=== PATIENT | female | born 1970 | race Caucasian/White ===

== ENCOUNTER 2017-12-29 22:44 | Emergency (ER) | payer OTHER ==
[2017-12-29 23:21] LABS: Absolute Lymphocytes (CBC) 2.8 K/uL (0.7-4.9); Absolute Monocytes 0.5 K/uL (0.1-1.3); Absolute Neutrophil 5.8 K/uL (1.8-8.0); Basophils % 0.6 % (0-1.3); Eosinophils % 0.6 % (0-4.4); Hematocrit 41.9 % (36.0-45.0); Lymphocytes % 30.4 % (15.3-44.8); MCH 31.7 pg (27.0-35.0); MCV 91.9 fL (80-100); MPV 9.3 fL (7.6-11.3); Monocytes % 5.3 % (3.3-12.3); RBC Red Blood Cell Count 4.56 M/uL (3.86-4.86)
[2017-12-30 01:03] LABS: Albumin 3.6 g/dL (3.4-5.0); Bilirubin Total 0.4 mg/dL (0.2-1.0); Potassium 3.6 mmol/L (3.5-5.1)
--- NOTE | 2017-12-30 01:39 | EDPHYS ---
Physician Documentation [facility] Name: Emma Carranza Age: 47 yrs Sex: Female : 1970 Arrival Date: 12/29/2017 Time: 22:45 Bed 26 Private MD: Steven Lea R ED Physician Antonino Mcqueen HPI: 12/30 00:20 This 47 yrs old Female presents to ER via Ambulatory with complaints of Chest ps1 Pain. 00:20 onset was the last week. Worse over the last couple of days. Pain is at the sternum. No ps1 radiation. Worse with palpation. Rated as moderate. No CAD history. No cough, fever. . 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:26 unk rk2 Historical: - Allergies: 12/29 23:04 Sulfa (Sulfonamide Antibiotics); fc 23:04 Benadryl; fc 23:04 Sudafed; fc - Home Meds: 23:04 Depakote 1000 mg Oral 3 times per day [Active]; Topamax 100 mg Oral tab 1 tab 2 times fc per day [Active]; Keppra 500 mg Oral tab 1 tab 2 times per day [Active]; gabapentin 300 mg oral cap 1 cap twice a day [Active]; Alma 180 mg Oral tab 1 tab twice a day [Active]; pravastatin 40 mg oral tab 1 tab nightly [Active]; Imitrex 100 mg Oral tab 1 tab as needed [Active]; quetiapine 100 mg oral tab 1 tab 2 times per day [Active]; - PMHx: 23:04 Seizures; Headaches; allergies; High Cholesterol; fc - PSHx: 23:04 foot surg; placement and removal of vagus nerve stimulator; fc - Immunization history:: Last tetanus immunization: unknown. - Social history:: Smoking status: Patient/guardian denies using tobacco. - Ebola Screening: : Patient negative for fever greater than or equal to 101.5 degrees Fahrenheit, and additional compatible Ebola Virus Disease symptoms Patient denies exposure to infectious person Patient denies travel to an Ebola-affected area in the 21 days before illness onset. ROS: 12/30 00:20 Constitutional: Negative for fever, chills, and weight loss, Eyes: Negative for injury, ps1 pain, redness, and discharge, ENT: Negative for injury, pain, and discharge, Respiratory: Negative for shortness of breath, cough, wheezing, and pleuritic chest pain, Abdomen/GI: Negative for abdominal pain, nausea, vomiting, diarrhea, and constipation, Back: Negative for injury and pain, Skin: Negative for injury, rash, and discoloration, Neuro: Negative for headache, weakness, numbness, tingling, and seizure. Cardiovascular: Positive for chest pain. MS/extremity: Positive for pain, of the mid-sternal area. Exam: 00:20 Musculoskeletal/extremity: Extremities: grossly normal except: noted in the mid-sternal ps1 area: pain. 01:36 Constitutional: This is a well developed, well nourished patient who is awake, alert, ps1 and in no acute distress. Head/Face: Normocephalic, atraumatic. Cardiovascular: Regular rate and rhythm. No gallops, murmurs, or rubs. Normal PMI, no JVD. No pulse deficits. Respiratory: Lungs have equal breath sounds bilaterally, clear to auscultation and percussion. No rales, rhonchi or wheezes noted. No increased work of breathing, no retractions or nasal flaring. Abdomen/GI: Soft, non-tender, with normal bowel sounds. No distension or tympany. No guarding or rebound. No evidence of tenderness throughout. Skin: Warm, dry with normal turgor. Normal color with no rashes, no lesions, and no evidence of cellulitis. MS/ Extremity: Pulses equal, no cyanosis. Neurovascular intact. Full, normal range of motion. Neuro: Awake and alert, GCS 15, oriented to person, place, time, and situation. Cranial nerves II-XII grossly intact. Sensory grossly intact. 01:36 Chest/axilla: Inspection: normal, Palpation: tenderness, that is moderate, of the mid-sternal area, that totally reproduces the patient's complaints. Vital Signs: 12/29 22:56 BP 153 / 84; Pulse 87; Resp 18; Temp 98.7(O); Pulse Ox 100% on R/A; Weight 86.18 kg fc (R); Height 5 ft. 6 in. (167.64 cm) (R); Pain 8/10; 12/30 00:43 BP 131 / 68; Pulse 87; Resp 18; Pulse Ox 100% on R/A; tl3 01:02 BP 114 / 78; Pulse 79; Resp 17; Pulse Ox 100% on R/A; rk2 01:26 BP 124 / 85; Pulse 89; Resp 18; Pulse Ox 100% on R/A; rk2 12/29 22:56 Body Mass Index 30.67 (86.18 kg, 167.64 cm) fc MDM: 12/29 22:57 Data reviewed: vital signs, nurses notes, lab test result(s), EKG, radiologic studies. ps1 23:01 Patient medically screened. ps1 12/30 01:36 ED course: Low HEART score. Pain reproduced on exam. Labs negative. Stable for ps1 discharge with follow up. . 12/29 23:01 Order name: CBC with Diff; Complete Time: 23:48 ps1 12/29 23:01 Order name: Magnesium; Complete Time: 01:35 ps1 12/29 23:01 Order name: Troponin (emerg Dept Use Only); Complete Time: 00:10 ps1 12/29 23:01 Order name: CMP; Complete Time: 01:35 ps1 12/30 00:43 Order name: Urine Dipstick--Ancillary (enter results) eb 12/30 00:43 Order name: Urine --Ancillary (enter results) eb 12/29 23:01 Order name: XRAY Chest (1 view) ps1 12/29 23:01 Order name: EKG; Complete Time: 23:01 ps1 12/29 23:01 Order name: Cardiac monitoring; Complete Time: 23:10 [facility] 12/29 23:01 Order name: EKG - Nurse/Tech; Complete Time: 23:10 [facility] 12/29 23:01 Order name: IV Saline Lock; Complete Time: 23:10 [facility] 12/29 23:01 Order name: Labs collected and sent; Complete Time: 23:10 [facility] 12/29 23:01 Order name: O2 Per Protocol; Complete Time: 23:10 [facility] 12/29 23:01 Order name: O2 Sat Monitoring; Complete Time: 23:10 [facility] 12/29 23:01 Order name: Urine Dipstick-Ancillary (obtain specimen); Complete Time: 00:35 ps1 EC/19 22:57 Rate is 86 beats/min. Rhythm is regular. QRS [place] is Normal. MT interval is normal. QRS ps1 interval is normal. QT interval is normal. No Q waves. T waves are Flattened in leads V4, V5, V6. No ST changes noted. Clinical impression: NSR w/ Non-specific ST/T Changes. Interpreted by me. Administered Medications: No medications were administered Disposition: 12/30/17 01:38 Discharged to Home. Impression: Costochondritis. - Condition is Stable. - Discharge Instructions: Costochondritis, [id number]. - Prescriptions for Anaprox 275 mg Oral Tablet - take 1 tablet by ORAL route every 8 hours As needed; 30 tablet. - Medication Reconciliation Form, Thank You Letter, Antibiotic Education, Prescription Opioid Use form. - Follow up: Steven Lea MD; When: As needed; Reason: Recheck today's complaints, Continuance of care, Re-evaluation by your physician. Follow up: Emergency Department; When: As needed; Reason: Fever > 102 F, Trouble breathing, Worsening of condition. - Problem is new. - Symptoms have improved. Signatures: Dispatcher [employer] EDMS Amee Moya RN RN fc Antonino Mcqueen MD MD ps1 Deb Negron RN RN rk2 Corrections: (The following items were deleted from the chart) 12/30 01:46 01:38 12/30/2017 01:38 Discharged to Home. Impression: Costochondritis. Condition is rk2 Stable. Forms are Medication Reconciliation Form, Thank You Letter, Antibiotic Education, Prescription Opioid Use. Follow up: Steven Lea; When: As needed; Reason: Recheck today's complaints, Continuance of care, Re-evaluation by your physician. Follow up: Emergency Department; When: As needed; Reason: Fever > 102 F, Trouble breathing, Worsening of condition. Problem is new. Symptoms have improved. ps1
--- NOTE | 2017-12-30 01:39 | ER ---
Nurse's Notes [facility] Name: Emma Carranza Age: 47 yrs Sex: Female : 1970 Arrival Date: 12/29/2017 Time: 22:45 Bed 26 Private MD: Steven Lea R Diagnosis: Costochondritis Presentation: 12/29 22:56 Presenting complaint: Father states: that pt has been having chest pain that is fc progressively getting worse for 2 days. Complains of nausea, vomiting and shortness of breath. Transition of care: patient was not received from another setting of care. Onset of symptoms was December 27, 2017. Risk Assessment: Do you want to hurt yourself or someone else? Patient reports no desire to harm self or others. Initial Sepsis Screen: Does the patient meet any 2 criteria? No. Patient's initial sepsis screen is negative. Does the patient have a suspected source of infection? No. Patient's initial sepsis screen is negative. Care prior to arrival: None. 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: 12/30 01:26 unk rk2 Historical: - Allergies: 12/29 23:04 Sulfa (Sulfonamide Antibiotics); fc 23:04 Benadryl; fc 23:04 Sudafed; fc - Home Meds: 23:04 Depakote 1000 mg Oral 3 times per day [Active]; Topamax 100 mg Oral tab 1 tab 2 times fc per day [Active]; Keppra 500 mg Oral tab 1 tab 2 times per day [Active]; gabapentin 300 mg oral cap 1 cap twice a day [Active]; Alma 180 mg Oral tab 1 tab twice a day [Active]; pravastatin 40 mg oral tab 1 tab nightly [Active]; Imitrex 100 mg Oral tab 1 tab as needed [Active]; quetiapine 100 mg oral tab 1 tab 2 times per day [Active]; - PMHx: 23:04 Seizures; Headaches; allergies; High Cholesterol; fc - PSHx: 23:04 foot surg; placement and removal of vagus nerve stimulator; fc - Immunization history:: Last tetanus immunization: unknown. - Social history:: Smoking status: Patient/guardian denies using tobacco. - Ebola Screening: : Patient negative for fever greater than or equal to 101.5 degrees Fahrenheit, and additional compatible Ebola Virus Disease symptoms Patient denies exposure to infectious person Patient denies travel to an Ebola-affected area in the 21 days before illness onset. Screenin:31 Abuse screen: Denies threats or abuse. Nutritional screening: No deficits noted. rk2 Tuberculosis screening: No symptoms or risk factors identified. Fall Risk None identified. Assessment: 23:32 General: Appears in no apparent distress. well groomed, well developed, well nourished, rk2 Behavior is calm, cooperative. Pain: Complains of pain in chest Pain does not radiate. Pain: Pain began gradually. Neuro: Level of Consciousness is alert, obeys commands, Oriented to person, place, time, situation. Cardiovascular: Rhythm is irregular. Respiratory: Airway is patent Respiratory effort is even, unlabored, Respiratory pattern is regular, symmetrical. Derm: Skin is pink, warm \T\ dry. 12/30 00:43 Reassessment: No changes from previously documented assessment. Patient and/or family tl3 updated on plan of care and expected duration. Pain level reassessed. Patient is alert, oriented x 3, equal unlabored respirations, skin warm/dry/pink. lab at bedside for repeat lab draw, bella young offered to pt. Vital Signs: 12/29 22:56 BP 153 / 84; Pulse 87; Resp 18; Temp 98.7(O); Pulse Ox 100% on R/A; Weight 86.18 kg fc (R); Height 5 ft. 6 in. (167.64 cm) (R); Pain 8/10; 12/30 00:43 BP 131 / 68; Pulse 87; Resp 18; Pulse Ox 100% on R/A; tl3 01:02 BP 114 / 78; Pulse 79; Resp 17; Pulse Ox 100% on R/A; rk2 01:26 BP 124 / 85; Pulse 89; Resp 18; Pulse Ox 100% on R/A; rk2 12/29 22:56 Body Mass Index 30.67 (86.18 kg, 167.64 cm) ED Course: 12/29 22:45 Patient arrived in ED. am2 22:45 Steven Lea MD is Private Physician. am2 22:46 Antonino Mqcueen MD is Attending Physician. ps1 22:56 Arm band placed on Patient placed in an exam room, on a stretcher. fc 22:58 Triage completed. fc 23:26 Deb Negron, RN is Primary Nurse. rk2 23:31 Patient has correct armband on for positive identification. Placed in gown. Bed in low rk2 position. Call light in reach. housing inspectors on. Pulse ox on. 23:37 X-ray completed. Portable x-ray completed in exam room. Patient tolerated procedure kw well. 23:38 XRAY Chest (1 view) In Process Unspecified. EDWY 12/30 01:38 Steven Lea MD is Referral Physician. ps1 01:46 No provider procedures requiring assistance completed. IV discontinued. Patient rk2 maintains SpO2 saturation greater than 95% on room air. Administered Medications: No medications were administered Outcome: 01:38 Discharge ordered by . ps1 01:46 Discharged to home ambulatory. rk2 01:46 Condition: good 01:46 Discharge instructions given to patient, Prescriptions given X 1. 01:46 Patient left the ED. rk2 Signatures: Dispatcher [employer] EDWY Amee Moya, ECHO RN Lashae Reynolds Amanda 2 Antonino Mcqueen MD MD ps1 Deb Negron, RN RN rk2 Gladis Mancilla RN RN tl3
[2017-12-30 01:53] LABS: Urine Blood NEGATIVE (NEG); Urine Glucose NEGATIVE (NEG); Urine Protein NEGATIVE (NEG); Urine Specific Gravity 1.025 (1.005-1.030)
--- NOTE | 2017-12-30 08:02 | RAD REPORT ---
EXAM DESCRIPTION: Ro Single View12/29/2017 11:37 pm CLINICAL HISTORY: Chest pain COMPARISON: 2009 FINDINGS: The lungs appear clear of acute infiltrate. The heart is normal size IMPRESSION: No acute abnormalities displayed
[2017-12-30 09:47] VITALS: TEMP 98.7; O2SAT 100
[2017-12-30 09:50] VITALS: BP 124/85
== END 2017-12-30 01:46 | disposition home or self-care (01) ==
LOC: ER 22:44
DX: M94.0 Chondrocostal junction syndrome [Tietze] (principal); E78.00 Pure hypercholesterolemia, unspecified; Z88.2 Allergy status to sulfonamides; Z88.8 Allergy status to other drugs, medicaments and biological substances
CPT/HCPCS: 36415; 71045; 80053; 81003; 81025; 83735; 84484; 85025; 93005; 99284

== ENCOUNTER 2018-02-10 08:09 | Inpatient (IN) | payer OTHER ==
[2018-02-10 08:44] LABS: Absolute Lymphocytes (CBC) 1.9 K/uL (0.7-4.9); Absolute Monocytes 0.5 K/uL (0.1-1.3); Absolute Neutrophil 4.5 K/uL (1.8-8.0); Basophils % 0.4 % (0-1.3); Eosinophils % 0.8 % (0-4.4); Hematocrit 37.6 % (36.0-45.0); Lymphocytes % 27.1 % (15.3-44.8); MCH 31.9 pg (27.0-35.0); MCV 91.3 fL (80-100); MPV 9.1 fL (7.6-11.3); Monocytes % 6.6 % (3.3-12.3); RBC Red Blood Cell Count 4.12 M/uL (3.86-4.86)
[2018-02-10 08:54] LABS: Protime INR 1.1
--- NOTE | 2018-02-10 09:03 | ER ---
Nurse's Notes [facility] Name: Emma Carranza Age: 47 yrs Sex: Female : 1970 Arrival Date: 02/10/2018 Time: 08:09 Bed 7 Private MD: Diagnosis: Abdominal tenderness;Cholelithiasis;Other acute pancreatitis Presentation: 02/10 08:10 Presenting complaint: Patient states: Day surgery nurse reports that patient came in ss today for LAP PILLO, but her preop labs came back this morning with elevated lipase level. Dr. Bautista is concerned for poss pancreatitis. Pt sent to ER for further evaluation. Transition of care: DAY SURGERY. Onset of symptoms is unknown. Risk Assessment: Do you want to hurt yourself or someone else? Patient reports no desire to harm self or others. Initial Sepsis Screen:. 08:10 Method Of Arrival: Wheelchair ss 08:10 Acuity: YARY 3 08:13 Care prior to arrival: Medication(s) given: NS TKO IV initiated. 20 GA, in the right ss antecubital area, LABs drawn yesterday for preop. 08:16 Initial Sepsis Screen: Does the patient meet any 2 criteria? No. Patient's initial ss sepsis screen is negative. Does the patient have a suspected source of infection? No. Patient's initial sepsis screen is negative. Note Pt reports upper abd pain has been going on for 1 month. Historical: - Allergies: 08:12 Benadryl; ss 08:12 Sudafed; ss 08:12 Sulfa (Sulfonamide Antibiotics); ss - PMHx: 08:12 allergies; Headaches; High Cholesterol; Seizures; ss - PSHx: 08:12 foot surg; placement and removal of vagus nerve stimulator; ss - Family history:: not pertinent. Screenin:56 Abuse screen: Denies threats or abuse. Denies injuries from another. Nutritional sv screening: No deficits noted. Tuberculosis screening: No symptoms or risk factors identified. Fall Risk None identified. Assessment: 09:57 General: Appears in no apparent distress. comfortable, well developed, Behavior is sv calm, cooperative, appropriate for age. Pain: Denies pain. Neuro: Level of Consciousness is awake, alert, obeys commands, Oriented to person, place, time, situation, Moves all extremities. Full function. Respiratory: Respiratory effort is even, unlabored, Respiratory pattern is regular, symmetrical. Derm: Skin is pink, warm \T\ dry. 10:52 Reassessment: Nurse to call back for report. sv 10:54 Reassessment: Patient appears in no apparent distress at this time. No changes from sv previously documented assessment. Patient and/or family updated on plan of care and expected duration. Pain level reassessed. Patient is alert, oriented x 3, equal unlabored respirations, skin warm/dry/pink. Vital Signs: 08:16 BP 154 / 91; Pulse 79; Resp 15; Temp 98.3(O); Pulse Ox 98% on R/A; Weight 88 kg; Height ss 5 ft. 6 in. (167.64 cm); Pain 10/10; 10:00 BP 132 / 70; Pulse 73; Resp 18; Pulse Ox 100% ; sv 11:02 BP 137 / 77; Pulse 68; Resp 18; Pulse Ox 100% ; sv 08:16 Body Mass Index 31.31 (88.00 kg, 167.64 cm) ED Course: 08:09 Patient arrived in ED. ss 08:10 Long Santiago MD is Attending Physician. sailaja 08:11 Triage completed. ss 08:12 Arm band placed on right wrist. ss 08:39 Initial lab(s) drawn, by me, sent to lab. em1 08:41 EKG done, by hydrotechnical specialist. reviewed by Long Santiago MD. at1 09:01 Steven Lea MD is Hospitalizing Provider. sailaja 09:06 Lamar Mullins, ECHO is Primary Nurse. sv 09:07 X-ray completed. Portable x-ray completed in exam room. Patient tolerated procedure jb2 well. 09:08 XRAY Chest (1 view) In Process Unspecified. EDMS 09:18 Patient moved to MRI via wheelchair. sv 09:37 CT completed. Patient tolerated procedure well. Patient moved back from CT. kw1 09:40 MRI completed. Patient tolerated well. Patient moved back from MRI. em2 09:56 Patient has correct armband on for positive identification. Placed in gown. Bed in low sv position. Call light in reach. Side rails up X2. Adult w/ patient. Pulse ox on. NIBP on. Door closed. Warm blanket given. Head of bed elevated. 10:55 No provider procedures requiring assistance completed. Patient admitted, IV remains in sv place. intact. Administered Medications: 09:47 CANCELLED (Duplicate Order): NS 0.9% 1000 ml IV at 125 ml/hr continuous sv 09:49 CANCELLED (Duplicate Order): NS 0.9% 1000 ml IV at 1 bolus Per protocol; 1000 mL bolus sv 09:56 Drug: NS 0.9% 1000 ml Route: IV; Rate: 1 bolus; Site: right antecubital; sv 10:55 Follow up: Response: No adverse reaction; IV Status: Completed infusion; IV Intake: sv 1000ml 09:56 Drug: Zosyn 3.375 grams Route: IVPB; Infused Over: 60 mins; Site: right antecubital; sv 10:55 Follow up: Response: No adverse reaction; IV Status: Completed infusion; IV Intake: sv 100ml 11:18 Not Given (pt admitted): NS 0.9% 1000 ml IV at 125 ml/hr continuous sv Intake: 10:55 IV: 100ml; Total: 100ml. sv 10:55 IV: 1000ml; Total: 1100ml. sv Outcome: 09:02 Decision to Hospitalize by Provider. sailaja 11:19 Admitted to Med/surg accompanied by tech, family with patient, via wheelchair, room sv 228, with chart, Report called to Shavon DODGE 11:19 Condition: stable 11:19 Instructed on the need for admit. 11:20 Patient left the ED. sv Signatures: Dispatcher [employer] Lamar Macdonald RN Long Bo MD MD cha Buechter, Jesse jb2 Martinez, Eric em1 Magi Morales RN RN Torres Severino2 Andree browning, flitch hanger EKG Tat1 Crystal Purdy kw1 Corrections: (The following items were deleted from the chart) 08:13 08:10 Care prior to arrival: None. [facility]
--- NOTE | 2018-02-10 09:03 | EDPHYS ---
Physician Documentation [facility] Name: Emma Carranza Age: 47 yrs Sex: Female : 1970 Arrival Date: 02/10/2018 Time: 08:09 Bed 7 Private MD: ED Physician Long Santiago HPI: 02/10 08:27 This 47 yrs old Female presents to ER via Wheelchair with complaints of sailaja Abnormal Lab Results. 08:27 The patient presents with abdominal pain in the epigastric area, in the upper abdomen, sailaja abdominal distention in the epigastric area, in the upper abdomen. Onset: The symptoms/episode began/occurred 3 day(s) ago. The symptoms radiate to back. Associated signs and symptoms: none. The symptoms are described as constant, crampy. Modifying factors: The symptoms are alleviated by nothing, the symptoms are aggravated by food, touching the area. Severity of pain: At its worst the pain was moderate. The patient has not experienced similar symptoms in the past. Historical: - Allergies: 08:12 Benadryl; ss 08:12 Sudafed; ss 08:12 Sulfa (Sulfonamide Antibiotics); ss - PMHx: 08:12 allergies; Headaches; High Cholesterol; Seizures; ss - PSHx: 08:12 foot surg; placement and removal of vagus nerve stimulator; ss - Family history:: not pertinent. ROS: 08:27 Constitutional: Negative for fever, chills, and weight loss, Eyes: Negative for injury, sailaja pain, redness, and discharge, ENT: Negative for injury, pain, and discharge, Neck: Negative for injury, pain, and swelling, Cardiovascular: Negative for chest pain, palpitations, and edema, Respiratory: Negative for shortness of breath, cough, wheezing, and pleuritic chest pain, Back: Negative for injury and pain, : Negative for injury, bleeding, discharge, and swelling, MS/Extremity: Negative for injury and deformity, Skin: Negative for injury, rash, and discoloration, Neuro: Negative for headache, weakness, numbness, tingling, and seizure, Psych: Negative for depression, anxiety, suicide ideation, homicidal ideation, and hallucinations, Allergy/Immunology: Negative for hives, rash, and allergies, Endocrine: Negative for neck swelling, polydipsia, polyuria, polyphagia, and marked weight changes, Hematologic/Lymphatic: Negative for swollen nodes, abnormal bleeding, and unusual bruising. 08:27 Abdomen/GI: Positive for abdominal pain. Exam: 08:27 Constitutional: This is a well developed, well nourished patient who is awake, alert, sailaja and in no acute distress. Head/Face: Normocephalic, atraumatic. Eyes: Pupils equal round and reactive to light, extra-ocular motions intact. Lids and lashes normal. Conjunctiva and sclera are non-icteric and not injected. Cornea within normal limits. Periorbital areas with no swelling, redness, or edema. ENT: Nares patent. No nasal discharge, no septal abnormalities noted. Tympanic membranes are normal and external auditory canals are clear. Oropharynx with no redness, swelling, or masses, exudates, or evidence of obstruction, uvula midline. Mucous membranes moist. Neck: Trachea midline, no thyromegaly or masses palpated, and no cervical lymphadenopathy. Supple, full range of motion without nuchal rigidity, or vertebral point tenderness. No Meningismus. Chest/axilla: Normal chest wall appearance and motion. Nontender with no deformity. No lesions are appreciated. Cardiovascular: Regular rate and rhythm with a normal S1 and S2. No gallops, murmurs, or rubs. Normal PMI, no JVD. No pulse deficits. Respiratory: Lungs have equal breath sounds bilaterally, clear to auscultation and percussion. No rales, rhonchi or wheezes noted. No increased work of breathing, no retractions or nasal flaring. Back: No spinal tenderness. No costovertebral tenderness. Full range of motion. Female : Normal external genitalia. Skin: Warm, dry with normal turgor. Normal color with no rashes, no lesions, and no evidence of cellulitis. MS/ Extremity: Pulses equal, no cyanosis. Neurovascular intact. Full, normal range of motion. Neuro: Awake and alert, GCS 15, oriented to person, place, time, and situation. Cranial nerves II-XII grossly intact. Motor strength 5/5 in all extremities. Sensory grossly intact. Cerebellar exam normal. Normal gait. Psych: Awake, alert, with orientation to person, place and time. Behavior, mood, and affect are within normal limits. 08:27 Abdomen/GI: Inspection: abdomen appears normal, Bowel sounds: normal, Palpation: mild abdominal tenderness, moderate abdominal tenderness, in the epigastric area, right upper quadrant and left upper quadrant. 08:27 Abdomen/GI: Liver: no appreciated palpable abnormalities, Hernia: not appreciated. [facility] Vital Signs: 08:16 BP 154 / 91; Pulse 79; Resp 15; Temp 98.3(O); Pulse Ox 98% on R/A; Weight 88 kg; Height ss 5 ft. 6 in. (167.64 cm); Pain 10/10; 10:00 BP 132 / 70; Pulse 73; Resp 18; Pulse Ox 100% ; sv 11:02 BP 137 / 77; Pulse 68; Resp 18; Pulse Ox 100% ; sv 08:16 Body Mass Index 31.31 (88.00 kg, 167.64 cm) ss MDM: 08:10 Patient medically screened. [facility] 08:27 Data reviewed: vital signs, nurses notes, lab test result(s), EKG, radiologic studies, [facility] MRI, plain films, ultrasound. 02/10 08:19 Order name: Basic Metabolic Panel; Complete Time: 09:38 [facility] 02/10 08:19 Order name: CBC with Diff; Complete Time: 09:00 [facility] 02/10 08:19 Order name: Ckmb; Complete Time: 09:38 [facility] 02/10 08:19 Order name: CPK; Complete Time: 09:38 [facility] 02/10 08:19 Order name: LFT's; Complete Time: 09:39 [facility] 02/10 08:19 Order name: Magnesium; Complete Time: 09:39 [facility] 02/10 08:19 Order name: NT PRO-BNP; Complete Time: 09:39 [facility] 02/10 08:19 Order name: PT-INR; Complete Time: 09:38 [facility] 02/10 08:19 Order name: Ptt, Activated; Complete Time: 09:39 [facility] 02/10 08:19 Order name: Troponin (emerg Dept Use Only); Complete Time: 09:39 [facility] 02/10 08:19 Order name: Lipase; Complete Time: 09:39 [facility] 02/10 09:09 Order name: Basic Metabolic Panel EDMS 02/10 09:09 Order name: Basic Metabolic Panel EDMS 02/10 09:09 Order name: CBC with Automated Diff EDMS 02/10 08:19 Order name: XRAY Chest (1 view); Complete Time: 09:39 [facility] 02/10 08:19 Order name: EKG; Complete Time: 08:20 [place] 02/10 08:34 Order name: Cholangiogram; Complete Time: 11:00 EDAL 02/10 09:09 Order name: CONS Physician Consult EDAL 02/10 09:09 Order name: CBC with Automated Diff EDMS 02/10 09:09 Order name: Lipase EDMS 02/10 09:09 Order name: Lipase EDMS 02/10 09:09 Order name: Liver (Hepatic) Function EDMS 02/10 09:09 Order name: Liver (Hepatic) Function EDMS 02/10 09:14 Order name: Urine Dipstick--Ancillary (enter results); Complete Time: 09:39 eb 02/10 09:14 Order name: Urine --Ancillary (enter results); Complete Time: 09:39 eb 02/10 08:19 Order name: EKG - Nurse/Tech; Complete Time: 09:48 [facility] 02/10 08:19 Order name: IV Saline Lock; Complete Time: 09:23 [facility] 02/10 08:19 Order name: Labs collected and sent; Complete Time: 08:39 [place] 02/10 08:19 Order name: O2 Per Protocol; Complete Time: 09:23 [place] 02/10 08:19 Order name: O2 Sat Monitoring; Complete Time: 09:23 [facility] 02/10 08:19 Order name: Urine Dipstick-Ancillary (obtain specimen); Complete Time: 09:49 [facility] 02/10 08:19 Order name: NPO; Complete Time: 09:47 [facility] 02/10 09:09 Order name: CONS Physician Consult EDAL 02/10 09:09 Order name: NPO EDAL Administered Medications: 09:47 CANCELLED (Duplicate Order): NS 0.9% 1000 ml IV at 125 ml/hr continuous sv 09:49 CANCELLED (Duplicate Order): NS 0.9% 1000 ml IV at 1 bolus Per protocol; 1000 mL bolus sv 09:56 Drug: NS 0.9% 1000 ml Route: IV; Rate: 1 bolus; Site: right antecubital; sv 10:55 Follow up: Response: No adverse reaction; IV Status: Completed infusion; IV Intake: sv 1000ml 09:56 Drug: Zosyn 3.375 grams Route: IVPB; Infused Over: 60 mins; Site: right antecubital; sv 10:55 Follow up: Response: No adverse reaction; IV Status: Completed infusion; IV Intake: sv 100ml 11:18 Not Given (pt admitted): NS 0.9% 1000 ml IV at 125 ml/hr continuous sv Disposition: 02/10/18 09:02 Hospitalization ordered by Steven Lea for Inpatient Admission. Preliminary diagnosis are Abdominal tenderness, Cholelithiasis, Other acute pancreatitis. - Bed requested for Telemetry/MedSurg (Inpatient). - Status is Inpatient Admission. sv - Condition is Fair. - Problem is new. - Symptoms have improved. UTI on Admission? No Signatures: Dispatcher [employer] EDMS Lamar Mullins RN RN sv Anderson, Corey, MD MD cha Smirch, Shelby, RN RN Shereen Hamilton Corrections: (The following items were deleted from the chart) 09:04 09:02 Hospitalization Ordered by Steven Lea MD for Inpatient Admission. Preliminary eb diagnosis is Abdominal tenderness; Cholelithiasis; Other acute pancreatitis. Bed requested for Telemetry/MedSurg (Inpatient). Status is Inpatient Admission. Condition is Fair. Problem is new. Symptoms have improved. UTI on Admission? No. sailaja 09:47 08:20 NS 0.9% 1000 ml IV at 125 ml/hr continuous ordered. sailaja sv 09:47 09:47 NS 0.9% 1000 ml IV at 125 ml/hr continuous ordered. sv sv 09:49 08:20 NS 0.9% 1000 ml IV at 1 bolus Per protocol; 1000 mL bolus ordered. sailaja sv 09:49 09:49 NS 0.9% 1000 ml IV at 1 bolus Per protocol; 1000 mL bolus ordered. sv sv 09:50 08:19 Cardiac monitoring ordered. sailaja sv 10:21 09:04 02/10/2018 09:02 Hospitalization Ordered by Steven Lea MD for Inpatient eb Admission. Preliminary diagnosis is Abdominal tenderness; Cholelithiasis; Other acute pancreatitis. Bed requested for Telemetry/MedSurg (Inpatient). Status is Inpatient Admission. Condition is Fair. Problem is new. Symptoms have improved. UTI on Admission? No. eb 11:20 10:21 02/10/2018 09:02 Hospitalization Ordered by Steven Lea MD for Inpatient sv Admission. Preliminary diagnosis is Abdominal tenderness; Cholelithiasis; Other acute pancreatitis. Bed requested for Telemetry/MedSurg (Inpatient). Status is Inpatient Admission. Condition is Fair. Problem is new. Symptoms have improved. UTI on Admission? No. eb
[2018-02-10] MEDS ORDERED: ACETAMINOPHEN 500 MG TAB PO PRN (09:06)
[2018-02-10 09:13] LABS: ALT/SGPT 20 U/L (12-78); AST/SGOT 19 U/L (15-37); Albumin 3.8 g/dL (3.4-5.0); Alkaline Phosphatase 92 U/L (45-117); BUN Blood Urea Nitrogen 15 mg/dL (7-18); Bicarbonate 28 mmol/L (21-32); Bilirubin Direct 0.2 mg/dL (0-0.2); Bilirubin Total 0.8 mg/dL (0.2-1.0); CKMB Creatine Kinase MB < 1.0 ng/mL (0.3-3.6); Creatine Phosphokinase 89 U/L (26-192); Glucose Level 104 mg/dL (74-106); Lipase 216 U/L (73-393); Magnesium 2.1 mg/dL (1.8-2.4); NT PRO-BNP 71 pg/mL (<125); Potassium 3.9 mmol/L (3.5-5.1); Protein, Total 7.1 g/dL (6.4-8.2); Sodium Level 142 mmol/L (136-145)
--- NOTE | 2018-02-10 09:28 | RAD REPORT ---
EXAM DESCRIPTION: RAD - Chest Single View - 02/10/2018 9:13 am CLINICAL HISTORY: COUGH Chest pain. COMPARISON: Chest Pa And Lat (2 Views) dated 02/09/2018; Chest Single View dated 12/29/2017; CHEST SIN GLE VIEW dated 12/19/2009; CHEST SINGLE VIEW dated 03/22/2002 FINDINGS: Portable technique limits examination quality. The lungs are grossly clear. The heart is normal in size. No displaced fractures. IMPRESSION: No acute intrathoracic process suspected.
[2018-02-10] MEDS ORDERED: PIPER/TAZO/NS 3.375gm 3.375 GM/100 ML BAG ONE (09:30)
[2018-02-10] MEDS ORDERED: NA CHLORIDE 0.9% 1,000 ML ONE (09:30)
[2018-02-10 09:35] LABS: Urine Blood NEGATIVE (NEG); Urine Glucose NEGATIVE (NEG); Urine Protein NEGATIVE (NEG); Urine pH 6.5 (5.0-7.0)
--- NOTE | 2018-02-10 10:08 | RAD REPORT ---
EXAM DESCRIPTION: MRI - Cholangiogram - 02/10/2018 9:48 am CLINICAL HISTORY: pancreatitis Abdominal pain COMPARISON: Abdomen Exam Complete dated 01/21/2018 FINDINGS: Three-dimensional MRCP was performed using maximum intensity projection reconstruction on the same work station. No intrahepatic biliary tree dilatation is seen. The common bile duct is normal caliber without evide nce of retained stone, stricture or mass. The pancreatic duct is not pathologically dilated. Multiple small stones are present in the gallbladder. Limited T2 sequences through the abdomen demonstrates no bulky adenopathy, significant free fluid or abscess. IMPRESSION: Extensive cholelithiasis is seen. No biliary tree abnormality is seen. Pancreas is unremarkable.
[2018-02-10 11:33] VITALS: BMI 29.8
[2018-02-10] MEDS: D5 0.45 NS 1,000 ML IV SCH ×3 (11:43→22:17)
[2018-02-10] MEDS ORDERED: GENTAMICIN SULF 80 MG/2ML INJ ONE (11:48)
[2018-02-10] MEDS ORDERED: Ringers Lactate 1,000 ML IV ONE (12:27)
[2018-02-10] MEDS ORDERED: ONDANSETRON HCL 40 MG/20 ML VIAL ONE (12:30)
[2018-02-10] MEDS ORDERED: PROPOFOL 200 MG/20 ML VIAL IV ONE (12:30)
[2018-02-10] MEDS ORDERED: LIDOCAINE 1% MPF 2 ML AMPULE ONE (12:31)
[2018-02-10 12:40] LABS: Urine Appearance CLEAR; Urine Bilirubin NEGATIVE (NEG); Urine Blood NEGATIVE (NEG); Urine Color YELLOW; Urine Glucose NEGATIVE (NEG); Urine Protein NEGATIVE (NEG); Urine Urobilinogen 0.2 mg/dL (0.2-1.0)
[2018-02-10 12:42] LABS: Urine Microscopic Reflex NO UMIC
[2018-02-10] MEDS ORDERED: levETIRAcetam 500 MG TAB PO ONE (13:39)
[2018-02-10] MEDS ORDERED: DIVALPROEX DR 250 MG TAB PO ONE ×2 (13:39→15:00)
[2018-02-10] MEDS ORDERED: GABAPENTIN 300 MG CAP PO ONE (13:41)
[2018-02-10] MEDS ORDERED: TOPIRAMATE 100 MG TAB PO ONE (13:42)
--- NOTE | 2018-02-10 14:35 | EKG ---
Test Date: 2018-02-10 Test Time: 08:27:18 Senior Supply Chain Analyst: GRCEIA MEASUREMENT RESULTS: Intervals: Rate: 71 [place]: 154 QRSD: 78 QT: 370 QTc: 402 [place]: P: 23 [place]: 154 QRS: 32 T: 13 INTERPRETIVE STATEMENTS: Normal sinus rhythm Nonspecific T wave abnormality Abnormal ECG Compared to ECG 02/09/2018 16:14:22 No significant changes Electronically Signed On 02-10-18 14:34:25 CDT by Tamir Tavarez
--- NOTE | 2018-02-10 14:51 | CON ---
Date of Consultation: 02/10/2018 Reason For Consultation: Cholelithiasis with possible cholecystitis and upper abdominal pain. History Of Present Illness: The patient is a 47-year-old white female with history of foot surgery a nd elevated liver chemistries. The patient presented to the hospital due to right upper quadrant jannet n and midepigastric pain. The patient noted to have elevated liver chemistries today before now than her normal. MRCP is normal. Ultrasound revealed gallstones, normal common bile duct on ultrasound. Past Medical History: Significant for foot surgery, implant for seizures and thyroid. problems. Medications: At home include levothyroxine, Depakote, Topamax, quetiapine, Keppra, gabapentin, Alleg ra, pravastatin, sumatriptan. Allergies: TO SUDAFED, BENADRYL, SULFA. Social History: As per the patient's legal guardian, the patient has some mental retardation. Family History: Father had prostate cancer, heart disease, hypertension. Mother had blood cancer, h eart disease, hypertension, and diabetes. Physical Examination: Vital Signs: The patient is afebrile. Vital Signs are stable with a temperature of 97.6 degrees Fah renheit, pulse 70, respirations 16, blood pressure 145/84, O2 saturation 100%. General: Well nourished, well developed, no acute distress. HEENT: Normocephalic, atraumatic. Anicteric. Pupils equal, round, and reactive to light. Extraocu lar movements intact. Oropharynx is clear. Neck: Supple. No masses. Respirations: Clear to auscultation bilaterally. Cardiac: Regular rate and rhythm. Gastrointestinal: Positive bowel sounds. Soft, nondistended. Some mild pain in the midepigastric, left upper quadrant areas. No peritoneal or Lee sign. Extremities: No clubbing, cyanosis, or edema. 2+ pulses. Neuro: Alert and oriented x3, though some mental retardation noted. Moves all extremities well. Se nsation intact to light touch. Laboratory Data: The patient had a lipase of 538. It was elevated on February 09, today is down to 21 6. Yesterday and today, her liver chemistries were normal with total bili had gone from 0.6 to 0.8, AST from 26 to 19, ALT from 23 to 20, alkaline phosphatase 103 to 92 from the 08/12. The patient als o has a total protein of 7.1, albumin 3.8. Sodium 142, potassium 3.9, chloride 111, bicarb 28, BUN o f 15, creatinine of 1.0, glucose of 104. Calcium 9.3, magnesium 2.1. PT of 13.0, INR of 1.1, PTT of 26.6. The patient has a white blood cell count of 7.0, hemoglobin 13.1, hematocrit 37.6, MCV of 91, platelet count 159, polys of 65%, lymphocytes 27%, monocytes 7%. Ultrasound of abdomen revealed gal lstones in the gallbladder without signs of gallbladder wall inflammation. Impression: Gallstone pancreatitis. She has seemingly resolved. MRCP which was done today was nega tive. Recommendations: 1.Laparoscopic cholecystectomy as per Surgery. 2.If the patient has recurrence of gallstone pancreatitis gallstone in the bile duct, we will proceed with ERCP. MRCP now is negative and liver numbers are negative as well as lipase is neg ative today compared to yesterday. We will presume that the patient has past possible gallstone caus ing gallstone pancreatitis and is ready for surgery at this time. KAHLIL/TESSY Voice ID: [id number] Report ID: [id number]
[2018-02-10] MEDS: ONDANSETRON 4 MG/2 ML VIAL IV PRN (14:54)
[2018-02-10] MEDS: PIPER/TAZO/NS 3.375gm 3.375 GM/100 ML BAG IVPB SCH (17:14)
[2018-02-10] MEDS: FAMOTIDINE 20 MG/2 ML VIAL IV SCH (22:17)
[2018-02-10] MEDS: GABAPENTIN 300 MG CAP PO SCH (22:18)
[2018-02-10] MEDS: levETIRAcetam 500 MG TAB PO SCH (22:18)
[2018-02-10] MEDS: DIVALPROEX DR 500MG TAB PO SCH (22:18)
[2018-02-10] MEDS: QUETIAPINE 100MG TAB PO SCH (22:18)
[2018-02-10] MEDS: TOPIRAMATE 100 MG TAB PO SCH (22:18)
[2018-02-11] MEDS: PIPER/TAZO/NS 3.375gm 3.375 GM/100 ML BAG IVPB SCH ×3 (01:43→17:31)
--- NOTE | 2018-02-11 02:16 | HP ---
Date of Admission: 02/10/2018 Chief Complaint: Abdominal pain. History Of Present Illness: A 47-year-old female who was expected to have laparoscopic cholecystecto my; however, preop evaluation was found to have elevated lipase. The patient was sent to ER, where e valuation was done. The patient is admitted. There is no history of fever, chills, or rigors. No h istory of chest pain. Past Medical History: Positive for recently diagnosed gallstones, hyperlipidemia, seizure disorder, migraines. Past Surgical History: Positive for foot surgery. Family History: Diabetes present, coronary artery disease present. Review of Systems: No history of fever, chills, or rigors. Physical Examination: General: Revealed a 47-year-old female in [id number] pain. HEENT: No icterus. Neck: Supple. JVD negative. Chest: Clear. Heart: Regular. Abdomen: Tender in the epigastric area. Bowel sounds present. Extremities: No edema. Laboratory Data: Normal lipase, normal CBC. MRCP, no evidence of gallstone obstruction. Assessment: 1.Symptomatic acute cholecystitis. 2.Seizure disorder. 3.Hyperlipidemia. 4.Migraine. 5.Hypothyroidism. Plan: Surgical and GI consultation has done. MICHAEL/TESSY Voice ID: [id number]
[2018-02-11 05:02] LABS: Absolute Lymphocytes (CBC) 2.5 K/uL (0.7-4.9); Absolute Monocytes 0.4 K/uL (0.1-1.3); Absolute Neutrophil 2.4 K/uL (1.8-8.0); Basophils % 0.3 % (0-1.3); Eosinophils % 1.5 % (0-4.4); Hematocrit 34.5 % (36.0-45.0); Lymphocytes % 46.2 % (15.3-44.8); MCH 32.6 pg (27.0-35.0); MCV 91.7 fL (80-100); Monocytes % 6.6 % (3.3-12.3); RBC Red Blood Cell Count 3.76 M/uL (3.86-4.86)
[2018-02-11 05:28] LABS: Albumin 3.3 g/dL (3.4-5.0); Bilirubin Direct 0.2 mg/dL (0-0.2); Bilirubin Total 0.6 mg/dL (0.2-1.0); Protein, Total 6.3 g/dL (6.4-8.2)
[2018-02-11] MEDS: QUETIAPINE 100MG TAB PO SCH ×2 (08:26→21:04)
[2018-02-11] MEDS: FAMOTIDINE 20 MG/2 ML VIAL IV SCH ×2 (08:26→21:04)
[2018-02-11] MEDS: TOPIRAMATE 100 MG TAB PO SCH ×2 (08:27→21:05)
[2018-02-11] MEDS: GABAPENTIN 300 MG CAP PO SCH ×2 (08:28→21:05)
[2018-02-11] MEDS: levETIRAcetam 500 MG TAB PO SCH ×2 (08:28→21:05)
[2018-02-11] MEDS: LEVOTHYROXINE SOD 0.025 MG TAB PO SCH (08:28)
[2018-02-11] MEDS: MORPHINE 4 MG/ML SYR IV PRN ×3 (08:31→18:37)
[2018-02-11] MEDS: DIVALPROEX DR 500MG TAB PO SCH ×3 (08:35→21:04)
[2018-02-11] MEDS: D5 0.45 NS 1,000 ML IV SCH ×3 (13:26→21:03)
[2018-02-11] MEDS: ONDANSETRON 4 MG/2 ML VIAL IV PRN (13:47)
--- NOTE | 2018-02-11 18:45 | P.PN ---
Subjective Date of Service: 02/11/18 Chief Complaint: GS pancreatitis with DIANELYS/LUQ/RUQ pain Subjective: No new changes Review of Systems 10-point ROS is otherwise unremarkable Gastrointestinal: Abdominal Pain Physical Examination - Vital Signs Temperature: 96.7 F Blood Pressure: 101/63 Pulse: 73 Respirations: 18 Pulse Ox (%): 92 - Physical Exam General: Alert, In no apparent distress, Oriented x3, Cooperative HEENT: Atraumatic, Normocephalic, PERRLA, EOMI, Sclerae nonicteric Neck: Supple Assessment And Plan - Current Problems (Diagnosis) (1) Gallstone pancreatitis Current Visit: Yes Status: Acute Comment: Lipase from 500+ to normal level. Normal liver chemistries. Negative MRCP. (2) Epigastric abdominal pain Current Visit: Yes Status: Acute (3) LUQ abdominal pain Current Visit: Yes Status: Acute (4) RUQ abdominal pain Current Visit: Yes Status: Acute (5) Cholelithiasis Current Visit: No Status: Acute - Plan REC: 1) lap carlee as per surgery 2) will follow
[2018-02-11] MEDS ORDERED: ATORVASTATIN 10 MG TAB PO SCH (21:00)
--- NOTE | 2018-02-11 22:10 | PN ---
Date of Progress Note: 02/11/2018 Diagnoses: Acute symptomatic cholelithiasis and gallstone pancreatitis. Subjective: The patient is feeling better. Finally, clinically she is starting to improve. The pat iekelsea was consulted with the manager water wastewater and also had some MRCP done. Objective: General: The patient is awake and alert. No distress. HEENT: Pupils are equal and reactive, anicteric. Neck: Supple. Chest: Clear. Abdomen: Epigastric right upper quadrant tenderness. Rectal: Deferred. Breasts: Deferred. Pelvic: Deferred. Extremities: Good capillary refill. Imaging: MRCP is discussed with the patient with no common bile stone seen, although extensive carlee lithiasis. We appreciate Dr. Jade's consultation in this patient. Assessment: Gallstone pancreatitis. Plan: Once again as before, plan for laparoscopic possible open cholecystectomy with benefits, alter natives, and risks including but not limited to infection, bleeding, damage to adjacent structures, a nesthesia complication, choledocholithiasis, bile leak, pancreatitis, GA, and even . She also u nderstands this may not relieve the symptoms. She might need more than one surgical intervention. BRODERICK/TESSY Voice ID: [id number] Report ID: [id number]
[2018-02-12] MEDS: PIPER/TAZO/NS 3.375gm 3.375 GM/100 ML BAG IVPB SCH ×3 (01:14→16:49)
[2018-02-12] MEDS: LEVOTHYROXINE SOD 0.025 MG TAB PO SCH (09:00)
[2018-02-12] MEDS: FAMOTIDINE 20 MG/2 ML VIAL IV SCH (09:00)
[2018-02-12] MEDS: DIVALPROEX DR 500MG TAB PO SCH ×2 (09:03→12:18)
[2018-02-12] MEDS: TOPIRAMATE 100 MG TAB PO SCH (09:04)
[2018-02-12] MEDS: GABAPENTIN 300 MG CAP PO SCH (09:04)
[2018-02-12] MEDS: QUETIAPINE 100MG TAB PO SCH (09:04)
[2018-02-12] MEDS: levETIRAcetam 500 MG TAB PO SCH (09:04)
[2018-02-12] MEDS: MORPHINE 4 MG/ML SYR IV PRN (09:24)
[2018-02-12] MEDS: D5 0.45 NS 1,000 ML IV SCH (09:26)
--- NOTE | 2018-02-12 10:43 | PN ---
Subjective: The patient is under the effect of pain medications; however, she is doing okay. Objective: She has good breath sounds. Her heart is regular. Abdomen bowel sounds present. Plan: We will discuss with Dr. Bautista. MICHAEL/TESSY Voice ID: [id number] Report ID: [id number]
[2018-02-12] MEDS ORDERED: Ringers Lactate 1,000 ML IV ONE (12:04)
[2018-02-12] MEDS ORDERED: LIDOCAINE 2% MPF 5 ML VIAL ONE (12:07)
[2018-02-12] MEDS ORDERED: MIDAZOLAM HCL 2 MG/2 ML INJ ONE (12:07)
[2018-02-12] MEDS ORDERED: PROPOFOL 200 MG/20 ML VIAL IV ONE (12:07)
[2018-02-12] MEDS ORDERED: FENTANYL CITR 250 MCG/5 ML ONE (12:07)
[2018-02-12] MEDS ORDERED: ONDANSETRON HCL 40 MG/20 ML VIAL ONE (12:08)
[2018-02-12] MEDS ORDERED: ROCURONIUM 50 MG/5 ML VIAL IV ONE (12:08)
[2018-02-12] MEDS ORDERED: KETOROLAC 30 MG/ML INJ ONE (13:28)
[2018-02-12] MEDS ORDERED: GLYCOPYRROLATE 0.2 MG/ML SYR ONE ×2 (13:33)
[2018-02-12] MEDS ORDERED: NEOSTIGMINE 1 MG/ML -5 ML SYRINGE ONE (13:34)
--- NOTE | 2018-02-12 13:35 | P.BOP ---
Preoperative diagnosis: gallstone pancreatitis, Postoperative diagnosis: same Primary procedure: Laparoscopic cholecystectomy Estimated blood loss: <10cc Specimen: gb Findings: as above Anesthesia: General Complications: None Transferred to: Recovery Room Condition: Good
[2018-02-12] MEDS ORDERED: HYDROCODONE/APAP 5/325 MG TAB PO PRN (13:59)
[2018-02-12] MEDS: MORPHINE 4 MG/ML SYR ONE ×2 (14:14→14:19)
[2018-02-12 14:33] VITALS: O2SAT 98
--- NOTE | 2018-02-12 15:01 | OP ---
Date of Procedure: 02/12/2018 Surgeon: Sandro Bautista MD Preoperative Diagnosis: Gallstone pancreatitis. Postoperative Diagnosis: Gallstone pancreatitis. Procedure: Laparoscopic cholecystectomy. Specimen: Gallbladder. Finding: As above. Anesthesia: General plus local. Indications: This is the case of a 47-year-old patient, comes to us with acute cholecystitis, right upper quadrant pain, and gallstone pancreatitis. Surgery had to be postponed because of the pancreat itis. Now clinically, she looks better. She preferred to have surgery done during this admission. So, we booked her for laparoscopic, possible open cholecystectomy with benefits, alternatives, and ri sks including, but not limited to infection, bleeding, damage to adjacent structures, anesthesia comp lication, choledocholithiasis, bile leak, pancreatitis, IA, and even . She also understands thi s may not relieve any symptoms. She might need more than one surgical intervention. She understood. Signed a consent. The patient's father also approved the consent. Description Of Procedure: The patient brought to the operating room, placed in supine position. Ane sthesia was done without complication. Abdominal area was prepped and draped in a sterile fashion. Marcaine 0.5% injected for local anesthetic, followed by sharp incision of the skin in the infraumbil ical region. Incision was carried down to fascia, which was opened under direct vision. Peritoneum was encountered, opened under direct vision. Vicryl #1 placed inside the fascia. Raquel trocar was carefully introduced. No bleeding was obtained. I placed 3 more trocars, 5 mm each one of them, in the right upper quadrant under direct visualization. The gallbladder looks distended and edematous w ith adhesions to it. We have to deflate the gallbladder under direct visualization with an Endo need le and the needle was removed under direct visualization. After that, grasper was placed in the fund us of the gallbladder. Adhesions of omentum to the gallbladder were carefully removed and then we pu t another grasper in the fundus of the gallbladder, retracting the gallbladder in the inferolateral f ashion exposing the triangle of Calot and obtaining critical view safety. The cystic duct and cystic artery were clearly isolated free circumferentially and a connection between those and the gallbladd er were clearly identified. I proceeded to ligate those by using at least 3 clips proximal, 1 clip d istal, ligation in middle. Same was done with the cystic artery. A small little branch of the cysti c artery was also ligated. The hepatic arteries and common bile duct were protected at all times. G allbladder was removed from liver using Bovie cauterizer and removed from abdominal cavity using an E ndoCatch through the umbilical incision. The area was inspected once again. Clips were intact. No bile leak. No bleeding. Gallbladder fossa with no bleeding. At that moment, I proceeded to remove the trocars under direct visualization. Deflated pneumoperitoneum. Closed the fascia with #1 Vicryl . Irrigated subcu tissue, closed that with 3-0 chromic and skin with chanda. Sponge count and inst rument counts were correct. The patient tolerated the procedure well. The patient was sent to [facility] condition. If the patient feel better this afternoon and after dinner if she can alba ate dinner then from the surgical standpoint, we have no objection to be discharged home with the con dition that she does not do any heavy lifting, follow up in my office in 1 week, keep the area dry fo r 48 hours and then may shower. If she cannot tolerate diet, we encouraged her to stay overnight and we will try that again in the morning. BRODERICK/TESSY Voice ID: [id number] Report ID: [id number]
[2018-02-12 16:23] VITALS: BP 100/63; TEMP 96.3
--- NOTE | 2018-02-12 17:14 | P.PN ---
Subjective Date of Service: 02/12/18 Chief Complaint: GS pancreatitis with DIANELYS/LUQ/RUQ pain Subjective: No new changes (In OR for lap carlee at time of visit.) Physical Examination - Vital Signs Temperature: 96.3 F Blood Pressure: 100/63 Pulse: 66 Respirations: 20 Pulse Ox (%): 98 Assessment And Plan - Current Problems (Diagnosis) (1) Gallstone pancreatitis Current Visit: Yes Status: Acute Comment: Lipase from 500+ to normal level. Normal liver chemistries. Negative MRCP. (2) Epigastric abdominal pain Current Visit: Yes Status: Acute (3) LUQ abdominal pain Current Visit: Yes Status: Acute (4) RUQ abdominal pain Current Visit: Yes Status: Acute (5) Cholelithiasis Current Visit: No Status: Acute - Plan REC: 1) diet as per surgery 2) will follow
== END 2018-02-12 18:36 | disposition home or self-care (01) | DRG 418 ==
LOC: ER 08:09 → ERHOLD 09:04 → 2ND 11:08
PROVIDERS: ADMIT Internal Medicine; ATTEND Internal Medicine
PROC: 0FT44ZZ Resection of Gallbladder, Percutaneous Endoscopic Approach (ICD-10-PCS; principal; 2018-02-12 12:30)
DX: K85.10 Biliary acute pancreatitis without necrosis or infection (principal); K80.00 Calculus of gallbladder with acute cholecystitis without obstruction; E78.5 Hyperlipidemia, unspecified; G40.909 Epilepsy, unspecified, not intractable, without status epilepticus; E03.9 Hypothyroidism, unspecified; G43.909 Migraine, unspecified, not intractable, without status migrainosus; Z88.2 Allergy status to sulfonamides; Z88.8 Allergy status to other drugs, medicaments and biological substances; F79 Unspecified intellectual disabilities
CPT/HCPCS: 36415; 71045; 71046; 74181; 80048; 80076; 80164; 81003; 81025; 82150; 82550; 82553; 83690; 83735; 83880; 84484; 85025; 85610; 85730; 88304; 93005; 96365; 99285; J1580; J2001; J2250; J2405; J2543; J2710; J3010; J7030

== ENCOUNTER → 2018-02-10 | Day surgery (SDC) | payer OTHER ==
[2018-02-09 16:25] LABS: Absolute Monocytes 0.5 K/uL (0.1-1.3); Absolute Neutrophil 7.5 K/uL (1.8-8.0); Basophils % 0.7 % (0-1.3); Eosinophils % 0.5 % (0-4.4); Hematocrit 41.7 % (36.0-45.0); Lymphocytes % 19.4 % (15.3-44.8); MCH 31.9 pg (27.0-35.0); MCV 93.1 fL (80-100); MPV 9.1 fL (7.6-11.3); Monocytes % 4.9 % (3.3-12.3); RBC Red Blood Cell Count 4.48 M/uL (3.86-4.86)
--- NOTE | 2018-02-09 16:41 | RAD REPORT ---
EXAM DESCRIPTION: RAD - Chest Pa And Lat (2 Views) - 02/09/2018 4:34 pm CLINICAL HISTORY: PREOP Chest pain. COMPARISON: Chest Single View dated 12/29/2017; CHEST SINGLE VIEW dated 12/19/2009; CHEST SINGLE VIEW d ated 03/22/2002 FINDINGS: The lungs are clear. The heart is normal in size. No displaced fractures. IMPRESSION: No acute or concerning finding suspected.
[2018-02-09 16:45] LABS: Potassium 4.3 mmol/L (3.5-5.1)
[2018-02-09 17:07] LABS: ALT/SGPT 23 U/L (12-78); AST/SGOT 26 U/L (15-37); Albumin 4.2 g/dL (3.4-5.0); Alkaline Phosphatase 103 U/L (45-117); Bilirubin Direct 0.2 mg/dL (0-0.2); Bilirubin Total 0.6 mg/dL (0.2-1.0); Lipase 538 U/L (73-393); Protein, Total 7.8 g/dL (6.4-8.2); Valproic Acid (Depakene) Level < 3.0 ug/mL (50-100)
--- NOTE | 2018-02-09 19:51 | EKG ---
Test Date: 2018-02-09 Test Time: 16:14:22 Foot Doctor: DELL MEASUREMENT RESULTS: Intervals: Rate: 78 CA: 142 QRSD: 74 QT: 372 QTc: 424 [place]: P: 35 CA: 142 QRS: 56 T: 26 INTERPRETIVE STATEMENTS: Normal sinus rhythm Nonspecific T wave abnormality Abnormal ECG Compared to ECG 12/29/2017 22:57:56 Possible ischemia no longer present T-wave abnormality still present Electronically Signed On 02-09-18 19:50:29 CDT by Tamir Tavarez
[~2018-02-10] MED LIST: CEFOXITIN/SWI 1gm 0 GM/0 ML SYR ONE; FENTANYL CITR 100 MCG/2 ML ONE; LIDOCAINE 2% MPF 5 ML VIAL ONE; MIDAZOLAM HCL 2 MG/2 ML INJ ONE; ONDANSETRON HCL 40 MG/20 ML VIAL ONE; PROPOFOL 200 MG/20 ML VIAL IV ONE; ROCURONIUM 50 MG/5 ML VIAL IV ONE; Ringers Lactate 1,000 ML IV ONE
[2018-02-10 07:12] VITALS: BP 148/84; TEMP 97.3; O2SAT 100
--- NOTE | 2018-02-10 14:15 | CON ---
Date of Consultation: 02/10/2018 Reason For Consultation: Acute cholecystitis, symptomatic cholelithiasis, and acute pancreatitis, an d epigastric pain. Indication For Procedure: This is the case of a 47-year-old patient with history of epigastric pain. The patient diagnosed with symptomatic cholelithiasis. When she comes in this morning with the int ention for a possible surgery, we noticed the intensity of her epigastric pain more and we found that she has acute pancreatitis on blood work and physical examinations, so the gallbladder surgery was p ostponed. The patient was referred to the primary doctor for admission for acute pancreatitis and ob viously a surgical consult for me. Past medical history, past surgical history, allergies, medications; please see my H and P from today , preoperative H and P done earlier today and is in the chart. Review of Systems: Constitutional: Denies any fever. Gastrointestinal: As above. The patient denies any recent traveling out of the country. Denies any family member sick at home. Respiratory: Denies any shortness of breath. Genitourinary: Denies any dysuria, hematuria. Physical Examination: General: The patient is awake and alert. HEENT: Pupils are equal and reactive, anicteric. Neck: Supple. Chest: Clear. Heart: S1, S2. Abdomen: Epigastric tenderness with guarding. No rebound. The rest of abdomen is soft and depressi ble. Pelvic: Deferred. Rectal: Deferred. Breasts: Deferred. Extremities: Good capillary refill. Laboratory Data: Blood work shows WBC count of 10.1. BUN 19, total bilirubin 0.6, and lipase 538 wi th amylase 68. Valproic acid is less than 3. Abdominal ultrasound on 01/21/2018 shows cholelithiasi s. Assessment: This is a 47-year-old patient with history of symptomatic cholelithiasis, but this time complicated with acute pancreatitis. The patient was admitted for a hospital n.p.o., IV hydration, G I consult, possible MRCP, possible ERCP. When the pancreatitis is resolves or improves, then we will once again readdress the issue of the laparoscopic cholecystectomy when we have a better understandi ng why the pancreatitis developed. Since they might not be related to the gallbladder, some other et iologies may be in the case including medications or viral, traumatic or any other pathology that the GI doctor will help us define. HM/MODL Voice ID: [id number] Report ID: [id number]
== END ==
LOC: OR 06:17
PROVIDERS: ATTEND Surgery
DX: K80.00 Calculus of gallbladder with acute cholecystitis without obstruction (principal); K85.90 Acute pancreatitis without necrosis or infection, unspecified; Z53.09 Procedure and treatment not carried out because of other contraindication
CPT/HCPCS: 36415; 71046; 80048; 80076; 80164; 82150; 83690; 85025; 93005; J2250; J2405; J3010

== ENCOUNTER 2018-08-08 20:53 | Inpatient (IN) | payer OTHER ==
--- NOTE | 2018-08-08 21:58 | RAD REPORT ---
EXAM DESCRIPTION: CT - Head Brain Wo Cont - 08/08/2018 9:47 pm CLINICAL HISTORY: Seizure COMPARISON: None. TECHNIQUE: Computed axial tomography of the head was obtained. IV contrast was not requested. All CT scans are performed using dose optimization technique as appropriate and may include automated exposure control or mA/KV adjustment according to patient size. FINDINGS: An intracranial bleed is not seen . The ventricles are normal in caliber. No extra-axial fluid collection is noted. Hyperostosis frontalis interna is present Fluid within the sinuses/ mastoids is not seen. IMPRESSION: No acute intracranial abnormality is seen. If patient's symptoms persist MRI of the bra in would be recommended.
[2018-08-08 22:36] LABS: ALT/SGPT 32 U/L (12-78); AST/SGOT 27 U/L (15-37); Albumin 3.8 g/dL (3.4-5.0); Alkaline Phosphatase 100 U/L (45-117); BUN Blood Urea Nitrogen 21 mg/dL (7-18); Bicarbonate 20 mmol/L (21-32); Bilirubin Direct < 0.1 mg/dL (0-0.2); Bilirubin Total 0.3 mg/dL (0.2-1.0); Glucose Level 113 mg/dL (74-106); Protein, Total 7.2 g/dL (6.4-8.2); Sodium Level 141 mmol/L (136-145)
--- NOTE | 2018-08-08 23:36 | EDPHYS ---
Physician Documentation [facility] Name: Emma Carranza Age: 48 yrs Sex: Female : 1970 Arrival Date: 08/08/2018 Time: 20:54 Bed 13 Private MD: ED Physician Long Santiago HPI: 08/08 23:19 This 48 yrs old Female presents to ER via EMS with complaints of seizure. snw 23:19 The patient presents with a history of multiple seizures, a total of 3. Character of snw seizure(s): Loss of consciousness: the patient experienced loss of consciousness, Motor activity: generalized, Incontinence: incontinent of bladder, Apnea: the patient did not experience apnea, Circulation: the patient did not experience evidence of pulse disturbance, Eye movements: are unknown. Seizure onset: just prior to arrival. Context: the seizure(s) was witnessed, by family, father, occurred at home, occurred while the patient was at rest, Contributing factors: only change has been recent steroid injection and nonsteroidal po medications. Seizure Hx: Cause: Epilepsy, Last seizure: The patient's last seizure was approximately 1 year(s) ago, Seizure medications: Keppra, Lamictal, valproic acid. Associated injury: The patient did not suffer any apparent associated injury. EMS care: versed, with resolution of the seizure, pt remains postictal during entire ED stay. Current symptoms: postictal. The patient has experienced similar episodes in the past. had depakote level recently and then had treatment for plantar fasciitis. Historical: - Allergies: 20:54 Benadryl; jb4 20:54 Sudafed; jb4 20:54 Sulfa (Sulfonamide Antibiotics); jb4 - Home Meds: 20:54 Keppra 500 mg Oral tab 1 tab 2 times per day [Active]; pravastatin 40 mg Oral tab 1 tab jb4 nightly [Active]; quetiapine 100 mg Oral tab 1 tab 2 times per day [Active]; Topamax 100 mg Oral tab 1 tab 2 times per day [Active]; Depakote 1000 mg Oral 3 times per day [Active]; meloxicam 15 mg oral tab 1 tab once daily [Active]; fexofenadine 180 mg Oral tab 1 tab once daily [Active]; sumatriptan succinate 100mg Sub-Q crtg [Active]; - PMHx: 20:54 allergies; Headaches; High Cholesterol; Seizures; jb4 - PSHx: 20:54 placement and removal of vagus nerve stimulator; foot surg; Cholecystectomy; jb4 - Immunization history:: Adult Immunizations up to date, Flu vaccine is up to date. - Social history:: Smoking status: Patient/guardian denies using tobacco, Patient/guardian denies using alcohol. - Ebola Screening: : No symptoms or risks identified at this time. ROS: 23:19 Eyes: Negative for injury, pain, redness, and discharge, ENT: Negative for injury, snw pain, and discharge, Neck: Negative for injury, pain, and swelling, Cardiovascular: Negative for chest pain, palpitations, and edema, Respiratory: Negative for shortness of breath, cough, wheezing, and pleuritic chest pain, Abdomen/GI: Negative for abdominal pain, nausea, vomiting, diarrhea, and constipation, Back: Negative for injury and pain, : Negative for injury, bleeding, discharge, and swelling, MS/Extremity: Negative for injury and deformity, Skin: Negative for injury, rash, and discoloration. 23:19 Constitutional: Positive for feeling poorly this morning and then complained of a headache per Father. Pt had smaller than normal seizure, rec'd night medications. Pt had large tonic clonic (although less severe than previous hx) seizure. EMS toned. Pt had third seizure (small per report). Versed given intranasally. 23:19 Neuro: Positive for postictal state. Exam: 23:27 Head/Face: Normocephalic, atraumatic. Eyes: Pupils equal round and reactive to light, snw extra-ocular motions intact. Lids and lashes normal. Conjunctiva and sclera are non-icteric and not injected. Cornea within normal limits. Periorbital areas with no swelling, redness, or edema. 23:27 Neck: Trachea midline, no thyromegaly or masses palpated, and no cervical lymphadenopathy. Supple, full range of motion without nuchal rigidity, or vertebral point tenderness. No Meningismus. Chest/axilla: Normal chest wall appearance and motion. Nontender with no deformity. No lesions are appreciated. 23:27 Abdomen/GI: Soft, non-tender, with normal bowel sounds. No distension or tympany. No guarding or rebound. No evidence of tenderness throughout. Back: No spinal tenderness. No costovertebral tenderness. Full range of motion. 23:27 Constitutional: The patient appears lethargic, obese, postictal 23:27 ENT: Ear canal(s): cerumen impaction, that is moderate, bilaterally, Nose: is normal, Mouth: no acute changes. 23:27 Cardiovascular: Rate: tachycardic, Heart sounds: normal. 23:27 Respiratory: the patient does not display signs of respiratory distress, Respirations: shallow respirations, tachypnea, Breath sounds: are clear throughout. 23:27 Skin: Appearance: Color: pale, Temperature: warm. 23:27 Neuro: Orientation: unable to test, Mentation: unable to test, the patient is post-ictal, seizure activity, is not currently displayed, but the patient is post-ictal. Vital Signs: 20:54 BP 102 / 75; Pulse 117; Resp 20; Temp 99.6(A); Pulse Ox 93% on R/A; Weight 85.73 kg [facility] (R); Height 5 ft. 6 in. (167.64 cm) (R); 22:00 BP 127 / 88; Pulse 94; Resp 23; Pulse Ox 100% on 2 lpm NC; [facility] 23:00 BP 132 / 99; Pulse 87; Resp 16; Pulse Ox 100% on R/A; [facility] 08/09 00:00 BP 132 / 95; Pulse 79; Resp 14; Pulse Ox 100% ; [facility] 01:00 BP 127 / 91; Pulse 80; Resp 15; Pulse Ox 100% on R/A; [facility] 08/08 20:54 Body Mass Index 30.51 (85.73 kg, 167.64 cm) [facility] MDM: 08/08 21:57 Patient medically screened. [facility] 23:30 Data reviewed: vital signs, nurses notes. Data interpreted: Pulse oximetry: on 2L(s) snw per nasal canula, is 100 %. Interpretation: normal. Counseling: I had a detailed discussion with the patient and/or guardian regarding: the historical points, exam findings, and any diagnostic results supporting the discharge/admit diagnosis, lab results, radiology results, the need for further work-up and treatment in the hospital. Response to treatment: remains post ictal. Physician consultation: Steven Lea MD was called at 22:47, was contacted at 22:47, regarding admission, patient's condition, would like consultation with Dr. Dr. Gunter. Physician consultation: Luis Felipe Gunter MD was called at 22:50, was contacted at 22:50, regarding consult, Dr. Gunter called back and accepts consult. Ordered levels sent for both Keppra and Lamictal. Gave orders for Depakote IV 1500mg now and then 1000mg q 8h. If necessary may give Keppra IV as well. 08/08 21:19 Order name: Acetaminophen; Complete Time: 22:39 pr08/08 21:19 Order name: Basic Metabolic Panel; Complete Time: 22:39 pr08/08 21:19 Order name: CBC with Diff 08/08 21:19 Order name: ETOH Level; Complete Time: 22:39 pr08/08 21:19 Order name: Hepatic Function; Complete Time: 22:39 pr08/08 21:19 Order name: PT-INR; Complete Time: :34 [facility] 08/08 21:19 Order name: Ptt, Activated; Complete Time: :34 pr08/08 21:19 Order name: Salicylate; Complete Time: 22:39 [facility] 08/08 21:19 Order name: Urine Drug Screen [facility] 08/08 22:05 Order name: Valproic Acid (Depakene) Level; Complete Time: 22:39 [facility] 08/08 23:03 Order name: Blood Culture Adult (2) [facility] 08/08 23:03 Order name: Procalcitonin [facility] 08/08 23:03 Order name: Lactate; Complete Time: 01:28 [facility] 08/08 21:19 Order name: EKG; Complete Time: 21:21 pr08/08 21:19 Order name: EKG - Nurse/Tech; Complete Time: 22:32 pr08/08 21:19 Order name: IV Saline Lock; Complete Time: 21:26 pr08/08 21:19 Order name: Labs collected and sent; Complete Time: 22:20 08/08 21:19 Order name: Urine Dipstick-Ancillary (obtain specimen); Complete Time: 00:58 pr08/08 21:26 Order name: Chest Single View XRAY pr08/08 21:26 Order name: Head Brain Wo Cont CT; Complete Time: 22:07 pr08/08 23:12 Order name: Misc. Lab Test snw 08/09 00:58 Order name: Urine Dipstick--Ancillary (enter results) ar5 08/09 01:32 Order name: Urine Dipstick-Ancillary; Complete Time: 01:34 EDMS Administered Medications: 23:12 CANCELLED (other intervention used): Depacon 500 mg 5 ml IV at calculated rate once; snw Dilute and give over 1 hour 08/09 00:45 Drug: NS 0.9% 1000 ml Route: IV; Rate: 125 ml/hr; Site: right upper arm; jb4 01:56 Follow up: Response: No adverse reaction; IV Status: Infusion continued upon admission jb4 00:45 Drug: Depacon 1500 mg Volume: 5 ml; Route: IV; Rate: calculated rate; Site: right upper 4 arm; 01:45 Follow up: Response: No adverse reaction; IV Status: Completed infusion jb4 Disposition: 07:04 Co-signature as Attending Physician, Long Santiago MD I agree with the assessment and sailaja plan of care. Disposition: 08/08/18 23:35 Hospitalization ordered by Steven Lea for Inpatient Admission. Preliminary diagnosis is Epileptic seizures related to external causes, not intractable, with status epilepticus. - Bed requested for Intensive Care Unit. - Status is Inpatient Admission. jb4 - Condition is Stable. - Problem is an acute exacerbation. - Symptoms are unchanged. UTI on Admission? No Signatures: Dispatcher [employer] EDND Long Santiago MD MD cha Therrien, Shelly, COFFEE SOMMELIER-C COFFEE SOMMELIER-Csnw Marvin Forde RN RN la1 Pito Suggs RN RN jb4 Corrections: (The following items were deleted from the chart) 08/08 22:04 21:52 VALPROIC ACID (DEPAKOTE)+C.LAB.BRZ ordered. EDMS EDMS 23:12 22:50 Depacon 500 mg 5 ml IV at calculated rate once; Dilute and give over 1 hour snw ordered. snw 23:13 23:12 Miscellaneous Lab Test+R.LAB.BRZ ordered. EDMS EDMS 23:54 23:35 Hospitalization Ordered by Steven Lea MD for Inpatient Admission. Preliminary la1 diagnosis is Epileptic seizures related to external causes, not intractable, with status epilepticus. Bed requested for Intensive Care Unit. Status is Inpatient Admission. Condition is Stable. Problem is an acute exacerbation. Symptoms are unchanged. UTI on Admission? No. snw 08/09 01:57 08/08 23:54 08/08/2018 23:35 Hospitalization Ordered by Steven Lea MD for Inpatient jb4 Admission. Preliminary diagnosis is Epileptic seizures related to external causes, not intractable, with status epilepticus. Bed requested for Intensive Care Unit. Status is Inpatient Admission. Condition is Stable. Problem is an acute exacerbation. Symptoms are unchanged. UTI on Admission? No. la1
--- NOTE | 2018-08-08 23:36 | ER ---
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 Had 2 jb4 at home and 1 with us. We gave 5 of versed nasally which stopped the seizure. She has been postictal since. 20:54 Transition of care: patient was not received from another setting of care. Onset of jb4 symptoms was August 08, 2018. Risk Assessment: Do you want to hurt yourself or someone else? Patient reports no desire to harm self or others. Initial Sepsis Screen: Does the patient meet any 2 criteria? HR > 90 bpm. Yes Does the patient have a suspected source of infection? No. Patient's initial sepsis screen is negative. Care prior to arrival: None. 20:54 Method Of Arrival: EMS: [facility] jb4 20:54 Acuity: YARY 2 jb4 Historical: - Allergies: 20:54 Benadryl; jb4 20:54 Sudafed; jb4 20:54 Sulfa (Sulfonamide Antibiotics); jb4 - Home Meds: 20:54 Keppra 500 mg Oral tab 1 tab 2 times per day [Active]; pravastatin 40 mg Oral tab 1 tab jb4 nightly [Active]; quetiapine 100 mg Oral tab 1 tab 2 times per day [Active]; Topamax 100 mg Oral tab 1 tab 2 times per day [Active]; Depakote 1000 mg Oral 3 times per day [Active]; meloxicam 15 mg oral tab 1 tab once daily [Active]; fexofenadine 180 mg Oral tab 1 tab once daily [Active]; sumatriptan succinate 100mg Sub-Q crtg [Active]; - PMHx: 20:54 allergies; Headaches; High Cholesterol; Seizures; jb4 - PSHx: 20:54 placement and removal of vagus nerve stimulator; foot surg; Cholecystectomy; jb4 - Immunization history:: Adult Immunizations up to date, Flu vaccine is up to date. - Social history:: Smoking status: Patient/guardian denies using tobacco, Patient/guardian denies using alcohol. - Ebola Screening: : No symptoms or risks identified at this time. Screenin:54 Abuse screen: Denies threats or abuse. Nutritional screening: No deficits noted. jb4 Tuberculosis screening: No symptoms or risk factors identified. Fall Risk None identified. Ambulatory Aid- None/Bed Rest/Nurse Assist (0 pts). Assessment: 20:54 General: Appears in no apparent distress. Behavior is Post-ictal. Pain: Unable to use jb4 pain scale. Patient is post-ictal. Neuro: Level of Consciousness is post ictal. Cardiovascular: Skin is cool and clammy. Respiratory: Airway is patent Respiratory effort is even, unlabored, Respiratory pattern is regular, symmetrical. GI: No signs and/or symptoms were reported involving the gastrointestinal system. : No signs and/or symptoms were reported regarding the genitourinary system. EENT: No signs and/or symptoms were reported regarding the EENT system. Derm: Skin is intact, Skin is clammy, Skin is pale, Skin temperature is cool. Musculoskeletal: No signs and/or symptoms reported regarding the musculoskeletal system. 22:00 Reassessment: Patient appears in no apparent distress at this time. No changes from jb4 previously documented assessment. Patient and/or family updated on plan of care and expected duration. Pain level reassessed. 23:00 Reassessment: Patient appears in no apparent distress at this time. No changes from jb4 previously documented assessment. Patient and/or family updated on plan of care and expected duration. Pain level reassessed. 08/09 00:00 Reassessment: Patient appears in no apparent distress at this time. No changes from jb4 previously documented assessment. Patient and/or family updated on plan of care and expected duration. Pain level reassessed. ECHO Lubin and Marvin RN at the bedside attempting MIDLINE access. 01:00 Reassessment: Patient appears in no apparent distress at this time. No changes from jb4 previously documented assessment. Patient and/or family updated on plan of care and expected duration. Pain level reassessed. Vital Signs: 08/08 20:54 BP 102 / 75; Pulse 117; Resp 20; Temp 99.6(A); Pulse Ox 93% on R/A; Weight 85.73 kg jb4 (R); Height 5 ft. 6 in. (167.64 cm) (R); 22:00 BP 127 / 88; Pulse 94; Resp 23; Pulse Ox 100% on 2 lpm NC; jb4 23:00 BP 132 / 99; Pulse 87; Resp 16; Pulse Ox 100% on R/A; jb4 08/09 00:00 BP 132 / 95; Pulse 79; Resp 14; Pulse Ox 100% ; jb4 01:00 BP 127 / 91; Pulse 80; Resp 15; Pulse Ox 100% on R/A; jb4 08/08 20:54 Body Mass Index 30.51 (85.73 kg, 167.64 cm) jb4 ED Course: 08/08 20:54 Patient arrived in ED. al2 20:54 Arm band placed on left wrist. jb4 20:54 Patient has correct armband on for positive identification. Bed in low position. Call jb4 light in reach. Side rails up X2. Seizure precautions initiated. monitoring and evaluation advisor on. Pulse ox on. NIBP on. 20:54 Maintain EMS IV. Dressing intact. Site clean \T\ dry. Gauge \T\ site: 22g to the left index jadiel 4 finger.. Flushed left hand with 5 ml normal saline. 21:14 Pito Suggs RN is Primary Nurse. jb4 21:16 Triage completed. jb4 21:44 CT completed. Patient moved to CT via stretcher. Patient moved back from CT. bq 21:47 Head Brain Wo Cont CT In Process Unspecified. EDMS 21:49 Chest Single View XRAY In Process Unspecified. EDMS 21:49 [facility]fali Moore [facility]C [facility] snw 21:49 Long Santiago MD is Attending Physician. snw 23:34 Steven Lea MD is Hospitalizing Provider. snw 08/09 00:24 Accessed Clean \T\ dry. Good blood return. Flushes easily. 10cm 18G midline inserted to la1 left brachial vein, pt tolerated well, flushes easily, + blood return. . 01:45 No provider procedures requiring assistance completed. Patient admitted, IV remains in jb4 place. Administered Medications: 08/08 23:12 CANCELLED (other intervention used): Depacon 500 mg 5 ml IV at calculated rate once; snw Dilute and give over 1 hour 08/09 00:45 Drug: NS 0.9% 1000 ml Route: IV; Rate: 125 ml/hr; Site: right upper arm; jb4 01:56 Follow up: Response: No adverse reaction; IV Status: Infusion continued upon admission jb4 00:45 Drug: Depacon 1500 mg Volume: 5 ml; Route: IV; Rate: calculated rate; Site: right upper jb4 arm; 01:45 Follow up: Response: No adverse reaction; IV Status: Completed infusion jb4 Outcome: 08/08 23:35 Decision to Hospitalize by Provider. snw 08/09 01:45 Admitted to ICU accompanied by nurse, accompanied by tech, via stretcher, room 2, on jb4 monitor, with chart, Report called to ECHO Horne Condition: stable Discharge instructions given to patient, Instructed on the need for admit, Demonstrated understanding of instructions. 01:57 Patient left the ED. jb4 Signatures: Dispatcher [employer] EDMS Shefali Moore, SANDWICH AND DRINK CART OPERATOR-C SANDWICH AND DRINK CART OPERATOR-Csnw Shanell Flanagan Lee RN RN la1 Pito Suggs RN RN jb4 Isa Joyce
[2018-08-09] MEDS ORDERED: VALPROATE NA 500 MG/5 ML INJ IV ONE (00:27)
[2018-08-09] MEDS ORDERED: NA CHLORIDE 0.9% 1,000 ML ONE (00:28)
[2018-08-09] MEDS ORDERED: NA CHLORIDE 0.9% 0 ML ONE (00:28)
[2018-08-09 01:07] LABS: Absolute Lymphocytes (CBC) 1.1 K/uL (0.7-4.9); Absolute Monocytes 0.4 K/uL (0.1-1.3); Absolute Neutrophil 10.1 K/uL (1.8-8.0); Basophils % 0.3 % (0-1.3); Eosinophils % 0.1 % (0-4.4); Hematocrit 39.1 % (36.0-45.0); Lymphocytes % 9.5 % (15.3-44.8); MPV 9.4 fL (7.6-11.3); Monocytes % 3.2 % (3.3-12.3); RBC Red Blood Cell Count 4.22 M/uL (3.86-4.86)
[2018-08-09 01:31] LABS: Protime INR 1.03
[2018-08-09] MEDS ORDERED: VALPROATE SODIUM INJ 1,000 MG in NA CHLORIDE 0.9% 100 ML IV SCH (01:31)
[2018-08-09 01:32] LABS: Urine Blood NEGATIVE (NEG); Urine Glucose NEGATIVE (NEG); Urine Protein 1+ (NEG); Urine Specific Gravity 1.025 (1.005-1.030)
[2018-08-09 02:13] LABS: Blood Morphology Comment NOT SEEN (NOT SEEN); Platelet Estimate ADEQ
[2018-08-09] MEDS: NA CHLORIDE 0.9% 1,000 ML IV SCH ×2 (02:28→14:51)
--- NOTE | 2018-08-09 07:58 | EKG ---
Test Date: 2018-08-08 Test Time: 22:33:44 Tariff Counsel: STEFANY MEASUREMENT RESULTS: Intervals: Rate: 97 SC: 150 QRSD: 70 QT: 324 QTc: 411 [place]: P: 53 SC: 150 QRS: 40 T: 70 INTERPRETIVE STATEMENTS: Normal sinus rhythm Nonspecific T wave abnormality Abnormal ECG Compared to ECG 02/10/2018 08:27:18 No significant changes Electronically Signed On 08-09-18 07:52:57 WIRE TECHNICIAN by Duane Samano
--- NOTE | 2018-08-09 09:01 | RAD REPORT ---
EXAM DESCRIPTION: RAD - Chest Single View - 08/08/2018 9:49 pm CLINICAL HISTORY: seizure Chest pain. COMPARISON: Chest Single View dated 02/10/2018; Chest Pa And Lat (2 Views) dated 02/09/2018; Chest Sing le View dated 12/29/2017; CHEST SINGLE VIEW dated 12/19/2009 FINDINGS: Portable technique limits examination quality. The lungs are underinflated resulting in vascular crowding. The heart is normal in size. No displaced fractures.Cholecystectomy clips. IMPRESSION: Underinflated lungs.
[2018-08-09] MEDS: VALPROATE SODIUM INJ 1,000 MG in NA CHLORIDE 0.9% 100 ML IV SCH ×2 (09:11→17:04)
[2018-08-09] MEDS: SUMATRIPTAN SUCCI 50 MG TAB PO PRN (09:16)
--- NOTE | 2018-08-09 13:32 | CON ---
Date of Consultation: 08/09/2018 Time: 9 a.m. Reason For Consultation: Seizures. History Of Present Illness: A 48-year-old lady, well known to myself, history of cerebral palsy, com plex partial seizures, actually has not had a seizure in several years. Normally maintains on Keppra 500 twice daily, Topamax 100 twice daily, Depakote 1000 t.i.d. She was in her usual state of health until yesterday when she had brief partial seizure, returned to her baseline and then had a generali zed seizure without returning to her baseline. EMS was summoned. Another seizure EN route, brought to the emergency department, where the generalized seizures were brought under control with IV benzod iazepine. Depakote level was 6. The patient's Depakote levels normally in the 110-[address] sc an of the brain was negative/normal. Additional labs were normal. Additional anticonvulsant levels could not be obtained, so they have been sent. Procalcitonin less than 0.05. She was given a gram o f Depakote and continued on intravenous Depakote. By this morning, she is drowsy, but awake, lucid, following commands in the ICU. Currently complains of headache which is common for her after a seizu re. No other active problems. She has been taking meloxicam for some plantar fasciitis and had a st eroid injection in the foot recently for the same, although it seems unlikely that the steroid inject ion would make the Depakote level fall so precipitously likewise I am not sure that the meloxicam is interacting with the Depakote to that degree. Consultation was requested. Past Medical History: Cerebral palsy, seizures, hyperlipidemia. Medications: Imitrex as needed, Depakote as noted, Keppra, pravastatin, meloxicam, fexofenadine, Ser oquel, topiramate. Allergies: BENADRYL, SUDAFED, SULFA. Social History: The patient is disabled, lives with her father. Mother is . Normally indep endent with activities of daily living. Family History: Chronic pain syndrome in her father. Review of Systems: General: Good health. Eyes: Negative. Ears, nose, Throat: Negative. Cardiovascular: Negative. Pulmonary: Negative. GI: Negative. : Negative. Musculoskeletal: Arthralgias, foot pain. Neurologic: As noted. Psychiatric: She has some behavioral issues as well for which she takes Seroquel. Endocrine: Negative. Hematologic: Negative. Physical Examination: Vital Signs: 97.8, 91, 18, 131/83. General: She is a pleasant lady, lying in bed, in no distress. Awake, alert, oriented. Follows com mands. HEENT: Pupils reactive. Ocular motion full. Boateng full. Facial strength sensation normal. Tongu e protrudes evenly. Soft palate elevates symmetrically bilaterally. Extremities: Strength full. She has some halting giveaway weakness in the arms and legs. Sensation subjectively decreased to temperature and vibration in the left leg versus right. Reflexes are 2+, symmetric. Toes are downgoing. Cerebellar exam demonstrates no ataxia. Pertinent Laboratory Data: White count 11.6, hemoglobin and hematocrit are normal, platelets 161, cr eatinine 1.1. Repeat Depakote level was 85. Impression: Complex partial seizures status post breakthrough seizure likely from subtherapeutic Dep akote level. Plan: Continue present anticonvulsants. Check Depakote level on a daily basis. Check EEG. I think she is safe to begin to start eating and if she does well this morning, safely go to the floor this afternoon. We will continue to follow with you. PAULINA Voice ID: [id number] Report ID: [id number]
[2018-08-09] MEDS ORDERED: QUETIAPINE FUMARATE 100 MG PO SCH (21:00)
[2018-08-09] MEDS ORDERED: HOME MED 1 EA UNK (Pravastatin Sodium [Pravastatin Sodium] 40 MG) PO SCH (21:00)
[2018-08-09] MEDS: GABAPENTIN 300 MG CAP PO SCH (21:08)
[2018-08-09] MEDS: QUETIAPINE 100MG TAB PO SCH (21:08)
[2018-08-09] MEDS: ATORVASTATIN 10 MG TAB PO SCH (21:08)
[2018-08-09] MEDS: TOPIRAMATE 100 MG TAB PO SCH (21:08)
[2018-08-10] MEDS: VALPROATE SODIUM INJ 1,000 MG in NA CHLORIDE 0.9% 100 ML IV SCH ×3 (01:41→17:00)
[2018-08-10] MEDS: NA CHLORIDE 0.9% 1,000 ML IV SCH ×2 (04:19→17:40)
--- NOTE | 2018-08-10 04:19 | HP ---
Date of Admission: 08/08/2018 Chief Complaint: Recurrent seizures. History Of Present Illness: A 48-year-old female who is known to have history of seizures, was broug ht to the emergency room because of recurrent seizures. The patient is being taken care of by Dr. Ector stevenson in the office. She is already on Keppra, Topamax, and Depakote for the seizure problem. There w as no history of head injury, fall, or other neurological issues. Past Medical History: Positive for seizure disorder, hyperlipidemia, chronic headaches, and allergie s. Home Medicines: Keppra, Pravachol, Topamax, and Depakote. Allergies: BENADRYL, SUDAFED, AND SULFA. Family History: Positive for diabetes, hypertension, and migraine. Personal History: Nonsmoker. Review of Systems: No chest pain. Physical Examination: General: When I saw the patient, the patient was fully alert and able to recollect the events from t he day before. No headache. HEENT: Otherwise, negative. Neck: Supple. JVD is negative. Chest: Clear. Heart: Regular. Abdomen: Soft. Extremities: No edema. Neurological: No focal deficit. Laboratory Data: White count 11.6. BUN 21. Assessment: 1.Status epilepticus. 2.Low Depakote level. 3.Hyperlipidemia. 4.History of migraines. Plan: The patient this morning is already fully alert and oriented. It is not clear why her Depakot e level went low. Pending a neurological consultation and suggestions. The patient will be continue d in the ICU observation. MICHAEL/TESSY Voice ID: [id number]
[2018-08-10] MEDS: GABAPENTIN 300 MG CAP PO SCH ×3 (08:44→20:34)
[2018-08-10] MEDS: QUETIAPINE 100MG TAB PO SCH ×2 (08:44→20:34)
[2018-08-10] MEDS: LEVOTHYROXINE SOD 0.025 MG TAB PO SCH (08:44)
[2018-08-10] MEDS: TOPIRAMATE 100 MG TAB PO SCH ×2 (08:44→20:34)
[2018-08-10] MEDS: SUMATRIPTAN SUCCI 50 MG TAB PO PRN (09:32)
--- NOTE | 2018-08-10 11:29 | EEG ---
CHART: [id number] TEST ID#: 08/09/2018 DATE OF STUDY: THE EEG WAS RECORDED PORTABLE IN THE ICU ON A 17 CHANNEL MACHINE. ELECTRODES WERE APPLIED IN THE USUAL MANNER USING THE INTERNATIONAL 10-20 SYSTEM. THE WAKING BACKGROUND RHYTHM IN THIS RECORD CONSISTS OF POORLY DEVELOPED AND POORLY ORGANIZED WAVES OF 9 HZ., MAXIMAL IN THE POSTERIOR HEAD REGIONS WHICH ATTENUATE NORMALLY WITH EYE OPENING. ADMIXED AND SUPERIMPOSED SLOW WAVES 2-4 HZ ARE NOTED OVER THE FRONTAL AND CENTAL REGIONS IN A SHIFTING DISTRIBUTION. THERE ARE NO FOCAL OR LATERALIZING FEATURES. NO EPILEPTIFORM ACTIVITY APPEARS. SLEEP DID NOT OCCUR. HYPERVENTILATION WAS NOT PERFORMED. PHOTIC STIMULATION PRODUCED FAIR DRIVING BILATERALLY. IMPRESSION: ABNORAML EEG BECAUSE OF GENERALIZED AND EXCESSIVE SLOWING OF THE BACKGROUND. THE ABOVE SUGGESTS DIFFUSE CEREBRAL DYSFUNCTION.
[2018-08-10] MEDS: ACETAMINOPHEN 325 MG TABLET PO PRN ×2 (13:48→19:02)
[2018-08-10] MEDS: DIVALPROEX DR 500MG TAB PO SCH (19:04)
[2018-08-10] MEDS: ATORVASTATIN 10 MG TAB PO SCH (20:34)
[2018-08-11] MEDS: SUMATRIPTAN SUCCI 50 MG TAB PO PRN ×3 (00:16→13:15)
--- NOTE | 2018-08-11 00:55 | PN ---
Date of Progress Note: 08/10/2018 Time: 19:20. Reason: Seizures. Interval History: The patient is stable. No recurrent seizures. Does complain of slight headache. Depakote level above 100. We will change to p.o. Depakote. Discontinue the IV Depakote to see if s he is able to maintain her level. Physical Examination: General: She is awake, alert, oriented. Neurological: Cranial nerves are unremarkable. Strength full. Hemisensory loss on the left persists . Reflexes symmetric. Toes are downgoing. Pertinent Labs: EEG demonstrated generalized excessive slowing without obvious epileptiform abnormal ities. Depakote level 136. Keppra level remains pending. Impression: Status epilepticus, treated, resolved. Complex partial seizures, long-standing. Plan: Change to p.o. Depakote. Brain MRI to evaluate the left hemisensory loss. Depakote level rem ains in the therapeutic to high therapeutic range. MRI is unremarkable. Could probably safely be di scharged to home as soon as tomorrow. We will continue to follow with you. ALISON/TESSY Voice ID: [id number] Report ID: [id number]
--- NOTE | 2018-08-11 01:56 | PN ---
The patient did not have any seizures today. She looks alert; however, she had a spell of migraine. She is ordered to have Imitrex by mouth. The patient has been transferred to floor as she had no mo re seizures. Her other medications are also restarted. MICHAEL/TESSY Voice ID: [id number] Report ID: [id number]
[2018-08-11] MEDS: DIVALPROEX DR 500MG TAB PO SCH ×3 (02:26→17:43)
--- NOTE | 2018-08-11 08:27 | RAD REPORT ---
EXAM DESCRIPTION: MRI - Brain Wo Cont - 08/10/2018 9:14 pm CLINICAL HISTORY: Seizures COMPARISON: CT head August 08 TECHNIQUE: Sagittal T1-weighted images were obtained along with axial PD, heavily T2-weighted and T2 -FLAIR images. Axial DWI and ADC mapping sequences were also obtained along with coronal heavily T2-w eighted images. Coronal T1 weighted imaging also performed. FINDINGS: No intracranial hemorrhage, mass or acute infarction. There is no edema or shift of midlin e structures. No extra-axial fluid collections. Pabon-matter/white matter junction is preserved. Signa l voids are seen as a normal finding in the major intracranial vessels. No atrophy changes are presen t. There is no chronic ischemic change or other white matter signal abnormality. Ventricles are william l. Medial temporal lobes are symmetric. No globe or orbital content abnormality. No sella or supra sella abnormality. Mastoid air cells and paranasal sinuses are clear. Patient has normal variant hyperostosis frontalis interna. No acute bone finding. IMPRESSION: Negative non-contrast MRI of the Brain for acute or significant finding.
[2018-08-11] MEDS: GABAPENTIN 300 MG CAP PO SCH ×3 (10:41→23:03)
[2018-08-11] MEDS: LEVOTHYROXINE SOD 0.025 MG TAB PO SCH (10:41)
[2018-08-11] MEDS: TOPIRAMATE 100 MG TAB PO SCH ×2 (10:41→23:03)
[2018-08-11] MEDS: QUETIAPINE 100MG TAB PO SCH ×2 (10:41→23:04)
[2018-08-11] MEDS: NA CHLORIDE 0.9% 1,000 ML IV SCH (10:42)
[2018-08-11] MEDS: ACETAMINOPHEN 325 MG TABLET PO PRN ×2 (10:49→23:04)
[2018-08-11] MEDS: LORazepam 2 MG/ML VIAL IV PRN (18:57)
[2018-08-11] MEDS ORDERED: FOSPHENYTOIN PE 1,000 MG in NA CHLORIDE 0.9% 100 ML IV ONE (20:25)
[2018-08-11] MEDS ORDERED: PHENYTOIN ER 100 MG CAP PO SCH (21:00)
[2018-08-11] MEDS: ATORVASTATIN 10 MG TAB PO SCH (23:04)
[2018-08-12] MEDS ORDERED: FOSPHENYTOIN PE 500 MG/10 ML VIAL ONE ×2 (00:56→00:58)
[2018-08-12] MEDS: DIVALPROEX DR 500MG TAB PO SCH (01:01)
[2018-08-12] MEDS: LORazepam 2 MG/ML VIAL IV PRN (01:01)
[2018-08-12] MEDS ORDERED: NA CHLORIDE 0.9% 250 ML ONE (01:06)
--- NOTE | 2018-08-12 01:17 | PN ---
Reason: Seizures. Interval History: No seizures. Brain MRI is normal. Unfortunately, changing her over to the p.o. D epakote has just generated increasing problems. The Depakote level on p.o. Depakote is unmeasurable less than 3. It appears that it is just not being absorbed properly. The patient had a significant headache all day and felt as though she was going to have a seizure, so she received 2 mg of lorazepa m about 6:30 p.m. this evening. She is drowsy, but arousable. We will load her with IV fosphenytoin and then start oral Dilantin and check both Dilantin and Depakote levels in the morning. If we are unable to maintain measurable Depakote levels that medication just may have to be discontinued and ch anged to a different agent altogether. Physical Examination: Vital Signs: 97.9, 75, 18, 143/80. General: She is drowsy, but arousable. HEENT: Pupils reactive. Neurologic: Moans to sternal rub. Withdraws all extremities to pain. Reflexes symmetric. Toes are downgoing. Impression: Complex partial seizures. Plan: Continue present medications. Start IV fosphenytoin tonight and then transition that over to oral Dilantin tomorrow. Check levels in the morning. If the Depakote remains subtherapeutic, we zack l just need to taper it off and try to maintain her on the phenytoin, Topamax, and Keppra moving forw hawa. We will continue to follow with you. Time: 30 minutes. ALISON/TESSY Voice ID: [id number] Report ID: [id number]
--- NOTE | 2018-08-12 01:59 | PN ---
The patient still has headache. However, her MRI does not show any lesions explaining very likely sh e has migraines, which she had before. She did not have any further seizures. She is on oral medica tions now, and if she is stable, in consultation with Dr. Gunter, she will be discharged tomorrow. MICHAEL/TESSY Voice ID: [id number] Report ID: [id number]
[2018-08-12 06:57] LABS: Phenytoin (Dilantin) Level 6.6 ug/mL (10.0-20.0)
[2018-08-12] MEDS: ACETAMINOPHEN 325 MG TABLET PO PRN ×2 (09:17→15:52)
[2018-08-12] MEDS: GABAPENTIN 300 MG CAP PO SCH ×3 (09:18→20:57)
[2018-08-12] MEDS: TOPIRAMATE 100 MG TAB PO SCH ×2 (09:18→20:57)
[2018-08-12] MEDS: LEVOTHYROXINE SOD 0.025 MG TAB PO SCH (09:18)
[2018-08-12] MEDS: QUETIAPINE 100MG TAB PO SCH ×2 (09:18→20:57)
[2018-08-12] MEDS: DIVALPROEX DR 250 MG TAB PO SCH ×2 (10:20→17:46)
[2018-08-12] MEDS: SUMATRIPTAN SUCCI 50 MG TAB PO PRN (13:37)
[2018-08-12] MEDS ORDERED: NA CHLORIDE 0.9% 500 ML ONE (16:54)
[2018-08-12] MEDS: ATORVASTATIN 10 MG TAB PO SCH (20:57)
[2018-08-12] MEDS: ONDANSETRON 4 MG/2 ML VIAL IV PRN (21:42)
[2018-08-12] MEDS: HYDROCODONE/APAP 5/325 MG TAB PO PRN (21:42)
[2018-08-13] MEDS: DIVALPROEX DR 250 MG TAB PO SCH ×3 (01:57→17:38)
--- NOTE | 2018-08-13 02:33 | PN ---
Reason: Seizures. Interval History: No seizures. Depakote level is back to high therapeutic range. It is absorbing i t at least at this juncture and was drowsy this morning. Dilantin level was 6.6. Dilantin discontin ued. The patient is complaining of nausea and dizziness. Probably, the Dilantin should improve as t he level falls. Depakote has been adjusted down levels of 130-140. Her standard dose is a 1000 in the morning, 500 in the afternoon, a 1000 in the evening, and should be able to go home on that regimen. We will increase the Topamax to 150 twice daily and she continues to complain of heada ches that are migrainous and she has had a longstanding history. Check ammonia level as the combinat ion of Depakote and Topamax will often generate hyperammonemia, which may account for some of the fog gy headedness that the patient complains of. We will check an amylase and lipase and liver function tests. She is complaining of abdominal pain and Depakote can cause pancreatitis. moving around. If all the studies are normal tomorrow, she may be able to go home as soon as tomorrow. Physical Examination: General: She is awake, alert, oriented. HEENT: Pupils reactive. Ocular motion full. Boateng full. Face symmetric. Extremities: Strength full. Neurologic: Sensation intact. Reflexes 1/4. Toes are downgoing. Impression: Status epilepticus, resolved; complex partial seizures, stable; migraines. Plan: As alluded to stop the Dilantin. Continue the Depakote. Increase Topamax. Check screening l abs for the patient's additional complaints in the morning. Physical therapy evaluation. ALISON/TESSY Voice ID: [id number] Report ID: [id number]
--- NOTE | 2018-08-13 03:18 | PN ---
The patient is having no seizures. However, she continues to have persistent headache, dizziness. T he patient also has nausea. This is treated with Zofran. The patient is unable to ambulate because of the dizziness. Pending Neurology recommendation. She will be continued on the same management. MICHAEL/TESSY Voice ID: [id number] Report ID: [id number]
[2018-08-13 07:17] LABS: ALT/SGPT 13 U/L (12-78); AST/SGOT 9 U/L (15-37); Alkaline Phosphatase 73 U/L (45-117); Amylase Level 32 U/L (25-115); BUN Blood Urea Nitrogen 15 mg/dL (7-18); Bicarbonate 24 mmol/L (21-32); Bilirubin Direct < 0.1 mg/dL (0-0.2); Bilirubin Total 0.3 mg/dL (0.2-1.0); Creatine Phosphokinase 29 U/L (26-192); Glucose Level 89 mg/dL (74-106); Phenytoin (Dilantin) Level 5.1 ug/mL (10.0-20.0); Potassium 3.7 mmol/L (3.5-5.1); Protein, Total 5.9 g/dL (6.4-8.2); Sodium Level 146 mmol/L (136-145)
[2018-08-13] MEDS: LEVOTHYROXINE SOD 0.025 MG TAB PO SCH (09:12)
[2018-08-13] MEDS: QUETIAPINE 100MG TAB PO SCH ×2 (09:13→22:35)
[2018-08-13] MEDS: TOPIRAMATE 100 MG TAB PO SCH ×2 (09:13→22:31)
[2018-08-13] MEDS: GABAPENTIN 300 MG CAP PO SCH ×3 (09:13→22:31)
[2018-08-13] MEDS: SUMATRIPTAN SUCCI 50 MG TAB PO PRN (19:50)
[2018-08-13] MEDS: HYDROCODONE/APAP 5/325 MG TAB PO PRN (22:30)
[2018-08-13] MEDS: ATORVASTATIN 10 MG TAB PO SCH (22:31)
[2018-08-14] MEDS: DIVALPROEX DR 250 MG TAB PO SCH ×2 (02:29→09:37)
[2018-08-14] MEDS: ONDANSETRON 4 MG/2 ML VIAL IV PRN (02:32)
[2018-08-14] MEDS: GABAPENTIN 300 MG CAP PO SCH ×3 (09:35→20:33)
[2018-08-14] MEDS: LEVOTHYROXINE SOD 0.025 MG TAB PO SCH (09:35)
[2018-08-14] MEDS: TOPIRAMATE 100 MG TAB PO SCH ×2 (09:35→20:34)
[2018-08-14] MEDS: HYDROCODONE/APAP 5/325 MG TAB PO PRN (09:36)
[2018-08-14] MEDS: QUETIAPINE 100MG TAB PO SCH ×2 (09:43→20:33)
[2018-08-14] MEDS ORDERED: ENOXAPARIN 30 MG/0.3 ML SQ ONE (19:08)
[2018-08-14] MEDS: DIVALPROEX DR 500MG TAB PO SCH (20:33)
[2018-08-14] MEDS: ATORVASTATIN 10 MG TAB PO SCH (20:34)
[2018-08-15] MEDS: GABAPENTIN 300 MG CAP PO SCH ×3 (09:00→22:07)
[2018-08-15] MEDS: LEVOTHYROXINE SOD 0.025 MG TAB PO SCH (09:31)
[2018-08-15] MEDS: QUETIAPINE 100MG TAB PO SCH ×2 (09:31→22:07)
[2018-08-15] MEDS: TOPIRAMATE 100 MG TAB PO SCH ×2 (09:32→22:08)
[2018-08-15] MEDS: DIVALPROEX DR 500MG TAB PO SCH ×3 (09:33→22:07)
[2018-08-15] MEDS ORDERED: BISACODYL E.C. 5 MG TAB PO PRN (12:49)
[2018-08-15 20:06] LABS: Urine Appearance CLEAR; Urine Bilirubin NEGATIVE (NEG); Urine Blood NEGATIVE (NEG); Urine Color YELLOW; Urine Glucose NEGATIVE (NEG); Urine Protein NEGATIVE (NEG); Urine Urobilinogen 0.2 mg/dL (0.2-1.0)
[2018-08-15 20:10] LABS: Urine Microscopic Reflex NO UMIC
--- NOTE | 2018-08-15 20:14 | PN ---
Date of Progress Note: 08/14/2018 The patient continues to have headache and dizziness. The patient's family does not want to take her home in this condition. The patient was ordered a Depakote level and continued observation. She di d not have any clinical seizures. MICHAEL/TESSY Voice ID: [id number] Report ID: [id number]
--- NOTE | 2018-08-15 20:15 | PN ---
The patient still continues to have dizziness and headache. The patient's Depakote level is mildly e levated. The patient also has urinary symptoms and constipation. She is ordered to have Dulcolax an d urinalysis will be done. Father refused to take her home as she is still not able to ambulate. ysical Therapy has been consulted for that reason. MICHAEL/TESSY Voice ID: [id number] Report ID: [id number]
[2018-08-15] MEDS: ATORVASTATIN 10 MG TAB PO SCH (22:06)
[2018-08-16] MEDS ORDERED: ENOXAPARIN 60 MG/0.6 ML SQ ONE (00:05)
[2018-08-16] MEDS ORDERED: ENOXAPARIN 30 MG/0.3 ML SQ ONE (01:00)
--- NOTE | 2018-08-16 08:13 | PN ---
Date of Progress Note: 08/13/2018 Time: 1015. Reason: Seizures. Interval History: No seizures. The patient is stable. Electrolytes are normal. Liver function rehana ts normal. Ammonia normal. Thyroid normal. Amylase normal. Depakote level 119, unchanged. Dilant in down to 5.1. The patient is still little drowsy. Plan for the day is to get therapy to ambulate the patient. Father thinks she needs to stay in the hospital another day. Physical Examination: General: On exam, she is afebrile. Awake, alert, oriented. Vitals: Stable. HEENT: Pupils reactive. Ocular motion full. Boateng full. Face symmetric. Extremities: Strength full. Paresthesias right foot. Neurologic: Sensation intact. Reflexes symm etric. Impression: Complex partial seizures, status post breakthrough seizures, stable. Plan: Therapy to ambulate the patient. I think she could likely potentially go home as soon as this evening. If not, check another Depakote level in the morning. She has not had any further seizure activity since being in the hospital. PAULINA Voice ID: [id number] Report ID: [id number]
[2018-08-16] MEDS: QUETIAPINE 100MG TAB PO SCH ×2 (09:23→20:38)
[2018-08-16] MEDS: GABAPENTIN 300 MG CAP PO SCH ×3 (09:23→20:37)
[2018-08-16] MEDS: LEVOTHYROXINE SOD 0.025 MG TAB PO SCH (09:23)
[2018-08-16] MEDS: TOPIRAMATE 100 MG TAB PO SCH ×2 (09:23→20:38)
[2018-08-16] MEDS: DIVALPROEX DR 500MG TAB PO SCH ×3 (09:23→20:37)
[2018-08-16] MEDS: ACETAMINOPHEN 325 MG TABLET PO PRN (09:29)
[2018-08-16 18:21] LABS: Urine Appearance CLEAR; Urine Bilirubin NEGATIVE (NEG); Urine Blood NEGATIVE (NEG); Urine Color YELLOW; Urine Glucose NEGATIVE (NEG); Urine Protein NEGATIVE (NEG); Urine Specific Gravity 1.015 (1.005-1.030); Urine Urobilinogen 0.2 mg/dL (0.2-1.0); Urine pH 6.5 (5.0-7.0)
[2018-08-16 18:27] LABS: Urine Microscopic Reflex NO UMIC
[2018-08-16] MEDS: ATORVASTATIN 10 MG TAB PO SCH (20:37)
--- NOTE | 2018-08-16 23:28 | PN ---
Date of Progress Note: 08/16/2018 Time: 1800. Reason: Seizures. Interval History: No seizures. I thought the patient was going to be discharged to home, but father was concerned as the Depakote level was 92 on the second as she was on 750 q.8 and we reverted back to her outpatient dosing, Depakote level 122 and again 137. The patient complains of some intermitte nt dizziness and blurry vision when she is dizzy as well as some incontinence at night, likely a medi cation. Sedimentation rate was normal. Urinalysis ordered and results pending. Physical Examination: General: She is awake, alert, and oriented. Vital Signs: 97.5, 96, and 127/96. She is not orthostatic. Neurologic: Pupils reactive. Ocular motion full. Boateng full. Face symmetric. Strength full. Se nsation intact. Reflexes symmetric. Toes downgoing. The patient is able to ambulate without any as sistive devices. Pertinent Laboratory Data: As noted. Impression: 1.Complex partial seizures, stable. 2.Incontinence. 3.Dizziness. Plan: Continue the Depakote. Social Work evaluation for Home Health. UA pending. We will check bl adder scan, postvoid residual. I think the dizziness is likely medication related. Decrease the yamila apentin to 300 at night. Stop the hydrocodone. Decrease the Topamax back to 100 twice daily. He sa ys she still has headache, but she is not really complaining of headache presently. Father says she has not had a bowel movement in several days. We will have nursing look into that. She has some Dulcolax ordered as needed. We will continue to follow with you. PAULINA Voice ID: [id number] Report ID: [id number]
--- NOTE | 2018-08-17 01:14 | PN ---
The patient is still in the bed, complaining about dizziness and blurred vision. Her father does not want to take her home. Physical therapy has been started by Physical Therapy Department in getting out of the bed and making her walk. The patient's father wants to talk to Dr. Gunter before she is di scharged, so I spoke to the charge nurse to arrange a meeting, so that her discharge plan will go thr [facility]. ESTHERK/MODL Voice ID: [id number] Report ID: [id number]
[2018-08-17] MEDS: ACETAMINOPHEN 325 MG TABLET PO PRN (04:42)
[2018-08-17] MEDS: LEVOTHYROXINE SOD 0.025 MG TAB PO SCH (10:27)
[2018-08-17] MEDS: TOPIRAMATE 100 MG TAB PO SCH ×2 (10:27→21:46)
[2018-08-17] MEDS: DIVALPROEX DR 500MG TAB PO SCH ×3 (10:27→21:46)
[2018-08-17] MEDS: QUETIAPINE 100MG TAB PO SCH ×2 (10:31→21:45)
[2018-08-17] MEDS ORDERED: DOCUSATE NA/SENNA CONC 1 TAB PO PRN (13:47)
[2018-08-17] MEDS ORDERED: ENOXAPARIN 30 MG/0.3 ML SQ ONE (18:45)
[2018-08-17] MEDS: ATORVASTATIN 10 MG TAB PO SCH (21:45)
[2018-08-17] MEDS: GABAPENTIN 300 MG CAP PO SCH (21:46)
--- NOTE | 2018-08-17 23:25 | PN ---
The patient did not have any seizures. She had a bowel movement, and her urinalysis is negative. St ill, the patient's father does not want to take her home yet because of her poor mobility. I explain ed to him that the patient is stable for discharge. He promised that he will take her home tomorrow. MICHAEL/TESSY Voice ID: [id number] Report ID: [id number]
[2018-08-18 07:24] VITALS: BMI 29.5
[2018-08-18 08:24] VITALS: BP 133/82; TEMP 97
[2018-08-18] MEDS: TOPIRAMATE 100 MG TAB PO SCH (08:44)
[2018-08-18] MEDS: QUETIAPINE 100MG TAB PO SCH (08:44)
[2018-08-18] MEDS: DIVALPROEX DR 500MG TAB PO SCH (08:44)
[2018-08-18] MEDS: LEVOTHYROXINE SOD 0.025 MG TAB PO SCH (08:45)
[2018-08-18 10:42] VITALS: O2SAT 98
== END 2018-08-18 11:00 | disposition home or self-care (01) | DRG 101 ==
LOC: ER 20:53 → ERHOLD 23:36 → 3RD-ICU 08-09 01:21 → 4TH 08-10 10:30
PROVIDERS: ADMIT Internal Medicine; ATTEND Internal Medicine
DX: G40.201 Localization-related (focal) (partial) symptomatic epilepsy and epileptic syndromes with complex partial seizures, not intractable, with status epilepticus (principal); G80.9 Cerebral palsy, unspecified; E78.5 Hyperlipidemia, unspecified; G43.809 Other migraine, not intractable, without status migrainosus; I10 Essential (primary) hypertension; R32 Unspecified urinary incontinence; R42 Dizziness and giddiness
CPT/HCPCS: 36415; 70450; 70551; 71045; 80048; 80053; 80061; 80076; 80164; 80177; 80185; 80320; 80329; 81003; 82140; 82150; 82550; 82962; 83605; 84145; 84443; 85025; 85610; 85652; 85730; 87040; 87086; 87088; 93005; 94760; 95819; 96365; 97116; 97163; 97530; 99285; J1650; J2405; J7030; Q2009

== ENCOUNTER 2019-09-22 15:04 | Emergency (ER) | payer OTHER ==
--- OUTSIDE RECORDS SUMMARY | 2019-09-22 15:06 | XMS REPORT | Summary of Care ---
:1970 Author Organization [facility] - Health Address [address] [place] [id number] Care Team Providers Name Role Phone Steven Arenas MD Primary Care Provider Reason for Visit Auth/Cert Status Reason Specialty Diagnoses / Procedures Referred By Contact Referred To Contact Surgery Diagnoses Dysphagia, unspecified R13.10 (ICD-10-CM) - Dysphagia, unspecified Adc Pre/Pacu/Post Procedures [place] EGD TRANSORAL BIOPSY SINGLE/MULTIPLE ESOPHAGOGASTRODUODENOSCOPY 17381 - [place] EGD TRANSORAL BIOPSY SINGLE/MULTIPLE [address] [place] [address] [place] [address] Encounter Details Date Type Department Care Team Description 02/23/2019 Hospital Encounter [facility] Magaly San MD [address] [place] [address] [address] [facility] [place] [address] [address] [place] [id number] Allergies Active Allergy Reactions Severity Noted Date Comments Diphenhydramine Hcl Rash 02/23/2019 Pseudoephedrine Hcl Rash 02/23/2019 Sulfa (Sulfonamide Antibiotics) Shortness of Breath 02/23/2019 documented as of this encounter (statuses as of 02/23/2019) Medications Medication Sig Dispensed Refills Start Date End Date Status QUEtiapine (SEROQUEL) Take 100 mg by 0 Active 100 mg tablet mouth 2 (two) times daily. topiramate (TOPAMAX) 100 Take 100 mg by 0 Active mg tabletIndications: mouth 2 (two) 100 mg Q AM, 200 mg Q PM times daily. Indications: 100 mg Q AM, 200 mg Q PM divalproex (DEPAKOTE) Take 1,500 mg by 0 Active 500 mg EC mouth 2 (two) tabletIndications: 1500 times daily. mg Q AM, 1000 mg Q PM Indications: 1500 mg Q AM, 1000 mg Q PM pregabalin (LYRICA) 100 Take 100 mg by 0 Active mg capsule mouth 2 (two) times daily. levETIRAcetam (KEPPRA) Take 500 mg by 0 Active 500 mg tablet mouth 2 (two) times daily. pravastatin (PRAVACHOL) Take 20 mg by 0 Active 20 mg tablet mouth at bedtime. pravastatin 40 mg tablet Take 40 mg by 0 Active mouth at bedtime. imipramine 25 mg tablet Take 25 mg by 0 Active mouth at bedtime. levothyroxine 25 mcg Take 25 mcg by 0 Active tablet mouth every morning. gabapentin 300 mg Take 300 mg by 0 Active capsule mouth 3 (three) times daily. sumatriptan 100 mg Take 100 mg by 0 Active tablet mouth as needed for Migraine. documented as of this encounter (statuses as of 02/23/2019) Active Problems No known active problemsdocumented as of this encounter (statuses as of 2018) Social History Tobacco Use Types Packs/Day Years Used Date Never Smoker Smokeless Tobacco: Never Used Alcohol Use Drinks/Week oz/Week Comments No 0 Standard drinks or equivalent 0.0 Sex Assigned at Date Recorded Not on file Job Start Date Occupation Industry Not on file Not on file Not on file Travel History Travel Start Travel End No recent travel history available. documented as of this encounter Last Filed Vital Signs Vital Sign Reading Time Taken Comments Blood Pressure 120/33 02/23/2019 10:36 AM CDT Pulse 90 02/23/2019 10:36 AM CDT Temperature 36.7 C (98 F) 02/23/2019 10:15 AM CDT Respiratory Rate 15 02/23/2019 10:36 AM CDT Oxygen Saturation 97% 02/23/2019 10:36 AM CDT Inhaled Oxygen Concentration - - Weight 88 kg (194 lb) 02/22/2019 2:47 PM CDT Height 167.6 cm (5' 6") 02/22/2019 2:47 PM CDT Body Mass Index 31.31 02/22/2019 2:47 PM CDT documented in this encounter Discharge Instructions Rani Izquierdo RN - 02/23/2019EGD DISCHARGE INSTRUCTIONS 1. Do not eat or drink until the sensation in your throat returns. Test your ability to drink withwater before eating solids. Lozenges are helpful for throat tenderness. 2. DO NOT DRIVE or operate machinery for the rest of the day. 3. Mild abdominal discomfort may result from procedure, but this should disappear within several hours. Notify your physician/nurse if you have persistent pain for more than 6 hours. Tenderness or abdominal distention. 4. Belching or passing gas per rectum frequently occurs during the first few hours after the examination. Walking will often help relieve distention or gas pains. 5. Notify your physician/nurse if your heart rate becomes unusually rapid, if you experience shortness of breath, dizziness fever greater than 101.0F.; or vomiting blood or experience chest pains or have any concerns at all. 6. Tenderness may occur in vein where medication was given. Notify your physician /nurse should fever, swelling, redness of the arm/hand, or pain in the armpit occurs. 7. Many patients feel quite tired following this procedure. You should rest and recuperate for several hours. 8. Continue to take all medications as prescribed until your follow up appointment. 9. Ask nurse for assistance in ambulating. 10. If you cannot reach your physician for problems go to the nearest emergency room. documented in this encounter Plan of Treatment Name Type Priority Associated Diagnoses Order Schedule SURGICAL PATHOLOGY EXAM LAB Routine ONCE for 1 Occurrences starting 02/23/2019 Health Maintenance Due Date Last Done Comments DTaP,Tdap,and Td Vaccines (1 - 1987 Tdap) PAP SMEAR 1989 MAMMOGRAM 2008 COLONOSCOPY 2018 Zoster Recombinant Vaccine 2018 (SHINGRIX) (1 of 2) INFLUENZA VACCINE 03/13/2019 PNEUMOCOCCAL 0-64 YEARS COMBINED Aged Out No longer eligible based on SERIES patient's age to complete this topic documented as of this encounter Procedures Procedure Name Priority Date/Time Associated Comments Diagnosis EGD (ENDO) Routine 02/23/2019 9:47 AM CDT CBC WITH DIFFERENTIAL Routine 02/23/2019 8:51 Results for this AM CDT procedure are in the results section. CBC WITH DIFF Routine 02/23/2019 8:51 Results for this AM CDT procedure are in the results section. NOTICE OF PRIVACY Routine 02/23/2019 8:17 PRACTICES AM CDT CONSENT/REFUSAL FOR Routine 02/23/2019 8:15 DIAGNOSIS AND AM CDT TREATMENT ASSIGNMENT OF Routine 02/23/2019 8:15 BENEFITS AM CDT documented in this encounter Results CBC WITH DIFFERENTIAL (02/23/2019 8:51 AM CDT) WBC 6.59 4.30 - 11.10 [facility] 10*3/L [facility] RBC 4.39 3.93 - 5.25 [facility] 10*6/L [facility] HGB 13.9 11.6 - 15.0 [facility] g/dL [facility] HCT 41.7 35.7 - 45.2 % [facility] MCV 95.0 80.6 - 95.5 [facility] MCH 31.7 25.9 - 32.8 [facility] pg [facility] MCHC 33.3 31.6 - 35.1 [facility] g/dL [facility] RDW-SD 44.4 39.0 - 49.9 [facility] RDW-CV 12.8 12.0 - 15.5 % [facility] PLT 131 (L) 166 - 358 [facility] 10*3/L [facility] MPV 11.0 9.5 - 12.9 fL [facility] IPF % 4.3Comment: Platelet 1.3 - 7.7 % [facility] count measured by HOSPITAL fluorescence method. LABORATORY NRBC/100 WBC 0.0 0.0 - 10.0 [facility] /100 WBCs [facility] NRBC x10^3 <0.01 10*3/L [facility] GRAN MAT (NEUT) % 45.6 % [facility] IMM GRAN % 1.10 % [facility] LYMPH % 46.0 % [facility] MONO % 5.9 % [facility] EOS % 1.1 % [facility] BASO % 0.3 % [facility] GRAN MAT 3.01 1.88 - 7.09 [facility] x10^3(ANC) 10*3/uL [facility] IMM GRAN x10^3 0.07 (H) 0.00 - 0.06 [facility] 10*3/uL [facility] LYMPH x10^3 3.03 1.32 - 3.29 [facility] 10*3/uL HOSPITAL LABORATORY MONO x10^3 0.39 0.33 - 0.92 [facility] 10*3/uL HOSPITAL LABORATORY EOS x10^3 0.07 0.03 - 0.39 [facility] 10*3/uL [facility] BASO x10^3 <0.03 0.01 - 0.07 [facility] 10*3/uL [facility] Specimen Blood - ARM, RIGHT Performing Organization Address City/State/Zipcode Phone Number [facility] CLIA: [id number], [address] [place] [address] documented in this encounter Administered Medications Medication Order MAR Action Action Date Dose Rate Site simethicone (GAS RELIEF) 40 Given 02/23/2019 10:05 AM CDT 0.6 mL mg/0.6 mL drops PRN, Starting Thu02/23/19 at 1005, Until Discontinued, Routine, Intra-op water for irrigation irrigation solution Given 02/23/2019 10:05 AM CDT 1,000 mL PRN, Starting Thu02/23/19 at 1005, Until Discontinued, Routine, Intra-op documented in this encounter Insurance Payer Benefit Plan / Subscriber ID Effective Phone Address Type Group Dates [employer] MEDICARE [id number] 2019-Prese Medicare Adv HEALTHCARE COMPLETE nt PPO MEDICARE CHOICE ADVANTAGE ([place]) [place] [address] documented as of this encounter
--- OUTSIDE RECORDS SUMMARY | 2019-09-22 15:06 | XMS REPORT ---
:1970 [facility] Address [address] [place] [address] Dr. Villarreal [address] [place] [id number] Care Team Providers Name Role Phone Unavailable Unavailable Unavailable Payers Payer Name Policy Type Policy Number Effective Date Expiration Date Problems This patient has no known problems. Allergies, Adverse Reactions, Alerts This patient has no known allergies or adverse reactions. Medications This patient has no known medications.
[2019-09-22 17:08] LABS: Urine Blood NEGATIVE (NEG); Urine Glucose NEGATIVE (NEG); Urine Protein NEGATIVE (NEG); Urine Specific Gravity 1.025 (1.005-1.030)
[2019-09-22] MEDS ORDERED: ONDANSETRON 4 MG/2 ML VIAL ONE (17:13)
[2019-09-22] MEDS ORDERED: NA CHLORIDE 0.9% 500 ML ONE (17:13)
[2019-09-22 17:44] LABS: Absolute Lymphocytes (CBC) 2.4 K/uL (0.7-4.9); Basophils % 0.4 % (0-1.3); Hematocrit 36.9 % (36.0-45.0); Lymphocytes % 37.3 % (15.3-44.8); MPV 9.1 fL (7.6-11.3); RBC Red Blood Cell Count 3.92 M/uL (3.86-4.86)
[2019-09-22 17:53] LABS: Albumin 3.2 g/dL (3.4-5.0); Bilirubin Direct 0.1 mg/dL (0-0.2); Bilirubin Total 0.4 mg/dL (0.2-1.0); Potassium 4.4 mmol/L (3.5-5.1); Protein, Total 6.7 g/dL (6.4-8.2)
--- NOTE | 2019-09-22 18:55 | RAD REPORT ---
EXAM DESCRIPTION: CT - Abdomen Pelvis W Contrast - 09/22/2019 6:39 pm CLINICAL HISTORY: ABD PAIN, vomiting, stomach pain, prior cholecystectomy COMPARISON: CT HEAD SPINE CAP W CONTRAST dated 12/19/2009 TECHNIQUE: Biphasic, helical CT imaging of the abdomen and pelvis was performed following 100 ml non -ionic IV contrast. Oral contrast was given. All CT scans are performed using dose optimization technique as appropriate and may include automated exposure control or mA/KV adjustment according to patient size. FINDINGS: Several 5 millimeter or less pulmonary nodules are present at the lung bases. These are no t clearly seen on the 2010 CT trauma examination. No pneumothorax or pleural effusion. No pericardial effusion. The liver, spleen, and pancreas show no suspicious findings. Gallbladder is absent. No biliary tree d ilatation. Symmetric renal function is seen with no hydronephrosis or suspicious renal mass. No pyelonephritis o r acute parenchymal process. No bladder abnormalities. No adrenal abnormalities. Uterus and ovaries s how no suspicious findings. No gastric wall thickening, mass or edema. No dilated large or small bowel loop. A mild nonspecific e nteritis can still be present. No free air, free fluid or inflammatory stranding. No hernia, mass o r bulky lymphadenopathy. No suspicious bony findings. IMPRESSION: Contrast enhanced CT abdomen and pelvis showing no emergent finding. Patient has several 5 mm or less sized pulmonary nodules at the lung bases new from 2009. No malignan t history is known. Follow-up recommendations cannot be made when only a small portion of the lung pa renchyma is visualized. If the patient has smoking history, other risk factors or if there is clinical concern, CT chest stud y could be performed to determine if there are additional nodules or larger nodules present.
--- NOTE | 2019-09-22 19:32 | ER ---
Nurse's Notes [facility] Name: Emma Carranza Age: 49 yrs Sex: Female : 1970 Arrival Date: 09/22/2019 Time: 15:06 Bed 26 Private MD: Steven Lea R Diagnosis: Abdominal and pelvic pain Presentation: 09/21 15:35 Chief complaint: Brother states "She threw up last night and her stomach is hurting. jl7 Dr. Lea sent us for a cat scan.". Coronavirus screen: The patient has NOT traveled to a country currently being monitored by the [facility] within the last 14 days. Proceed with normal triage procedures. Ebola Screen: No symptoms or risks identified at this time. Initial Sepsis Screen: Does the patient meet any 2 criteria? No. Patient's initial sepsis screen is negative. Does the patient have a suspected source of infection? No. Patient's initial sepsis screen is negative. Risk Assessment: Do you want to hurt yourself or someone else? Patient reports no desire to harm self or others. Onset of symptoms was September 21, 2019. 15:35 Method Of Arrival: Ambulatory jl7 15:35 Acuity: YARY 3 jl7 Triage Assessment: 15:37 General: Appears in no apparent distress. uncomfortable, Behavior is calm, cooperative. jl7 Pain: Complains of pain in abdomen Pain currently is 10 out of 10 on a pain scale. GI: Reports nausea. 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 LMP N/A - Post-menopause jl7 Historical: - Allergies: 15:37 Benadryl; jl7 15:37 Sudafed; jl7 15:37 Sulfa (Sulfonamide Antibiotics); jl7 - Home Meds: 15:40 Topamax 100 mg Oral tab 1 tab 2 times per day [Active]; Alma 180 mg Oral tab 1 tab jl7 twice a day [Active]; Depakote 1000 mg Oral 3 times per day [Active]; fexofenadine 180 mg Oral tab 1 tab once daily [Active]; gabapentin 300 mg Oral cap 1 cap twice a day [Active]; Imitrex 100 mg Oral tab 1 tab as needed [Active]; Keppra 500 mg Oral tab 1 tab 2 times per day [Active]; meloxicam 15 mg Oral tab 1 tab once daily [Active]; pravastatin 40 mg Oral tab 1 tab nightly [Active]; quetiapine 100 mg Oral tab 1 tab 2 times per day [Active]; sumatriptan succinate 100mg Sub-Q crtg [Active]; - PMHx: 15:37 allergies; Headaches; High Cholesterol; Seizures; jl7 - PSHx: 15:37 placement and removal of vagus nerve stimulator; foot surg; Cholecystectomy; jl7 - Immunization history:: Adult Immunizations up to date. - Social history:: Smoking status: Patient denies any tobacco usage or history of. Screenin:50 Abuse screen: Denies threats or abuse. Denies injuries from another. Nutritional aj1 screening: No deficits noted. Tuberculosis screening: No symptoms or risk factors identified. Assessment: 15:50 General: Appears in no apparent distress. uncomfortable, Behavior is calm, cooperative, aj1 appropriate for age. Pain: Complains of pain in abdomen diffusely Pain does not radiate. Neuro: Level of Consciousness is awake, alert, obeys commands, Oriented to person, place, time, situation. Cardiovascular: Patient's skin is warm and dry. Respiratory: Airway is patent Respiratory effort is even, unlabored, Respiratory pattern is regular, symmetrical. GI: Abdomen is flat, non-distended, Bowel sounds present X 4 quads. Abd is soft X 4 quads Abdomen is tender to palpation X 4 quads. Reports nausea, vomiting. : No signs and/or symptoms were reported regarding the genitourinary system. EENT: No signs and/or symptoms were reported regarding the EENT system. Derm: No signs and/or symptoms reported regarding the dermatologic system. Skin is pale. Musculoskeletal: No signs and/or symptoms reported regarding the musculoskeletal system. Circulation, motion, and sensation intact. 16:50 Reassessment: Patient appears in no apparent distress at this time. No changes from aj1 previously documented assessment. Patient and/or family updated on plan of care and expected duration. Pain level reassessed. Patient is alert, oriented x 3, equal unlabored respirations, skin warm/dry/pink. 17:46 Reassessment: Patient appears in no apparent distress at this time. No changes from aj1 previously documented assessment. Patient and/or family updated on plan of care and expected duration. Pain level reassessed. Patient is alert, oriented x 3, equal unlabored respirations, skin warm/dry/pink. 18:45 Reassessment: Patient and/or family updated on plan of care and expected duration. Pain aj1 level reassessed. General: Appears in no apparent distress. comfortable, Behavior is calm, cooperative, appropriate for age. Neuro: Level of Consciousness is awake, alert, obeys commands, Oriented to person, place, time, situation. Cardiovascular: Patient's skin is warm and dry. Respiratory: Airway is patent Respiratory effort is even, unlabored, Respiratory pattern is regular, symmetrical. Derm: Skin is pale. Musculoskeletal: Circulation, motion, and sensation intact. 19:42 Reassessment: Patient appears in no apparent distress at this time. Patient is alert, ls4 oriented x 3, equal unlabored respirations, skin warm/dry/pink. Patient states symptoms have improved. Vital Signs: 15:35 BP 124 / 77; Pulse 97; Resp 16; Temp 97.6; Pulse Ox 100% ; Pain 10/10; jl7 19:21 BP 137 / 86; Pulse 84; Resp 14; Temp 98.0; Pulse Ox 100% on R/A; Pain 3/10; ls4 ED Course: 15:06 Patient arrived in ED. ag5 15:06 Steven Lea MD is Private Physician. ag5 15:37 Triage completed. jl7 15:37 Arm band placed on right wrist. jl7 15:39 Marvin Forde FNP-C [facility]. la1 15:39 Jhony Lewis MD is Attending Physician. la1 15:50 Patient has correct armband on for positive identification. Placed in gown. Bed in low aj1 position. Call light in reach. 15:50 No provider procedures requiring assistance completed. aj1 15:52 Muriel Dudley, RN is Primary Nurse. aj1 16:45 Inserted saline lock: 22 gauge in left upper arm, using aseptic technique. vc 16:50 Missed attempt(s): 20 gauge in right antecubital area. vc 17:07 Urine --Ancillary (enter results) Sent. vc 17:07 Urine Dipstick--Ancillary (enter results) Sent. vc 18:56 CT Abd/Pelvis - IV Contrast Only In Process Unspecified. EDMS 19:43 IV discontinued, intact, bleeding controlled, No redness/swelling at site. Pressure ls4 dressing applied. Administered Medications: 17:16 Drug: NS 0.9% 500 ml Route: IV; Rate: bolus; Site: left upper arm; vc 17:16 Drug: Zofran (Ondansetron) 4 mg Route: IVP; Site: left upper arm; vc Outcome: 19:31 Discharge ordered by MD. la1 19:43 Discharged to home ambulatory, with family. ls4 19:43 Condition: good 19:43 Discharge instructions given to patient, family, Instructed on discharge instructions, follow up and referral plans. medication usage, Demonstrated understanding of instructions, follow-up care, medications, Prescriptions given X 1, 2. 19:44 Patient left the ED. ls4 Signatures: Dispatcher [employer] EDMS Muriel Dudley RN RN aj1 Marvin Forde, MONEY MARKET CLERK-C M[employer]Y MARKET CLERK-Cla1 Rylee Helms RN RN jl7 Charissa Guerra RN RN ls4 Naima Flanagan 5 Felipa Garcia RN RN vc
--- NOTE | 2019-09-22 19:32 | EDPHYS ---
Physician Documentation [facility] Name: Emma Carranza Age: 49 yrs Sex: Female : 1970 Arrival Date: 09/22/2019 Time: 15:06 Bed 26 Private MD: Steven Lea R ED Physician Jhony Lewis HPI: 09/21 17:11 This 49 yrs old Female presents to ER via Ambulatory with complaints of la1 Abdominal Problem. 17:11 The patient presents with abdominal pain that is diffuse. Onset: The symptoms/episode la1 began/occurred last night. The symptoms do not radiate. Associated signs and symptoms: Pertinent positives: nausea and vomiting. The symptoms are described as sharp. Modifying factors: The symptoms are alleviated by nothing, the symptoms are aggravated by nothing. Severity of pain: At its worst the pain was moderate. The patient has not experienced similar symptoms in the past. 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 jl7 Historical: - Allergies: 15:37 Benadryl; jl7 15:37 Sudafed; jl7 15:37 Sulfa (Sulfonamide Antibiotics); jl7 - Home Meds: 15:40 Topamax 100 mg Oral tab 1 tab 2 times per day [Active]; Alma 180 mg Oral tab 1 tab jl7 twice a day [Active]; Depakote 1000 mg Oral 3 times per day [Active]; fexofenadine 180 mg Oral tab 1 tab once daily [Active]; gabapentin 300 mg Oral cap 1 cap twice a day [Active]; Imitrex 100 mg Oral tab 1 tab as needed [Active]; Keppra 500 mg Oral tab 1 tab 2 times per day [Active]; meloxicam 15 mg Oral tab 1 tab once daily [Active]; pravastatin 40 mg Oral tab 1 tab nightly [Active]; quetiapine 100 mg Oral tab 1 tab 2 times per day [Active]; sumatriptan succinate 100mg Sub-Q crtg [Active]; - PMHx: 15:37 allergies; Headaches; High Cholesterol; Seizures; jl7 - PSHx: 15:37 placement and removal of vagus nerve stimulator; foot surg; Cholecystectomy; jl7 - Immunization history:: Adult Immunizations up to date. - Social history:: Smoking status: Patient denies any tobacco usage or history of. ROS: 17:31 Constitutional: Negative for fever, chills, and weight loss, Eyes: Negative for injury, la1 pain, redness, and discharge, ENT: Negative for injury, pain, and discharge, Neck: Negative for injury, pain, and swelling, Cardiovascular: Negative for chest pain, palpitations, and edema, Respiratory: Negative for shortness of breath, cough, wheezing, and pleuritic chest pain. 17:31 Back: Negative for injury and pain, : Negative for injury, bleeding, discharge, and swelling, MS/Extremity: Negative for injury and deformity, Skin: Negative for injury, rash, and discoloration, Neuro: Negative for headache, weakness, numbness, tingling, and seizure. 17:31 Abdomen/GI: Positive for abdominal pain, nausea, vomiting. Exam: 17:32 Constitutional: This is a well developed, well nourished patient who is awake, alert, la1 and in no acute distress. Head/Face: Normocephalic, atraumatic. Eyes: Periorbital areas with no swelling, redness, or edema. ENT: Mucous membranes moist. Neck: Trachea midline,No Meningismus. Chest/axilla: Normal chest wall appearance and motion. Nontender with no deformity. No lesions are appreciated. Cardiovascular: Regular rate and rhythm with a normal S1 and S2. Respiratory: Lungs have equal breath sounds bilaterally, clear to auscultation 17:32 Back: No spinal tenderness. No costovertebral tenderness. Full range of motion. Skin: Warm, dry with normal turgor. Normal color with no rashes, no lesions, and no evidence of cellulitis. MS/ Extremity: Pulses equal, no cyanosis. Neurovascular intact. Full, normal range of motion. 17:32 Abdomen/GI: Inspection: abdomen appears normal, Palpation: soft, in all quadrants, mild abdominal tenderness, in all quadrants, Indicators: McBurney's point is not tender, Lee's sign is negative, Rovsing's sign is negative, Obturator sign is negative, Psoas sign is negative. Vital Signs: 15:35 BP 124 / 77; Pulse 97; Resp 16; Temp 97.6; Pulse Ox 100% ; Pain 10/10; jl7 19:21 BP 137 / 86; Pulse 84; Resp 14; Temp 98.0; Pulse Ox 100% on R/A; Pain 3/10; ls4 MDM: 15:40 Patient medically screened. la1 19:29 Data reviewed: vital signs, nurses notes, lab test result(s), and as a result, I will la1 discharge patient. Data interpreted: Pulse oximetry: on room air is 100 %. Interpretation: normal. 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 Special discussion: Based on the patient's Hx, exam, and Dx evaluation, there is no indication for emergent surgery or inpatient Tx. It is understood by the patient/guardian that if the Sx's persist or worsen they need to return immediately for re-evaluation. I discussed with the patient the need to follow-up with the PCP/specialist for the noted incidental finding on X-ray/CT scanning. Pulmonary nodules, pt informed, CT results given, instructed to FU with PCP. 09/21 15:50 Order name: Basic Metabolic Panel; Complete Time: 19:26 [facility] 09/21 15:50 Order name: CBC with Diff; Complete Time: 19:26 [facility] 09/21 15:50 Order name: Creatinine for Radiology; Complete Time: 19:26 [facility] 09/21 15:50 Order name: Hepatic Function; Complete Time: 19:26 [facility] 09/21 15:50 Order name: Lipase; Complete Time: 19:26 [facility] 09/21 16:40 Order name: Urine Dipstick--Ancillary (enter results) bd 09/21 15:50 Order name: IV Saline Lock; Complete Time: 16:59 [facility] 09/21 15:50 Order name: Labs collected and sent; Complete Time: 17:00 [facility] 09/21 16:03 Order name: CT Abd/Pelvis - IV Contrast Only; Complete Time: 19:31 [facility] 09/21 16:40 Order name: Urine --Ancillary (enter results) bd 09/21 17:09 Order name: Urine --Ancillary; Complete Time: 19:26 [facility] 09/21 17:09 Order name: Urine Dipstick-Ancillary; Complete Time: 19:26 [facility] 09/21 15:50 Order name: Urine Dipstick-Ancillary (obtain specimen); Complete Time: 17:07 la1 09/21 15:50 Order name: Urine Test (obtain specimen); Complete Time: 17:07 la1 Administered Medications: 17:16 Drug: NS 0.9% 500 ml Route: IV; Rate: bolus; Site: left upper arm; vc 17:16 Drug: Zofran (Ondansetron) 4 mg Route: IVP; Site: left upper arm; vc Disposition: 09/22 07:40 Co-signature as Attending Physician, Jhony Lewis MD I agree with the assessment and kdr plan of care. Disposition: 09/22/19 19:31 Discharged to Home. Impression: Abdominal and pelvic pain. - Condition is Stable. - Discharge Instructions: Abdominal Pain, Adult, Abdominal Pain, Adult, [id number], Pulmonary Nodule. - Prescriptions for Bentyl 20 mg Oral Tablet - take 1 tablet by ORAL route every 6 hours As needed; 20 tablet. Zofran 4 mg Oral Tablet - take 1 tablet by ORAL route every 12 hours As needed; 6 tablet. - Medication Reconciliation Form, Thank You Letter form. - Follow up: Private Physician; When: 2 - 3 days; Reason: Recheck today's complaints, Continuance of care, Re-evaluation by your physician. - Problem is new. - Symptoms have improved. Signatures: Dispatcher [employer] [facility] Jhony Lewis MD MD kdr Marvin Forde, TONGSMAN-C TONGSMAN-Cla1 Rylee Helms RN RN jl7 Charissa Guerra, RN RN ls4 Felipa Garcia, RN RN vc Corrections: (The following items were deleted from the chart) 09/21 19:44 19:31 09/22/2019 19:31 Discharged to Home. Impression: Abdominal and pelvic pain. ls4 Condition is Stable. Forms are Medication Reconciliation Form, Thank You Letter, Antibiotic Education, Prescription Opioid Use. Follow up: Private Physician; When: 2 - 3 days; Reason: Recheck today's complaints, Continuance of care, Re-evaluation by your physician. Problem is new. Symptoms have improved. la1
[2019-09-22 20:11] VITALS: O2SAT 100
[2019-09-22 20:21] VITALS: BP 145/79; TEMP 98.5
== END 2019-09-22 19:44 | disposition home or self-care (01) ==
LOC: ER 15:04
DX: R10.2 Pelvic and perineal pain (principal); R11.2 Nausea with vomiting, unspecified; E78.00 Pure hypercholesterolemia, unspecified; G40.909 Epilepsy, unspecified, not intractable, without status epilepticus; Z88.2 Allergy status to sulfonamides; Z88.8 Allergy status to other drugs, medicaments and biological substances
CPT/HCPCS: 85025; 80048; 36415; 81025; 80076; 81003; 83690; 74177; 96374; 99284; Q9967; J7040; J2405

== ENCOUNTER 2021-01-07 14:22 | Inpatient (IN) | payer OTHER ==
--- OUTSIDE RECORDS SUMMARY | 2021-01-07 14:25 | XMS REPORT | Continuity of Care Document ---
:1970 Author Organization [facility] t Address [address] [place] [id number] Care Team Providers Name Role Phone Ancelmo Oliveros MD Attending Clinician Ancelmo Oliveros MD Admitting Clinician Payers Payer Name Policy Type Policy Number Effective Date Expiration Date S ource Problems This patient has no known problems. Allergies, Adverse Reactions, Alerts This patient has no known allergies or adverse reactions. Medications This patient has no known medications. Procedures This patient has no known procedures. Encounters Start End Encounter Admission Attending Care Care Encounter Source Date/Time Date/Time Type Type Clinicians Facility Department ID 2019-02-23 2019-02-23 [facility] [id number] 08:42:00 10:55:00 Encounter Magaly bahena [id number] [facility] [id number] Surgical [id number] [place] 07 Results This patient has no known results.
[2021-01-07] MEDS ORDERED: ONDANSETRON 4 MG/2 ML VIAL ONE (16:29)
[2021-01-07] MEDS ORDERED: NA CHLORIDE 0.9% 1,000 ML ONE (16:29)
[2021-01-07 16:39] LABS: Absolute Lymphocytes (CBC) 1.5 K/uL (0.7-4.9); Albumin 4.2 g/dL (3.4-5.0); Basophils % 0.4 % (0-1.3); Bilirubin Direct 0.2 mg/dL (0-0.2); Bilirubin Total 0.7 mg/dL (0.2-1.0); Hematocrit 43.5 % (36.0-45.0); Lymphocytes % 12.1 % (15.3-44.8); MPV 8.6 fL (7.6-11.3); Potassium 4.3 mmol/L (3.5-5.1); Protein, Total 8.8 g/dL (6.4-8.2); RBC Red Blood Cell Count 4.82 M/uL (3.86-4.86)
--- NOTE | 2021-01-07 17:16 | RAD REPORT ---
EXAM DESCRIPTION: CT - Head Brain Wo Cont - 01/07/2021 4:51 pm CLINICAL HISTORY: CONFUSED COMPARISON: Head Brain Wo Cont dated 08/08/2018 TECHNIQUE: Axial 5 mm thick images of the head were obtained without IV contrast. All CT scans are performed using dose optimization technique as appropriate and may include automated exposure control or mA/KV adjustment according to patient size. FINDINGS: No intracranial hemorrhage, mass, edema or shift of mid-line structures. No acute infarcti on changes seen. No abnormal extra-axial fluid collections. Ventricles are normal. Mastoid air cells and visualized portions of the paranasal sinuses are clear. No acute bony findings. Patient has normal variant hyperostosis of the cranial vault primarily involv ing the frontal bone. This is unchanged from prior imaging. IMPRESSION: Negative non-contrast CT head examination for acute finding.
--- NOTE | 2021-01-07 17:20 | RAD REPORT ---
EXAM DESCRIPTION: CT - Abdomen Pelvis W Contrast - 01/07/2021 4:57 pm CLINICAL HISTORY: Abd pain;Nausea / vomiting COMPARISON: Abdomen Pelvis W Contrast dated 08/06/2020 TECHNIQUE: Biphasic, helical CT imaging of the abdomen and pelvis was performed following 100 ml non -ionic IV contrast. No oral contrast administered. All CT scans are performed using dose optimization technique as appropriate and may include automated exposure control or mA/KV adjustment according to patient size. FINDINGS: No suspicious findings in the lung bases. The liver, spleen, and pancreas show no suspicious findings. Cholecystectomy clips are present. No bi liary tree dilatation. Symmetric renal function is seen with no hydronephrosis or suspicious renal mass. No pyelonephritis o r acute parenchymal process. Respiratory motion does create heterogeneity on this examination. Presen ce of left-sided pyelonephritis is unlikely but can be correlated with any UA abnormality. There is n o perinephric stranding and renal function is symmetric with the right kidney. No adrenal abnormaliti es. Partially filled urinary bladder shows no suspicious finding. Uterus and ovaries also without a s uspicious finding. Multiple phleboliths are seen along the pelvic floor. No dilated bowel loops or bowel wall thickening. No evidence for appendicitis or other emergent GI fi nding. No free air, free fluid or inflammatory stranding. No hernia, mass or bulky lymphadenopathy. No suspicious bony findings. Degenerative changes are present. IMPRESSION: Contrast enhanced CT abdomen and pelvis showing no acute or emergent finding. Nonacute findings detailed in the body of the report.
[2021-01-07 18:02] LABS: Urine Blood Trace-intact (Negative); Urine Glucose Negative (Negative); Urine Protein Negative (Negative); Urine Specific Gravity 1.015 (1.005-1.030); Urine pH 5.5 (5.0-7.0)
--- NOTE | 2021-01-07 18:47 | EDPHYS ---
Physician Documentation [facility] Name: Emma Carranza Age: 50 yrs Sex: Female : 1970 Arrival Date: 01/07/2021 Time: 14:26 Bed 6 Private MD: Steven Lea R ED Physician Sher Durbin HPI: 01/07 17:02 This 50 yrs old Female presents to ER via Ambulatory with complaints of rn Decreased Appetite, Abdominal Pain. 17:02 The patient presents with abdominal pain that is diffuse. Onset: The symptoms/episode rn began/occurred 1 week(s) ago. The symptoms radiate to chest. Associated signs and symptoms: Pertinent positives: anorexia, nausea, Pertinent negatives: blood in stools, fever, shortness of breath. 18:08 The symptoms are described as achy. Modifying factors: The symptoms are alleviated by rn nothing, the symptoms are aggravated by touching the area. Severity of pain: At its worst the pain was moderate in the emergency department the pain is unchanged. The patient has not experienced similar symptoms in the past. The patient has been recently seen by a physician:. Family reports 1 week of agitation, . 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 jd3 Historical: - Allergies: 14:53 Benadryl; jd3 14:53 Sulfa (Sulfonamide Antibiotics); jd3 14:53 Sudafed; jd3 - Home Meds: 14:53 Depakote 1000 mg Oral 3 times per day [Active]; fexofenadine 180 mg Oral tab 1 tab once jd3 daily [Active]; gabapentin 300 mg Oral cap 1 cap twice a day [Active]; Imitrex 100 mg Oral tab 1 tab as needed [Active]; Keppra 500 mg Oral tab 1 tab 2 times per day [Active]; Alma 180 mg Oral tab 1 tab twice a day [Active]; pravastatin 40 mg Oral tab 1 tab nightly [Active]; Xcopri oral oral [Active]; Omeprazole Oral [Active]; Seroquel Oral [Active]; sumatriptan succinate 100mg Sub-Q crtg [Active]; - PMHx: 14:53 Headaches; Seizures; High Cholesterol; allergies; jd3 - PSHx: 14:53 foot surg; placement and removal of vagus nerve stimulator; Cholecystectomy; jd3 - Immunization history:: Adult Immunizations up to date, Client reports receiving the 2nd dose of the Covid vaccine. - Social history:: Smoking status: Patient denies any tobacco usage or history of. - Family history:: not pertinent. - Hospitalizations: : No recent hospitalization is reported. ROS: 18:41 Constitutional: Negative for fever, chills, and weight loss, Eyes: Negative for injury, rn pain, redness, and discharge, Neck: Negative for injury, pain, and swelling, Cardiovascular: Negative for chest pain, palpitations, and edema, Respiratory: Negative for shortness of breath, cough, wheezing, and pleuritic chest pain, Abdomen/GI: + abd pain and nausea Back: Negative for injury and pain, : Negative for injury, bleeding, discharge, and swelling, MS/Extremity: Negative for injury and deformity, Skin: Negative for injury, rash, and discoloration, Neuro: Negative for headache, weakness, numbness, tingling, and seizure, Psych: + hallucinating Exam: 18:41 Constitutional: This is a well developed, well nourished patient who is awake, alert, rn and in no acute distress. Head/Face: Normocephalic, atraumatic. ENT: dry MM Cardiovascular: Tachycardic, regular. No pulse deficits. Respiratory: No increased work of breathing, no retractions or nasal flaring. Abdomen/GI: soft, + mild epigastric and suprapubic tenderness. Skin: Warm, dry MS/ Extremity: Pulses equal, no cyanosis. Neuro: Awake and alert, GCS 15 Vital Signs: 14:53 BP 176 / 116; Pulse 123; Resp 17 S; Temp 97.6(TE); Pulse Ox 99% on R/A; Weight 92.99 kg jd3 (R); Height 5 ft. 6 in. (167.64 cm) (R); Pain 8/10; 15:56 BP 134 / 100; Pulse 112 MON; Resp 21; Pulse Ox 100% on R/A; sv 16:14 BP 150 / 91; Pulse 105 MON; Resp 20; Pulse Ox 99% on R/A; sv 17:15 BP 153 / 89; Pulse 101 MON; Resp 16; Pulse Ox 100% on R/A; sv 18:31 BP 150 / 90; Pulse 98; Resp 20; Pulse Ox 100% ; sv 19:30 BP 154 / 91; Pulse 92; Resp 16 S; Pulse Ox 100% on R/A; ad5 20:35 BP 160 / 90; Pulse 88; Resp 18; Pulse Ox 98% ; ea 14:53 Body Mass Index 33.09 (92.99 kg, 167.64 cm) jd3 15:56 Sinus tachycardia sv 16:14 Sinus tachycardia sv 17:15 Sinus Rhythm sv MDM: 15:56 Patient medically screened. rn 18:41 Differential diagnosis: appendicitis, bowel obstruction, cholecystitis, Cholelithiasis, rn diverticulitis, gastritis, gastroesophageal reflux disease, non-specific abd pain, pancreatitis, Peptic Ulcer Disease, elevated ammonia, high depakote levels, dehydration, UTI, medication effects. Data reviewed: vital signs, nurses notes, lab test result(s), radiologic studies, CT scan, and as a result, I will admit patient. Counseling: I had a detailed discussion with the patient and/or guardian regarding: the historical points, exam findings, and any diagnostic results supporting the discharge/admit diagnosis, lab results, radiology results, the need for further work-up and treatment in the hospital. Response to treatment: the patient's symptoms have mildly improved after treatment, and as a result, I will admit patient. Admission orders: after a detailed discussion of the patient's condition and case, the admit orders are written by me. ED course: Consulted with Dr. Guntre, will consult on patient in hospital given hallucinations and will try and figure out if medication changes led to this vs delirium. UA clear, ct head and abdomen without acute findings. . 01/07 16:05 Order name: Basic Metabolic Panel; Complete Time: 17:24 rn 01/07 16:05 Order name: CBC with Diff; Complete Time: 17:24 rn 01/07 16:05 Order name: Hepatic Function; Complete Time: 17:24 rn 01/07 16:05 Order name: Lipase; Complete Time: 17:24 rn 01/07 16:35 Order name: Procalcitonin; Complete Time: 18:06 rn 01/07 16:35 Order name: Blood Culture Adult (2) rn 01/07 16:05 Order name: CT Abd/Pelvis - IV Contrast Only; Complete Time: 17:24 rn 01/07 18:02 Order name: Urine Dipstick-Ancillary; Complete Time: 18:03 EDMS 01/07 18:10 Order name: Depakote rn 01/07 18:11 Order name: TSH rn 01/07 18:11 Order name: T4 Free rn 01/07 18:11 Order name: Ptt, Activated rn 01/07 18:11 Order name: PT-INR rn 01/07 18:12 Order name: AMMONIA rn 01/07 16:05 Order name: IV Saline Lock; Complete Time: 16:14 rn 01/07 16:05 Order name: Labs collected and sent; Complete Time: 16:14 rn 01/07 16:34 Order name: CT Head Brain wo Cont; Complete Time: 17:24 rn 01/07 19:30 Order name: CONS Physician Consult EDMS Administered Medications: 16:13 Drug: NS 0.9% 1000 ml Route: IV; Rate: 1000 ml; Site: right antecubital; sv 19:00 Follow up: Response: No adverse reaction; IV Status: Completed infusion; IV Intake: ea 1000ml 16:13 Drug: Zofran (Ondansetron) 4 mg Route: IVP; Site: right antecubital; sv 17:00 Follow up: Response: No adverse reaction sv Disposition: 01/07/21 18:46 Hospitalization ordered by Kelli Hart for Observation. Diagnosis are Dehydration, Altered mental status, unspecified. - Bed requested for Telemetry/MedSurg (observation). - Status is Observation. ea - Condition is Stable. - Problem is new. - Symptoms have improved. Signatures: Dispatcher [employer] ED[facility] Lamar Mullins RN RN sv Nieto, Roman, MD MD rn Lasagna, Tonya RN RN tl1 Sri Shultz RN RN ea Davies, Jonathon RN RN jd3 Corrections: (The following items were deleted from the chart) 20:20 18:46 Hospitalization Ordered by Kelli Hart MD for Observation. Preliminary tl1 diagnosis is Dehydration; Altered mental status, unspecified. Bed requested for Telemetry/MedSurg (observation). Status is Observation. Condition is Stable. Problem is new. Symptoms have improved. rn 21:08 20:20 01/07/2021 18:46 Hospitalization Ordered by Kelli Hart MD for Observation. ea Preliminary diagnosis is Dehydration; Altered mental status, unspecified. Bed requested for Telemetry/MedSurg (observation). Status is Observation. Condition is Stable. Problem is new. Symptoms have improved. tl1
--- NOTE | 2021-01-07 18:47 | ER ---
Nurse's Notes [facility] Name: Emma Carranza Age: 50 yrs Sex: Female : 1970 Arrival Date: 01/07/2021 Time: 14:26 Bed 6 Private MD: Steven Lea R Diagnosis: Dehydration;Altered mental status, unspecified Presentation: 01/07 14:47 Chief complaint: family stated: "she has been having decreased appetite. nausea and jd3 vomiting. stomach pain. she has mental retardation and I think her medicine is are off. more frequent seizures as well.". Coronavirus screen: At this time, the client does not indicate any symptoms associated with coronavirus-19. Ebola Screen: Patient negative for fever greater than or equal to 101.5 degrees Fahrenheit, and additional compatible Ebola Virus Disease symptoms. Initial Sepsis Screen: Does the patient meet any 2 criteria? No. Patient's initial sepsis screen is negative. Does the patient have a suspected source of infection? No. Patient's initial sepsis screen is negative. Risk Assessment: Do you want to hurt yourself or someone else? Patient reports no desire to harm self or others. Onset of symptoms was January 04, 2021. 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 LMP N/A - Post-menopause jd3 Historical: - Allergies: 14:53 Benadryl; jd3 14:53 Sulfa (Sulfonamide Antibiotics); jd3 14:53 Sudafed; jd3 - Home Meds: 14:53 Depakote 1000 mg Oral 3 times per day [Active]; fexofenadine 180 mg Oral tab 1 tab once jd3 daily [Active]; gabapentin 300 mg Oral cap 1 cap twice a day [Active]; Imitrex 100 mg Oral tab 1 tab as needed [Active]; Keppra 500 mg Oral tab 1 tab 2 times per day [Active]; Alma 180 mg Oral tab 1 tab twice a day [Active]; pravastatin 40 mg Oral tab 1 tab nightly [Active]; Xcopri oral oral [Active]; Omeprazole Oral [Active]; Seroquel Oral [Active]; sumatriptan succinate 100mg Sub-Q crtg [Active]; - PMHx: 14:53 Headaches; Seizures; High Cholesterol; allergies; jd3 - PSHx: 14:53 foot surg; placement and removal of vagus nerve stimulator; Cholecystectomy; jd3 - Immunization history:: Adult Immunizations up to date, Client reports receiving the 2nd dose of the Covid vaccine. - Social history:: Smoking status: Patient denies any tobacco usage or history of. - Family history:: not pertinent. - Hospitalizations: : No recent hospitalization is reported. Screenin:57 Abuse screen: Denies threats or abuse. Denies injuries from another. Nutritional sv screening: No deficits noted. Tuberculosis screening: No symptoms or risk factors identified. Fall Risk None identified. Assessment: 16:10 General: Appears in no apparent distress. comfortable, well developed, Behavior is sv calm, cooperative, appropriate for age. Pain: Complains of pain in abdomen Pain currently is 8 out of 10 on a pain scale. Neuro: Level of Consciousness is awake, alert, obeys commands, Oriented to person, place, time, situation, Moves all extremities. Full function Gait is steady, Speech is normal. Respiratory: Airway is patent Respiratory effort is even, unlabored, Respiratory pattern is regular, symmetrical. GI: Abdomen is round Reports lower abdominal pain, upper abdominal pain, nausea, vomiting. Derm: Skin is normal. 17:30 Reassessment: Patient appears in no apparent distress at this time. No changes from previously documented assessment. Patient and/or family updated on plan of care and expected duration. Pain level reassessed. 18:44 Reassessment: Patient appears in no apparent distress at this time. No changes from hb previously documented assessment. Patient and/or family updated on plan of care and expected duration. Pain level reassessed. 19:30 Reassessment: Patient appears in no apparent distress at this time. Patient and/or ad5 family updated on plan of care and expected duration. Pain level reassessed. Patient is alert, oriented x 3, equal unlabored respirations, skin warm/dry/pink. 19:30 General: Appears in no apparent distress. Behavior is calm, cooperative. Neuro: No ad5 deficits noted. 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 Speech is normal. Cardiovascular: No deficits noted. Capillary refill < 3 seconds Patient's skin is warm and dry. Respiratory: No deficits noted. Airway is patent Respiratory effort is even, unlabored, Respiratory pattern is regular, symmetrical. 20:33 Reassessment: Patient appears in no apparent distress at this time. No changes from ad5 previously documented assessment. Vital Signs: 14:53 BP 176 / 116; Pulse 123; Resp 17 S; Temp 97.6(TE); Pulse Ox 99% on R/A; Weight 92.99 kg jd3 (R); Height 5 ft. 6 in. (167.64 cm) (R); Pain 8/10; 15:56 BP 134 / 100; Pulse 112 MON; Resp 21; Pulse Ox 100% on R/A; sv 16:14 BP 150 / 91; Pulse 105 MON; Resp 20; Pulse Ox 99% on R/A; sv 17:15 BP 153 / 89; Pulse 101 MON; Resp 16; Pulse Ox 100% on R/A; sv 18:31 BP 150 / 90; Pulse 98; Resp 20; Pulse Ox 100% ; sv 19:30 BP 154 / 91; Pulse 92; Resp 16 S; Pulse Ox 100% on R/A; ad5 20:35 BP 160 / 90; Pulse 88; Resp 18; Pulse Ox 98% ; ea 14:53 Body Mass Index 33.09 (92.99 kg, 167.64 cm) jd3 15:56 Sinus tachycardia sv 16:14 Sinus tachycardia sv 17:15 Sinus Rhythm sv ED Course: 14:26 Patient arrived in ED. mr 14:26 Steven Lea MD is Private Physician. mr 14:49 Triage completed. jd3 14:54 Arm band placed on. jd3 15:51 Lamar Mullins, ECHO is Primary Nurse. sv 15:56 Sher Durbin MD is Attending Physician. rn 15:57 Patient has correct armband on for positive identification. Bed in low position. Call sv light in reach. Side rails up X 1. Adult w/ patient. pvc monitor on. Pulse ox on. NIBP on. Door closed. Head of bed elevated. 16:10 Inserted saline lock: 20 gauge in right antecubital area, using aseptic technique. sv Blood collected. Flushed right antecubital with 2 ml normal saline. 16:16 Awaiting lab results, Awaiting for x-ray. sv 16:51 CT Head Brain wo Cont In Process Unspecified. EDMS 16:57 CT Abd/Pelvis - IV Contrast Only In Process Unspecified. EDMS 18:07 Urine collected: clean catch specimen, cloudy. [facility] 18:46 Kelli Hart MD is Hospitalizing Provider. rn 19:07 Report given to Sri DODGE and Aristides RN. sv 19:08 Primary Nurse role handed off by Lamar Mullins RN 19:58 Aristides Faria is Primary Nurse. ad5 20:33 No provider procedures requiring assistance completed. Patient admitted, IV remains in ea place. Administered Medications: 16:13 Drug: NS 0.9% 1000 ml Route: IV; Rate: 1000 ml; Site: right antecubital; sv 19:00 Follow up: Response: No adverse reaction; IV Status: Completed infusion; IV Intake: ea 1000ml 16:13 Drug: Zofran (Ondansetron) 4 mg Route: IVP; Site: right antecubital; sv 17:00 Follow up: Response: No adverse reaction sv Intake: 19:00 IV: 1000ml; Total: 1000ml. ea Outcome: 18:46 Decision to Hospitalize by Provider. rn 20:33 Admitted to Med/surg accompanied by tech, via stretcher, on monitor. ea 20:33 Condition: stable 20:33 Instructed on the need for admit, Demonstrated understanding of instructions. 21:08 Patient left the ED. ea Signatures: Dispatcher [employer] EDMS aLmar Mullins RN RN sv Rivera, Mary mr DurbinSher MD MD rn Baxter, Heather, RN RN hb Martinez, Maria [facility] Sri Shultz RN RN ea Davies, Jonathon, RN RN jd3 Davidson, Andrea ad5
[2021-01-07 18:55] LABS: Protime INR 1.15
[2021-01-07 19:09] LABS: Thyroid Stimulating Hormone 3.7 uIU/mL (0.360-3.740); Valproic Acid (Depakene) Level 23.2 ug/mL (50-100)
--- NOTE | 2021-01-07 19:46 | P.HP ---
Certification for Inpatient Patient admitted to: Observation With expected LOS: <2 Midnights Patient will require the following post-hospital care: None Practitioner: I am a practitioner with admitting privileges, knowledge of patient current condition, hospital course, and medical plan of care. Services: Services provided to patient in accordance with Admission requirements found in Title 42 Section 412.3 of the Code of Federal Regulations Patient History Date of Service: 01/07/21 Primary Care Provider: Venu Reason for admission: hallucinations, abdominal pain History of Present Illness: Ms. Carranza is a 50 yo F with history of seizures here today for a week of diffuse achy abdominal pain and nausea. She reports poor appetite, has not eaten anything for 2 days. Reports worsening of symptoms with eating and drinking, night sweats and chills. Denies vomiting, constipation and diarrhea. WBC 12.2. CT A/P with no acute findings. Urinalysis +ketones and blood. She has an appointment with GI next month. Per family member, she has had visual hallucinations, insomnia and increased agitation for the past few days. Her medication regimen is currently being titrated by neurology. Admitted for further medication management and workup of hallucinations. Allergies diphenhydramine [From Benadryl] Allergy (Verified 02/09/18 16:08) Unknown pseudoephedrine [From Sudafed] Allergy (Verified 02/09/18 16:08) Unknown Sulfa (Sulfonamide Antibiotics) Allergy (Verified 02/09/18 16:08) Unknown Home Medications: Divalproex Sodium 500 mg PO SEECOM 08/09/18 Fexofenadine HCl 180 mg PO BID 08/09/18 Fluticasone [Flonase 50MCG Nasal [place]*] 1 spray IH DAILY 08/09/18 Gabapentin 300 mg PO TID 08/09/18 Levothyroxine Sodium 25 mcg PO DAILY 08/09/18 Meloxicam [Mobic] 15 mg PO DAILY 08/09/18 Pravastatin Sodium 40 mg PO BEDTIME 08/09/18 Quetiapine Fumarate [Seroquel] 100 mg PO BID 08/09/18 SUMAtriptan succinate [Sumatriptan Succinate] 1 tab PO PRN PRN 08/09/18 Topiramate 100 mg PO BID 08/09/18 levETIRAcetam [Levetiracetam] 500 mg PO BID 08/09/18 - Past Medical/Surgical History Diabetic: No -: Allergies -: headache -: hyperlipidema -: Seizures -: left foot surgery -: Placement and removal of vagus nerve stimulator -: cholecystectomy - Family History Father -: Heart disease, Hypertension, Cancer Mother -: Heart disease, Diabetes, Cancer, Other (see notes) Notes: thyroid - Social History Smoking Status: Never smoker Alcohol use: No CD- Drugs: No Caffeine use: Yes Place of Residence: Home Review of Systems 10-point ROS is otherwise unremarkable General: Chills, Sweats Gastrointestinal: Nausea, Abdominal Pain Neurological: Other (hallucinations, agitation ) Physical Examination - Physical Exam General: Alert, In no apparent distress, Cooperative HEENT: Atraumatic, PERRLA, Mucous membr. moist/pink, EOMI, Sclerae nonicteric Neck: Supple, 2+ carotid pulse no bruit, No LAD, Without JVD or thyroid abnormality Respiratory: Clear to auscultation bilaterally, Normal air movement Cardiovascular: Normal S1 S2, No gallops, No rubs, No murmurs, Other (tachycardic) Capillary refill: <2 Seconds Gastrointestinal: Normal bowel sounds, Soft and benign, Non-distended, No ascites, No masses, No rebound, No guarding, Tenderness Musculoskeletal: No clubbing, No swelling, No contractures, No erythema, No tenderness, No warmth Integumentary: No rashes, No breakdown, No significant lesion, No tenderness/swelling, No erythema, No warmth, No cyanosis Neurological: Normal gait, Normal speech, Normal strength at 5/5 x4 extr, Normal tone, Normal affect Lymphatics: No axilla or inguinal lymphadenopathy - Studies Laboratory Data (last 24 hrs) 01/07/21 18:35: PT 13.3 H, INR 1.15, APTT 25.8 01/07/21 16:11: WBC 12.20 H, Hgb 14.6, Hct 43.5, Plt Count 197 01/07/21 16:11: Sodium 138, Potassium 4.3, BUN 14, Creatinine 0.93, Glucose 111 H, Total Bilirubin 0.7, AST 22, ALT 23, Alkaline Phosphatase 136 H, Lipase 91 Assessment and Plan - Problems (Diagnosis) (1) Seizures Current Visit: Yes Status: Chronic (2) Abdominal pain Current Visit: No Status: Acute Qualifiers: Abdominal location: unspecified location Qualified Code(s): R10.9 - Unspecified abdominal pain - Plan neurology consulted, on seizure precautions will give seroquel 200mg at bedtime will reconcile and continue other home medications depakote level, ammonia level, thyroid panel pending MRI and EEG scheduled for the AM will continue IVF hydration, pain management as needed Discharge Plan: Home Plan to discharge in: 24 Hours - Advance Directives Does patient have a Living Will: No Does patient have a Durable POA for Healthcare: Yes - Code Status/Comfort Care Code Status Assessed: Yes (full code) Critical Care: No Time Spent Managing Pts Care (In Minutes): 70
[2021-01-07] MEDS ORDERED: HYDRALAZINE HCL 20 MG/ML VIAL IV PRN (20:34)
[2021-01-07] MEDS: NA CHLORIDE 0.9% 1,000 ML IV SCH (21:08)
[2021-01-07 21:09] VITALS: BMI 33.3
[2021-01-07] MEDS: QUETIAPINE 100MG TAB PO SCH (21:39)
[2021-01-08] MEDS: NA CHLORIDE 0.9% 1,000 ML IV SCH ×3 (06:34→20:41)
[2021-01-08 07:03] LABS: Albumin 3.1 g/dL (3.4-5.0); Bilirubin Total 0.5 mg/dL (0.2-1.0); Magnesium 1.9 mg/dL (1.8-2.4); Phosphorus 3.2 mg/dL (2.5-4.9); Potassium 3.9 mmol/L (3.5-5.1); Protein, Total 6.3 g/dL (6.4-8.2)
[2021-01-08 07:09] LABS: Absolute Lymphocytes (CBC) 1.3 K/uL (0.7-4.9); Basophils % 0.4 % (0-1.3); Hematocrit 32.3 % (36.0-45.0); Lymphocytes % 17.2 % (15.3-44.8); MPV 8.2 fL (7.6-11.3); RBC Red Blood Cell Count 3.58 M/uL (3.86-4.86)
[2021-01-08] MEDS: ACETAMINOPHEN 500 MG TAB PO PRN (08:37)
[2021-01-08] MEDS: ENOXAPARIN 40 MG/0.4 ML SQ SCH (08:38)
[2021-01-08] MEDS ORDERED: POTASSIUM CL SA 10 MEQ TAB PO ONE (09:00)
--- NOTE | 2021-01-08 10:15 | RAD REPORT ---
EXAM DESCRIPTION: MRI - Brain W/Wo Cont - 01/08/2021 9:56 am CLINICAL HISTORY: AMS COMPARISON: Brain Wo Cont dated 08/15/2020 TECHNIQUE: Sagittal and axial T1-weighted images were obtained. Axial PD/heavily T2-weighted and T2- FLAIR images were obtained along with axial DWI/ADC mapping sequences. Coronal heavily T2 weighted s equence obtained. Axial and coronal post-contrast T1-weighted images were also obtained. A 20 ml Mu ltihance contrast following utilized. FINDINGS: No intracranial hemorrhage, mass or acute infarction. There is no edema or shift of midli ne structures. No extra-axial fluid collections. [place]on-matter/white matter junction is preserved. Sig nal voids are seen as a normal finding in the major intracranial vessels. Ventricles are normal. No m easurable chronic ischemic change. Post-contrast images show normal enhancement. No dural thickening. Mastoid air cells and paranasal sinuses are clear. No sella or supra sella abnormality. No globe or orbital content abnormality. Patient has prominent h yperostosis frontalis interna as a normal variant. IMPRESSION: Negative contrast enhanced MRI of the Brain for acute or suspicious finding. .
[2021-01-08] MEDS ORDERED: levETIRAcetam 500 MG TAB PO SCH (10:21)
[2021-01-08] MEDS: GABAPENTIN 400 MG CAP PO SCH ×2 (12:00→20:44)
[2021-01-08] MEDS ORDERED: DIVALPROEX ER 250 MG TAB PO SCH (14:00)
[2021-01-08] MEDS ORDERED: SUMATRIPTAN SUCCINATE 100 MG PO PRN (16:21)
--- NOTE | 2021-01-08 16:22 | P.PN ---
Subjective Date of Service: 01/08/21 Primary Care Provider: Venu Chief Complaint: hallucinations, abdominal pain No issues since hospitalization. Patient complaining of intermittent abdominal pain. Physical Examination - Vital Signs Temperature: 98.2 F Blood Pressure: 123/76 Pulse: 99 Respirations: 20 Pulse Ox (%): 98 - Physical Exam General: In no apparent distress, Other (Awake, communicate meaningful.) HEENT: Mucous membr. moist/pink Neck: JVD not distended Respiratory: Clear to auscultation bilaterally, Normal air movement Cardiovascular: No edema, Regular rate/rhythm, Normal S1 S2 Gastrointestinal: Normal bowel sounds, Soft and benign, Non-distended, No tenderness Musculoskeletal: No swelling Integumentary: No breakdown Neurological: Other (No focal motor deficit.) - Studies Laboratory Data (last 24 hrs) 01/07/21 18:35: PT 13.3 H, INR 1.15, APTT 25.8 01/07/21 16:11: WBC 12.20 H, Hgb 14.6, Hct 43.5, Plt Count 197 01/07/21 16:11: Sodium 138, Potassium 4.3, BUN 14, Creatinine 0.93, Glucose 111 H, Total Bilirubin 0.7, AST 22, ALT 23, Alkaline Phosphatase 136 H, Lipase 91 Assessment And Plan - Current Problems (Diagnosis) (1) Hallucination Current Visit: Yes Status: Acute (2) Seizures Current Visit: Yes Status: Chronic (3) Abdominal pain Current Visit: No Status: Acute Qualifiers: Abdominal location: unspecified location Qualified Code(s): R10.9 - Unspecified abdominal pain - Plan Case discussed with Dr. Gunter. He recommended to increase her Seroquel. EEG performed and the result is pending. Continue other home medications. Consult placed for Dr. Gunter to evaluate.
[2021-01-08] MEDS: PANTOPRAZOLE 40MG TABLET PO SCH (17:06)
[2021-01-08] MEDS: levETIRAcetam 500 MG TAB PO SCH (20:42)
[2021-01-08] MEDS: DIVALPROEX DR 500MG TAB PO SCH (20:43)
[2021-01-08] MEDS: QUETIAPINE 100MG TAB PO SCH (20:43)
[2021-01-08] MEDS: ENSURE HIGH PROTEIN 237 ML CAN PO SCH (20:44)
[2021-01-08] MEDS: ATORVASTATIN 10 MG TAB PO SCH (20:44)
[2021-01-08] MEDS: IMIPRAMINE HCL 25 MG TAB PO SCH (20:46)
[2021-01-08] MEDS ORDERED: SUMATRIPTAN SUCCINATE 100 MG PO SCH (21:00)
--- NOTE | 2021-01-08 21:02 | CON ---
Date of Consultation: 01/08/2021 Reason: Seizures. History Of Present Illness: This is a 50-year-old lady whom I know quite well with history of cerebr al palsy, mild mental retardation, seizures. She has a history of some conversion symptoms in the [facility] as well. She has been having problems really for the last 6 months. Her father has been increasi ngly ill and unable to help care for her and her brother had to help some, and she had a lot of issue s with blurry vision and complains of visual abnormalities and she was on topiramate, so we wean that to off, and we started her on a new medicine . She is on new anticonvulsant and we have b een in general trying to thin her medication list down a little bit. She is on a lot of medications and the most recent change was a decrease in her Seroquel from 200 at night to 100 at night, and afte r that the patient started exhibiting violent behavior towards her father and her family, swinging an d becoming hostile, as well as poor appetite and increased abdominal pain. She has a history of abdo rusty discomfort with negative workups in the past as well. So got to the point where she had not ea ten for several days, and then they felt like she might be more confused, so they brought her to the emergency department where workup was generally unrevealing. She had a slight white count of 12,000. Sedimentation rate was 9. Renal function was normal. Ammonia was normal. Liver function tests we re normal. Lactic acid was normal. Lipase was 91. Thyroid was normal. CT of abdomen and pelvis un remarkable. She has not had any seizures, but situation is not particularly improved today either. Brain MRI is unremarkable. EEG does, however, demonstrate epileptiform discharges on the right. Dep akote level was 23, it has been adjusted up somewhat. Consultation was requested. Past Medical History: Seizures as alluded to, history of DVT, hypothyroidism, incontinence. Medications: Normally she is on baclofen, carvedilol, , gabapentin, Keppra 500 b.i.d., lev othyroxine, Myrbetriq, pravastatin, Seroquel 100, Xarelto 20, sumatriptan as needed, Effexor 150 yemi y. Physical Examination: Vital Signs: On exam, she is afebrile. Vitals are stable. General: She is awake, alert. Heart: Sinus rhythm. Lungs: Clear. Abdomen: Soft. Bowel sounds are present. HEENT: Pupils are reactive. Ocular motion is full. Visual yee are full. Facial strength and se nsation are normal. Tongue protrudes evenly. Soft palate elevates symmetrically bilaterally. Extremities: Strength is greater than 4+. She has some nonorganic cocontraction of the upper extrem ity and lower extremity musculature on formal muscle strength testing. Sensation is intact. Reflexe s are 2+. Toes are downgoing. Pertinent Labs: Depakote level is noted. MRI is noted. EEG; epileptiform discharges on the right. Impression: Cerebral palsy with mild mental retardation, complex partial seizures, abnormal EEG. Plan: We will continue the Depakote at a 1000 t.i.d. for now. Increase the Keppra to a 1000 b.i.d. Restart the daily. Repeat a Depakote level in the morning. Thank you for the consult. We will continue to follow with you. ALISON/TESSY Voice ID: [id number] Report ID: [id number]
[2021-01-09] MEDS: NA CHLORIDE 0.9% 1,000 ML IV SCH ×3 (02:34→22:29)
[2021-01-09 04:47] LABS: BUN Blood Urea Nitrogen 13 mg/dL (7-18); Bicarbonate 29 mmol/L (21-32); Glucose Level 96 mg/dL (74-106); Potassium 3.8 mmol/L (3.5-5.1); Sodium Level 144 mmol/L (136-145); Valproic Acid (Depakene) Level 75.3 ug/mL (50-100)
[2021-01-09] MEDS: LEVOTHYROXINE SOD 0.025 MG TAB PO SCH (06:31)
--- NOTE | 2021-01-09 08:41 | EEG ---
CHART: [id number] TEST ID#: [id number] DATE OF STUDY: 01/08/2021 THE EEG WAS RECORDED IN THE EEG LABORATORY ON A 17 CHANNEL MACHINE. ELECTRODES WERE APPLIED IN THE USUAL MANNER USING THE INTERNATIONAL 10-20 SYSTEM. THE WAKING BACKGROUND RHYTHM IN THIS RECORD CONSISTS OF FAIRLY WELL DEVELOPED AND FAIRLY WELL ORGANIZED WAVES OF 9 HZ., MAXIMAL IN THE POSTERIOR HEAD REGIONS WHICH ATTENUATE NORMALLY WITH EYE OPENING. OCCASIONAL SPIKE AND WAVE DISCHARGES ARE NOTED ON THE RIGHT MAXIMAL IN THE TEMPORAL REGION. SLEEP DID NOT OCCUR. HYPERVENTILATION WAS NOT PERFORMED. PHOTIC STIMULATION PRODUCED FAIR DRIVING BILATERALLY. IMPRESSION: ABNORMAL EEG BECAUSE OF OCCASIONAL EPILEPTIFORM DISCHARGES ON THE RIGHT. THE ABOVE SUGGESTS FOCAL PATHOLOGY/ DYSFUNCTION ON THE RIGHT WITH A POTENTIALLY IRRITABLE AND EPILEPTOGENIC COMPONENT.
[2021-01-09] MEDS ORDERED: POTASSIUM CL SA 10 MEQ TAB PO ONE (09:00)
[2021-01-09] MEDS ORDERED: CENOBAMATE 150 MG PO SCH (09:00)
[2021-01-09] MEDS: GABAPENTIN 400 MG CAP PO SCH ×2 (09:26→20:30)
[2021-01-09] MEDS: DIVALPROEX DR 500MG TAB PO SCH ×3 (09:26→20:30)
[2021-01-09] MEDS: levETIRAcetam 500 MG TAB PO SCH ×2 (09:26→20:31)
[2021-01-09] MEDS: PANTOPRAZOLE 40MG TABLET PO SCH ×2 (09:27→16:28)
[2021-01-09] MEDS: VENLAFAXINE HCL XR 75 MG CAP PO SCH (09:28)
[2021-01-09] MEDS: ENOXAPARIN 40 MG/0.4 ML SQ SCH (09:30)
[2021-01-09] MEDS: ENSURE HIGH PROTEIN 237 ML CAN PO SCH ×2 (09:32→20:32)
[2021-01-09] MEDS: ACETAMINOPHEN 500 MG TAB PO PRN (12:27)
--- NOTE | 2021-01-09 12:38 | P.PN ---
Subjective Date of Service: 01/09/21 Primary Care Provider: Venu Chief Complaint: hallucinations, abdominal pain No issues since hospitalization. Patient complaining of leg pain. No seizures. Patient is eating well. Physical Examination - Vital Signs Temperature: 97.7 F Blood Pressure: 108/70 Pulse: 96 Respirations: 16 Pulse Ox (%): 97 - Physical Exam General: In no apparent distress, Other (Awake, interactive.) HEENT: PERRLA, Mucous membr. moist/pink Neck: Supple, JVD not distended Respiratory: Clear to auscultation bilaterally, Normal air movement Cardiovascular: No edema, Regular rate/rhythm Gastrointestinal: Soft and benign, Non-distended Musculoskeletal: No swelling Integumentary: No rashes Neurological: Other (No focal motor deficit) Assessment And Plan - Current Problems (Diagnosis) (1) Hallucination Current Visit: Yes Status: Acute (2) Seizures Current Visit: Yes Status: Chronic (3) Abdominal pain Current Visit: No Status: Acute Qualifiers: Abdominal location: unspecified location Qualified Code(s): R10.9 - Unspecified abdominal pain - Plan Dr. Gunter input appreciated. EEG demonstrated seizure activity. Depakote level was low. Depakote 1000 mg t.i.d. recommended by Neuro. Seroquel 200 mg q.h.s. Keppra also increased Patient is more cooperative and interactive. Will get PT to evaluate. Monitor for seizures.
[2021-01-09] MEDS: ONDANSETRON 4 MG/2 ML VIAL IV PRN (15:03)
--- NOTE | 2021-01-09 19:57 | PN ---
Date of Progress Note: 01/09/2021 Reason: Seizures, hallucinations. Interval History: No overt seizure activity. The patient is a little more interactive today. Still a little unsteady on her feet. Still at fall risk, especially with rapid increase in anticonvulsant s. Depakote level is coming up, however, 75 today. Of note, the patient's standard normal Depakote level runs about 110 to 120, so even though it is within therapeutic, it is not really therapeutic fo r the patient. Physical therapy consult has been ordered given the high risk of recurrent seizures a nd fall risk. She has been changed to inpatient status. We will repeat an EEG tomorrow [facility] regarding if patient may need a walker or other assistive device or would benefit from some other form of skilled therapy post discharge. Home health might be helpful p ost discharge. Physical Examination: General: She is awake, alert. HEENT: Pupils are reactive. Ocular motion full. [place] full. Face symmetric. Strength greater th an 4+. Persisting toe contraction of agonist/antagonist musculature. Sensation intact. Reflexes sy mmetric. Impression: 1.Intractable complex partial seizures. 2.Hallucinations. Plan: Repeat EEG in the morning. Hallucinations seem better. Consult Physical therapy. We will co osmar to follow with you. PAULINA Voice ID: [id number] Report ID: [id number]
[2021-01-09] MEDS: IMIPRAMINE HCL 25 MG TAB PO SCH (20:30)
[2021-01-09] MEDS: QUETIAPINE 100MG TAB PO SCH (20:30)
[2021-01-09] MEDS: ATORVASTATIN 10 MG TAB PO SCH (20:31)
[2021-01-10] MEDS: LEVOTHYROXINE SOD 0.025 MG TAB PO SCH (05:28)
[2021-01-10] MEDS: CENOBAMATE 150 MG PO SCH (08:55)
[2021-01-10] MEDS: GABAPENTIN 400 MG CAP PO SCH ×2 (08:55→20:30)
[2021-01-10] MEDS: DIVALPROEX DR 500MG TAB PO SCH ×3 (08:55→20:30)
[2021-01-10] MEDS: VENLAFAXINE HCL XR 75 MG CAP PO SCH (08:56)
[2021-01-10] MEDS: levETIRAcetam 500 MG TAB PO SCH ×2 (08:56→20:30)
[2021-01-10] MEDS: PANTOPRAZOLE 40MG TABLET PO SCH ×2 (08:57→17:31)
[2021-01-10] MEDS: NA CHLORIDE 0.9% 1,000 ML IV SCH ×2 (08:57→20:31)
[2021-01-10] MEDS: ENSURE HIGH PROTEIN 237 ML CAN PO SCH ×2 (08:57→20:32)
[2021-01-10] MEDS: ENOXAPARIN 40 MG/0.4 ML SQ SCH (08:58)
[2021-01-10] MEDS: ACETAMINOPHEN 500 MG TAB PO PRN (12:31)
--- NOTE | 2021-01-10 19:41 | P.PN ---
Subjective Date of Service: 01/10/21 Primary Care Provider: Venu Chief Complaint: hallucinations, abdominal pain Patient states she is feeling better. No seizures. No hallucinations reported. She is complaining of occasional dizziness. Patient is eating well. Physical Examination - Vital Signs Temperature: 97.5 F Blood Pressure: 142/68 Pulse: 87 Respirations: 18 Pulse Ox (%): 96 - Physical Exam General: Alert, In no apparent distress, Oriented x3 HEENT: Mucous membr. moist/pink Respiratory: Clear to auscultation bilaterally, Normal air movement Cardiovascular: No edema, Regular rate/rhythm, Normal S1 S2 Gastrointestinal: Normal bowel sounds, Soft and benign, Non-distended, No tenderness Musculoskeletal: No swelling, No tenderness Integumentary: No rashes, No erythema Neurological: Normal strength at 5/5 x4 extr Assessment And Plan - Current Problems (Diagnosis) (1) Hallucination Current Visit: Yes Status: Acute (2) Seizures Current Visit: Yes Status: Chronic (3) Abdominal pain Current Visit: No Status: Acute Qualifiers: Abdominal location: unspecified location Qualified Code(s): R10.9 - Unspecified abdominal pain - Plan Depakote level improved. Depakote 1000 mg t.i.d. recommended by Neuro. Seroquel 200 mg q.h.s. Keppra also increased. No issues since admission.. Patient developed intermittent dizziness during ambulation had to stop walking a few times. Monitor for seizures. Will monitor overnight, have PT assess her for discharge planning tomorrow.
--- NOTE | 2021-01-10 20:16 | PN ---
Date of Progress Note: 01/10/2021 Reason: Seizures, hallucinations. Interval History: The patient has improved. No hallucinations. She is eating. No seizures. Repea t EEG demonstrates interval improvement with only very rare right posterior temporal sharp waves. We will check a Depakote level in the morning. If it is therapeutic and the patient has uneventful nig ht, I think she could likely safely be discharged to home tomorrow. She has an appointment with [facility], Dr. Oliveros, next week for the nausea. She does have a history of reflux. Of not e, the patient manages her own medications at home and I think the most viable explanation for the pope btherapeutic Depakote level on admission is simple missed dosing. Physical Examination: She is awake, alert, poor eye contact. Ocular motion is full. Pupils are reactive. Boateng are full . Strength is greater than 4+. Sensation intact. Reflexes symmetric. Impression: Complex partial seizures. EEG improved. Plan: Continue present medications. Check Depakote level in the morning. PT evaluation prior to dc jones to be sure the patient is not excessively high fall risk. She can follow up in the office in 1-2 weeks post discharge. Thank you for the consult. PAULINA Voice ID: [id number] Report ID: [id number]
[2021-01-10] MEDS: QUETIAPINE 100MG TAB PO SCH (20:30)
[2021-01-10] MEDS: ATORVASTATIN 10 MG TAB PO SCH (20:30)
[2021-01-10] MEDS: IMIPRAMINE HCL 25 MG TAB PO SCH (20:30)
[2021-01-11] MEDS: ONDANSETRON 4 MG/2 ML VIAL IV PRN (00:50)
[2021-01-11 06:08] LABS: Magnesium 2.1 mg/dL (1.8-2.4); Potassium 3.8 mmol/L (3.5-5.1)
[2021-01-11] MEDS: LEVOTHYROXINE SOD 0.025 MG TAB PO SCH (06:22)
[2021-01-11] MEDS: ENSURE HIGH PROTEIN 237 ML CAN PO SCH (09:00)
[2021-01-11] MEDS: DIVALPROEX DR 500MG TAB PO SCH ×2 (09:00→15:30)
--- NOTE | 2021-01-11 09:16 | EEG ---
CHART: [id number] TEST ID#: [id number] DATE OF STUDY: 01/10/2021 THE EEG WAS RECORDED IN THE EEG LABORATORY ON A 17 CHANNEL MACHINE. ELECTRODES WERE APPLIED IN THE USUAL MANNER USING THE INTERNATIONAL 10-20 SYSTEM. THE WAKING BACKGROUND RHYTHM IN THIS RECORD CONSISTS OF FAIRLY WELL DEVELOPED AND FAIRLY WELL ORGANIZED WAVES OF 9 HZ., MAXIMAL IN THE POSTERIOR HEAD REGIONS WHICH ATTENUATE NORMALLY WITH EYE OPENING. RARE SHARP WAVES ARE NOTED ON THE RIGHT, MAXIMAL IN THE POSTERIOR TEMPORAL REGION. SLEEP DID NOT OCCUR. HYPERVENTILATION WAS NOT PERFORMED. PHOTIC STIMULATION PRODUCED FAIR DRIVING BILATERALLY. IMPRESSION: ABNORMAL EEG BECAUSE OF RARE EPILEPTIFORM DISCHARGES ON THE RIGHT. WHEN COMPARED WITH PATIENT'S EEG, TODAY'S DEMPNSTRATES INTERVAL IMPROVEMENT.
[2021-01-11] MEDS: CENOBAMATE 150 MG PO SCH (10:18)
[2021-01-11] MEDS: GABAPENTIN 400 MG CAP PO SCH (10:19)
[2021-01-11] MEDS: VENLAFAXINE HCL XR 75 MG CAP PO SCH (10:19)
[2021-01-11] MEDS: levETIRAcetam 500 MG TAB PO SCH (10:20)
[2021-01-11] MEDS: PANTOPRAZOLE 40MG TABLET PO SCH ×2 (10:21→15:35)
[2021-01-11] MEDS: ENOXAPARIN 40 MG/0.4 ML SQ SCH (10:22)
[2021-01-11 13:56] VITALS: BP 120/67; TEMP 97.2
[2021-01-11 14:24] VITALS: O2SAT 97
--- NOTE | 2021-01-11 15:09 | P.DS ---
Admission Date: 01/09/21 Discharge Date: 01/11/21 Primary Care Provider: Venu Disposition: DC HOME/HOME HEALTH CARE Discharge Condition: FAIR Reason for Admission: hallucinations, abdominal pain - Problems (1) Hallucination Current Visit: Yes Status: Acute (2) Seizures Current Visit: Yes Status: Chronic (3) Abdominal pain Current Visit: No Status: Acute Qualifiers: Abdominal location: unspecified location Qualified Code(s): R10.9 - Unspecified abdominal pain Brief History of Present Illness: 50 yo F with history of seizures, mental developmental delay presented with a complaint of abdominal pain and nausea. She reported poor appetite, has not eaten anything for 2 days. In the ED, WBC 12.2. CT abdomen and pelvis with no acute findings. Urinalysis +ketones and blood. Family also reported visual hallucinations, insomnia and increased agitation. Her medication regimen was being titrated by neurology. Patient admitted for further management. Hospital Course: Patient admitted to the medical floor. Her Seroquel was reduced by her neurologist prior to admission. It was increased to 200mg at bedtime per Neurology-Dr. Gunter recommendation to treat the visual hallucinations. No further hallucinations during the hospital stay. Patient seen by Dr. Gunter, EEG was performed which shows some epileptiform activity. Dr. Gunter recommended depakote 1000 mg t.i.d. and also increase Keppra to 1000 mg b.i.d. her Depakote level was initially low at 23. Current level is 110. Keppra level was und etectable. Patient experienced dizziness. With the new medication regimen. 8 highly unlikely patient was noncompliant with her antiepileptics given the low Depakote level and undetectable Keppra level. Dr. Gunter recommended to revert back to usual home regimen prior to admission. No seizures or hallucination during the hospital stay. Patient discharged to follow with Dr. Gunter within 1 week. Vital Signs/Physical Exam: Temp Pulse Resp BP Pulse Ox 97.2 F 90 16 120/67 96 01/11/21 12:00 01/11/21 12:00 01/11/21 12:00 01/11/21 12:00 01/11/21 12:00 General: In no apparent distress, Other (Awake) HEENT: PERRLA, Mucous membr. moist/pink, EOMI, Sclerae nonicteric Neck: JVD not distended Respiratory: Clear to auscultation bilaterally, Normal air movement Cardiovascular: No edema, Regular rate/rhythm, Normal S1 S2 Gastrointestinal: Normal bowel sounds, Soft and benign, Non-distended, No tenderness Musculoskeletal: No swelling Integumentary: No rashes Neurological: Normal strength at 5/5 x4 extr Laboratory Data at Discharge: WBC 7.70 K/uL (4.3-10.9) D 01/08/21 06:49 Hgb 11.4 g/dL (12.0-15.0) L D 01/08/21 06:49 Hct 32.3 % (36.0-45.0) L D 01/08/21 06:49 Plt Count 137 K/uL (152-406) L D 01/08/21 06:49 PT 13.3 SECONDS (9.5-12.5) H 01/07/21 18:35 INR 1.15 01/07/21 18:35 APTT 25.8 SECONDS (24.3-36.9) 01/07/21 18:35 Sodium 145 mmol/L (136-145) 01/11/21 05:32 Potassium 3.8 mmol/L (3.5-5.1) 01/11/21 05:32 BUN 14 mg/dL (7-18) 01/11/21 05:32 Creatinine 0.74 mg/dL (0.55-1.3) 01/11/21 05:32 Glucose 100 mg/dL (74-106) 01/11/21 05:32 Phosphorus 3.2 mg/dL (2.5-4.9) 01/08/21 06:09 Magnesium 2.1 mg/dL (1.8-2.4) 01/11/21 05:32 Total Bilirubin 0.5 mg/dL (0.2-1.0) 01/08/21 06:09 AST 19 U/L (15-37) 01/08/21 06:09 ALT 18 U/L (12-78) 01/08/21 06:09 Alkaline Phosphatase 98 U/L (45-117) 01/08/21 06:09 Triglycerides 138 mg/dL (<150) 01/08/21 06:09 Cholesterol 160 mg/dL (<200) 01/08/21 06:09 HDL Cholesterol 44 mg/dL (40-60) 01/08/21 06:09 Cholesterol/HDL Ratio 3.64 01/08/21 06:09 Lipase 91 U/L (73-393) 01/07/21 16:11 Home Medications: Baclofen [Lioresal*] 1 tab PO BEDTIME 01/07/21 Cenobamate [Xcopri] 150 mg PO DAILY 01/07/21 Imipramine HCl [Tofranil*] 25 mg PO BEDTIME 01/07/21 Levetiracetam [Keppra] 500 mg PO BID 01/07/21 Levothyroxine Sodium [Levothyroxine] 1 tab PO DAILY 01/07/21 Omeprazole [Prilosec] 40 mg PO BID 01/07/21 Pravastatin Sodium 1 tab PO BEDTIME 01/07/21 Sumatriptan Succinate [Imitrex] 100 mg PO BID 01/07/21 Venlafaxine HCl [Venlafaxine HCl ER] 1 tab PO DAILY 01/07/21 Divalproex ER [Depakote *ER] 1,000 mg PO TID #300 tab 01/11/21 Ensure High Protein 237 ml PO BID #60 can 01/11/21 Gabapentin [Neurontin*] 400 mg PO TID #90 cap 01/11/21 Mirabegron [Myrbetriq] 50 mg PO DAILY #30 tab.er.24h 01/11/21 Quetiapine [Seroquel*] 200 mg PO BEDTIME #30 tab 01/11/21 Ubrogepant [Ubrelvy] 100 mg PO DAILY PRN #30 tablet 01/11/21 New Medications: Divalproex ER [Depakote *ER] 1,000 mg PO TID #300 tab Ensure High Protein 237 ml PO BID #60 can Mirabegron [Myrbetriq] 50 mg PO DAILY #30 tab.er.24h Gabapentin [Neurontin*] 400 mg PO TID #90 cap Quetiapine [Seroquel*] 200 mg PO BEDTIME #30 tab Ubrogepant [Ubrelvy] 100 mg PO DAILY PRN #30 tablet PRN Reason: Migraine Physician Discharge Instructions: PROBLEM: Abdominal Pain GOAL: Clear understanding of disease process INSTRUCTIONS: Diet: heart healthy Activity: Fall precautions If you have any questions regarding your stay call [phone] If your symptoms worsen call 911 or go to the ED. Diet: AHA Activity: Fall precautions Followup: Steven Lea MD [Primary Care Provider] - 1-2 Weeks Luis Felipe Gunter MD [ACTIVE - CAN ADMIT] - 1 Week Time spent managing pt's care (in minutes): 35
== END 2021-01-11 17:35 | disposition home or self-care (01) | DRG 101 ==
LOC: ER 14:22 → ERHOLD 19:29 → 2ND 20:23 → OBSVTOIN 01-09 12:39
PROVIDERS: ADMIT Internal Medicine; ATTEND Internal Medicine
DX: G40.209 Localization-related (focal) (partial) symptomatic epilepsy and epileptic syndromes with complex partial seizures, not intractable, without status epilepticus (principal); R10.9 Unspecified abdominal pain; R44.1 Visual hallucinations; G80.9 Cerebral palsy, unspecified; E03.9 Hypothyroidism, unspecified; F70 Mild intellectual disabilities; Z86.718 Personal history of other venous thrombosis and embolism; Z88.2 Allergy status to sulfonamides
CPT/HCPCS: 36415; 70450; 70553; 74177; 80048; 80053; 80061; 80076; 80164; 80177; 81003; 82140; 83605; 83690; 83735; 84100; 84145; 84439; 84443; 85025; 85610; 85652; 85730; 86140; 87040; 94760; 95816; 96361; 96374; 97116; 97161; 99285; A9577; G0378; J1650; J2405; J7030; Q9967

== ENCOUNTER 2021-03-08 11:11 | Emergency (ER) | payer OTHER ==
--- OUTSIDE RECORDS SUMMARY | 2021-03-08 11:14 | XMS REPORT | Continuity of Care Document ---
:1970 Author Organization [facility] t Address [address] [place] [address] Care Team Providers Name Role Phone Ancelmo [...] Type Clinicians Facility Department ID 2019-02-23 2019-02-23 [facility] [id number] 08:42:00 10:55:00 Magaly Myers [id number] [place] [id number] Surgical [phone] [place] [id number] Results This patient has no known results.
--- NOTE | 2021-03-08 11:45 | RAD REPORT ---
EXAM DESCRIPTION: CT - Head Brain Wo Cont - 03/08/2021 11:40 am CLINICAL HISTORY: CONFUSED COMPARISON: Head Brain Wo Cont dated 01/07/2021; Head Brain Wo Cont dated 08/08/2018 TECHNIQUE: All CT scans are performed using dose optimization technique as appropriate and may inclu de automated exposure control or mA/KV adjustment according to patient size. FINDINGS: No intracranial hemorrhage, hydrocephalus or extra-axial fluid collection.No areas of brai n edema or evidence of midline shift. The paranasal sinuses and mastoids are clear. The calvarium is intact. IMPRESSION: No acute intracranial abnormality.
[2021-03-08 12:15] LABS: Absolute Lymphocytes (CBC) 0.9 K/uL (0.7-4.9); Basophils % 0.3 % (0-1.3); Hematocrit 38.9 % (36.0-45.0); Lymphocytes % 11.8 % (15.3-44.8); RBC Red Blood Cell Count 4.28 M/uL (3.86-4.86)
[2021-03-08] MEDS ORDERED: NA CHLORIDE 0.9% 1,000 ML ONE (12:29)
[2021-03-08 12:32] LABS: Albumin 3.7 g/dL (3.4-5.0); Bilirubin Direct 0.2 mg/dL (0-0.2); Bilirubin Total 0.6 mg/dL (0.2-1.0); Potassium 3.9 mmol/L (3.5-5.1); Protein, Total 7.6 g/dL (6.4-8.2)
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
[2021-03-08 15:49] LABS: Urine Blood Negative (Negative); Urine Glucose Negative (Negative); Urine Protein Trace (Negative); Urine Specific Gravity >=1.030 (1.005-1.030); Urine pH 5.5 (5.0-7.0)
[2021-03-08 16:38] LABS: Barbiturates NEGATIVE (NEGATIVE); Benzodiazepines NEGATIVE (NEGATIVE); Cocaine NEGATIVE (NEGATIVE); METHAMPHETAM NEGATIVE (NEGATIVE); Methadone NEGATIVE (NEGATIVE); Opiates NEGATIVE (NEGATIVE); Phencyclidine NEGATIVE (NEGATIVE); THC Cannibis NEGATIVE (NEGATIVE)
[2021-03-08] MEDS ORDERED: HALOPERIDOL LACT 5 MG/ML INJ ONE (22:53)
[2021-03-08] MEDS ORDERED: ZIPRASIDONE MESYLA 20 MG/VIAL IM ONE (23:42)
[2021-03-09] MEDS ORDERED: GABAPENTIN 300 MG CAP ONE (02:20)
[2021-03-09] MEDS ORDERED: levETIRAcetam 500 MG TAB ONE (02:20)
[2021-03-09] MEDS ORDERED: DIVALPROEX DR 250 MG TAB PO ONE (02:23)
[2021-03-09] MEDS ORDERED: QUETIAPINE 100MG TAB ONE (02:32)
[2021-03-09] MEDS ORDERED: QUETIAPINE 100MG TAB PO ONE (11:00)
[2021-03-09 11:01] VITALS: TEMP 97.4
[2021-03-09 11:09] VITALS: BP 124/80; O2SAT 97
== END 2021-03-09 10:51 | disposition home or self-care (01) ==
LOC: ER 11:11
DX: F43.25 Adjustment disorder with mixed disturbance of emotions and conduct (principal); F99 Mental disorder, not otherwise specified; E78.00 Pure hypercholesterolemia, unspecified; G40.909 Epilepsy, unspecified, not intractable, without status epilepticus; Z88.2 Allergy status to sulfonamides; Z88.8 Allergy status to other drugs, medicaments and biological substances
CPT/HCPCS: 85025; 80048; 36415; 80320; 80076; 80164; 81003; 83690; 80307; 70450; 51702; 96372; 99285; J1630; J3486; J7030

== ENCOUNTER 2021-06-27 11:45 | Emergency (ER) | payer OTHER ==
--- OUTSIDE RECORDS SUMMARY | 2021-06-27 11:48 | XMS REPORT | Continuity of Care Document ---
:[address] [facility] t Address [address] [place] [address] Care Team Providers Name Role Phone Ancelmo Oliveros MD Attending Clinician Ancelmo Oliveros MD Admitting Clinician Payers Payer Name Policy Type Policy Number Effective Date Expiration Date S ource Problems Condition Condition Condition Status Onset Resolution Last Treating Co mments Source Name Details Category Date Date Treatment Clinician Date No known No known Disease Unive rs active active ity of problems problems [facility] Allergies, Adverse Reactions, Alerts Allergy Allergy Status Severity Reaction(s) Onset Inactive Treating Comm ents Source Name Type Date Date Clinician Diphenhy Propensi Active Rash Univer s dramine ty to 8-14 ity of Hcl adverse 00:00: [place] reaction 00 Medical s Branch Pseudoep Propensi Active Rash 2019- Univer s hedrine ty to 8-14 ity of Hcl adverse 00:00: [place] reaction 00 Medical s Branch Sulfa Propensi Active Shortness of 2019-0 Un aayush (Sulfona ty to Breath 8-14 ity of mide adverse 00:00: [place] Antibiot reaction 00 Medica l ics) s Branch Social History Social Habit Start Date Stop Date Quantity Comments Source Alcohol intake [facility] Sex Assigned At Uni versity of [facility] Smoking Status Start Date Stop Date Source Never smoker [facility] Medications Ordered Filled Start Stop Current Ordering Indication Dosage Frequency Signature Comments Components Source Medication Medication Date Date Medication? Clinician (SIG) Name Name topiramate 2019-0 Yes 100mg Take 100 Un aayush (TOPAMAX) 8-14 mg by ity of 100 mg 15:56: mouth 2 [place] tablet 51 (two) Medical times Branch daily. Indication s: 100 mg Q AM, 200 mg Q PM divalproex 2019-0 Yes 1500mg Take 1,500 Univers (DEPAKOTE) 8-14 mg by ity of 500 mg EC 15:56: mouth 2 [place] tablet 51 (two) Medical times Branch daily. Indication s: 1500 mg Q AM, 1000 mg Q PM pregabalin 2019-0 Yes 100mg Take 100 Un aayush (LYRICA) 8-14 mg by ity of 100 mg 15:56: mouth 2 [place] capsule 51 (two) Medical times Branch daily. levETIRAcet 2019-0 Yes 500mg Take 500 U nivers am (KEPPRA) 8-14 mg by ity of 500 mg 15:56: mouth 2 [place] tablet 51 (two) Medical times Branch daily. pravastatin 20190 Yes 20mg Take 20 mg Univers (PRAVACHOL) 8-14 by mouth ity of 20 mg 15:56: at [place] tablet 51 bedtime. Medical Branch pravastatin 20190 Yes 40mg Take 40 mg Univers 40 mg 8-14 by mouth ity of tablet 15:56: at [place] bedtime. Medical Branch imipramine 20190 Yes 25mg Take 25 mg U nivers 25 mg 8-14 by mouth ity of tablet 15:56: at [place] 51 bedtime. Medical Branch levothyroxi 2019-0 Yes 25ug Take 25 Uni vers ne 25 mcg 8-14 mcg by ity of tablet 15:56: mouth [place] 51 every Medical morning. Branch gabapentin 20190 Yes 300mg Take 300 Un aayush 300 mg 8-14 mg by ity of capsule 15:56: mouth 3 [place] 51 (three) Medical times Branch daily. sumatriptan 2019-0 Yes 100mg Take 100 U nivers 100 mg 8-14 mg by ity of tablet 15:56: mouth as [place] 51 needed for Medical Migraine. Branch QUEtiapine 2019-0 Yes 100mg Take 100 Un aayush (SEROQUEL) 8-14 mg by ity of 100 mg 15:56: mouth 2 [place] tablet 51 (two) Medical times Branch daily. water for 2019-0 Yes PRN, Univers irrigation 02-23 Starting ity o f irrigation 15:05: Wed [place] solution 00 02/23/19 at Medic al 1005, [place] Until Discontinu ed, Routine, Intra-op simethicone 2019-0 Yes PRN, Univer s (GAS 02-23 Starting ity of RELIEF) 40 15:05: Wed [place] mg/0.6 mL 00 02/23/19 at Medi angelita drops 1005, [place] Until Discontinu ed, Routine, Intra-op Vital Signs Vital Name Observation Time Observation Value Comments Source Systolic blood 2019-02-23 15:36:00 120 mm[Hg] Univer sity of pressure [facility] Diastolic blood 2019-02-23 15:36:00 33 mm[Hg] Unive rsity of [facility] Heart rate 2019-02-23 15:36:00 90 /min [facility] ty [facility] Respiratory rate 2019-02-23 15:36:00 15 /min Univ ersity [facility] Oxygen saturation in 2019-02-23 15:36:00 97 /min University of Arterial blood by [facility] Pulse oximetry Branch Body temperature 2019-02-23 15:15:[address] [facility] Body height 2019-02-22 19:47:00 167.6 cm [facility] Body weight 2019-02-22 19:47:00 87.998 kg [facility] BMI 2019-02-22 19:47:00 31.31 kg/m2 [facility] Systolic blood 2019-02-23 15:36:00 120 mm[Hg] Univer sity of [facility] Diastolic blood 2019-02-23 15:36:00 33 mm[Hg] Unive rsity of [facility] Heart rate 2019-02-23 15:36:00 90 /min [facility] ty [facility] Respiratory rate 2019-02-23 15:36:00 15 /min Univ ersity [facility] Oxygen saturation in 2019-02-23 15:36:00 97 /min University of Arterial blood by [facility] Pulse oximetry Branch Body temperature 2019-02-23 15:15:[address] [facility] Body height 2019-02-22 19:47:00 167.6 cm [facility] Body weight 2019-02-22 19:47:00 87.998 kg [facility] BMI 2019-02-22 19:47:00 31.31 kg/m2 [facility] Procedures Procedure Date / Time Performing Clinician Source Performed EGD (ENDO) 2019-02-23 14:47:54 [facility] CBC WITH DIFFERENTIAL 2019-02-23 13:51:00 [facility] NOTICE OF PRIVACY 2019-02-23 13:17:12 Doctor Unassigned, No [facility] PRACTICES Name [facility] CONSENT/REFUSAL FOR 2019-02-23 13:15:52 Doctor Unassigned, No [facility] DIAGNOSIS AND TREATMENT [facility] ASSIGNMENT OF BENEFITS 2019-02-23 13:15:31 Doctor Unassigned, No [facility] Encounters Start End Encounter Admission Attending Care Care Encounter Source Date/Time Date/Time Type Type Clinicians Facility Department ID 2019-02-23 2019-02-23 [facility] [id number] [facility] 08:42:00 10:55:00 Encounter josefMagaly [id number] it[id number] [id number] [place] [id number] Branch 2019-02-23 2019-02-23 [facility] [id number] 08:42:00 10:55:00 Encounter josef Magaly Aaron [id number] [place] [id number] Surgical [id number] [facility] Results Test Description Test Time Test Comments Results Result Comments Source CBC WITH DIFFERENTIAL 2019-02-23 15:13:00 Test Item Value Reference Range Interpretation Comme nts WBC (test code = 6690-2) See_Comment [A utomated message] The system which ge nerated this result transmit jose reference range: 4.30 - 1 1.10 10*3/?L. The reference r ruma was not used to interpr et this result as normal/abnor mal. RBC (test code = 789-8) See_Comment [Au tomated message] The system which ge nerated this result transmit jose reference range: 3.93 - 5 .25 10*6/?L. The reference r ruma was not used to interpr et this result as normal/abnor mal. HGB (test code = 718-7) 13.9 g/dL 11.6-15 HCT (test code = 4544-3) 41.7 % 35.7-45.2 MCV (test code = 787-2) 95.0 fL 80.6-95.5 MCH (test code = 785-6) 31.7 pg 25.9-32.8 MCHC (test code = 786-4) 33.3 g/dL 31.6-35.1 RDW-SD (test code = 28082-7) 44.4 fL 39-49.9 RDW-CV (test code = 788-0) 12.8 % 12-15.5 PLT (test code = 777-3) See_Comment L [Au tomated message] The system which [employer] nerated this result transmit jose reference range: 166 - 35 8 10*3/?L. The reference range was not used to interpret th is result as normal/abnormal . MPV (test code = 48901-4) 11.0 fL 9.5-12.9 IPF % (test code = 4.3 % 1.3-7.7 Platelet count measured by [id number]) fluorescence me thod. NRBC/100 WBC (test code = See_Comment [ Automated message] The [id number]) system which [employer] nerated this result transmit jose reference range: 0.0 - 10 .0 /100 WBCs. The reference r ruma was not used to interpr et this result as normal/abnor mal. NRBC x10^3 (test code = <0.01 See_Comment [Au tomated message] The [id number]) system which [employer] nerated this result transmit jose reference range: 10*3/?L. The reference range was not u sed to interpret this result as normal/abnormal . GRAN MAT (NEUT) % (test code 45.6 % = 770-8) IMM GRAN % (test code = 1.10 % [id number]) LYMPH % (test code = 736-9) 46.0 % MONO % (test code = 5905-5) 5.9 % EOS % (test code = 713-8) 1.1 % BASO % (test code = 706-2) 0.3 % GRAN MAT x10^3(ANC) (test 3.01 10*3/uL 1.88-7.09 code = [id number]) IMM GRAN x10^3 (test code = 0.07 10*3/uL 0-0.06 H [id number]) LYMPH x10^3 (test code = 3.03 10*3/uL 1.32-3.29 731-0) MONO x10^3 (test code = 0.39 10*3/uL 0.33-0.92 742-7) EOS x10^3 (test code = 0.07 10*3/uL 0.03-0.39 711-2) BASO x10^3 (test code = <0.03 0.01-0.07 704-7) Lab Interpretation (test Abnormal code = 49149-2) [facility]
--- NOTE | 2021-06-27 12:54 | RAD REPORT ---
EXAM DESCRIPTION: RAD - Chest Single View - 06/27/2021 12:44 pm CLINICAL HISTORY: CHEST PAIN COMPARISON: Chest Pa And Lat (2 Views) dated 01/14/2019; Chest Single View dated 08/08/2018; Chest Sing le View dated 02/10/2018; Chest Pa And Lat (2 Views) dated 02/09/2018 FINDINGS: Lines: None. Lungs: No evidence of edema or pneumonia. Pleural: No significant pleural effusions or pneumothorax. Cardiac: The heart size is within normal limits. Bones: No acute fractures. Other: IMPRESSION: No acute cardiopulmonary disease.
[2021-06-27 13:03] LABS: Absolute Lymphocytes (CBC) 2.3 K/uL (0.7-4.9); Basophils % 0.4 % (0-1.3); Hematocrit 38.7 % (36.0-45.0); Lymphocytes % 35.1 % (15.3-44.8); MPV 7.8 fL (7.6-11.3); RBC Red Blood Cell Count 4.01 M/uL (3.86-4.86)
[2021-06-27 13:05] LABS: Protime INR 0.98
[2021-06-27 13:23] LABS: ALT/SGPT 26 U/L (12-78); AST/SGOT 31 U/L (15-37); Albumin 3.2 g/dL (3.4-5.0); Alkaline Phosphatase 104 U/L (45-117); BUN Blood Urea Nitrogen 24 mg/dL (7-18); Bicarbonate 23 mmol/L (21-32); Bilirubin Direct 0.2 mg/dL (0-0.2); Bilirubin Total 0.4 mg/dL (0.2-1.0); Glucose Level 94 mg/dL (74-106); Magnesium 2.3 mg/dL (1.8-2.4); NT PRO-BNP 76 pg/mL (<125); Potassium 3.8 mmol/L (3.5-5.1); Protein, Total 7.5 g/dL (6.4-8.2); Sodium Level 143 mmol/L (136-145); Troponin (Emerg Dept Use Only) < 0.02 ng/mL (0.0-0.045)
[2021-06-27 13:28] LABS: Blood Morphology Comment NOT SEEN (NOT SEEN); Platelet Estimate DECR; White Blood Cell Scan OK (OK)
--- NOTE | 2021-06-27 14:25 | EDPHYS ---
Physician Documentation [facility] Name: Emma Carranza Age: 50 yrs Sex: Female : 1970 Arrival Date: 06/27/2021 Time: 11:47 Bed 6 Private MD: ED Physician Jhony Lewis HPI: 06/28 07:19 This 50 yrs old Female presents to ER via EMS with complaints of Chest Pain, abnormal kdr ekg. 07:16 The patient or guardian reports chest pain that is located primarily in the substernal kdr area. Onset: at an unknown time. The pain radiates to the left arm. Associated signs and symptoms: The patient has no apparent associated signs or symptoms. The chest pain is described as aching, burning. Duration: The patient or guardian reports multiple episodes, that are intermittent, that wax and wane, with no pattern. Modifying factors: The symptoms are alleviated by nothing. the symptoms are aggravated by nothing. Severity of pain: At its worst the pain was mild in the emergency department the pain has resolved. The patient has not experienced similar symptoms in the past. The patient has been recently seen by a physician: Dr. Dailey. Patient was seen in her PCPs office (Dr. Dailey) and sent to the ED for possible abnormal EKG. The patient reportedly has had some midsternal chest pain that radiates to the left arm intermittently. Son know exactly how long this has been happening. She has no other symptoms. She is currently pain-free. Patient is currently pain-free and is here with her brother. He indicates that she has had minimal symptoms and presently is pain-free. 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 - Social history:: Smoking status: Patient denies any tobacco usage or history of. ROS: 06/28 07:16 Constitutional: Negative for fever, chills, and weight loss, Eyes: Negative for injury, kdr pain, redness, and discharge, ENT: Negative for injury, pain, and discharge, Neck: Negative for injury, pain, and swelling, Respiratory: Negative for shortness of breath, cough, wheezing, and pleuritic chest pain, Abdomen/GI: Negative for abdominal pain, nausea, vomiting, diarrhea, and constipation, Back: Negative for injury and pain, : Negative for injury, bleeding, discharge, and swelling, MS/Extremity: Negative for injury and deformity, Skin: Negative for injury, rash, and discoloration, Neuro: Negative for headache, weakness, numbness, tingling, and seizure activity. Psych: Negative for depression, anxiety, suicide ideation, homicidal ideation, and hallucinations, Allergy/Immunology: Negative for hives, rash, and allergies, Endocrine: Negative for neck swelling, polydipsia, polyuria, polyphagia, and marked weight changes, Hematologic/Lymphatic: Negative for swollen nodes, abnormal bleeding, and unusual bruising. Cardiovascular: Positive for chest pain, Negative for edema, orthopnea, palpitations, paroxysmal nocturnal dyspnea, acute changes. Exam: 07:16 Constitutional: This is a well developed, well nourished patient who is awake, alert, kdr and in no acute distress. Head/Face: Normocephalic, atraumatic. Eyes: Pupils equal round and reactive to light, extra-ocular motions intact. Lids and lashes normal. Conjunctiva and sclera are non-icteric and not injected. Cornea within normal limits. Periorbital areas with no swelling, redness, or edema. Neck: Trachea midline, no thyromegaly or masses palpated, and no cervical lymphadenopathy. Supple, full range of motion without nuchal rigidity, or vertebral point tenderness. No Meningismus. Chest/axilla: Normal chest wall appearance and motion. Nontender with no deformity. No lesions are appreciated. Cardiovascular: Regular rate and rhythm with a normal S1 and S2. No gallops, murmurs, or rubs. Normal PMI, no JVD. No pulse deficits. Respiratory: Lungs have equal breath sounds bilaterally, clear to auscultation and percussion. No rales, rhonchi or wheezes noted. No increased work of breathing, no retractions or nasal flaring. Abdomen/GI: Soft, non-tender, with normal bowel sounds. No distension or tympany. No guarding or rebound. No evidence of tenderness throughout. Back: No spinal tenderness. No costovertebral tenderness. Full range of motion. Skin: Warm, dry with normal turgor. Normal color with no rashes, no lesions, and no evidence of cellulitis. MS/ Extremity: Pulses equal, no cyanosis. Neurovascular intact. Full, normal range of motion. Psych: Awake, alert, with orientation to person, place and time. Behavior, mood, and affect are within normal limits. 07:16 Neuro: Patient has previously been diagnosed with mental retardation and has not had any change in her baseline mental status per her brother who is here with her. Her neurologic exam is otherwise normal. Vital Signs: 06/27 11:56 BP 121 / 93; Pulse 100; Resp 18; Temp 96.9; Pulse Ox 97% on R/A; Weight 95.25 kg; vg1 Height 5 ft. 6 in. (167.64 cm); Pain 5/10; 13:00 BP 180 / 83; Pulse 78; Resp 16; Pulse Ox 99% ; bp 13:49 BP 135 / 91; Pulse 92; Resp 19; Pulse Ox 100% ; bp 15:23 BP 141 / 89; Pulse 91; Resp 17; Pulse Ox 99% ; bp 11:56 Body Mass Index 33.89 (95.25 kg, 167.64 cm) vg1 MDM: 14:25 Patient medically screened. kdr 06/28 07:16 HEART Score: History: Slightly Suspicious (0), ECG: Non specific repolarization kdr disturbance / LBTB / PM (1), Age: > 45 and < 65 years (1), Risk Factors: 1 or 2 risk factors (1), [Hypercholesterolemia] Troponin: < or = 1 x Normal Limit (0), Total Score = 3. Data reviewed: vital signs, nurses notes, lab test result(s), radiologic studies. 06/27 12:07 Order name: Basic Metabolic Panel; Complete Time: 14:18 bp 06/27 12:07 Order name: CBC with Diff; Complete Time: 14:18 bp 06/27 12:07 Order name: LFT's; Complete Time: 14:18 bp 06/27 12:07 Order name: Magnesium; Complete Time: 14:18 bp 06/27 12:07 Order name: NT PRO-BNP; Complete Time: 14:18 bp 06/27 12:07 Order name: PT-INR; Complete Time: 14:18 bp 12/16 12:07 Order name: Troponin (emerg Dept Use Only); Complete Time: 14:18 bp 06/27 12:07 Order name: XRAY Chest (1 view); Complete Time: 14:18 bp 06/27 12:07 Order name: EKG; Complete Time: 12:08 bp 06/27 12:07 Order name: Cardiac monitoring; Complete Time: 12:07 bp 06/27 12:07 Order name: EKG - Nurse/Tech; Complete Time: 12:07 bp 06/27 12:07 Order name: IV Saline Lock; Complete Time: 13:50 bp 06/27 12:18 Order name: SARS-COV-2 RT PCR (Document "Date of Onset" if Symptomatic); Complete Time: bp 14:18 06/27 13:07 Order name: CBC Smear Scan; Complete Time: 14:18 EDMS 06/27 12:07 Order name: Labs collected and sent; Complete Time: 13:50 bp 06/27 12:07 Order name: O2 Per Protocol; Complete Time: 12:07 bp 06/27 12:07 Order name: O2 Sat Monitoring; Complete Time: 12:07 bp Administered Medications: No medications were administered Disposition Summary: 06/27/21 14:25 Discharge Ordered Location: Home kdr Problem: new kdr Symptoms: have improved kdr Condition: Stable kdr Diagnosis - Abnormal electrocardiogram [ECG] [EKG] - None acute kdr Followup: kdr - With: Private Physician - When: 2 - 3 days - Reason: If symptoms return, Further diagnostic work-up, Recheck today's complaints, Continuance of care, Re-evaluation by your physician Discharge Instructions: - Discharge Summary Sheet kdr - Electrocardiogram, [id number] kdr Forms: - Medication Reconciliation Form kdr - Thank You Letter kdr Signatures: Dispatcher [employer] [facility] Jhony Lewis MD MD kdr Kole Suh RN RN bp Rosalina Briceno RN RN vg1 Corrections: (The following items were deleted from the chart) 06/27 12:00 11:59 PMHx: Headaches; vg1 vg1 12:00 11:59 PMHx: Cerebral Palsy; vg1 vg1
--- NOTE | 2021-06-27 14:25 | ER ---
Nurse's Notes [facility] Name: Emma Carranza Age: 50 yrs Sex: Female : 1970 Arrival Date: 06/27/2021 Time: 11:47 Bed 6 Private MD: Diagnosis: Abnormal electrocardiogram [ECG] [EKG]-None acute Presentation: 06/27 11:56 Chief complaint: Patient states: Midsternal burning chest pain that radiates to the vg1 left arm. Sent here by Dr. Lea for abnormal EKG. Denies any nausea or vomiting. Coronavirus screen: Vaccine status: Patient reports receiving the 2nd dose of the covid vaccine. Ebola Screen: Patient negative for fever greater than or equal to 101.5 degrees Fahrenheit, and additional compatible Ebola Virus Disease symptoms Patient denies exposure to infectious person. Patient denies travel to an Ebola-affected area in the 21 days before illness onset. No symptoms or risks identified at this time. Initial Sepsis Screen: Does the patient meet any 2 criteria? No. Patient's initial sepsis screen is negative. Does the patient have a suspected source of infection? No. Patient's initial sepsis screen is negative. Risk Assessment: Do you want to hurt yourself or someone else? Patient reports no desire to harm self or others. Onset of symptoms was June 12, 2021. 11:56 Method Of Arrival: EMS vg1 11:59 Acuity: YARY 2 vg1 Triage Assessment: 11:59 General: Appears well nourished, Behavior is calm, cooperative. Pain: Complains of pain vg1 in anterior aspect of left upper chest, mid-sternal area and left breast Pain radiates to left arm Pain currently is 5 out of 10 on a pain scale. Quality of pain is described as burning. EENT: No deficits noted. No signs and/or symptoms were reported regarding the EENT system. Neuro: Level of Consciousness is awake, alert, obeys commands, Oriented to person, place, time, situation, Appropriate for age Speech is normal, Reports dizziness. Cardiovascular: Reports chest pain, diaphoresis, Capillary refill < 3 seconds Chest pain is described as diffuse, quality is burning, is located in chest wall substernal area radiates to left arm(s). Respiratory: Airway is patent Respiratory effort is even, unlabored, Respiratory pattern is regular, symmetrical. GI: No deficits noted. No signs and/or symptoms were reported involving the gastrointestinal system. : No deficits noted. No signs and/or symptoms were reported regarding the genitourinary system. Derm: Skin is intact, Skin is clammy, Skin is pale. Musculoskeletal: No deficits noted. No signs and/or symptoms reported regarding the musculoskeletal system. 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 - Social history:: Smoking status: Patient denies any tobacco usage or history of. Screenin:00 Abuse screen: Denies threats or abuse. Denies injuries from another. Nutritional bp screening: No deficits noted. Tuberculosis screening: No symptoms or risk factors identified. Fall Risk None identified. Assessment: 12:00 General: SEE TRIAGE NOTE. bp 13:30 Reassessment: No changes from previously documented assessment. Patient and/or family bp updated on plan of care and expected duration. Pain level reassessed. 15:23 Reassessment: PT D/C HOME AMBULATORY WITH FAMILY, DX WITH NON-ACUTE EKG CHANGES. bp Vital Signs: 11:56 BP 121 / 93; Pulse 100; Resp 18; Temp 96.9; Pulse Ox 97% on R/A; Weight 95.25 kg; vg1 Height 5 ft. 6 in. (167.64 cm); Pain 5/10; 13:00 BP 180 / 83; Pulse 78; Resp 16; Pulse Ox 99% ; bp 13:49 BP 135 / 91; Pulse 92; Resp 19; Pulse Ox 100% ; bp 15:23 BP 141 / 89; Pulse 91; Resp 17; Pulse Ox 99% ; bp 11:56 Body Mass Index 33.89 (95.25 kg, 167.64 cm) vg1 ED Course: 11:47 Patient arrived in ED. as 11:59 Triage completed. vg1 11:59 Arm band placed on left wrist. Patient placed in an exam room, on a stretcher, on vg1 oxygen, on nuclear monitoring technician, on pulse oximetry, Patient's private physician notified. EKG completed in triage. Results shown to MD. 12:00 Patient has correct armband on for positive identification. Bed in low position. Call bp light in reach. Side rails up X2. laboratory monitor on. Pulse ox on. NIBP on. 12:08 Kole Suh, RN is Primary Nurse. bp 12:30 Inserted saline lock: 22 gauge in right hand, using aseptic technique. Blood collected. bp 12:37 Jhony Lewis MD is Attending Physician. kdr 12:42 XRAY Chest (1 view) Sent. bp 12:44 XRAY Chest (1 view) In Process Unspecified. EDMS 15:26 No provider procedures requiring assistance completed. IV discontinued, intact, bp bleeding controlled, No redness/swelling at site. Pressure dressing applied. Patient maintains SpO2 saturation greater than 95% on room air. Administered Medications: No medications were administered Outcome: 14:25 Discharge ordered by . kdr 15:25 Discharged to home ambulatory, with family. bp 15:25 Condition: stable 15:25 Discharge instructions given to patient, Instructed on discharge instructions, follow up and referral plans. Demonstrated understanding of instructions, follow-up care. 15:26 Patient left the ED. bp Signatures: Dispatcher [employer] EDMS Jhony Lewis MD MD kdr Sabrina Bautista as Kole Suh, RN RN Rosalina Epstein, RN RN vg1 Corrections: (The following items were deleted from the chart) 12:00 11:56 Acuity: YARY 3 vg1 vg1 12:00 11:59 PMHx: Headaches; vg1 vg1 12:00 11:59 PMHx: Cerebral Palsy; vg1 vg1
[2021-06-27 16:13] VITALS: TEMP 96.9
[2021-06-27 16:18] VITALS: BP 141/89; O2SAT 99
--- NOTE | 2021-06-28 10:20 | EKG ---
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
== END 2021-06-27 15:26 | disposition home or self-care (01) ==
LOC: ER 11:45
DX: R94.31 Abnormal electrocardiogram [ECG] [EKG] (principal); Z20.822 Contact with and (suspected) exposure to COVID-19
CPT/HCPCS: 93005; 85025; 80048; 36415; 83735; 85610; 80076; 84484; 83880; 71045; 99285; U0003

== ENCOUNTER 2021-12-17 15:03 | Emergency (ER) | payer OTHER ==
--- OUTSIDE RECORDS SUMMARY | 2021-12-17 15:06 | XMS REPORT | Continuity of Care Document ---
:1970 Author Organization [facility] t Address [address] [place] [address] Care Team Providers Name Role Phone [phone] Attending Clinician Unavailable Ancelmo Oliveros MD Attending Clinician [phone] Admitting Clinician Unavailable Ancelmo Oliveros MD Admitting Clinician Payers Payer Name Policy Type Policy Number Effective Date Expiration Date S ource Problems Condition Condition Condition Status Onset Resolution Last Treating Co mments Source Name Details Category Date Date Treatment Clinician Date No known No known Disease Unive rs active active ity of problems problems [facility] Allergies, Adverse Reactions, Alerts Allergy Allergy Status Severity Reaction(s) Onset Inactive Treating Comm ents Source Name Type Date Date Clinician Diphenhy Propensi Active Rash 2019 Univer s dramine ty to 8-14 ity of Hcl adverse 00:00: [place] reaction 00 Medical s Branch Pseudoep Propensi Active Rash 20190 Univer s hedrine ty to 8-14 ity of Hcl adverse 00:00: [place] reaction 00 Medical s Branch Sulfa Propensi Active Shortness of 2019-0 Un aayush (Sulfona ty to Breath 8-14 ity of mide adverse 00:00: [place] Antibiot reaction 00 Medica l ics) s Branch Social History Social Habit Start Date Stop Date Quantity Comments Source Alcohol intake [facility] Sex Assigned At Uni versity [facility] Smoking Status Start Date Stop Date Source Never smoker [facility] Medications Ordered Filled Start Stop Current [...] [place] 51 every Medical morning. Branch gabapentin 2019-0 Yes 300mg Take 300 Un aayush 300 [...] water for 2019-0 Yes PRN, Univers irrigation 8-14 Starting ity o f irrigation 15:05: Wed [place] solution 00 02/23/19 at Medic al 1005, [place] Until Discontinu ed, Routine, Intra-op simethicone 2019-0 Yes PRN, Univer s (GAS 02-23 Starting ity of RELIEF) 40 15:05: Wed [place] mg/0.6 mL 00 02/23/19 at Medi angelita drops 1005, [place] Until Discontinu ed, Routine, Intra-op Vital Signs Vital Name Observation Time Observation Value Comments Source Systolic blood 2019-02-23 15:36:00 120 mm[Hg] Univer sity of [facility] Diastolic blood 2019-02-23 15:36:00 33 mm[Hg] Unive rsity of [facility] Heart rate 2019-02-23 15:36:00 90 /min Universi ty [facility] Respiratory rate 2019-02-23 15:36:00 15 /min Univ ersity of [facility] Oxygen saturation in 2019-02-23 15:36:00 97 /min University of Arterial blood by [facility] [place] [facility] Pulse oximetry Branch Body temperature 2019-02-23 15:15:00 36.67 Neena [facility] ersity [facility] Body height 2019-02-22 19:47:00 [facility] Body weight 2019-02-22 19:47:00 87.998 kg [facility] BMI 2019-02-22 19:47:00 31.31 kg/m2 [facility] Systolic blood 2019-02-23 15:36:00 120 mm[Hg] Univer sity of [facility] Diastolic blood 2019-02-23 15:36:00 33 mm[Hg] Unive rsity of [facility] Heart rate 2019-02-23 15:36:00 90 /min Universi ty [facility] Respiratory rate 2019-02-23 15:36:00 15 /min Univ ersity of [facility] Oxygen saturation in 2019-02-23 15:36:00 97 /min University of Arterial blood by [facility] [place] [facility] Pulse oximetry Branch Body temperature 2019-02-23 15:15:00 36.67 Neena [facility] ersity [facility] Body height 2019-02-22 19:47:00 167.6 cm [facility] Body weight 2019-02-22 19:47:00 87.998 kg [facility] BMI 2019-02-22 19:47:00 31.31 kg/m2 [facility] Procedures Procedure Date / Time Performing Clinician Source Performed EGD (ENDO) 2019-02-23 14:47:54 Steven Arenas [facility] CBC WITH DIFFERENTIAL 2019-02-23 13:51:00 Chetan Weaver [facility] NOTICE OF PRIVACY 2019-02-23 13:17:12 Doctor Unassigned, No [facility] PRACTICES Name [facility] CONSENT/REFUSAL FOR 2019-02-23 13:15:52 Doctor Unassigned, No [facility] DIAGNOSIS AND TREATMENT [facility] ASSIGNMENT OF BENEFITS 2019-02-23 13:15:31 Doctor Unassigned, No [facility] Encounters Start End Encounter Admission Attending Care Care Encounter Source Date/Time Date/Time Type Type Clinicians Facility Department ID 2021-10-28 Outpatient 3 [id number] [facility] [id number] [facility] 11:51:31 0418 2021-10-23 Outpatient 3 [id number] [facility] REF [id number] [facility] 09:23:59 0413 2021-10-22 Outpatient 3 [id number] [facility] REF [id number] [facility] 15:25:29 0412 2019-02-23 2019-02-23 [place] [id number] [facility] 08:42:00 10:55:00 Encounter Magaly bahena [id number] [id number] [id number] [facility] 071 Branch 2019-02-23 2019-02-23 [facility] [id number] 08:42:00 10:55:00 Encounter Magaly bahena [id number] [place] [id number] Surgical [id number] Center [facility] Results Test Description Test Time Test Comments [...] - 5 .25 10*6/?L. The reference r ruam was not used to interpr et this result as normal/abnor mal. HGB (test code = 718-7) 13.9 g/dL 11.6-15 HCT (test code = 4544-3) 41.7 % 35.7-45.2 MCV (test code = 787-2) 95.0 fL 80.6-95.5 MCH (test code = 785-6) 31.7 pg 25.9-32.8 MCHC (test code = 786-4) 33.3 g/dL 31.6-35.1 RDW-SD (test code = 23278-3) 44.4 fL 39-49.9 RDW-CV (test code = 788-0) 12.8 % 12-15.5 PLT (test code = 777-3) See_Comment L [Au tomated message] The system which ge nerated this result transmit jose reference range: 166 - 35 8 10*3/?L. The reference range was not used to interpret th is result as normal/abnormal . MPV (test code = 99041-8) 11.0 fL 9.5-12.9 IPF % (test code = 4.3 % 1.3-7.7 Platelet count measured by [id number]) fluorescence me thod. NRBC/100 WBC (test code = See_Comment [ Automated message] The [id number]) system which ge nerated this result transmit jose reference range: 0.0 - 10 .0 /100 WBCs. The reference r ruma was not used to interpr et this result as normal/abnor mal. NRBC x10^3 (test code = <0.01 See_Comment [Au tomated message] The [id number]) system which ge nerated this result transmit jose reference range: 10*3/?L. The reference range was not u sed to interpret this result as normal/abnormal . GRAN MAT (NEUT) % (test code 45.6 % = 770-8) IMM GRAN % (test code = 1.10 % [id number]) LYMPH % (test code = 736-9) 46.0 % MONO % (test code = 5905-5) 5.9 % EOS % (test code = 713-8) 1.1 % BASO % (test code = 706-2) 0.3 % GRAN MAT x10^3(ANC) (test 3.01 10*3/uL 1.88-7.09 code = [id number]) IMM GRAN x10^3 (test code = 0.07 10*3/uL 0-0.06 H [id number]) LYMPH x10^3 (test code = 3.03 10*3/uL 1.32-3.29 731-0) MONO x10^3 (test code = 0.39 10*3/uL 0.33-0.92 742-7) EOS x10^3 (test code = 0.07 10*3/uL 0.03-0.39 711-2) BASO x10^3 (test code = <0.03 0.01-0.07 704-7) Lab Interpretation (test Abnormal code = 19726-9) [facility]
[2021-12-17 15:47] LABS: Urine Blood Negative (Negative); Urine Glucose Negative (Negative); Urine Protein 1+ (Negative); Urine Specific Gravity 1.025 (1.005-1.030)
[2021-12-17 16:06] LABS: Barbiturates NEGATIVE (NEGATIVE); Benzodiazepines NEGATIVE (NEGATIVE); Cocaine NEGATIVE (NEGATIVE); METHAMPHETAM NEGATIVE (NEGATIVE); Methadone NEGATIVE (NEGATIVE); Opiates NEGATIVE (NEGATIVE); Phencyclidine NEGATIVE (NEGATIVE); THC Cannibis NEGATIVE (NEGATIVE)
--- NOTE | 2021-12-17 16:07 | RAD REPORT ---
EXAM DESCRIPTION: RAD - Shoulder Left 2 View - 12/17/2021 3:53 pm CLINICAL HISTORY: PAIN COMPARISON: No comparisons FINDINGS: Mild AC joint degenerative changes. No acute fracture or dislocation.
--- NOTE | 2021-12-17 16:08 | RAD REPORT ---
EXAM DESCRIPTION: RAD - Elbow Left 3 View - 12/17/2021 3:58 pm CLINICAL HISTORY: PAIN COMPARISON: No comparisons FINDINGS: No fracture or dislocation seen.
--- NOTE | 2021-12-17 16:09 | RAD REPORT ---
EXAM DESCRIPTION: CT - Head Brain Wo Cont - 12/17/2021 4:03 pm CLINICAL HISTORY: Mental status change, persistent or worsening Headache, drowsiness COMPARISON: Head Brain Wo Cont dated 03/08/2021; Head Brain Wo Cont dated 01/07/2021 TECHNIQUE: All CT scans are performed using dose optimization technique as appropriate and may inclu de automated exposure control or mA/KV adjustment according to patient size. FINDINGS: No intracranial hemorrhage, hydrocephalus or extra-axial fluid collection.No areas of brai n edema or evidence of midline shift. The paranasal sinuses and mastoids are clear. The calvarium is intact. IMPRESSION: No acute intracranial abnormality.
[2021-12-17 16:46] LABS: Urine Bacteria 20-50 /HPF (<20); Urine RBC <5 /HPF (NONE SEEN)
[2021-12-17 16:46] LABS: Absolute Lymphocytes (CBC) 1.8 K/uL (0.7-4.9); Lymphocytes % 24.5 % (15.3-44.8); MPV 7.8 fL (7.6-11.3); RBC Red Blood Cell Count 4.01 M/uL (3.86-4.86)
[2021-12-17] MEDS ORDERED: NA CHLORIDE 0.9% 1,000 ML ONE (16:49)
[2021-12-17 17:19] LABS: Magnesium 2.2 mg/dL (1.8-2.4); Thyroid Stimulating Hormone 2.55 uIU/mL (0.360-3.740)
[2021-12-17 17:32] LABS: Blood Morphology Comment NOT SEEN (NOT SEEN); Platelet Estimate DECR; White Blood Cell Scan OK (OK)
--- NOTE | 2021-12-17 17:47 | ER ---
Nurse's Notes [facility] Name: Emma Carranza Age: 51 yrs Sex: Female : 1970 Arrival Date: 12/17/2021 Time: 15:05 Bed DIS2 Private MD: Steven Lea R Diagnosis: Dehydration;Altered mental status, unspecified Presentation: 12/17 15:13 Chief complaint: Patient's son or daughter states: She has been sick for a while, she jb4 has been having trouble walking and eating. Over the past few days it has just gotten worse, she been confused, falling down, and now not eating. We noticed the confusion over a week ago, for the past week just suddenly started getting worse. Coronavirus screen: At this time, the client does not indicate any symptoms associated with coronavirus-19. Ebola Screen: No symptoms or risks identified at this time. Initial Sepsis Screen: Does the patient meet any 2 criteria? Altered Mental Status. HR > 90 bpm. Does the patient have a suspected source of infection? No. Patient's initial sepsis screen is negative. Risk Assessment: Do you want to hurt yourself or someone else? Patient reports no desire to harm self or others. Onset of symptoms was December 11, 2021. Transition of care: patient was not received from another setting of care. 15:13 Method Of Arrival: Wheelchair jb4 15:13 Acuity: YARY 2 jb4 Triage Assessment: 15:20 General: Appears in no apparent distress. comfortable, unkempt, Behavior is calm, jb4 cooperative. Pain: Denies pain. Neuro: Level of Consciousness is awake, alert, obeys commands, Oriented to person, place. Cardiovascular: Patient's skin is warm and dry. Respiratory: Airway is patent Respiratory effort is even, unlabored, Respiratory pattern is regular, symmetrical. Derm: Skin is intact, Skin is pink, warm \T\ dry. Historical: - Allergies: 15:20 No Known Allergies; jb4 - PMHx: 15:20 High Cholesterol; mental retardation; Seizures; jb4 - PSHx: 15:20 Cholecystectomy; jb4 - Immunization history:: Adult Immunizations up to date. - Social history:: Smoking status: Patient denies any tobacco usage or history of. - Family history:: not pertinent. - Hospitalizations: : No recent hospitalization is reported. Screenin:57 Abuse screen: Denies threats or abuse. Denies injuries from another. Nutritional iw screening: No deficits noted. Tuberculosis screening: No symptoms or risk factors identified. Fall Risk None identified. Assessment: 16:57 Reassessment: Patient appears in no apparent distress at this time. Patient and/or iw family updated on plan of care and expected duration. Pain level reassessed. Patient is alert, oriented x 3, equal unlabored respirations, skin warm/dry/pink. 17:58 Reassessment: Patient appears in no apparent distress at this time. Patient and/or iw family updated on plan of care and expected duration. Pain level reassessed. Patient is alert, oriented x 3, equal unlabored respirations, skin warm/dry/pink. Vital Signs: 15:13 BP 105 / 89; Pulse 112; Resp 18; Temp 98.1; Pulse Ox 96% on R/A; Weight 77.4 kg (M); jb4 Height 5 ft. 6 in. (167.64 cm); Pain 0/10; 16:57 BP 113 / 79; Pulse 99; Resp 16; Pulse Ox 99% on R/A; iw 15:13 Body Mass Index 27.54 (77.40 kg, 167.64 cm) jb4 ED Course: 15:05 Patient arrived in ED. mr 15:05 Steven Lea MD is Private Physician. mr 15:20 Triage completed. jb4 15:20 Arm band placed on left wrist. jb4 15:22 Sher Durbin MD is Attending Physician. rn 15:54 XRAY Shoulder LEFT 2 view In Process Unspecified. EDMS 15:59 XRAY Elbow LEFT 3 view In Process Unspecified. EDMS 16:05 CT Head Brain wo Cont In Process Unspecified. EDMS 16:36 Initial lab(s) drawn, by me, sent to lab. Inserted saline lock: 22 gauge in right iw antecubital area, using aseptic technique. Blood collected. 17:05 Leatha Reynoso, RN is Primary Nurse. iw 18:03 No provider procedures requiring assistance completed. IV discontinued, intact, jb4 bleeding controlled, No redness/swelling at site. Pressure dressing applied. Administered Medications: 16:48 Drug: NS 0.9% 1000 ml Route: IV; Rate: 1000 ml; Site: right antecubital; iw 18:04 Follow up: IV Status: Completed infusion iw Medication: 17:58 VIS not applicable for this client. iw Outcome: 17:47 Discharge ordered by . rn 18:03 Discharged to home via wheelchair, with family. jb4 18:03 Condition: stable 18:03 Discharge instructions given to patient, Instructed on discharge instructions, follow up and referral plans. Demonstrated understanding of instructions, follow-up care. 18:03 Patient left the ED. jb4 Signatures: Dispatcher [employer] Vickie Chamorro Irene, RN Sher Cain MD MD rn Bryson, James, RN RN jb4
--- NOTE | 2021-12-17 17:47 | EDPHYS ---
Physician Documentation [facility] Name: Emma Carranza Age: 51 yrs Sex: Female : 1970 Arrival Date: 12/17/2021 Time: 15:05 Bed DIS2 Private MD: Steven Lea R ED Physician Sher Durbin HPI: 12/17 16:36 This 51 yrs old Female presents to ER via Wheelchair with complaints of Confusion, rn Decreased Appetite. 16:36 The patient presents with decreased mental status. Onset: The symptoms/episode rn began/occurred 1 week(s) ago. Possible causes: unknown. Associated signs and symptoms: Pertinent positives: confusion, Pertinent negatives: abdominal pain, chest pain, headache, seizure, shortness of breath. Current symptoms: In the emergency department the patient's symptoms are unchanged from the initial presentation. The patient has experienced similar episodes in the past. The patient has not recently seen a physician. Family member reports a week or so of increased confusion, AMS, not eating, falling, thinks is dehydrated. Sees Dr. Gunter for neurology, sent here by him for evaluation. Denies fever/vomiting/diarrhea/cough. Doesn't seem ill. . Historical: - Allergies: 15:20 No Known Allergies; jb4 - PMHx: 15:20 High Cholesterol; mental retardation; Seizures; jb4 - PSHx: 15:20 Cholecystectomy; jb4 - Immunization history:: Adult Immunizations up to date. - Social history:: Smoking status: Patient denies any tobacco usage or history of. - Family history:: not pertinent. - Hospitalizations: : No recent hospitalization is reported. ROS: 16:36 Constitutional: Negative for fever, chills, and weight loss, Eyes: Negative for injury, rn pain, redness, and discharge, Neck: Negative for injury, pain, and swelling, Cardiovascular: Negative for chest pain, palpitations, and edema, Respiratory: Negative for shortness of breath, cough, wheezing, and pleuritic chest pain, Abdomen/GI: Negative for abdominal pain, nausea, vomiting, diarrhea, and constipation, Back: Negative for injury and pain, MS/Extremity: Negative for injury and deformity, Skin: Negative for injury, rash, and discoloration, Neuro: Negative for headache, weakness, numbness, tingling, and seizure. Exam: 16:36 Constitutional: This is a well developed, well nourished patient who is awake, alert, rn and in no acute distress. Sitting in wheelchair holding cup of liquids to drink Head/Face: Normocephalic, atraumatic. Eyes: Sunken eyes ENT: dry MM Cardiovascular: tachycardic, regular Respiratory: No increased work of breathing, no retractions or nasal flaring. Abdomen/GI: soft, non-tender Skin: Warm, dry MS/ Extremity: Pulses equal, no cyanosis. Neurovascular intact. Full, normal range of motion. Equal circumference. Neuro: Awake and alert Vital Signs: 15:13 BP 105 / 89; Pulse 112; Resp 18; Temp 98.1; Pulse Ox 96% on R/A; Weight 77.4 kg (M); jb4 Height 5 ft. 6 in. (167.64 cm); Pain 0/10; 16:57 BP 113 / 79; Pulse 99; Resp 16; Pulse Ox 99% on R/A; iw 15:13 Body Mass Index 27.54 (77.40 kg, 167.64 cm) jb4 MDM: 15:22 Patient medically screened. rn 17:43 Differential Diagnosis: CVA, electrolyte abnormality, hypoglycemia, intracranial bleed, rn UTI, volume depletion. Data reviewed: vital signs, nurses notes, lab test result(s), radiologic studies, CT scan, and as a result, I will discharge patient. Counseling: I had a detailed discussion with the patient and/or guardian regarding: the historical points, exam findings, and any diagnostic results supporting the discharge/admit diagnosis, lab results, radiology results, the need for outpatient follow up, to return to the emergency department if symptoms worsen or persist or if there are any questions or concerns that arise at home. Response to treatment: the patient's symptoms have mildly improved after treatment, and as a result, I will discharge patient. Special discussion: I discussed with the patient/guardian in detail that at this point there is no indication for admission to the hospital. It is understood, however, that if the symptoms persist or worsen the patient needs to return immediately for re-evaluation. Based on the history and exam findings, there is no indication for further emergent testing or inpatient evaluation. I discussed with the patient/guardian the need to see the neurologist for further evaluation of the symptoms. ED course: NO acute findings in imaging/blood/urine. Patient perked up with fluids. Stable vitals. Will have to dc home without acute reversible findings with f/u with her neurologist. Return precautions given and understood.. 12/17 15:31 Order name: CBC with Diff; Complete Time: 17:34 12/17 15:31 Order name: Basic Metabolic Panel; Complete Time: 17:34 12/17 15:31 Order name: Urine Microscopic Only; Complete Time: 17:06 12/17 15:31 Order name: TSH; Complete Time: 17:34 12/17 15:31 Order name: T4 Free; Complete Time: 17:34 12/17 15:31 Order name: Urine Drug Screen; Complete Time: 16:30 12/17 15:31 Order name: CT Head Brain wo Cont; Complete Time: 16:30 12/17 15:31 Order name: Magnesium; Complete Time: 17:34 12/17 15:31 Order name: XRAY Elbow LEFT 3 view; Complete Time: 16:30 12/17 15:32 Order name: XRAY Shoulder LEFT 2 view; Complete Time: 16:30 12/17 15:47 Order name: Urine Dipstick-Ancillary; Complete Time: 16:30 [facility] 12/17 16:50 Order name: Urine Culture [facility] 12/17 17:32 Order name: CBC Smear Scan; Complete Time: 17:34 [facility] 12/17 15:31 Order name: IV Start; Complete Time: 16:37 12/17 15:31 Order name: Urine Dipstick-Ancillary (obtain specimen); Complete Time: 16:37 rn Administered Medications: 16:48 Drug: NS 0.9% 1000 ml Route: IV; Rate: 1000 ml; Site: right antecubital; iw 18:04 Follow up: IV Status: Completed infusion iw Disposition Summary: 12/17/21 17:47 Discharge Ordered Location: Home rn Problem: an ongoing problem rn Symptoms: have improved rn Condition: Stable rn Diagnosis - Dehydration rn - Altered mental status, unspecified rn Followup: rn - With: Private Physician - When: As needed - Reason: Recheck today's complaints, Re-evaluation by your physician Discharge Instructions: - Discharge Summary Sheet rn - Confusion rn - Dehydration, Adult rn Forms: - Medication Reconciliation Form rn - Thank You Letter rn - Antibiotic internal control consultant - Prescription Opioid Use rn Signatures: Dispatcher [employer] Leatha Mai, RN Sher Cain MD MD rn Bryson, James, RN RN jb4
[2021-12-17 19:22] VITALS: TEMP 98.1
[2021-12-17 19:24] VITALS: BP 113/79; O2SAT 99
== END 2021-12-17 18:03 | disposition home or self-care (01) ==
LOC: ER 15:03
DX: R41.82 Altered mental status, unspecified (principal); E86.0 Dehydration; F79 Unspecified intellectual disabilities
CPT/HCPCS: 87088; 85025; 87086; 80048; 36415; 83735; 84443; 84439; 80307; 70450; 73080; 73030; 96360; 99284; J7030; 81003; 81015

== ENCOUNTER 2022-01-28 10:20 | Emergency (ER) | payer OTHER ==
--- NOTE | 2022-01-28 11:32 | RAD REPORT ---
EXAM DESCRIPTION: Ro Single View01/28/2022 11:15 am CLINICAL HISTORY: Cough COMPARISON: 2020 FINDINGS: The lungs appear clear of acute infiltrate. The heart is normal size IMPRESSION: No acute abnormalities displayed
[2022-01-28 12:04] LABS: Absolute Lymphocytes (CBC) 2.2 K/uL (0.7-4.9); Hematocrit 42.3 % (36.0-45.0); Lymphocytes % 31.4 % (15.3-44.8); MCV 97.8 fL (80-100); MPV 9.9 fL (7.6-11.3); RBC Red Blood Cell Count 4.33 M/uL (3.86-4.86)
[2022-01-28 12:21] LABS: Potassium 3.8 mmol/L (3.5-5.1)
--- NOTE | 2022-01-28 12:41 | ER ---
Nurse's Notes [facility] Name: Emma Carranza Age: 51 yrs Sex: Female : 1970 Arrival Date: 01/28/2022 Time: 10:22 Bed 10 Private MD: Steven Lea R Diagnosis: SARS-associated coronavirus as the cause of diseases classified elsewhere;Anorexia Presentation: 01/28 12:01 Chief complaint: reports whole family has had COVID for a week, pt is drinking hb small amounts of liquid but has not eaten anything in over 4 days. Pt awake, sitting erect in wheelchair, but very slow to answer in triage, stated "I am just thirsty.". Coronavirus screen: Client presents with at least one sign or symptom that may indicate coronavirus-19. Standard/surgical mask placed on the client. Provider contacted for isolation considerations. Ebola Screen: No symptoms or risks identified at this time. Risk Assessment: Do you want to hurt yourself or someone else? Patient reports no desire to harm self or others. Onset of symptoms was January 21, 2022. 12:01 Method Of Arrival: Wheelchair hb 12:01 Acuity: YARY 3 hb Historical: - Allergies: 12:03 Sulfa (Sulfonamide Antibiotics); hb 12:03 Pseudoephedrine; hb 12:03 Diphenhydramine; hb - PMHx: 12:03 High Cholesterol; mental retardation; Seizures; hb - PSHx: 12:03 Cholecystectomy; hb Screenin:01 Abuse screen: Denies threats or abuse. Denies injuries from another. Nutritional jl7 screening: No deficits noted. Tuberculosis screening: No symptoms or risk factors identified. Fall Risk None identified. Vital Signs: 12:01 BP 137 / 82; Pulse 88; Resp 16; Temp 97.8; Pulse Ox 100% on R/A; Weight 81.65 kg; hb Height 5 ft. 6 in. (167.64 cm); Pain 0/10; 12:01 Body Mass Index 29.05 (81.65 kg, 167.64 cm) hb ED Course: 10:22 Patient arrived in ED. mr 10:22 Steven Lea MD is Private Physician. mr 10:29 Brenton Angeles DO is Attending Physician. ms3 11:17 CXR XRAY In Process Unspecified. EDMS 12:03 Triage completed. hb 12:03 Arm band placed on. hb 12:52 Rylee Helms, RN is Primary Nurse. jl7 13:01 Patient has correct armband on for positive identification. jl7 13:01 No provider procedures requiring assistance completed. Patient did not have IV access jl7 during this emergency room visit. Administered Medications: 12:52 Not Given (Physician Discretion): NS 0.9% 1000 ml IV at 1000 ml once jl7 Medication: 13:01 VIS not applicable for this client. jl7 Outcome: 12:41 Discharge ordered by . ms3 13:01 Discharged to home ambulatory, with family. jl7 13:01 Condition: stable 13:01 Discharge instructions given to patient, family, Instructed on discharge instructions, follow up and referral plans. Demonstrated understanding of instructions, follow-up care. 13:02 Patient left the ED. jl7 Signatures: Dispatcher [employer] EDPA Vickie Traylor Heather, ECHO DODGE Rylee Helms, ECHO RN jl7 Brenton Angeles DO DO ms3
--- NOTE | 2022-01-28 12:41 | EDPHYS ---
Physician Documentation [facility] Name: Emma Carranza Age: 51 yrs Sex: Female : 1970 Arrival Date: 01/28/2022 Time: 10:22 Bed 10 Private MD: Steven Lea R ED Physician Brenton Angeles HPI: 01/28 12:41 This 51 yrs old Female presents to ER via Wheelchair with complaints of Covid+, ms3 Decreased Appetite. 12:41 51 yo female with PMH of HLD, MR, seizures presents for anorexia for 4-5 days. Patient ms3 was recently diagnosed with COVID on Thursday via a home test. Patient endorses decreased po, dumas, dizziness, and myalgias.. Historical: - Allergies: 12:03 Sulfa (Sulfonamide Antibiotics); hb 12:03 Pseudoephedrine; hb 12:03 Diphenhydramine; hb - PMHx: 12:03 High Cholesterol; mental retardation; Seizures; hb - PSHx: 12:03 Cholecystectomy; hb ROS: 12:41 Neck: Negative for injury, pain, and swelling, Cardiovascular: Negative for chest pain, ms3 and palpitations. 12:41 Skin: Negative for injury, rash, and discoloration. 12:41 Constitutional: Positive for body aches, malaise, poor PO intake. 12:41 Respiratory: Positive for cough. 12:41 Neuro: Positive for headache. 12:41 All other systems are negative. Exam: 12:41 Constitutional: This is a well developed, well nourished patient who is awake, alert, ms3 and in no acute distress. Neck: Trachea midline, no cervical lymphadenopathy. Supple, full range of motion without nuchal rigidity, or vertebral point tenderness. No Meningismus. Chest/axilla: Normal chest wall appearance and motion. Nontender with no deformity. Cardiovascular: Regular rate and rhythm with a normal S1 and S2. No gallops, murmurs, or rubs. Normal PMI, no JVD. No pulse deficits. Respiratory: Lungs have equal breath sounds bilaterally, clear to auscultation and percussion. No rales, rhonchi or wheezes noted. No increased work of breathing, no retractions or nasal flaring. Abdomen/GI: Soft, non-tender, with normal bowel sounds. No distension or tympany. No guarding or rebound. No evidence of tenderness throughout. Skin: Warm, dry with normal turgor. Normal color with no rashes, no lesions, and no evidence of cellulitis. Psych: Awake, alert, with orientation to person, place and time. Behavior, mood, and affect are within normal limits. Vital Signs: 12:01 BP 137 / 82; Pulse 88; Resp 16; Temp 97.8; Pulse Ox 100% on R/A; Weight 81.65 kg; hb Height 5 ft. 6 in. (167.64 cm); Pain 0/10; 12:01 Body Mass Index 29.05 (81.65 kg, 167.64 cm) hb MDM: 12:41 Patient medically screened. ms3 12:41 Differential Diagnosis Dehydration vs COVID 19 vs electrolyte abnormality. ms3 12:41 Data reviewed: vital signs, nurses notes, lab test result(s), and as a result, I will ms3 discharge patient. Counseling: I had a detailed discussion with the patient and/or guardian regarding: the historical points, exam findings, and any diagnostic results supporting the discharge/admit diagnosis, lab results, the need for outpatient follow up, to return to the emergency department if symptoms worsen or persist or if there are any questions or concerns that arise at home. ED course: Patient is improved, in NAD, non-toxic appearing, ambulatory in ED, speaking full sentences.. 01/28 10:55 Order name: CBC with Diff ms3 01/28 10:55 Order name: BMP; Complete Time: 12:36 ms3 01/28 10:55 Order name: CXR XRAY; Complete Time: 12:36 ms3 01/28 12:06 Order name: CBC Smear Scan EDMS Administered Medications: 12:52 Not Given (Physician Discretion): NS 0.9% 1000 ml IV at 1000 ml once jl7 Disposition Summary: 01/28/22 12:41 Discharge Ordered Location: Home ms3 Condition: Stable ms3 Diagnosis - SARS-associated coronavirus as the cause of diseases classified elsewhere ms3 - Anorexia ms3 Discharge Instructions: - Discharge Summary Sheet ms3 - COVID-19 ms3 - Things to Know about the COVID-19 Pandemic - [facility] ms3 - 10 Things You Can Do to Manage Your COVID-19 Symptoms at Home - [facility] ms3 Forms: - Medication Reconciliation Form ms3 - Thank You Letter ms3 - Antibiotic Education ms3 - Prescription Opioid Use ms3 Signatures: Dispatcher [employer] EDLatrice De Santiago, RN RN Brenton Angeles DO DO ms3 Rylee Helms RN jl7
[2022-01-28 12:46] LABS: White Blood Cell Scan OK (OK)
[2022-01-28 12:47] LABS: Blood Morphology Comment NOT SEEN (NOT SEEN); Platelet Estimate DECR
[2022-01-28 13:36] VITALS: BP 137/82; TEMP 97.8; O2SAT 100
--- OUTSIDE RECORDS SUMMARY | 2022-01-30 14:12 | XMS REPORT | Continuity of Care Document ---
:1970 Author Organization [facility] t Address [address] [place] [address] Care Team Providers Name Role Phone [phone] Attending Clinician Unavailable Ancelmo Oliveros MD Attending Clinician [phone] Admitting Clinician Unavailable Ancelmo Oliveros MD Admitting Clinician Payers Payer Name Policy Type Policy Number Effective Date Expiration Date S ource Problems Condition Condition Condition Status Onset Resolution Last Treating Co mments Source Name Details Category Date Date Treatment Clinician Date No known No known Disease Unive rs active active ity of problems problems [facility] Allergies, Adverse Reactions, Alerts Allergy Allergy Status [...] Stop Date Quantity Comments Source Alcohol intake [facility] [place] [facility] Sex Assigned At Uni versity of [facility] Smoking Status Start Date Stop Date Source Never smoker [facility] Medications Ordered Filled Start Stop Current [...] 51 (two) Medical times Branch daily. pravastatin 2019-0 Yes 20mg Take 20 mg Univers (PRAVACHOL) 8-14 by mouth ity of 20 mg 15:56: at [place] tablet 51 bedtime. Medical Branch pravastatin 2019-0 Yes 40mg Take 40 mg Univers 40 mg 8-14 by mouth ity of tablet 15:56: at [place] bedtime. Medical Branch imipramine 2019-0 Yes 25mg Take 25 mg U nivers 25 mg 8-14 by mouth ity of tablet 15:56: at [place] bedtime. Medical Branch levothyroxi 2019-0 Yes 25ug [...] water for 2019-0 Yes PRN, Univers irrigation - Starting ity o f irrigation 15:05: Wed [place] solution 00 02/23/19 at Medic al 1005, [place] Until Discontinu ed, Routine, Intra-op simethicone 2019-0 Yes PRN, Univer s (GAS 02-23 Starting ity of RELIEF) 40 15:05: Wed [place] mg/0.6 mL 00 02/23/19 at Medi angelita drops 1005, [place] Until Discontinu ed, Routine, Intra-op Vital Signs Vital Name Observation Time Observation Value Comments Source Systolic blood 2019-02-23 15:36:00 120 mm[Hg] Univer sity of pressure [facility] Diastolic blood 2019-02-23 15:36:00 33 mm[Hg] Unive rsity of [facility] Heart rate 2019-02-23 15:36:00 90 /min Universi ty [facility] Respiratory rate 2019-02-23 15:36:00 15 /min Univ ersity of [facility] Oxygen saturation in 2019-02-23 15:36:00 97 /min University of Arterial blood by [facility] Pulse oximetry Branch Body temperature 2019-02-23 15:15:00 36.67 Neena [facility] ersity [facility] Body height 2019-02-22 19:47:00 [facility] Body weight 2019-02-22 19:47:00 87[facility]998 [facility] BMI 2019-02-22 19:47:00 31.31 [facility] Systolic blood 2019-02-23 15:36:00 120 mm[Hg] Univer sity of [facility] Diastolic blood 2019-02-23 15:36:00 33 mm[Hg] Unive rsity of [facility] Heart rate 2019-02-23 15:36:00 90 /min Universi ty [facility] Respiratory rate 2019-02-23 15:36:00 15 /min Univ ersity of [facility] Oxygen saturation in 2019-02-23 15:36:00 97 /min University of Arterial blood by [facility] [place] [facility] Pulse oximetry Branch Body temperature 2019-02-23 15:15:00 36.67 Neena [facility] ersity [facility] Body height 2019-02-22 19:47:00 167.6 cm [facility] Body weight 2019-02-22 19:47:00 87.998 kg [facility] BMI 2019-02-22 19:47:00 31.31 kg/m2 [facility] Procedures Procedure Date / Time Performing Clinician Source Performed EGD (ENDO) 2019-02-23 14:47:54 Steven Arenas [facility] CBC WITH DIFFERENTIAL 2019-02-23 13:51:00 Chetan Weaver [facility] NOTICE OF PRIVACY 2019-02-23 13:17:12 Doctor Unassigned, No [facility] PRACTICES Name [facility] CONSENT/REFUSAL FOR 2019-02-23 13:15:52 Doctor Unassigned, No [facility] DIAGNOSIS AND TREATMENT [facility] ASSIGNMENT OF BENEFITS 2019-02-23 13:15:31 Doctor Unassigned, No [facility] Encounters Start End Encounter Admission Attending Care Care Encounter Source Date/Time Date/Time Type Type Clinicians Facility Department ID 2021-10-28 Outpatient 3 [id number] [facility] [id number] [facility] 11:51:31 0418 2021-10-23 Outpatient 3 [id number] [facility] REF [id number] [facility] 09:23:59 0413 2021-10-22 Outpatient 3 [id number] [facility] REF [id number] [facility] 15:25:29 0412 2019-02-23 2019-02-23 [facility] [id number] 08:42:00 10:55:00 Encounter Magaly bahena [id number] [place] [id number] Surgical [id number] [place] [id number] 2019-02-23 2019-02-23 [facility] [id number] [facility] 08:42:00 10:55:00 Encounter Magaly bahena [id number] [id number] [id number] [address] Results Test Description Test Time Test Comments [...] 33.3 g/dL 31.6-35.1 RDW-SD (test code = 48714-4) 44.4 fL 39-49.9 RDW-CV (test code = 788-0) 12.8 % 12-15.5 PLT (test code = 777-3) See_Comment L [Au tomated message] The system which ge nerated this result transmit jose reference range: 166 - 35 8 10*3/?L. The reference range was not used to interpret th is result as normal/abnormal . MPV (test code = 88912-7) 11.0 fL 9.5-12.9 IPF % (test code = 4.3 % 1.3-7.7 Platelet count measured by [id number]) fluorescence me thod. NRBC/100 WBC (test code = See_Comment [ Automated message] The [id number]) system which ge nerated this result transmit jose reference range: 0.0 - 10 .0 /100 WBCs. The reference r ruma was not used to interpr et this result as normal/abnor mal. NRBC x10^3 (test code = <0.01 See_Comment [Au tomated message] The [id number]) system which ge nerated this result transmit jose reference range: 10*3/?L. The reference range was not u sed to interpret this result as normal/abnormal . GRAN MAT (NEUT) % (test code 45.6 % = 770-8) IMM GRAN % (test code = 1.10 % [id number]) LYMPH % (test code = 736-9) 46.0 % MONO % (test code = 5905-5) 5.9 % EOS % (test code = 713-8) 1.1 % BASO % (test code = 706-2) 0.3 % GRAN MAT x10^3(ANC) (test 3.01 10*3/uL 1.88-7.09 code = [id number]) IMM GRAN x10^3 (test code = 0.07 10*3/uL 0-0.06 H [id number]) LYMPH x10^3 (test code = 3.03 10*3/uL 1.32-3.29 731-0) MONO x10^3 (test code = 0.39 10*3/uL 0.33-0.92 742-7) EOS x10^3 (test code = 0.07 10*3/uL 0.03-0.39 711-2) BASO x10^3 (test code = <0.03 0.01-0.07 704-7) Lab Interpretation (test Abnormal code = 11712-5) [facility]
== END 2022-01-28 13:02 | disposition home or self-care (01) ==
LOC: ER 10:20
DX: U07.1 COVID-19 (principal); Z88.2 Allergy status to sulfonamides; Z88.8 Allergy status to other drugs, medicaments and biological substances
CPT/HCPCS: 36415; 71045; 80048; 85025; 99283

== ENCOUNTER 2023-10-15 09:45 | Day surgery (SDC) | payer OTHER ==
[2023-10-13 09:53] LABS: Absolute Eosinophils 1.5 K/uL (0-0.5); Absolute Lymphocytes (CBC) 1.5 K/uL (0.7-4.9); Absolute Neutrophil 5.8 K/uL (1.8-8.0); Eosinophils % 16.7 % (0-4.4); Hemoglobin 13.8 g/dL (12.0-15.0); Lymphocytes % 16.7 % (15.3-44.8); MCH 29.4 pg (27.0-35.0); MCHC 32.8 g/dL (32.0-36.0); MCV 89.8 fL (80-100); MPV 9.1 fL (7.6-11.3); Neutrophils % 66.6 % (41.7-73.7); Platelets 193 thou/uL (152-406); RBC Red Blood Cell Count 4.68 M/uL (3.86-4.86); Red Cell Distribution Width 14.4 % (12.1-15.2)
[2023-10-13 10:03] LABS: Anion Gap 9.9 mEq/L (5.0-15.0); Potassium 4.9 mEq/L (3.5-5.1)
[2023-10-13 10:04] LABS: PT Prothrombin Time 10.8 SECONDS (9.5-12.5); Protime INR 0.98
[2023-10-13 10:30] LABS: Differential Total Cells Count 100; Eosinophils 2 % (0-3); Lymphocytes 41 % (15-42); Monocytes 4 % (0-10); Segmented Neutrophils 53 % (40-80)
[2023-10-13 10:32] LABS: Blood Morphology Comment NOT SEEN (NOT SEEN); Platelet Estimate ADEQ
--- NOTE | 2023-10-13 11:06 | RAD REPORT ---
EXAM DESCRIPTION: RAD - Chest Pa And Lat (2 Views) - 10/13/2023 9:45 am CLINICAL HISTORY: Pre op pending heart catheterization COMPARISON: Chest Single View dated 01/28/2022; Chest Single View dated 06/27/2021; Chest Pa And Lat (2 Views) dated 01/14/2019; Chest Single View dated 08/08/2018 FINDINGS: Lines: None. Lungs: No evidence of edema or pneumonia. Pleural: No significant pleural effusions or pneumothorax. Cardiac: The heart size is within normal limits. Mediastinum: Within normal limits. Bones: No acute fractures. Other: None IMPRESSION: No acute cardiopulmonary disease.
--- NOTE | 2023-10-13 13:27 | EKG ---
Test Date: 2023-10-13 Test Time: 09:30:37 [employer]rer: GONSALO MEASUREMENT RESULTS: Intervals: Rate: 98 [place]: 132 QRSD: 72 QT: 324 QTc: 413 [place]: P: 60 [place]: 132 QRS: 9 T: 39 INTERPRETIVE STATEMENTS: Normal sinus rhythm Possible Left atrial enlargement Nonspecific T wave abnormality Abnormal ECG Compared to ECG 06/27/2021 11:59:07 T-wave abnormality now present Sinus tachycardia no longer present ST (T wave) deviation no longer present Possible ischemia no longer present Electronically Signed On 10-13-23 13:26:55 CDT by Noble Griffith
[2023-10-15] MEDS ORDERED: HEPA 1000U/500MLS 2,000 UNIT/1,000 ML BAG IV ONE (10:41)
[2023-10-15] MEDS ORDERED: LIDOCAINE 1% 20 ML MDV ONE (10:41)
[2023-10-15] MEDS ORDERED: HEPARIN 5000 UNIT/ML 1 ML VIAL ONE (10:42)
[2023-10-15] MEDS ORDERED: FENTANYL CITR 100 MCG/2 ML ONE (10:42)
[2023-10-15] MEDS ORDERED: MIDAZOLAM HCL 2 MG/2 ML INJ ONE (10:42)
[2023-10-15] MEDS ORDERED: HEPARIN 10,000 UNIT/10 ML VIAL IV ONE (10:43)
[2023-10-15] MEDS: NA CHLORIDE 0.9% 500 ML ONE (12:00)
[2023-10-15 13:57] VITALS: BP 120/74; TEMP 97.4; O2SAT 99
--- NOTE | 2023-10-15 16:33 | OP ---
Date of Procedure: 10/15/2023 Surgeon: Max Mcgarry Procedure Performed: Selective coronary angiogram. Indication: Unstable angina. Complications: None. Estimated Blood Loss: Less than 10 cc. Sedation Time: 20 minutes. Description Of Procedure: After risks and benefits and alternatives were explained to the patient, rodolfo carey agreed to the procedure and signed informed consent. The patient was brought to the medical laboratory technologist and prepped and draped in a sterile fashion. A time-out was performed. Sedation was administered. Right radial access was obtained with 6-Yemeni sheath. A 5-Yemeni Nelson 4.0 catheter was advanced ov er a J-wire to the aortic root. Selective coronary angiograms were done of the left and right vaughan ry system and Nelson 4 catheter was removed over the J-wire and the sheath was removed and the access was closed with a TR band. The patient was moved back to Recovery in stable condition. Findings: 1.Left main is normal. 2.LAD is normal. 3.The left circ is normal. 4.RCA; small, nondominant, normal. Assessment And Plan: Normal coronaries. Plan will be to continue medical management. CLINTON/TESSY Voice ID: [id number] Report ID: [id number]
== END 2023-10-15 13:45 | disposition home or self-care (01) ==
LOC: CCL 09:45
PROVIDERS: ATTEND Internal Medicine
DX: I20.0 Unstable angina (principal); I51.7 Cardiomegaly; E78.5 Hyperlipidemia, unspecified; R56.9 Unspecified convulsions; Z79.899 Other long term (current) drug therapy; Z88.2 Allergy status to sulfonamides; Z88.8 Allergy status to other drugs, medicaments and biological substances
CPT/HCPCS: 93005; 85025; 80048; 36415; 85610; 85730; 71046; 93454; 76937; C1893; Q9966; J1644; J2001; J2250; J3010; J7040; 93458; 99152; 99153

== ENCOUNTER 2024-11-17 18:17 | Emergency (ER) | payer OTHER ==
--- OUTSIDE RECORDS SUMMARY | 2024-11-17 18:23 | XMS REPORT | Continuity of Care Document ---
Author Name Unknown Address [address] [facility] [place] [address] [facility] Address 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 Role Phone Dagoberto LUZ, Steven Peraza Primary Care Physician Yasemin Vences MD Attending Clinician [phone] YASEMIN VENCES Attending Clinician Unavail able Magaly Oliveros MD Attending Clinician + [phone] Magaly Oliveros MD Attending Clinician + [phone] Magaly Oliveros MD Admitting Clinician + [phone] Magaly Oliveros MD Admitting Clinician + [phone] Payers Payer Name Policy Type Policy Number Effective Date Expirati on Date Source [facility] MEDICARE ADVANTAGE Medicare [id number] 2023 00:00:00 Problems Condition Name Condition Details Condition Category Status Onset Date Resolution Date Last Treatment Date Treating Clinician Comments Source Vertigo Vertigo Disease Active 03-02 00:00: 00 Gladys Hercules Visual symptoms Visual symptoms Disease Active 03-02 00:00: 00 Gladys Hercules Seizures Seizures Disease Active 03-02 00:00: 00 Gladys Hercules Multiple falls Multiple falls Disease Active 03-02 00:00: 00 Gladys Hercules Paresthesi a Paresthesi a Disease Active 03-02 00:00: 00 Gladys Hercules Migraine headache Migraine headache Disease Active 03-02 00:00: 00 Gladys Hercules Nausea Nausea Disease Active 03-02 00:00: 00 Gladys Hercules Pain of left upper extremity Pain of left upper extremity Disease Active 03-02 00:00: 00 Gladys Hercules Mental disability Mental disability Disease Active 03-02 00:00: 00 Gladys Hercules Lumbar radiculopa thy Lumbar radiculopa thy Disease Active 03-02 00:00: 00 Gladys Hercules Hypothyroi dism Hypothyroi dism Disease Active 03-02 00:00: 00 Gladys Hercules Hyperlipid emia Hyperlipid emia Disease Active 03-02 00:00: 00 Gladys Hercules Fatigue Fatigue Disease Active 03-02 00:00: 00 Gladys Hercules Dysuria Dysuria Disease Active 03-02 00:00: 00 Gladys Hercules Delusional ideas Delusional ideas Disease Active 03-02 00:00: 00 Gladys Hercules 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 Active 03-02 00:00: 00 Gladys Hercules Carpal tunnel syndrome Carpal tunnel syndrome Disease Active 03-02 00:00: 00 Gladys Hercules Cholelithi asis Cholelithi asis Disease Active 03-02 00:00: 00 Gladys Hercules 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 03-02 00:00: 00 Gladys Hercules Pancreatit is Pancreatit is Disease Active 03-02 00:00: 00 Gladys Hercules Restless legs syndrome Restless legs syndrome Disease Active 01-30 00:00: 00 Memoria l Wm Epic 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 Disease Active 2014-07 00:00: 00 Gladys Burk Epic 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 Disease Active 2014-07 00:00: 00 Gladys Burk Epic No known active problems No known active problems Disease [facility] Gallbladde r calculus (disorder) Gallbladde r calculus (disorder) Active [facility] Active 2023-09-28 10:12:27 Ceciliabeena ellington Wm Abdominal pain Abdominal pain Disease Resolve d 03-02 00:00: 00 2024-03-02 00:00:00 2024-03-02 13:40:42 Gladys ellington [place] Epic Hallucinat ions Hallucinat ions Disease Resolve d 03-02 00:00: 00 2024-03-02 00:00:00 2024-03-02 13:40:42 Gladys chandana Burk Epic Epigastric pain Epigastric pain Disease Resolve d 03-02 00:00: 00 2024-03-02 00:00:00 2024-03-02 13:40:57 Ceciliabeena Burk Epic Left upper quadrant pain Left upper quadrant pain Disease Resolve d 03-02 00:00: 00 2024-03-02 00:00:00 2024-03-02 13:40:57 Ceciliabeena Burk Epic Right upper quadrant abdominal pain Right upper quadrant abdominal pain Disease Resolve d 03-02 00:00: 00 2024-03-02 00:00:00 2024-03-02 13:40:57 Gladys chandana Burk Epic Allergies, Adverse Reactions, Alerts Allergy Name Allergy Type Status Severity Reaction(s) Onset Date Inactive Date Treating Clinician Comments Source Sulfa Antibiot ics Drug Allergy Active Shortness of breath 02-23 00:00: 00 Gladys ellington [place] Epic Diphenhy dramine Hcl Propensi ty to adverse reaction s Active Rash 02-23 00:00: 00 [facility] Pseudoep hedrine Hcl Propensi ty to adverse reaction s Active Rash 14 00:00: 00 [facility] Sulfa (Sulfona mide Antibiot ics) Propensi ty to adverse reaction s Active Shortness of Breath 14 00:00: 00 [facility] SULFA ANTIBIOT ICS Drug Class Active High Sob 814 00:00: 00 [facility] Sulfa (Sulfona mide Antibiot ics) Propensi ty to adverse reaction s Active Shortness of Breath 814 00:00: 00 [facility] Diphenhy dramine Allergy to substanc e Active Rash, Unknown 02-09 00:00: 00 Gladys Burk Epic DIPHENHY DRAMINE DRUG INGREDI Active Low Rash 02-09 00:00: 00 [facility] PSEUDOEP HEDRINE DRUG INGREDI Active Low Rash 02-09 00:00: 00 [facility] ALLERGIE S NOT ON FILE SYSTEMIC Active M[facility]OUT sulfa drugs sulfa drugs Active Membeena Burk Sudafed Sudafed Active Gladys Burk Social History Social Habit Start Date Stop Date Quantity Comments Source Gender identity 2023-10-03 08:02:21 Identifies as female gender (finding) Codey Hercules [facility] Possible Codey Hercules Alcoholic beverage intake 2024-03-09 00:00:00 2024-03-09 00:00:00 0 /d [facility] History of Social function 2020-02-16 00:00:00 2020-02-16 00:00:00 [facility] Sex assigned at 1970 00:00:00 1970 00:00:00 [facility] Smoking Status Start Date Stop Date Source Never smoked tobacco Gladys Hercules Medications Ordered Medication Name Filled Medication Name Start Date Stop Date Current Medication? Ordering Clinician Indication Dosage Frequency Signature (SIG) Comments Components Source SUMAtriptan (Imitrex) 100 MG tablet SUMAtriptan (Imitrex) 100 MG tablet 11-11 00:00: 00 Yes 100mg TAKE 1 TABLET BY MOUTH 1 TIME IF NEEDED FOR MIGRAINE FOR UP TO 1 DOSE. Gladys Hercules SUMAtriptan (Imitrex) 100 MG tablet SUMAtriptan (Imitrex) 100 MG tablet 07-14 00:00: 00 11-11 00:00 :00 No 100mg Take 1 tablet by mouth 1 time if needed for migraine for up to 1 dose. Gladys Hercules topiramate 50 MG tablet topiramate 50 MG tablet 2023-07 00:00: 00 Yes 50mg Q.5D TAKE 1 TABLET BY MOUTH TWICE A DAY Gladys Hercules lactated ringers IV infusion 1,000 mL 03-23 15:30: 00 03-23 15:30 :00 No 1000mL at 42 mL/hr, 1,000 mL, IV Infusion, ONCE, 1 dose, On Thu03/23/24 at 1030, Routine, DSU Pre-op [facility] water for irrigation irrigation solution 03-23 15:30: 00 03-23 16:30 :05 No PRN, Starting on Thu03/23/24 at 1030, Until Thu03/23/24 at 1130, Routine, Intra-op [facility] simethicone (GAS RELIEF (SIMETHICON E)) 40 mg/0.6 mL drops 03-23 15:30: 00 03-23 16:30 :05 No PRN, Starting on Thu03/23/24 at 1030, Until Thu03/23/24 at 1130, Routine, Intra-op [facility] ubrogepant (UBRELVY) 100 mg tablet 03-23 11:31: 27 Yes 100mg Take 1 tablet by mouth ONCE PRN. [facility] omeprazole 40 mg capsule 03-23 11:31: 27 Yes 40mg Take 1 capsule by mouth every evening. [facility] venlafaxine XR 150 mg 24 hr capsule 03-23 11:31: 27 Yes 150mg Take 1 capsule by mouth daily with breakfast. [facility] venlafaxine XR 75 mg 24 hr capsule 03-23 11:31: 27 Yes 75mg Take 1 capsule by mouth at bedtime. [facility] topiramate 50 mg Cp24 03-23 10:19: 19 Yes 50mg Take 50 mg by mouth in the morning and 50 mg in the evening. Indication s: 100 mg Q AM, 200 mg Q PM [facility] divalproex (DEPAKOTE) 500 mg EC tablet 03-23 10:19: 19 Yes 500mg Take 1 tablet by mouth in the morning and 1 tablet in the evening. Indication s: 1500 mg Q AM, 1000 mg Q PM [facility] levothyroxi ne 50 mcg tablet 03-23 10:19: 19 Yes 50ug Take 1 tablet by mouth every morning. [facility] QUEtiapine 200 mg 24 hr tablet 03-23 10:03: 35 Yes 1.5{tbl } Take 1.5 tablets by mouth every evening. [facility] pregabalin (LYRICA) 100 mg capsule 03-23 10:03: 35 Yes 100mg Take 1 capsule by mouth in the morning and 1 capsule in the evening. [facility] levETIRAcet am (KEPPRA) 500 mg tablet 03-23 10:03: 35 Yes 500mg Take 1 tablet by mouth in the morning and 1 tablet in the evening. [facility] pravastatin 40 mg tablet 03-23 10:03: 35 Yes 40mg Take 1 tablet by mouth at bedtime. [facility] imipramine 25 mg tablet 03-23 10:03: 35 Yes 25mg Take 1 tablet by mouth at bedtime. [facility] gabapentin 400 mg capsule 03-23 10:03: 35 Yes 400mg Take 1 capsule by mouth every evening. [facility] sumatriptan 100 mg tablet 03-23 10:03: 35 Yes 100mg Take 1 tablet by mouth as needed for Migraine. [facility] gabapentin (Neurontin) 400 MG capsule gabapentin (Neurontin) 400 MG capsule 03-02 14:08: 29 03-02 00:00 :00 No 1{capsu le} QD Take 1 capsule by mouth 1 time each day. Gladys Hercules estradiol (Yuvafem) 10 MCG tablet vaginal tablet estradiol (Yuvafem) 10 MCG tablet vaginal tablet 03-02 13:49: 23 Yes Insert into the vagina. Gladys Hercules divalproex (Depakote) 250 MG EC tablet divalproex (Depakote) 250 MG EC tablet 03-02 00:00: 00 Yes 500mg Q.5D Take 2 tablets by mouth in the morning and 2 tablets in the evening. Gladys Hercules venlafaxine XR (Effexor XR) 75 MG 24 hr capsule venlafaxine XR (Effexor XR) 75 MG 24 hr capsule 03-02 00:00: 00 03-02 23:59 :00 No 75mg QD Take 1 capsule by mouth 1 time each day. Do not crush or chew. Gladys Hercules venlafaxine XR (Effexor XR) 150 MG 24 hr capsule venlafaxine XR (Effexor XR) 150 MG 24 hr capsule 03-02 00:00: 00 03-02 23:59 :00 No 150mg QD Take 1 capsule by mouth 1 time each day. Do not crush or chew. Gladys Hercules gabapentin (Neurontin) 400 MG capsule gabapentin (Neurontin) 400 MG capsule 03-02 00:00: 00 03-02 23:59 :00 No 400mg QD Take 1 capsule by mouth 1 time each day. Gladys Hercules divalproex (Depakote) 250 MG EC tablet divalproex (Depakote) 250 MG EC tablet 7-15 00:00: 00 03-02 00:00 :00 No 500mg Q.5D TAKE 2 TABLETS BY MOUTH TWICE A DAY Gladys Hercules omeprazole (PriLOSEC) [address] capsule omeprazole (PriLOSEC) [address] capsule 7-14 00:00: 00 Yes TAKE 1 CAPSULE BY MOUTH EVERY DAY 30 MINUTES BEFORE MORNING MEAL Gladys Hercules QUEtiapine 200 mg oral tablet 09-13 15:27: 00 Yes See Instructio ns, TAKE HALF A TABLET EVERY MORNING AND TAKE 1 TABLET AT BEDTIME, # 180 tab, 3 Refill(s), Pharmacy: [facility] STORE [id number], 170.18, cm, 05/20/23 13:06:00 HOOP RIVETER, Height, 52.727, kg, 05/20/23 13:06:00 HOOP RIVETER, Weight Memoria l Wm QUEtiapine (SEROquel) 200 MG tablet QUEtiapine (SEROquel) 200 MG tablet 09-13 00:00: 00 Yes See Instructio ns, TAKE HALF A TABLET EVERY MORNING AND TAKE 1 TABLET AT BEDTIME, # 180 tab, 3 Refill(s), Pharmacy: [facility] STORE [id number], 170.18, cm, 05/20/23 13:06:00 HOOP RIVETER, Height, 52.727, kg, 05/20/23 13:06:00 HOOP RIVETER, Weight Memoria l [place] Epic venlafaxine 75 mg oral capsule, extended release 08-12 23:56: 00 Yes = 1 cap, PO, Daily, # 90 unknown unit, 1 Refill(s), Pharmacy: [facility] STORE [id number], 170.18, cm, 05/20/23 13:06:00 HOOP RIVETER, Height, 52.727, kg, 05/20/23 13:06:00 HOOP RIVETER, Weight Memoria l Wm venlafaxine XR (Effexor XR) 75 MG 24 hr capsule venlafaxine XR (Effexor XR) 75 MG 24 hr capsule 08-12 00:00: 00 03-02 00:00 :00 No = 1 cap, PO, Daily, # 90 unknown unit, 1 Refill(s), Pharmacy: [email or web address] STORE [id number], 170.18, cm, 05/20/23 13:06:00 HOOP RIVETER, Height, 52.727, kg, 05/20/23 13:06:00 HOOP RIVETER, Weight Memoria l Wm Epic topiramate 50 mg oral tablet 2022-07 17:02: 00 Yes = 1 tab, PO, BID, # 180 tab, 3 Refill(s), Pharmacy: [id number], 170.18, cm, 05/20/23 13:06:00 HOOP RIVETER, Height, 52.727, kg, 05/20/23 13:06:00 HOOP RIVETER, Weight Gladys Burk topiramate 50 MG tablet topiramate 50 MG tablet 2022-07 00:00: 00 05-16 00:00 :00 No = 1 tab, PO, BID, # 180 tab, 3 Refill(s), Pharmacy: [facility] #[id number], 170.18, cm, 05/20/23 13:06:00 HOOP RIVETER, Height, 52.727, kg, 05/20/23 13:06:00 HOOP RIVETER, Weight Gladys Burk Epic venlafaxine 150 mg oral capsule, extended release 2022-07 19:19: 00 Yes 150 mg = 1 cap, PO, Daily, # 90 cap, 1 Refill(s), Pharmacy: [facility] #[id number], 170.18, cm, 05/20/23 13:06:00 HOOP RIVETER, Height, 52.727, kg, 05/20/23 13:06:00 HOOP RIVETER, Weight Gladys Burk Ubrelvy 100 mg oral tablet 2022-07 19:19: 00 Yes 100 mg = 1 tab, PO, PRN, PRN Other -See Comment, X 30 day, # 16 tab, 1 Refill(s), Pharmacy: [facility] #[id number], For Migraine. May repeat dose after 2 hours. Max dose 200 mg/ 24 hours, 170.18, cm, 05/20/23 13:06:00 HOOP RIVETER, Height, 52.727, kg, 05/20/23 13:... Gladys Burk venlafaxine XR (Effexor XR) 150 MG 24 hr capsule venlafaxine XR (Effexor XR) 150 MG 24 hr capsule 2022-07 00:00: 00 03-02 00:00 :00 No 150mg 150 mg = 1 cap, PO, Daily, # 90 cap, 1 Refill(s), Pharmacy: [facility] #[id number], 170.18, cm, 05/20/23 13:06:00 HOOP RIVETER, Height, 52.727, kg, 05/20/23 13:06:00 HOOP RIVETER, Weight Gladys Hercules venlafaxine 75 mg oral capsule, extended release 2022-07 0-24 14:24: 00 Yes = 1 cap, PO, Daily, # 90 unknown unit, 1 Refill(s), Pharmacy: [facility] STORE [id number], 170.18, cm, 01/29/23 13:36:00 CDT, Height, 94.545, kg, 01/29/23 13:36:00 CDT, Weight Gladys Burk divalproex sodium 250 mg oral enteric coated tablet (Depakote) 2022-07 0-16 14:56: 00 Yes = 2 tab, PO, BID, # 360 tab, 1 Refill(s), Pharmacy: [facility] STORE [id number], 170.18, cm, 01/29/23 13:36:00 CDT, Height, 94.545, kg, 01/29/23 13:36:00 CDT, Weight Gladys Burk SUMAtriptan 100 mg oral tablet 01-21 15:47: 00 Yes See Instructio ns, TAKE 1 TABLET BY MOUTH ONCE, # 18 tab, 1 Refill(s), Pharmacy: [facility] STORE [id number], 170.18, cm, 10/28/22 13:15:00 CDT, Height, 90, kg, 10/28/22 13:15:00 CDT, Weight Gladys Burk SUMAtriptan (Imitrex) 100 MG tablet SUMAtriptan (Imitrex) 100 MG tablet 01-21 00:00: 00 07-14 00:00 :00 No See Instructio ns, TAKE 1 TABLET BY MOUTH ONCE, # 18 tab, 1 Refill(s), Pharmacy: [facility] STORE [id number], 170.18, cm, 10/28/22 13:15:00 CDT, Height, 90, kg, 10/28/22 13:15:00 CDT, Weight Gladys Burk Epic venlafaxine 75 mg oral capsule, extended release - 19:50: 00 Yes = 1 cap, PO, Daily, # 90 cap, 1 Refill(s), Pharmacy: [facility] #[id number], 170.18, cm, 10/28/22 13:15:00 CDT, Height, 90, kg, 10/28/22 13:15:00 CDT, Weight Memoria l Wm gabapentin 400 mg oral capsule 10-28 18:35: 00 Yes 400 mg = 1 cap, PO, Daily, # 90 cap, 3 Refill(s), Pharmacy: [facility] #[id number], 170.18, cm, 10/28/22 13:15:00 CDT, Height, 90, kg, 10/28/22 13:15:00 CDT, Weight Memoria l Wm divalproex sodium 250 mg oral enteric coated tablet (Depakote) 10-28 18:35: 00 Yes 500 mg = 2 tab, PO, BID, # 360 tab, 1 Refill(s), Pharmacy: [facility] #[id number], 170.18, cm, 10/28/22 13:15:00 CDT, Height, 90, kg, 10/28/22 13:15:00 CDT, Weight Memoria l Wm SUMAtriptan 100 mg oral tablet 10-20 13:49: 00 Yes See Instructio ns, TAKE 1 TABLET BY MOUTH ONCE, # 18 tab, 1 Refill(s), Pharmacy: [facility] STORE [id number], 167.64, cm, 08/28/22 13:53:00 HOOP RIVETER, Height, 90.909, kg, 08/28/22 13:53:00 HOOP RIVETER, Weight Memoria l Wm QUEtiapine 200 mg oral tablet 09-02 15:55: 00 Yes See Instructio ns, TAKE HALF A TABLET EVERY MORNING AND TAKE 1 TABLET AT BEDTIME, # 180 tab, 3 Refill(s), Pharmacy: [facility] STORE [id number], 167.64, cm, 08/28/22 13:53:00 HOOP RIVETER, Height, 90.909, kg, 08/28/22 13:53:00 HOOP RIVETER, Weight Memoria l Wm topiramate 50 mg oral tablet 08-28 20:05: 00 Yes = 1 tab, PO, BID, # 180 tab, 3 Refill(s), Pharmacy: [facility] #[id number], 167.64, cm, 08/28/22 13:53:00 HOOP RIVETER, Height, 90.909, kg, 08/28/22 13:53:00 HOOP RIVETER, Weight Memoria chandana Burk venlafaxine 75 mg oral capsule, extended release 07-23 14:30: 00 Yes = 1 cap, PO, Daily, # 30 unknown unit, 3 Refill(s), Pharmacy: [facility] STORE [id number], 165.1, cm, 05/28/22 13:47:00 HOOP RIVETER, Height, 75.625, kg, 05/28/22 13:47:00 HOOP RIVETER, Weight Memoria chandana Burk divalproex sodium 250 mg oral enteric coated tablet (Depakote) 2021-07 20:12: 00 Yes 500 mg = 2 tab, PO, BID, # 360 tab, 1 Refill(s), other, 165.1, cm, 05/28/22 13:47:00 HOOP RIVETER, Height, 75.625, kg, 05/28/22 13:47:00 HOOP RIVETER, Weight Memoria chandana Burk topiramate 50 mg oral tablet 2021-07 0 20:11: 00 Yes = 1 tab, PO, Bedtime, # 90 tab, 3 Refill(s), Pharmacy: [facility] STORE [id number], 165.1, cm, 10/21/21 15:22:00 CDT, Height, 75.568, kg, 02/25/22 13:41:00 CDT, Weight Memoria chandana Burk Effexor XR 75 mg oral capsule, extended release 03-25 18:49: 00 Yes 75 mg = 1 cap, PO, Daily, # 30 cap, 3 Refill(s), Pharmacy: [facility] #[id number], 165.1, cm, 10/21/21 15:22:00 CDT, Height, 75.568, kg, 02/25/22 13:41:00 CDT, Weight Memoria chandana Burk venlafaxine 150 mg oral capsule, extended release 03-20 22:02: 00 Yes 150 mg = 1 cap, PO, Daily, # 90 cap, 2 Refill(s), Pharmacy: [facility] #[id number], 165.1, cm, 10/21/21 15:22:00 CDT, Height, 75.568, kg, 02/25/22 13:41:00 CDT, Weight Memoria l Wm Topamax 50 mg oral tablet 6-14 21:00: 00 Yes 50 mg = 1 tab, PO, Bedtime, # 90 tab, 3 Refill(s), Pharmacy: [facility] #[id number], 165.1, cm, 10/21/21 15:22:00 CDT, Height, 76.506, kg, 12/24/21 15:45:00 CDT, Weight Memoria l Wm QUEtiapine 200 mg oral tablet 2020-07 16:37: 00 Yes See Instructio joy, 1.5 tablet at bedtime, # 180 tab, 3 Refill(s), Pharmacy: [facility] #[id number], 167.64, cm, 12/13/20 13:41:00 CDT, Height, 94.091, kg, 12/13/20 13:41:00 CDT, Weight Memoria l Wm SUMAtriptan 100 mg oral tablet 2020-07 14:11: 00 Yes See Instructio joy, TAKE 1 TABLET BY MOUTH ONCE, # 18 tab, 1 Refill(s), Pharmacy: [facility] [id number], 167.64, cm, 12/13/20 13:41:00 CDT, Height, 94.091, kg, 12/13/20 13:41:00 CDT, Weight Memoria l Wm topiramate 50 MG Oral Tablet [Topamax] 2020-07 0 15:22: 00 Yes 50 mg = 1 tab, PO, BID, # 180 tab, 3 Refill(s), Pharmacy: [facility] #[id number], 167.64, cm, 12/13/20 13:41:00 CDT, Height, 94.091, kg, 12/13/20 13:41:00 CDT, Weight Memoria l Wm topiramate 50 MG Oral Tablet [Topamax] 2020-07 0 15:37: 00 Yes 50 mg = 1 tab, PO, BID, # 60 tab, 3 Refill(s), Pharmacy: [facility] #[id number], 167.64, cm, 12/13/20 13:41:00 CDT, Height, 94.091, kg, 12/13/20 13:41:00 CDT, Weight Memoria l [place] levothyroxi ne 25 mcg (0.025 mg) oral tablet 2020-07 15:34: 00 Yes 25 microgram = 1 tab, PO, Daily, # 90 tab, 1 Refill(s) Gladys Burk levothyroxi ne (Synthroid, Levoxyl) 25 MCG tablet levothyroxi ne (Synthroid, Levoxyl) 25 MCG tablet 2020-07 00:00: 00 Yes 25ug 25 microgram = 1 tab, PO, Daily, # 90 tab, 1 Refill(s) Membeena Burk Epic QUEtiapine 200 mg oral tablet 03-08 01:03: 00 Yes See Instructio ns, 0.5 tab qam, 1 tab PO Bedtime, # 90 tab, 2 Refill(s), Pharmacy: [facility] #[id number], 167.64, cm, 12/13/20 13:41:00 CDT, Height, 94.091, kg, 12/13/20 13:41:00 CDT, Weight Membeena Burk cenobamate 50 mg oral tablet 02-20 19:54: 00 Yes 50 mg = 1 tab, PO, Daily, # 30 tab, 1 Refill(s), Pharmacy: [facility] #[id number], 167.64, cm, 12/13/20 13:41:00 CDT, Height, 94.091, kg, 12/13/20 13:41:00 CDT, Weight Membeena Burk cenobamate 100 mg oral tablet 02-20 19:52: 00 No 100 mg = 1 tab, PO, Daily, X 30 day, # 30 tab, 2 Refill(s), Pharmacy: [facility][id number], 167.64, cm, 12/13/20 13:41:00 CDT, Height, 94.091, kg, 12/13/20 13:41:00 CDT, Weight Memoria chandana Burk cenobamate 100 mg oral tablet 01-29 15:42: 00 No 100 mg = 1 tab, PO, Daily, # 30 tab, 2 Refill(s), Pharmacy: [facility] #[id number], 167.64, cm, 12/13/20 13:41:00 CDT, Height, 94.091, kg, 12/13/20 13:41:00 CDT, Weight Memoria chandana Burk Omeprazole 01-15 21:50: 00 Yes PO, Daily, 0 Refill(s) Memoria l Wm omeprazole 01-15 21:50: 00 Yes PO, Daily, 0 Refill(s) Memoria l Wm Imipramine 01-15 21:49: 00 Yes PO, 0 Refill(s) Memoria l Wm gabapentin 400 MG Oral Capsule 12-13 19:27: 00 Yes 400 mg = 1 cap, PO, TID, # 270 cap, 3 Refill(s), Pharmacy: [facility] #[id number], 167.64, cm, 12/13/20 13:41:00 CDT, Height, 94.091, kg, 12/13/20 13:41:00 CDT, Weight Memoria l Wm Divalproex Sodium 250 MG Enteric Coated Tablet 12-13 19:27: 00 Yes See Instructio ns, 4 po qam, 2 po at noon, 4 po qpm, # 900 tab, 3 Refill(s), Pharmacy: [facility] #[id number], 167.64, cm, 12/13/20 13:41:00 CDT, Height, 94.091, kg, 12/13/20 13:41:00 CDT, Weight Memoria l [place] gabapentin 400 mg oral capsule 12-13 19:27: 00 Yes 400 mg = 1 cap, PO, Daily, # 90 cap, 3 Refill(s), Pharmacy: [facility] #[id number], 167.64, cm, 12/13/20 13:41:00 CDT, Height, 94.091, kg, 12/13/20 13:41:00 CDT, Weight Memoria l Wm cenobamate 150 mg oral tablet 11-08 16:34: 00 No 150 mg = 1 tab, PO, Daily, X 30 day, # 30 tab, 3 Refill(s), Pharmacy: [facility] #[id number], 167.64, cm, 11/01/20 13:16:00 CDT, Height, 92.273, kg, 11/01/20 13:16:00 CDT, Weight Memoria chandana Burk SUMAtriptan 100 mg oral tablet 11-01 19:03: 00 Yes See Instructio joy, TAKE 1 TABLET BY MOUTH ONCE, # 18 tab, 1 Refill(s), Pharmacy: [facility] #[id number], 167.64, cm, 11/01/20 13:16:00 CDT, Height, 92.273, kg, 11/01/20 13:16:00 CDT, Weight Memoria l Wm QUEtiapine 200 mg oral tablet 11-01 19:00: 00 Yes 100 mg = 0.5 tab, PO, Bedtime, # 45 tab, 3 Refill(s), Pharmacy: [facility] #[id number], 167.64, cm, 11/01/20 13:16:00 CDT, Height, 92.273, kg, 11/01/20 13:16:00 CDT, Weight Memoria chandana Burk gabapentin 300 MG Oral Capsule 11-01 18:58: 00 Yes 300 mg = 1 cap, PO, TID, # 270 cap, 1 Refill(s), Pharmacy: [facility], 167.64, cm, 11/01/20 13:16:00 CDT, Height, 92.273, kg, 11/01/20 13:16:00 CDT, Weight Memoria chandana Burk {14 (cenobamate 100 MG Oral Tablet [Xcopri]) / 14 (cenobamate 50 MG Oral Tablet [Xcopri]) } Pack [Xcopri Titration Pack - 50 MG (14), 100 MG (14) 28 Count] 10-23 20:17: 00 No See Instructio joy, take as directed, # 1 kit, 0 Refill(s), Pharmacy: [facility] #[id number], 167.64, cm, 09/20/20 11:11:00 HOOP RIVETER, Height, 93.636, kg, 09/20/20 11:11:00 HOOP RIVETER, Weight Memoria chandana Burk 24 HR venlafaxine 150 MG Extended Release Capsule [Effexor] 10-17 18:24: 00 Yes 150 mg = 1 cap, PO, Daily, # 90 cap, 3 Refill(s), Pharmacy: [facility] #[id number], 167.64, cm, 09/20/20 11:11:00 HOOP RIVETER, Height, 93.636, kg, 09/20/20 11:11:00 HOOP RIVETER, [place] [facility] 500 MG Oral Tablet 09-20 17:36: 00 Yes 500 mg = 1 tab, PO, BID, # 180 tab, 4 Refill(s), Pharmacy: [facility] #[id number], 167.64, cm, 09/20/20 11:11:00 HOOP RIVETER, Height, 93.636, kg, 09/20/20 11:11:00 HOOP RIVETER, Weight [facility] 24 HR venlafaxine 150 MG Extended Release Capsule [Effexor] 09-20 17:35: 00 Yes 150 mg = 1 cap, PO, Daily, # 30 cap, 3 Refill(s), Pharmacy: [facility] #[id number], 167.64, cm, 09/20/20 11:11:00 HOOP RIVETER, Height, 93.636, kg, 09/20/20 11:11:00 HOOP RIVETER, [place] [facility] [place] [place] topiramate 100 mg oral tablet 09-20 17:33: 00 Yes 100 mg = 1 tab, PO, Bedtime, # 30 tab, 1 Refill(s), Pharmacy: [facility] #[id number], 167.64, cm, 09/20/20 11:11:00 HOOP RIVETER, Height, 93.636, kg, 09/20/20 11:11:00 HOOP RIVETER, Weight [facility] {14 (cenobamate 12.5 MG Oral Tablet [Xcopri]) / 14 (cenobamate 25 MG Oral Tablet [Xcopri]) } Pack [Xcopri Titration Pack - 12.5 MG (14), 25 MG (14) 28 Count] 09-14 01:43: 00 Yes See Instructio ns, ., # 60 tab, 0 Refill(s), other [facility] [place] ubrogepant 100 MG Oral Tablet [Ubrelvy] 09-14 01:42: 00 Yes 100 mg = 1 tab, PO, PRN, PRN Other -See Comment, # 20 tab, 0 Refill(s), other, For Migraine. May repeat dose after 2 hours. Max dose 200 mg/ 24 hours Gladys Krauseann topiramate 100 mg oral tablet 3- 01:41: 00 Yes 100 mg = 1 tab, PO, BID, # 60 tab, 1 Refill(s), Pharmacy: [facility] #[id number], 167.64, cm, 06/15/20 9:44:00 HOOP RIVETER, Height, 92.273, kg, 06/15/20 9:44:00 HOOP RIVETER, Weight Mem[facility] chandana KrauseWm baclofen 10 mg oral tablet 08-24 15:53: 00 Yes = 1 tab, PO, Bedtime, # 30 tab, 3 Refill(s), Pharmacy: [facility] #[id number], 167.64, cm, 06/15/20 9:44:00 HOOP RIVETER, Height, 92.273, kg, 06/15/20 9:44:00 HOOP RIVETER, Weight [facility] chandana KrauseWm nitrofurant oin macrocrysta ls 100 mg oral capsule (Macrodanti n) 07-17 21:37: 00 Yes 100 mg = 1 cap, PO, QID, X 7 day, # 28 cap, 0 Refill(s), Pharmacy: [facility] #[id number], 167.64, cm, 06/15/20 9:44:00 HOOP RIVETER, Height, 92.273, kg, 06/15/20 9:44:00 HOOP RIVETER, Weight Gladys Krauseann 24 HR venlafaxine 75 MG Extended Release Capsule [Effexor] 2019-07 2 16:39: 00 Yes 75 mg = 1 cap, PO, Daily, # 30 cap, 3 Refill(s), Pharmacy: [facility] #[id number], 167.64, cm, 06/15/20 9:44:00 HOOP RIVETER, Height, 92.273, kg, 06/15/20 9:44:00 HOOP RIVETER, [place] [facility] [place] SUMAtriptan 100 mg oral tablet 2019-07 0- 14:45: 00 Yes 100 mg = 1 tab, PO, ONCE, # 18 tab, 1 Refill(s), Pharmacy: [facility] #[id number], 167.64, cm, 05/04/20 9:24:00 CDT, Height, 90.909, kg, 05/04/20 9:24:00 CDT, Weight Memoria l Wm topiramate 200 mg oral tablet 2019-07 14:45: 00 Yes 200 mg = 1 tab, PO, BID, # 180 tab, 2 Refill(s), [id number], 167.64, cm, 05/04/20 9:24:00 CDT, Height, 90.909, kg, 05/04/20 9:24:00 CDT, Weight [facility] [place] 24 HR venlafaxine 37.5 MG Extended Release Capsule [Effexor] 2019-07 14:45: 00 Yes 37.5 mg = 1 cap, PO, Daily, # 90 cap, 3 Refill(s), [id number], 167.64, cm, 05/04/20 9:24:00 CDT, Height, 90.909, kg, 05/04/20 9:24:00 CDT, Weight [facility] l [facility] Divalproex Sodium 250 MG Enteric Coated Tablet 2019-07 14:44: 00 Yes See Instructio ns, 4 po qam, 2 po at noon, 4 po qpm, # 900 tab, 3 Refill(s), Pharmacy: [facility] #[id number], 167.64, cm, 05/04/20 9:24:00 CDT, Height, 90.909, kg, 05/04/20 9:24:00 CDT, Weight [facility] l [facility] gabapentin 300 MG Oral Capsule 2019-07 14:44: 00 Yes 300 mg = 1 cap, PO, TID, # 270 cap, 1 Refill(s), Pharmacy: [facility] #[id number], 167.64, cm, 05/04/20 9:24:00 CDT, Height, 90.909, kg, 05/04/20 9:24:00 CDT, Weight Mem[facility] l [facility]m Levetiracet am 500 MG Oral Tablet 2019-07 14:44: 00 Yes 500 mg = 1 tab, PO, BID, # 180 tab, 4 Refill(s), [id number], 167.64, cm, 05/04/20 9:24:00 CDT, Height, 90.909, kg, 05/04/20 9:24:00 CDT, Weight Gladys Burk QUEtiapine 200 mg oral tablet 2019-07 14:44: 00 Yes 100 mg = 0.5 tab, PO, BID, # 90 tab, 3 Refill(s), Pharmacy: [facility] #[id number], 167.64, cm, 05/04/20 9:24:00 CDT, Height, 90.909, kg, 05/04/20 9:24:00 CDT, Weight Gladys Burk 24 HR venlafaxine 37.5 MG Extended Release Capsule [Effexor] 10-04 18:18: 00 Yes 37.5 mg = 1 cap, PO, Daily, # 30 cap, 2 Refill(s), Pharmacy: [facility] #[id number] Gladys chandana Wm gabapentin 300 MG Oral Capsule 05 14:16: 00 Yes 300 mg = 1 cap, PO, TID, # 270 cap, 1 Refill(s), Pharmacy: [facility] #[id number] Gladys Burk frovatripta n 2.5 mg oral tablet 05 14:16: 00 Yes 2.5 mg = 1 tab, PO, Daily, PRN for migraine headache, may repeat x 2 with 2 hours between doses if needed, # 9 tab, 2 Refill(s), Pharmacy: [facility] #[id number] Gladys Burk Divalproex Sodium 250 MG Enteric Coated Tablet 09-07 22:53: 00 Yes See Instructio ns, 4 po qam, 2 po at noon, 4 po qpm, # 900 tab, 3 Refill(s), Pharmacy: [facility] #[id number] Gladys Burk carvedilol 07-29 19:34: 00 Yes 12.5 mg, PO, BID, 0 Refill(s) Gladys Burk Xarelto 17 19:34: 00 Yes 20 mg, PO, Daily, 0 Refill(s) Gladys Burk QUEtiapine 200 mg oral tablet 07-29 19:17: 00 Yes 100 mg = 0.5 tab, PO, BID, # 90 tab, 3 Refill(s), Pharmacy: [email or web address] #[id number] Gladys Burk SUMAtriptan 100 mg oral tablet 2018-07 19:24: 47 Yes 100 mg = 1 tab, PO, ONCE, # 18 tab, 1 Refill(s), Pharmacy: [facility] #[id number] Gladys Burk topiramate 200 mg oral tablet 2018-07 19:24: 00 Yes 200 mg = 1 tab, PO, BID, # 180 tab, 2 Refill(s), Pharmacy: [facility] #[id number] Gladys Burk gabapentin 300 MG Oral Capsule 03-23 19:44: 45 Yes 300 mg = 1 cap, PO, BID, # 180 cap, 2 Refill(s), Pharmacy: [facility] #[id number] Gladys Burk topiramate (TOPAMAX) 100 mg tablet 02-23 15:56: 51 Yes 100mg Take 100 mg by mouth 2 (two) times daily. Indication s: 100 mg Q AM, 200 mg Q PM [facility] divalproex (DEPAKOTE) 500 mg EC tablet 02-23 15:56: 51 Yes 1500mg Take 1,500 mg by mouth 2 (two) times daily. Indication s: 1500 mg Q AM, 1000 mg Q PM [facility] pregabalin (LYRICA) 100 mg capsule 02-23 15:56: 51 Yes 100mg Take 100 mg by mouth 2 (two) times daily. [facility] levETIRAcet am (KEPPRA) 500 mg tablet 02-23 15:56: 51 Yes 500mg Take 500 mg by mouth 2 (two) times daily. [facility] pravastatin (PRAVACHOL) 20 mg tablet 02-23 15:56: 51 Yes 20mg Take 20 mg by mouth at bedtime. [facility] pravastatin 40 mg tablet 02-23 15:56: 51 Yes 40mg Take 40 mg by mouth at bedtime. [facility] imipramine 25 mg tablet 02-23 15:56: 51 Yes 25mg Take 25 mg by mouth at bedtime. [facility] levothyroxi ne 25 mcg tablet 02-23 15:56: 51 Yes 25ug Take 25 mcg by mouth every morning. [facility] gabapentin 300 mg capsule 02-23 15:56: 51 Yes 300mg Take 300 mg by mouth 3 (three) times daily. [facility] sumatriptan 100 mg tablet 02-23 15:56: 51 Yes 100mg Take 100 mg by mouth as needed for Migraine. [facility] QUEtiapine (SEROQUEL) 100 mg tablet 02-23 15:56: 51 Yes 100mg Take 100 mg by mouth 2 (two) times daily. [facility] simethicone (GAS RELIEF) 40 mg/0.6 mL drops 02-23 15:05: 00 Yes PRN, Starting Thu02/23/19 at 1005, Until Discontinu ed, Routine, Intra-op [facility] water for irrigation irrigation solution 02-23 15:05: 00 Yes PRN, Starting Thu02/23/19 at 1005, Until Discontinu ed, Routine, Intra-op [facility] QUEtiapine 200 mg oral tablet 11-25 20:56: 47 Yes 100 mg = 0.5 tab, PO, BID, # 90 tab, 4 Refill(s), Pharmacy: [facility] Gladys Burk gabapentin 300 MG Oral Capsule 11-25 20:56: 43 Yes 300 mg = 1 cap, PO, BID, # 180 cap, 2 Refill(s), Pharmacy: [facility] Gladys Burk Myrbetriq 10-19 18:28: 00 Yes 50 mg, PO, Daily, 0 Refill(s) Gladys Burk Mirabegron (MYRBETRIQ PO) Mirabegron (MYRBETRIQ PO) 10-19 00:00: 00 Yes 50mg 50 mg, PO, Daily, 0 Refill(s) Gladys Burk Epic Divalproex Sodium 500 MG Enteric Coated Tablet 07-29 21:21: 25 Yes See Instructio ns, TAKE 2 TABLETS BY MOUTH IN THE MORNING ONE TAB ATNOON AND 2 TABLETS INTHEEVENI NG, # 450 tab, 3 Refill(s), Pharmacy: [facility] Gladys Burk SUMAtriptan 100 mg oral tablet 07-29 21:20: 58 Yes 100 mg = 1 tab, PO, ONCE, # 18 tab, 1 Refill(s), Pharmacy: [facility] Gladys Burk gabapentin 300 MG Oral Capsule 07-29 21:20: 00 No 300 mg = 1 cap, PO, TID, # 270 cap, 2 Refill(s), [facility] p[facility] 40 mg oral tablet 09-03 21:33: 00 Yes 40 mg = 1 tab, PO, Daily, 0 Refill(s) Gladys Burk pravastatin (Pravachol) 40 MG tablet pravastatin (Pravachol) 40 MG tablet 09-03 00:00: 00 Yes 40mg 40 mg = 1 tab, PO, Daily, 0 Refill(s) Gladys Burk [facility] Immunizations Ordered Immunization Name Filled Immunization Name Date Status Comments Source [id number] Unknown Completed [facility] influenza vaccine-unspecified Unknown Completed [facility] influenza vaccine-unspecified Unknown Completed [facility] [id number]<sup> 1</sup> Unknown Completed [facility] [id number]<sup> 1</sup> Unknown Completed [facility] [id number] Unknown Completed [facility] Vital Signs Vital Name Observation Time Observation Value Comments S yumiko Systolic blood pressure 2024-10-12 10:09:00 137 mm[Hg] [facility] Diastolic blood pressure 2024-10-12 10:09:00 91 mm[Hg] [facility] Heart rate 2024-10-12 10:09:00 97 /min [facility] [place] [facility] Body temperature 2024-10-12 10:09:00 36.28 [facility] Respiratory rate 2024-10-12 10:09:00 16 /min [facility] Body height 2024-10-12 10:09:00 167.6 [facility] 2024-10-12 10:09:00 87.907 kg Mata rial [facility] BMI 2024-10-12 10:09:00 31.28 kg/m2 Mata rial [facility] Epic Oxygen saturation in Arterial blood by Pulse oximetry 2024-10-12 10:09:00 99 /min [facility] Systolic blood pressure 2024-10-12 10:09:00 137 mm[Hg] [facility] Diastolic blood pressure 2024-10-12 10:09:00 91 mm[Hg] [facility] Heart rate 2024-10-12 10:09:00 97 /min [facility] Body temperature 2024-10-12 10:09:00 36.28 [facility] Respiratory rate 2024-10-12 10:09:00 16 /min [facility] Body height 2024-10-12 10:09:00 167.6 [facility] weight 2024-10-12 10:09:00 87.907 kg Mata [facility] BMI 2024-10-12 10:09:00 31.28 kg/m2 Mata rial [place] Epic Oxygen saturation in Arterial blood by Pulse oximetry 2024-10-12 10:09:00 99 /min [facility] Systolic blood pressure 2024-07-14 10:44:00 141 mm[Hg] [facility] Diastolic blood pressure 2024-07-14 10:44:00 105 mm[Hg] [facility] Heart rate 2024-07-14 10:44:00 96 /min [facility] Body temperature 2024-07-14 10:44:00 36.22 [facility] Respiratory rate 2024-07-14 10:44:00 16 /min [facility] Body height 2024-07-14 10:44:00 167.6 cm Mata rial [facility] Body weight 2024-07-14 10:44:00 90.719 kg Mata rial [facility] Epic BMI 2024-07-14 10:44:00 32.28 kg/m2 Mata [facility] [place] Epic Oxygen saturation in Arterial blood by Pulse oximetry 2024-07-14 10:44:00 98 /min [facility] Systolic blood pressure 2024-07-14 10:44:00 141 mm[Hg] [facility] Diastolic blood pressure 2024-07-14 10:44:00 105 mm[Hg] [facility] Epic Heart rate 2024-07-14 10:44:00 96 /min [facility] Epic Body temperature 2024-07-14 10:44:00 36.22 [facility] Epic Respiratory rate 2024-07-14 10:44:00 16 /min [facility] Body height 2024-07-14 10:44:00 167.6 cm Mata rial [place] Epic Body weight 2024-07-14 10:44:00 90.719 kg Mata rial [place] Epic BMI 2024-07-14 10:44:00 32.28 kg/m2 Mata [facility] [place] Epic Oxygen saturation in Arterial blood by Pulse oximetry 2024-07-14 10:44:00 98 /min [facility] Systolic blood pressure 2024-05-27 10:44:00 127 mm[Hg] [facility] Diastolic blood pressure 2024-05-27 10:44:00 87 mm[Hg] [facility] Epic Heart rate 2024-05-27 10:44:00 95 /min [facility] Body temperature 2024-05-27 10:44:00 36.17 [facility] Epic Respiratory rate 2024-05-27 10:44:00 16 /min [facility] Body height 2024-05-27 10:44:00 170.2 cm Mata [facility] Epic Body weight 2024-05-27 10:44:00 97.07 kg Mata rial [facility] Epic BMI 2024-05-27 10:44:00 33.52 kg/m2 Mata [facility] Epic Oxygen saturation in Arterial blood by Pulse oximetry 2024-05-27 10:44:00 99 /min [facility] Systolic blood pressure 2024-05-27 10:44:00 127 mm[Hg] Codey norman [facility] Diastolic blood pressure 2024-05-27 10:44:00 87 mm[Hg] Codey norman [facility] Heart rate 2024-05-27 10:44:00 95 /min Arian Burk [facility] Body temperature 2024-05-27 10:44:00 36.17 Neena Codey Burk [facility] Respiratory rate 2024-05-27 10:44:00 16 /min Codey Burk [facility] Body height 2024-05-27 10:44:00 170.2 cm Mataenrico Burk [facility] Body weight 2024-05-27 10:44:00 97.07 kg Mataenrico Burk [facility] BMI 2024-05-27 10:44:00 33.52 kg/m2 [facility] in Arterial blood by Pulse oximetry 2024-05-27 10:44:00 99 /min Codey norman [facility] Systolic blood pressure 2024-03-23 16:55:00 118 mm[Hg] [facility] Diastolic blood pressure 2024-03-23 16:55:00 86 mm[Hg] [facility] Heart rate 2024-03-23 16:55:00 83 /min [facility] Respiratory rate 2024-03-23 16:55:00 14 /min [facility] Oxygen saturation in Arterial blood by Pulse oximetry 2024-03-23 16:55:00 98 /min [facility] Body temperature 2024-03-23 16:25:00 36.78 Neena [facility] Body height 2024-03-09 22:00:00 167.6 cm [facility] Body weight 2024-03-09 22:00:00 90.719 kg [facility] BMI 2024-03-09 22:00:00 32.28 kg/m2 [facility] Systolic blood pressure 2024-03-23 16:40:00 132 mm[Hg] [facility] Diastolic blood pressure 2024-03-23 16:40:00 91 mm[Hg] [facility] Heart rate 2024-03-23 16:40:00 84 /min [facility] Respiratory rate 2024-03-23 16:40:00 19 /min [facility] Oxygen saturation in Arterial blood by Pulse oximetry 2024-03-23 16:40:00 94 /min [facility] Body temperature 2024-03-23 16:25:00 36.78 Neena [facility] Body height 2024-03-09 22:00:00 167.6 cm [facility] Body weight 2024-03-09 22:00:00 90.719 kg [facility] BMI 2024-03-09 22:00:00 32.28 kg/m2 [facility] Systolic blood pressure 2024-03-02 13:49:00 112 mm[Hg] [facility] Diastolic blood pressure 2024-03-02 13:49:00 84 mm[Hg] [facility] Epic Heart rate 2024-03-02 13:49:00 110 /min [facility] Body temperature 2024-03-02 13:49:00 35.89 Neena [facility] Respiratory rate 2024-03-02 13:49:00 16 /min [facility] Body height 2024-03-02 13:49:00 167.6 cm Mata rial [facility] Body weight 2024-03-02 13:49:00 92.987 kg Mata [facility] BMI 2024-03-02 13:49:00 33.09 kg/m2 [facility] Oxygen saturation in Arterial blood by Pulse oximetry 2024-03-02 13:49:00 96 /min [facility] Systolic blood pressure 2024-03-02 13:49:00 112 mm[Hg] [facility] Diastolic blood pressure 2024-03-02 13:49:00 84 mm[Hg] [facility] Epic Heart rate 2024-03-02 13:49:00 110 /min [facility] Body temperature 2024-03-02 13:49:00 35.89 [facility] Epic Respiratory rate 2024-03-02 13:49:00 16 /min [facility] Body height 2024-03-02 13:49:00 167.6 cm Mata rial [place] [facility] Body weight 2024-03-02 13:49:00 92.987 kg Mata Burk Epic BMI 2024-03-02 13:49:00 33.09 kg/m2 Mata Burk Epic Oxygen saturation in Arterial blood by Pulse oximetry 2024-03-02 13:49:00 96 /min [facility]erson [facility] Systolic blood pressure 2019-02-23 15:36:00 120 mm[Hg] [facility] Diastolic blood pressure 2019-02-23 15:36:00 33 mm[Hg] [facility] Heart rate 2019-02-23 15:36:00 90 /min [facility] Respiratory rate 2019-02-23 15:36:00 15 /min [facility] Oxygen saturation in Arterial blood by Pulse oximetry 2019-02-23 15:36:00 97 /min [facility] Body temperature 2019-02-23 15:15:00 36.67 Neena [facility] Body height 2019-02-22 19:47:00 167.6 cm [facility] Body weight 2019-02-22 19:47:00 87.998 kg [facility] BMI 2019-02-22 19:47:00 31.31 kg/m2 [facility] Systolic blood pressure 2019-02-23 15:36:00 120 mm[Hg] [facility] Diastolic blood pressure 2019-02-23 15:36:00 33 mm[Hg] [facility] Heart rate 2019-02-23 15:36:00 90 /min [facility] Respiratory rate 2019-02-23 15:36:00 15 /min [facility] Oxygen saturation in Arterial blood by Pulse oximetry 2019-02-23 15:36:00 97 /min [facility] Body temperature 2019-02-23 15:15:00 36.67 Neena [facility] Body height 2019-02-22 19:47:00 167.6 cm [facility] Body weight 2019-02-22 19:47:00 87.998 kg [facility] BMI 2019-02-22 19:47:00 31.31 kg/m2 [facility] Systolic (mm Hg) 2023-09-25 18:13:00 [facility] [place] Diastolic (mm Hg) 2023-09-25 18:13:00 [facility] [place] Heart Rate 2023-09-25 18:13:00 [facility] [place] Height 2023-09-25 18:13:00 5 [ft_i] [facility] Weight 2023-09-25 18:13:00 [facility] BMI Calculated 2023-09-25 18:13:00 [facility] Systolic (mm Hg) 2023-05-20 19:05:00 [facility] [place] Diastolic (mm Hg) 2023-05-20 19:05:00 [facility] [place] Heart Rate 2023-05-20 19:05:00 [facility] Height 2023-05-20 19:05:00 5 [ft_i] [facility] [place] Weight 2023-05-20 19:05:00 [facility] [place] BMI Calculated 2023-05-20 19:05:00 [facility] [place] Systolic (mm Hg) 2023-01-29 18:13:00 [facility] Diastolic (mm Hg) 2023-01-29 18:13:00 [facility] [place] Heart Rate 2023-01-29 18:13:00 [facility] [place] Height 2023-01-29 18:13:00 5 [ft_i] [facility] [place] Weight 2023-01-29 18:13:00 [facility] [place] BMI Calculated 2023-01-29 18:13:00 [facility] Height 2022-10-28 18:09:00 5 [ft_i] [facility] Weight 2022-10-28 18:09:00 [facility] [place] BMI Calculated 2022-10-28 18:09:00 [facility] [place] Systolic (mm Hg) 2022-10-28 18:09:00 [facility] Diastolic (mm Hg) 2022-10-28 18:09:00 [facility] [place] Heart Rate 2022-10-28 18:09:00 [facility] [place] Systolic (mm Hg) 2022-08-28 19:45:00 [facility] [place] Diastolic (mm Hg) 2022-08-28 19:45:00 [facility] [place] Heart Rate 2022-08-28 19:45:00 [facility] [place] Height 2022-08-28 19:45:00 5 [ft_i] [facility] Weight 2022-08-28 19:45:00 [facility] [place] BMI Calculated 2022-08-28 19:45:00 [facility] [place] Systolic (mm Hg) 2022-05-28 19:27:00 [facility] Diastolic (mm Hg) 2022-05-28 19:27:00 [facility] [place] Heart Rate 2022-05-28 19:27:00 [facility] Height 2022-05-28 19:27:00 5 [ft_i] [facility] [place] Weight 2022-05-28 19:27:00 [facility] [place] BMI Calculated 2022-05-28 19:27:00 [facility] [place] Systolic (mm Hg) 2022-02-25 18:27:00 [facility] Diastolic (mm Hg) 2022-02-25 18:27:00 [facility] Heart Rate 2022-02-25 18:27:00 [facility] [place] Respitory Rate 2022-02-25 18:27:00 [facility] [place] Weight 2022-02-25 18:27:00 [facility] [place] Systolic (mm Hg) 2021-12-24 20:17:00 [facility] [place] Diastolic (mm Hg) 2021-12-24 20:17:00 [facility] Heart Rate 2021-12-24 20:17:00 [facility] [place] Respitory Rate 2021-12-24 20:17:00 [facility] [place] Weight 2021-12-24 20:17:00 [facility] [place] Height 2021-10-21 19:58:00 165.1 cm [facility] [place] Weight 2021-10-21 19:58:00 [facility] BMI Calculated 2021-10-21 19:58:00 [facility] [place] Systolic (mm Hg) 2021-10-21 19:58:00 [facility] [place] Diastolic (mm Hg) 2021-10-21 19:58:00 [facility] Heart Rate 2021-10-21 19:58:00 [facility] Respitory Rate 2021-10-21 19:58:00 [facility] Systolic (mm Hg) 2021-09-30 16:06:00 [facility] Diastolic (mm Hg) 2021-09-30 16:06:00 [facility] [place] Heart Rate 2021-09-30 16:06:00 [facility] Respitory Rate 2021-09-30 16:06:00 [facility] Weight 2021-09-30 16:06:00 [facility] Systolic (mm Hg) 2021-08-01 15:39:00 [facility] [place] Diastolic (mm Hg) 2021-08-01 15:39:00 [facility] [place] Heart Rate 2021-08-01 15:39:00 [facility] [place] Respitory Rate 2021-08-01 15:39:00 [facility] [place] Height 2021-08-01 15:39:00 162.56 cm [facility] [place] Weight 2021-08-01 15:39:00 [facility] BMI Calculated 2021-08-01 15:39:00 [facility] [place] Systolic (mm Hg) 2021-05-01 15:14:00 [facility] [place] Diastolic (mm Hg) 2021-05-01 15:14:00 [facility] Heart Rate 2021-05-01 15:14:00 [facility] Respitory Rate 2021-05-01 15:14:00 [facility] [place] Systolic (mm Hg) 2021-02-20 19:29:00 [facility] [place] Diastolic (mm Hg) 2021-02-20 19:29:00 [facility] Heart Rate 2021-02-20 19:29:00 [facility] Respitory Rate 2021-02-20 19:29:00 [facility] Systolic (mm Hg) 2021-01-15 21:09:00 [facility] Diastolic (mm Hg) 2021-01-15 21:09:00 [facility] Heart Rate 2021-01-15 21:09:00 [facility] Respitory Rate 2021-01-15 21:09:00 [facility] [place] Systolic (mm Hg) 2020-12-13 18:41:00 [facility] Diastolic (mm Hg) 2020-12-13 18:41:00 [facility] [place] Heart Rate 2020-12-13 18:41:00 [facility] Respitory Rate 2020-12-13 18:41:00 [facility] [place] Height 2020-12-13 18:41:00 167.64 cm [facility] [place] Weight 2020-12-13 18:41:00 [facility] [place] BMI Calculated 2020-12-13 18:41:00 [facility] Systolic (mm Hg) 2020-11-01 18:16:00 [facility] Diastolic (mm Hg) 2020-11-01 18:16:00 [facility] [place] Heart Rate 2020-11-01 18:16:00 [facility] [place] Respitory Rate 2020-11-01 18:16:00 [facility] Height 2020-11-01 18:16:00 167.64 cm [facility] [place] Weight 2020-11-01 18:16:00 [facility] BMI Calculated 2020-11-01 18:16:00 [facility] Systolic (mm Hg) 2020-09-20 17:11:00 [facility] [place] Diastolic (mm Hg) 2020-09-20 17:11:00 [facility] Heart Rate 2020-09-20 17:11:00 [facility] Respitory Rate 2020-09-20 17:11:00 [facility] Height 2020-09-20 17:11:00 167.64 cm [facility] [place] Weight 2020-09-20 17:11:00 [facility] BMI Calculated 2020-09-20 17:11:00 [facility] Systolic (mm Hg) 2020-07-17 20:27:00 [facility] Diastolic (mm Hg) 2020-07-17 20:27:00 [facility] Heart Rate 2020-07-17 20:27:00 [facility] [place] Respitory Rate 2020-07-17 20:27:00 [facility] [place] Systolic (mm Hg) 2020-06-15 15:44:00 [facility] [place] Diastolic (mm Hg) 2020-06-15 15:44:00 [facility] [place] Heart Rate 2020-06-15 15:44:00 [facility] [place] Respitory Rate 2020-06-15 15:44:00 [facility] Height 2020-06-15 15:44:00 167.64 cm [facility] [place] Weight 2020-06-15 15:44:00 [facility] [place] BMI Calculated 2020-06-15 15:44:00 [facility] [place] Systolic (mm Hg) 2020-05-04 14:14:00 [facility] Diastolic (mm Hg) 2020-05-04 14:14:00 [facility] [place] Heart Rate 2020-05-04 14:14:00 [facility] Respitory Rate 2020-05-04 14:14:00 [facility] Height 2020-05-04 14:14:00 167.64 cm [facility] [place] Weight 2020-05-04 14:14:00 [facility] BMI Calculated 2020-05-04 14:14:00 [facility] [place] Systolic (mm Hg) 2019-07-29 19:32:00 [facility] Diastolic (mm Hg) 2019-07-29 19:32:00 [facility] Heart Rate 2019-07-29 19:32:00 [facility] Respitory Rate 2019-07-29 19:32:00 [facility] Height 2019-07-29 19:32:00 167.64 cm [facility] Weight 2019-07-29 19:32:00 [facility] BMI Calculated 2019-07-29 19:32:00 [facility] Systolic (mm Hg) 2019-06-16 19:06:00 [facility] Diastolic (mm Hg) 2019-06-16 19:06:00 [facility] Heart Rate 2019-06-16 19:06:00 [facility] Respitory Rate 2019-06-16 19:06:00 [facility] Height 2019-06-16 19:06:00 170.18 cm [facility] [place] Weight 2019-06-16 19:06:00 [facility] BMI Calculated 2019-06-16 19:06:00 [facility] [place] Weight 2018-11-25 20:00:00 [facility] BMI Calculated 2018-11-25 20:00:00 [facility] Height 2018-11-25 20:00:00 165.1 cm [facility] Heart Rate 2018-11-25 20:00:00 [facility] [place] Respitory Rate 2018-11-25 [facility] [place] Systolic (mm Hg) 2018-11-25 20:00:00 [facility] [place] Diastolic (mm Hg) 2018-11-25 20:00:00 [facility] [place] Weight 2018-07-29 21:00:00 [facility] [place] BMI Calculated 2018-07-29 [facility]:00[facility] 2018-07-29 21:00:00 167.64 cm [facility] Heart Rate 2018-07-29 21:00:00 [facility] [place] Respitory Rate 2018-07-29 [facility] 2018-07-29 [facility] 2018-07-29 21:00:00 [facility] Procedures Procedure Date / Time Performed Performing Clinician Source Basic Metabolic Panel 2024-10-12 00:00:00 [facility] Complete Blood Count w/Diff and Platelet 2024-10-12 00:00:00 [facility] Valproic Acid Level 2024-10-12 00:00:00 [facility] Complete Blood Count w/Diff and Platelet 2024-05-27 00:00:00 [facility] Comprehensive Metabolic Panel 2024-05-27 00:00:00 [facility] Valproic Acid Level 2024-05-27 00:00:00 [facility] COLONOSCOPY (ENDO) 2024-03-23 16:32:58 Madhuri Herrera [facility] COLONOSCOPY (ENDO) 2024-03-23 16:32:58 Madhuri Herrera U [facility] COLONOSCOPY 2024-03-23 15:47:00 Magaly Oliveros [facility] EGD (ENDO) 2019-02-23 14:47:54 Steven Arenas [facility] CBC WITH DIFFERENTIAL 2019-02-23 13:51:00 Aly Weaver [facility] NOTICE OF PRIVACY PRACTICES 2019-02-23 13:17:12 Doctor Unassigned, [place] [facility] CONSENT/REFUSAL FOR DIAGNOSIS AND TREATMENT 2019-02-23 13:15:52 Doctor Unassigned, [place] [facility] ASSIGNMENT OF BENEFITS 2019-02-23 13:15:31 Docto r Unassigned, [place] [facility] Encounters Start Date/Time End Date/Time Encounter Type Admission Type Attending [facility] Care Department Encounter ID Source 2024-11-11 00:00:00 2024-11-11 09:31:49 Refill Yasemin Vences Johan 1.2.840.114 350.1.13.70 8.2.7.2.686 [id number] Gladys ellington [facility] 2024-10-12 09:43:21 2024-10-12 10:47:52 Outpatient Elective TORRIEMARLENA JENNINGSIR MHEOUT MHEOUT [id number] MHEOUT 2024-10-12 10:00:00 2024-10-12 10:15:00 Office Visit Yasemin Vences Johan 1.2.840.114 350.1.13.70 8.2.7.2.686 [id number] Gladys ellington [facility] 2024-08-05 16:00:00 2024-08-05 16:15:00 Office Visit Yasemin Vences Johan 1.2.840.114 350.1.13.70 8.2.7.2.686 [id number] 7 Gladys ellington [facility] 2024-07-14 10:45:00 2024-07-14 11:05:23 Office Visit Yasemin Vences Johan 1.2.840.114 350.1.13.70 8.2.7.2.686 [id number] [facility] 2024-07-14 10:33:30 2024-07-14 11:05:23 Outpatient Elective RUMARLENAIR EOUT MHEOUT [id number] MHEOUT 2024-05-27 10:45:00 2024-05-27 11:18:43 Office Visit Yasemin Vences 1.2.840.114 350.1.13.70 8.2.7.2.686 [id number] Gladys Burk [facility] 2024-05-27 10:26:56 2024-05-27 11:18:43 Outpatient Elective YASEMIN VENCES EOUT EOUT [id number] EOUT 2024-05-16 00:00:00 2024-05-16 09:03:16 Refill Yasemin Vences Johan 1.2.840.114 350.1.13.70 8.2.7.2.686 [id number] Gladys ellington [place] [facility] 2024-03-23 10:03:00 2024-03-23 12:09:00 Hospital Encounter Magaly Biggs [facility] 1.2.840.114 350.1.13.10 4.2.7.2.686 [id number] [facility] 2024-03-23 11:00:00 2024-03-23 11:40:00 Surgery Magaly Biggs [facility] 1.2.840.114 350.1.13.10 4.2.7.2.686 [id number] [facility] 2024-03-02 13:37:15 2024-03-02 14:14:52 Outpatient Elective YASEMIN VENCES AquilesOUT EOUT [id number] EOUT 2024-03-02 13:45:00 2024-03-02 14:00:00 Office Visit Yasemin Vences Johan 1.2.840.114 350.1.13.70 8.2.7.2.686 [id number] Gladys chandana [facility] 2019-02-23 08:42:00 2019-02-23 10:55:00 Hospital Encounter Magaly Biggs [facility] 1.2.840.114 350.1.13.10 4.2.7.2.686 [id number] 2019-02-23 08:42:00 2019-02-23 10:55:00 Hospital Encounter Magaly Biggs [facility] 1.2.840.114 350.1.13.10 4.2.7.2.686 [id number] [facility] Results Test Description Test Time Test Comments Results Result Co mments Source [facility]inyrewYONLLSARH5066-19-28 20:44:00* Test Item Value Reference Range Interpretation Comme nts Glucose Lvl (test code = Glucose Lvl) 90 65-99 BUN (test code = BUN) 25 7-25 Creatinine Lvl (test code = Creatinine Lvl) 0.91 0.50-1.03 eGFR (test code = eGFR) 75 B/C Ratio (test code = B/C Ratio) NOT APPLICABLE 6-22 Sodium Lvl (test code = Sodi um Lvl) 140 135-146 Potassium Lvl (test code = Potassium Lvl) 4.4 3.5-5.3 Chloride Lvl (test code = Chloride Lvl) 107 98-110 CO2 (test code = CO2) 26 20-32 Calcium Lvl (test code = Calcium Lvl) 9.6 8.6-10.4 Total Protein (test code = Total Protein) 7.0 6.1-8.1 Albumin Lvl (test code = Albumin Lvl) 4.2 3.6-5.1 Globulin (test code = Globulin) 2.8 1.9-3.7 A/G Ratio (test code = A/G Ratio) 1.5 1.0-2.5 Bili Total (test code = Bili Total) 0.4 0.2-1.2 Alk Phos (test code = Alk Phos) 88 37-153 AST (test code = AST) 14 10-35 ALT (test code = ALT) 7 6-29 Valproic Acid Lvl (test code = Valproic Acid Lvl) 61.7 50.0-100.0 Ammonia (test code = Ammonia) 36 [facility] PasoZeqmusfYWWWCHVDS9021-07-45 17:28:00* Test Item Value Reference Range Interpretation Comme nts Topiramate Lvl (test code = Topiramate Lvl) 3.7 Valproic Acid Lvl (test code = Valproic Acid Lvl) 133.4 50.0-100.0 [facility] PasoGrsmegfCAYFTRBUP5143-04-81 21:07:00* Test Item Value Reference Range Interpretation Comme nts Glucose Lvl (test code = Glucose Lvl) 87 65-99 BUN (test code = BUN) 18 7-25 Creatinine Lvl (test code = Creatinine Lvl) 0.99 0.50-1.03 eGFR (test code = eGFR) 68 B/C Ratio (test code = B/C Ratio) NOT APPLICABLE 6-22 Sodium Lvl (test code = Sodi um Lvl) 142 135-146 Potassium Lvl (test code = Potassium Lvl) 4.4 3.5-5.3 Chloride Lvl (test code = Chloride Lvl) 107 98-110 CO2 (test code = CO2) 28 20-32 Calcium Lvl (test code = Calcium Lvl) 9.4 8.6-10.4 Total Protein (test code = Total Protein) 7.2 6.1-8.1 Albumin Lvl (test code = Albumin Lvl) 4.5 3.6-5.1 Globulin (test code = Globulin) 2.7 1.9-3.7 A/G Ratio (test code = A/G Ratio) 1.7 1.0-2.5 Bili Total (test code = Bili Total) 0.4 0.2-1.2 Alk Phos (test code = Alk Phos) 91 37-153 ASPARTATE TRANSAMINASE (test code = ASPARTATE TRANSAMINASE) 14 10-35 ALANINE AMINOTRANSFERASE (te st code = ALANINE AMINOTRANSFERASE) 7 6-29 Valproic Acid Lvl (test code = Valproic Acid Lvl) 56.2 50.0-100.0 [facility]uyuizzSDLYPIBIGT1248-40-39 21:07:00* Test Item Value Reference Range Interpretation Comme nts WBC X 10x3 (test code = WBC X 10x3) 8.6 3.8-10.8 RBC X 10x6 (test code = RBC X 10x6) 4.06 3.80-5.10 Hgb (test code = Hgb) 12.8 11.7-15.5 Hct (test code = Hct) 37.4 35.0-45.0 MCV (test code = MCV) 92.1 80.0-100.0 MCH (test code = MCH) 31.5 pg 27.0-33.0 MCHC (test code = MCHC) 34.2 32.0-36.0 RDW (test code = RDW) 12.5 11.0-15.0 Platelet (test code = Platelet) 177 140-400 MPV (test code = MPV) 10.7 7.5-12.5 Neutrophils # (test code = Neutrophils #) [phone] Lymphocytes # (test code = Lymphocytes #) 2511 850-3900 Monocytes # (test code = Monocytes #) 516 200-950 Eosinophils # (test code = Eosinophils #) 120 15-500 Basophils # (test code = Basophils #) 17 <=200 Segs (test code = Segs) 63.2 Lymphocytes (test code = Lymphocytes) 29.2 Monocytes (test code = Monocytes) 6.0 Eosinophils (test code = Eosinophils) 1.4 Basophils (test code = Basophils) 0.2 [facility]2022-08-17 16:34:00* Test Item Value Reference Range Interpretation Comme nts Glucose Lvl (test code = Glucose Lvl) 82 65-99 BUN (test code = BUN) 23 7-25 Creatinine Lvl (test code = Creatinine Lvl) 0.93 0.50-1.03 eGFR (test code = eGFR) 73 B/C Ratio (test code = B/C Ratio) NOT APPLICABLE 6-22 Sodium Lvl (test code = Sodi um Lvl) 141 135-146 Potassium Lvl (test code = Potassium Lvl) 4.5 3.5-5.3 Chloride Lvl (test code = Chloride Lvl) 106 98-110 CO2 (test code = CO2) 28 20-32 Calcium Lvl (test code = Calcium Lvl) 9.9 8.6-10.4 Total Protein (test code = Total Protein) 7.4 6.1-8.1 Albumin Lvl (test code = Albumin Lvl) 4.3 3.6-5.1 Globulin (test code = Globulin) 3.1 1.9-3.7 A/G Ratio (test code = A/G Ratio) 1.4 1.0-2.5 Bili Total (test code = Bili Total) 0.5 0.2-1.2 Alk Phos (test code = Alk Phos) 74 37-153 ASPARTATE TRANSAMINASE (test code = ASPARTATE TRANSAMINASE) 16 10-35 ALANINE AMINOTRANSFERASE (te st code = ALANINE AMINOTRANSFERASE) 5 6-29 [facility]HxpdiqhIHIVHHLTXR1509-57-66 16:34:00* Test Item Value Reference Range Interpretation Comme nts WBC X 10x3 (test code = WBC X 10x3) 8.8 3.8-10.8 RBC X 10x6 (test code = RBC X 10x6) 3.84 3.80-5.10 Hgb (test code = Hgb) 12.6 11.7-15.5 Hct (test code = Hct) 36.9 35.0-45.0 MCV (test code = MCV) 96.1 80.0-100.0 MCH (test code = MCH) 32.8 pg 27.0-33.0 MCHC (test code = MCHC) 34.1 32.0-36.0 RDW (test code = RDW) 14.0 11.0-15.0 Platelet (test code = Platelet) 107 140-400 MPV (test code = MPV) 9.9 7.5-12.5 Neutrophils # (test code = Neutrophils #) [phone] Lymphocytes # (test code = Lymphocytes #) 2015 850-3900 Monocytes # (test code = Monocytes #) 572 200-950 Eosinophils # (test code = Eosinophils #) 62 15-500 Basophils # (test code = Basophils #) 26 <=200 Segs (test code = Segs) 69.6 Lymphocytes (test code = Lymphocytes) 22.9 Monocytes (test code = Monocytes) 6.5 Eosinophils (test code = Eosinophils) 0.7 Basophils (test code = Basophils) 0.3 Diff Comment (test code = Di ff Comment) SEE COMMENT [facility] CenterOjsbkwfDPTQTNPTLJ5876-54-59 16:34:00* Test Item Value Reference Range Interpretation Comme nts Valproic Acid Lvl (test code = Valproic Acid Lvl) 153.4 50.0-100.0 [facility]2022-04-12 13:21:00* Test Item Value Reference Range Interpretation Comme nts Glucose Lvl (test code = Glucose Lvl) 87 65-99 BUN (test code = BUN) 22 7-25 Creatinine Lvl (test code = Creatinine Lvl) 1.29 0.50-1.05 eGFR NON-AFR. [facility] (test code = eGFR NON-AFR. [facility]) 47 eGFR (test code = eGFR ) 55 B/C Ratio (test code = B/C Ratio) 17 6-22 Sodium Lvl (test code = Sodium Lvl) 139 135-146 Potassium Lvl (test code = P otassium Lvl) 3.6 3.5-5.3 Chloride Lvl (test code = Chloride Lvl) 101 98-110 CO2 (test code = CO2) 25 20-32 Calcium Lvl (test code = Calcium Lvl) 10.0 8.6-10.4 Total Protein (test code = T otal Protein) 7.3 6.1-8.1 Albumin Lvl (test code = Albumin Lvl) 4.3 3.6-5.1 Globulin (test code = Globulin) 3.0 1.9-3.7 A/G Ratio (test code = A/G Ratio) 1.4 1.0-2.5 Bili Total (test code = Bili Total) 0.9 0.2-1.2 Alk Phos (test code = Alk Phos) 95 37-153 ASPARTATE TRANSAMINASE (test code = ASPARTATE TRANSAMINASE) 26 10-35 ALANINE AMINOTRANSFERASE (te st code = ALANINE AMINOTRANSFERASE) 10 6-29 [facility]lineWkcqnowBYNPONVIXS9658-98-06 13:21:00* Test Item Value Reference Range Interpretation Comme nts WBC X 10x3 (test code = WBC X 10x3) 7.5 3.8-10.8 RBC X 10x6 (test code = RBC X 10x6) 3.85 3.80-5.10 Hgb (test code = Hgb) 13.2 11.7-15.5 Hct (test code = Hct) 39.2 35.0-45.0 MCV (test code = MCV) 101.8 80.0-100.0 MCH (test code = MCH) 34.3 pg 27.0-33.0 MCHC (test code = MCHC) 33.7 32.0-36.0 RDW (test code = RDW) 14.0 11.0-15.0 Platelet (test code = Platelet) 73 140-400 MPV (test code = MPV) 11.6 7.5-12.5 Neutrophils # (test code = Neutrophils #) [phone] Lymphocytes # (test code = Lymphocytes #) 6980 629-6728 Monocytes # (test code = Mon ocytes #) 525 200-950 Eosinophils # (test code = Eosinophils #) 23 15-500 Basophils # (test code = Bas ophils #) 38 <=200 Segs (test code = Segs) 74.4 Lymphocytes (test code = Lymphocytes) 17.8 Monocytes (test code = Monocytes) 7.0 Eosinophils (test code = Eosinophils) 0.3 Basophils (test code = Basophils) 0.5 Plt Count Estimated (test co de = Plt Count Estimated) [facility]ED [facility]FDRMBQUWCX3741-73-26 13:21:00* Test Item Value Reference Range Interpretation Comme nts Valproic Acid Lvl (test code = Valproic Acid Lvl) 163.0 50.0-100.0 [facility] [id number] 17:23:00* Test Item Value Reference Range Interpretation Comme nts Glucose Lvl (test code = Glucose Lvl) 93 65-99 BUN (test code = BUN) 18 7-25 Creatinine Lvl (test code = Creatinine Lvl) 1.05 0.50-1.05 eGFR NON-AFR. [facility] (test code = eGFR NON-AFR. [facility]) 61 eGFR (test code = eGFR ) 70 B/C Ratio (test code = B/C Ratio) NOT APPLICABLE 6-22 Sodium Lvl (test code = Sodi um Lvl) 144 135-146 Potassium Lvl (test code = Potassium Lvl) 3.9 3.5-5.3 Chloride Lvl (test code = Chloride Lvl) 107 98-110 CO2 (test code = CO2) 27 20-32 Calcium Lvl (test code = Calcium Lvl) 9.3 8.6-10.4 Total Protein (test code = Total Protein) 6.7 6.1-8.1 Albumin Lvl (test code = Albumin Lvl) 3.9 3.6-5.1 Globulin (test code = Globulin) 2.8 1.9-3.7 A/G Ratio (test code = A/G Ratio) 1.4 1.0-2.5 Bili Total (test code = Bili Total) 0.6 0.2-1.2 Alk Phos (test code = Alk Phos) 91 37-153 ASPARTATE TRANSAMINASE (test code = ASPARTATE TRANSAMINASE) 23 10-35 ALANINE AMINOTRANSFERASE (te st code = ALANINE AMINOTRANSFERASE) 11 6-29 [facility] CenterHefxqwmLIEOTGILHI5041-12-95 17:23:00* Test Item Value Reference Range Interpretation Comme nts WBC X 10x3 (test code = WBC X 10x3) 4.8 3.8-10.8 RBC X 10x6 (test code = RBC X 10x6) 4.18 3.80-5.10 Hgb (test code = Hgb) 13.3 11.7-15.5 Hct (test code = Hct) 40.4 35.0-45.0 MCV (test code = MCV) 96.7 80.0-100.0 MCH (test code = MCH) 31.8 pg 27.0-33.0 MCHC (test code = MCHC) 32.9 32.0-36.0 RDW (test code = RDW) 14.0 11.0-15.0 Platelet (test code = Platelet) 74 140-400 MPV (test code = MPV) 10.7 7.5-12.5 Neutrophils # (test code = Neutrophils #) 2208 4747-5632 Lymphocytes # (test code = Lymphocytes #) 2165 850-3900 Monocytes # (test code = Mon ocytes #) 360 200-950 Eosinophils # (test code = Eosinophils #) 48 15-500 Basophils # (test code = Bas ophils #) 19 <=200 Segs (test code = Segs) 46.0 Lymphocytes (test code = Lymphocytes) 45.1 Monocytes (test code = Monocytes) 7.5 Eosinophils (test code = Eosinophils) 1.0 Basophils (test code = Basophils) 0.4 Plt Count Estimated (test co de = Plt Count Estimated) DECREASED [facility] CenterGgwjgkwMUYWYDUUWK9965-33-54 17:23:00* Test Item Value Reference Range Interpretation Comme nts Valproic Acid Lvl (test code = Valproic Acid Lvl) 115.7 50.0-100.0 [facility] [id number] 15:58:00* Test Item Value Reference Range Interpretation Comme [facility] Vitamin B12 Lvl (test code = Vitamin B12 Lvl) 1656 125-1807 [facility] FEDXX8026-04-25 15:58:00* Test Item Value Reference Range Interpretation Comme nts Glucose Lvl (test code = Glucose Lvl) 96 65-99 BUN (test code = BUN) 30 7-25 Creatinine Lvl (test code = Creatinine Lvl) 1.16 0.50-1.05 eGFR NON-AFR. [facility] (test code = eGFR NON-AFR. [facility]) 54 eGFR (test code = eGFR ) 63 B/C Ratio (test code = B/C Ratio) 26 6-22 Sodium Lvl (test code = Sodium Lvl) 140 135-146 Potassium Lvl (test code = P otassium Lvl) 4.5 3.5-5.3 Chloride Lvl (test code = Chloride Lvl) 101 98-110 CO2 (test code = CO2) 29 20-32 Calcium Lvl (test code = Calcium Lvl) 9.6 8.6-10.4 Total Protein (test code = T otal Protein) 7.1 6.1-8.1 Albumin Lvl (test code = Albumin Lvl) 4.1 3.6-5.1 Globulin (test code = Globulin) 3.0 1.9-3.7 A/G Ratio (test code = A/G Ratio) 1.4 1.0-2.5 Bili Total (test code = Bili Total) 0.5 0.2-1.2 Alk Phos (test code = Alk Phos) 105 37-153 ASPARTATE TRANSAMINASE (test code = ASPARTATE TRANSAMINASE) 29 10-35 ALANINE AMINOTRANSFERASE (te st code = ALANINE AMINOTRANSFERASE) 15 6-29 [facility] CenterHyvemtmZOBYIPIDRB2976-02-78 15:58:00* Test Item Value Reference Range Interpretation Comme nts WBC X 10x3 (test code = WBC X 10x3) 9.4 3.8-10.8 RBC X 10x6 (test code = RBC X 10x6) 4.28 3.80-5.10 Hgb (test code = Hgb) 13.6 11.7-15.5 Hct (test code = Hct) 41.2 35.0-45.0 MCV (test code = MCV) 96.3 80.0-100.0 MCH (test code = MCH) 31.8 pg 27.0-33.0 MCHC (test code = MCHC) 33.0 32.0-36.0 RDW (test code = RDW) 13.8 11.0-15.0 Platelet (test code = Platelet) 113 140-400 MPV (test code = MPV) 9.9 7.5-12.5 Neutrophils # (test code = Neutrophils #) 6787 2943-9954 Lymphocytes # (test code = Lymphocytes #) 1656 455-8603 Monocytes # (test code = Monocytes #) 658 200-950 Eosinophils # (test code = Eosinophils #) 66 15-500 Basophils # (test code = Basophils #) 38 <=200 Segs (test code = Segs) 72.2 Lymphocytes (test code = Lymphocytes) 19.7 Monocytes (test code = Monocytes) 7.0 Eosinophils (test code = Eosinophils) 0.7 Basophils (test code = Basophils) 0.4 Diff Comment (test code = Di ff Comment) SEE COMMENT Sed Rate (test code = Sed Rate) 2 [facility] CenterPpsfhnvPDRJGUXYRZ5913-73-96 15:58:00* Test Item Value Reference Range Interpretation Comme nts Valproic Acid Lvl (test code = Valproic Acid Lvl) 111.3 50.0-100.0 [facility] CenterCHEM [id number] 15:41:00* Test Item Value Reference Range Interpretation Comme nts Glucose Lvl (test code = Glucose Lvl) 97 65-99 BUN (test code = BUN) 23 7-25 Creatinine Lvl (test code = Creatinine Lvl) 0.93 0.50-1.05 eGFR NON-AFR. [facility] (test code = eGFR NON-AFR. [facility]) 71 eGFR (test code = eGFR ) 82 B/C Ratio (test code = B/C Ratio) NOT APPLICABLE 6-22 Sodium Lvl (test code = Sodi um Lvl) 141 135-146 Potassium Lvl (test code = Potassium Lvl) 4.1 3.5-5.3 Chloride Lvl (test code = Chloride Lvl) 101 98-110 CO2 (test code = CO2) 29 20-32 Calcium Lvl (test code = Calcium Lvl) 9.7 8.6-10.4 Total Protein (test code = Total Protein) 7.0 6.1-8.1 Albumin Lvl (test code = Albumin Lvl) 4.2 3.6-5.1 Globulin (test code = Globulin) 2.8 1.9-3.7 A/G Ratio (test code = A/G Ratio) 1.5 1.0-2.5 Bili Total (test code = Bili Total) 0.4 0.2-1.2 Alk Phos (test code = Alk Phos) 96 37-153 ASPARTATE TRANSAMINASE (test code = ASPARTATE TRANSAMINASE) 15 10-35 ALANINE AMINOTRANSFERASE (te st code = ALANINE AMINOTRANSFERASE) 15 6-29 [facility] HospitalRwtwvauFBEJQXYYZD6612-28-12 15:41:00* Test Item Value Reference Range Interpretation Comme nts WBC X 10x3 (test code = WBC X 10x3) 8.0 3.8-10.8 RBC X 10x6 (test code = RBC X 10x6) 4.55 3.80-5.10 Hgb (test code = Hgb) 14.0 11.7-15.5 Hct (test code = Hct) 42.8 35.0-45.0 MCV (test code = MCV) 94.1 80.0-100.0 MCH (test code = MCH) 30.8 pg 27.0-33.0 MCHC (test code = MCHC) 32.7 32.0-36.0 RDW (test code = RDW) 12.9 11.0-15.0 Platelet (test code = Platelet) 159 140-400 MPV (test code = MPV) 11.1 7.5-12.5 Neutrophils # (test code = Neutrophils #) 5736 2288-9800 Lymphocytes # (test code = Lymphocytes #) 3366 092-8500 Monocytes # (test code = Monocytes #) 384 200-950 Eosinophils # (test code = Eosinophils #) 104 15-500 Basophils # (test code = Basophils #) 40 <=200 Segs (test code = Segs) 71.7 Lymphocytes (test code = Lymphocytes) 21.7 Monocytes (test code = Monocytes) 4.8 Eosinophils (test code = Eosinophils) 1.3 Basophils (test code = Basophils) 0.5 [facility]JIGGHWPDP3737-45-66 15:41:00* Test Item Value Reference Range Interpretation Comme nts Valproic Acid Lvl (test code = Valproic Acid Lvl) 119.2 50.0-100.0 [facility]2021-01-06 15:32:00* Test Item Value Reference Range Interpretation Comme nts BUN (test code = BUN) 25 7-25 Creatinine Lvl (test code = Creatinine Lvl) 0.98 0.50-1.05 eGFR NON-AFR. [facility] (test code = eGFR NON-AFR. [facility]) 67 eGFR (test code = eGFR ) 77 B/C Ratio (test code = B/C Ratio) NOT APPLICABLE 6-22 ASPARTATE TRANSAMINASE (test code = ASPARTATE TRANSAMINASE) 14 10-35 ALANINE AMINOTRANSFERASE (te st code = ALANINE AMINOTRANSFERASE) 9 6-29 [facility]lineKjuwhmoIGSEENAZDP1297-66-45 15:32:00* Test Item Value Reference Range Interpretation Comme nts WBC X 10x3 (test code = WBC X 10x3) 7.1 3.8-10.8 RBC X 10x6 (test code = RBC X 10x6) 4.37 3.80-5.10 Hgb (test code = Hgb) 13.3 11.7-15.5 Hct (test code = Hct) 41.0 35.0-45.0 MCV (test code = MCV) 93.8 80.0-100.0 MCH (test code = MCH) 30.4 pg 27.0-33.0 MCHC (test code = MCHC) 32.4 32.0-36.0 RDW (test code = RDW) 12.8 11.0-15.0 Platelet (test code = Platelet) 158 140-400 MPV (test code = MPV) 11.0 7.5-12.5 Neutrophils # (test code = Neutrophils #) 3919 5422-6144 Lymphocytes # (test code = Lymphocytes #) 2719 850-3900 Monocytes # (test code = Monocytes #) 383 200-950 Eosinophils # (test code = Eosinophils #) 57 15-500 Basophils # (test code = Basophils #) 21 <=200 Segs (test code = Segs) 55.2 Lymphocytes (test code = Lymphocytes) 38.3 Monocytes (test code = Monocytes) 5.4 Eosinophils (test code = Eosinophils) 0.8 Basophils (test code = Basophils) 0.3 [id number] 15:32:00* Test Item Value Reference Range Interpretation Comme nts Valproic Acid Lvl (test code = Valproic Acid Lvl) 110.2 50.0-100.0 [facility] AND [id number] 15:32:00* Test Item Value Reference Range Interpretation Comme nts UA Color (test code = UA Color) DARK YELLOW UA Turbidity (test code = UA Turbidity) CLOUDY UA Spec Grav (test code = UA Spec Grav) 1.032 1 1.001-1.035 UA pH (test code = UA pH) 5.5 1 5.0-8.0 UA Glucose (test code = UA Glucose) NEGATIVE UA Bili (test code = UA Bili) NEGATIVE UA Ketones (test code = UA Ketones) TRACE UA Blood (test code = UA Blood) NEGATIVE UA Protein (test code = UA Protein) TRACE UA Nitrite (test code = UA Nitrite) NEGATIVE UA Leuk Est (test code = UA Leuk Est) NEGATIVE UA WBC (test code = UA WBC) 0-5 UA RBC (test code = UA RBC) NONE SEEN UA Sq Epi (test code = UA Sq Epi) 6-10 UA Bacteria (test code = UA Bacteria) MANY UA CaOx Radha (test code = UA CaOx Radha) MANY UA Hyal Cast (test code = UA Hyal Cast) NONE SEEN UA Comment 1 (test code = UA Comment 1) FEW MUCOUS THREADS UA Comment 2 (test code = UA Comment 2) SEE COMMENT Result 3 (Urine Culture) (test code = Result 3 (Urine Culture)) SEE COMMENT [facility] WITH [id number] 15:13:00* Test Item Value Reference Range Interpretation Comme nts WBC (test code = 6690-2) See_Comment [Automated messa ge] The system which generated this result transmitted reference range: 4.30 - 11.10 10*3/?L. The reference range was not used to interpret this result as normal/abnormal. RBC (test code = 789-8) See_Comment [Automated messa ge] The system which generated this result transmitted reference range: 3.93 - 5.25 10*6/?L. The reference range was not used to interpret this result as normal/abnormal. HGB (test code = 718-7) 13.9 g/dL 11.6-15 HCT (test code = 4544-3) 41.7 % 35.7-45.2 MCV (test code = 787-2) 95.0 fL 80.6-95.5 MCH (test code = 785-6) 31.7 pg 25.9-32.8 MCHC (test code = 786-4) 33.3 g/dL 31.6-35.1 RDW-SD (test code = 07752-8) 44.4 fL 39-49.9 RDW-CV (test code = 788-0) 12.8 % 12-15.5 PLT (test code = 777-3) See_Comment L [Automated [employer] [facility]] The system which generated this result transmitted reference range: 166 - 358 10*3/?L. The reference range was not used to interpret this result as normal/abnormal. MPV (test code = 95493-1) 11.0 fL 9.5-12.9 IPF % (test code = 7262130192) 4.3 % 1.3-7.7 Platelet count measured by fluorescence method. NRBC/100 WBC (test code = 6441009872) See_Comment [Automated [employer] ssage] The system which generated this result transmitted reference range: 0.0 - 10.0 /100 WBCs. The reference range was not used to interpret this result as normal/abnormal. NRBC x10^3 (test code = 9529578461) <0.01 See_Comment [Automated [facility]] The system which generated this result transmitted reference range: 10*3/?L. The reference range was not used to interpret this result as normal/abnormal. GRAN MAT (NEUT) % (test code = 770-8) 45.6 % IMM GRAN % (test code = 0539950224) 1.10 % LYMPH % (test code = 736-9) 46.0 % MONO % (test code = 5905-5) 5.9 % EOS % (test code = 713-8) 1.1 % BASO % (test code = 706-2) 0.3 % GRAN MAT x10^3(ANC) (test code = 9247688317) 3.01 10*3/uL 1.88-7.09 IMM GRAN x10^3 (test code = 4173325758) 0.07 10*3/uL 0-0.06 H LYMPH x10^3 (test code = 731-0) 3.03 10*3/uL 1.32-3.29 MONO x10^3 (test code = 742-7) 0.39 10*3/uL 0.33-0.92 EOS x10^3 (test code = 711-2) 0.07 10*3/uL 0.03-0.39 BASO x10^3 (test code = 704-7) <0.03 0.01-0.07 Lab Interpretation (test code = 82497-2) [facility]normal [facility] [id number] 16:55:00* Test Item Value Reference Range Interpretation Comme nts Globulin (test code = Globulin) 2.8 1.9-3.7 Albumin Lvl (test code = Albumin Lvl) 4.5 3.6-5.1 A/G Ratio (test code = A/G Ratio) 1.6 1.0-2.5 B/C Ratio (test code = B/C Ratio) NOT APPLICABLE 6-22 eGFR (test code = eGFR ) 83 Sodium Lvl (test code = Sodi um Lvl) 144 135-146 Potassium Lvl (test code = Potassium Lvl) 4.2 3.5-5.3 CO2 (test code = CO2) 26 20-32 Chloride Lvl (test code = Chloride Lvl) 106 98-110 Total Protein (test code = Total Protein) 7.3 6.1-8.1 Calcium Lvl (test code = Calcium Lvl) 9.8 8.6-10.4 Glucose Lvl (test code = Glucose Lvl) 112 65-99 Bili Total (test code = Bili Total) 0.6 0.2-1.2 Alk Phos (test code = Alk Phos) 98 33-130 ALANINE AMINOTRANSFERASE (te st code = ALANINE AMINOTRANSFERASE) 11 6-29 ASPARTATE TRANSAMINASE (test code = ASPARTATE TRANSAMINASE) 15 10-35 BUN (test code = BUN) 17 7-25 Creatinine Lvl (test code = Creatinine Lvl) 0.93 0.50-1.05 eGFR NON-AFR. [facility] (test code = eGFR NON-AFR. [facility]) 72 [facility]lineEvmsknkRLTGDUETWT1781-31-61 16:55:00* Test Item Value Reference Range Interpretation Comme nts Eosinophils (test code = Eosinophils) 0.6 Monocytes (test code = Monocytes) 5.4 Basophils (test code = Basophils) 0.3 WBC X 10x3 (test code = WBC X 10x3) 7.0 3.8-10.8 RBC X 10x6 (test code = RBC X 10x6) 4.63 3.80-5.10 Hgb (test code = Hgb) 14.6 11.7-15.5 Hct (test code = Hct) 43.4 35.0-45.0 Monocytes # (test code = Monocytes #) 378 200-950 Eosinophils # (test code = Eosinophils #) 42 15-500 Segs (test code = Segs) 55.9 Basophils # (test code = Basophils #) 21 <=200 Lymphocytes (test code = Lymphocytes) 37.8 Neutrophils # (test code = Neutrophils #) 3913 5866-3279 Lymphocytes # (test code = Lymphocytes #) 2646 850-3900 MCV (test code = MCV) 93.7 80.0-100.0 MCHC (test code = MCHC) 33.6 32.0-36.0 MCH (test code = MCH) 31.5 pg 27.0-33.0 RDW (test code = RDW) 12.8 11.0-15.0 MPV (test code = MPV) 11.0 7.5-12.5 Platelet (test code = Platelet) 146 140-400 [facility] CenterXpvakdiVKLEAQHLKW0158-43-84 16:55:00* Test Item Value Reference Range Interpretation Comme nts Keppra Lvl (test code = Keppra Lvl) 9.3 Topiramate Lvl (test code = Topiramate Lvl) 6.0 Valproic Acid Lvl (test code = Valproic Acid Lvl) 113.7 50.0-100.0 [facility] History and Physical Notes Date/Time Note Provider Source 2024-03-21 11:52:46 Outpatient Preop H&P Referring Physician: Noble Griffith MD [address] [place] [address] Dr Perry Menendze, [place] [address] (phone) (fax) Madhuri JavierDO [address], [place] [address] (phone) (fax) Chief Complaint: Medications update Vital Signs: Weight (lbs/oz) Height (ft/in) BMI Temp 200 / 5 / 6 32.28 95 (F) History of Present Illness: Emma Arcos is seen today for a follow-up visit. 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 Gastroesophageal Reflux Disease (GERD) High Cholesterol Hypothyroidism Seizures Surgical Procedures: Heart cath Foot Surgery Cholecystectomy Medications: Depakote 500 mg 1 in the morning and 1 in the evening gabapentin 400 mg Take 1 capsule by mouth every night levothyroxine 50 mcg Take tablet by mouth every morning Linzess 290 mcg TAKE 1 CAPSULE BY MOUTH EVERY DAY omeprazole 40 mg Take 1 capsule by mouth every night pravastatin 40 mg Take 1 tablet by mouth every night Seroquel 300 mg Take 1 tablet by mouth every night topiramate 50 mg TAKE 1 TABLET BY MOUTH TWICE A DAY Ubrelvy 100 mg venlafaxine 150 mg TAKE 1 CAPSULE BY MOUTH EVERY DAY venlafaxine 75 mg TAKE 1 CAPSULE BY MOUTH EVERY DAY Allergies: Benadryl Sudafed Sulfa drugs Immunizations: Influenza, seasonal, injectable, 04/2018 Moderna Vaccine, x2 Procedure(s) Performed: Abdominal Ultrasound EGD, 02/23/2019, Gastritis. Bougie dilation performed because of symptomatic dysphagia Social History Alcohol: None Tobacco: Never smoker Drugs: None Exercise: None Caffeine: None Marital Status: Single Occupation: NA Family History No history of Celiac sprue, Colon cancer, Crohn's disease, Liver disease, Stomach cancer, Ulcerative Colitis / IBD Father: Diagnosed with Colon polyps; Review of Systems: Allergic/Immunologic: Denies HIV exposure, persistent infections, strong allergic reactions or urticaria. Cardiovascular: Denies chest pain, dyspnea with exercise, irregular heart beat, orthopnea, palpitations, peripheral edema, syncope. Constitutional: Complains of weight loss. Denies fatigue, fever, loss of appetite, malaise, sweats, weight gain. ENMT: Denies difficulty swallowing, dizziness, ear pain, nasal obstruction, nose bleeds, sore throat, hearing loss. Endocrine: Denies excessive thirst, hair loss, heat intolerance. Eyes: Denies double vision, loss of vision, photophobia. Gastrointestinal: Denies abdominal pain, abdominal swelling, change in bowel habits, constipation, diarrhea, gas, heartburn, jaundice, nausea, rectal bleeding, stomach cramps, vomiting, dysphagia, black tarry stools, belching, bloating, Rectal Pain. Genitourinary: Denies dark urine, decrease in urine flow, dysuria, frequent urinary infections, frequent urination, hematuria, nocturia, urethral discharge or incontinence. Hematologic/Lymphatic: Denies bleeding gums or palpable lymph nodes, easy bruising, prolonged bleeding. Integumentary: Denies allergies, dryness, hives, itching, jaundice, lesions, rashes. Musculoskeletal: Denies arthritis, back pain, gout, joint deformity, joint pain, muscle weakness, stiffness. Neurological: Denies dizziness, fainting, frequent headaches, migraine, numbness or tingling, seizures, tremors, vertigo, memory loss. Psychiatric: Denies anxiety, depression, difficulty sleeping, hallucinations, nervousness, panic attacks, paranoia. Respiratory: Denies asthma, cough, dyspnea, excessive sputum, hemoptysis, shortness of breath with exercise, wheezing. Physical Exam: Constitutional: Appearance: well-developed, appropriate grooming, in no acute distress.. Respiratory: Effort: normal respiratory effort and no intercostal retractions. Auscultation: normal breath sounds, no rubs, wheezes or rhonchi. Cardiovascular: Auscultation: normal, S1 and S2,no gallops,no rubs or murmurs. Peripheral: no edema, varicosities or cyanosis. Gastrointestinal/Abdomen: Abdomen: normal consistency, no tenderness or masses,normal bowel sounds. Liver/Spleen: normal,normal size,not palpable. Impressions: 1. Pelvic discomfort, constant, likely from constipation/IBS. Patient on multiple psych/seizure meds. Linzess 290mcg po daily helped. Plan; Refill 2. Colon cancer screening (low/average risk). Discussed with brother who is at the bedside and is agreeable to proceed. Her father has POA Plan: Colonoscopy with [facility] 03-23-2024 The indications, technique, alternatives, and potential risks and complications were discussed with the patient including, but not limited to, bleeding, perforation, missed lesions, and anesthesia complications. The patient understands the above, wishes to proceed and has given informed consent. Written patient education information was provided to the patient. MAC sedation required due to medical conditions documented above Preop IV orders: IV NS or LR at 50cc/hr Magaly Oliveros MD 03/23/2024 10:10 AM T [facility] [place] - Health Notes Date/Time Note Provider Source 2024-11-11 09:31:58 [facility]2025-05-02 09:31:58Upcoming Encounters Health Maintenance Due Date Last Done Comments CT Colonography 1968 Colonoscopy 1968 Colorectal Cancer Screening 1968 FIT-DNA 1968 FIT 1968 FOBT 1968 Medicare Annual Wellness (AWV) 1968 Sigmoidoscopy 1968 DTaP/Tdap/Td Vaccines (1 - Tdap) 1987 Hepatitis B Vaccines (1 of 3 - 19+ 3-dose series) 1987 Pap Smear 1989 Cervical Cancer Screening 1998 HPV/Cotest 1998 Mammogram 2008 Pneumococcal Vaccine: 50+ Ye ars (1 of 1 - PCV) 2018 Zoster Vaccines (1 of 2) 2018 Influenza Vaccine (Season Ended) 2025 05/28/20 21 Respiratory Syncytial Virus (RSV) Adult Series (1 - 1-dose 75+ series) 2043 HIB Vaccines Aged Out No longer eligi ble based on patient's age to complete this topic HPV Vaccines Aged Out No longer eligi ble based on patient's age to complete this topic Hepatitis A Vaccines Aged Out No long er eligible based on patient's age to complete this topic IPV Vaccines Aged Out No longer eligi ble based on patient's age to complete this topic Meningococcal Vaccine Aged Out No tigre maycol eligible based on patient's age to complete this topic Pneumococcal Vaccine: Pediat rics (0 to 5 Years) and At-Risk Patients (6 to 64 Years) Aged Out No longer eligible b ased on patient's age to complete this topic Rotavirus Vaccines Aged Out No longer eligible based on patient's age to complete this topic [facility] CenterOcmkccb3283-72-11 09:31:58 [facility] CenterXdcvnvm4881-41-64 10:44:27* [facility] CenterLdjpdgp4737-70-60 10:44:27 [facility] CenterEefgikd4723-66-64 10:44:27* Yasemin Vences MD - 10/12/2024 10:00 AM CDT History of Present Illness Seizures Associated symptoms include headaches. Headache Doing the same, getting home health, PT may be ending today. No seizures. Due for labs, no new problems otherwise Allergies as of 10/12/2024 - Reviewed 10/12/2024 Allergen Reaction Noted Sulfa antibiotics Shortness of breath 02/23/2019 Diphenhydramine Rash and Unknown 02/09/2018 Pseudoephedrine Rash and Unknown 02/09/2018 has a current medication list which includes the following prescription(s): divalproex, estradiol, gabapentin, levothyroxine, mirabegron, omeprazole, pravastatin, quetiapine, sumatriptan, topiramate, venlafaxine xr, and venlafaxine xr. Vitals:10/12/24 1009 BP: (!) 137/91 Pulse: 97 Resp: 16 Temp: 36.3 ?C (97.3 ?F) SpO2: 99% Neurological Exam Mental Status Awake and alert. Speech is normal. Cranial NervesCN II: Visual acuity is normal. CN III, IV, : Extraocular movements intact bilaterally. Pupils equal round and reactive to light bilaterally. CN VII: Full and symmetric facial movement. CN XII: Tongue midline without atrophy or fasciculations. MotorStrength is 5/5 throughout all four extremities. SensoryLight touch is normal in upper and lower extremities. Temperature is normal in upper and lower extremities. Vibration is normal in upper and lower extremities. ReflexesDeep tendon reflexes: Symmetric. GaitCasual gait is normal including stance, stride, and arm swing. Results for orders placed or performed in visit on 05/27/24 Complete Blood Count w/Diff and Platelet Collection Time: 06/02/24 8:39 AM Result Value Ref Range WBC X 10x3 8.5 3.8 - 10.8 Thousand/uL RBC X 10x6 4.29 3.80 - 5.10 Million/uL Hgb 13.1 11.7 - 15.5 g/dL Hct 40.4 35.0 - 45.0 % MCV 94.2 80.0 - 100.0 fL MCH 30.5 27.0 - 33.0 pg MCHC 32.4 32.0 - 36.0 g/dL RDW 12.7 11.0 - 15.0 % Platelet 228 140 - 400 Thousand/uL MPV 11.0 7.5 - 12.5 fL Segs # 6,282 1,500 - 7,800 cells/uL Lymphocytes # 1,581 850 - 3,900 cells/uL Monocytes # 510 200 - 950 cells/uL Eosinophils # 94 15 - 500 cells/uL Basophils # 34 0 - 200 cells/uL Segs % 73.9 % Lymphocytes 18.6 % Monocytes 6.0 % Eos % 1.1 % Basophils 0.4 % Comprehensive Metabolic Panel Collection Time: 06/02/24 8:39 AM Result Value Ref Range Glucose Lvl 111 (H) 65 - 99 mg/dL BUN 20 7 - 25 mg/dL Creatinine Lvl 0.91 0.50 - 1.03 mg/dL eGFR 75 > OR = 60 mL/min/1.73m2 B/C Ratio SEE NOTE: 6 - 22 (calc) Sodium Lvl 141 135 - 146 mmol/L Potassium Lvl 4.6 3.5 - 5.3 mmol/L Chloride Lvl 108 98 - 110 mmol/L CO2 Lvl 26 20 - 32 mmol/L Calcium Lvl 9.7 8.6 - 10.4 mg/dL Total Protein 7.5 6.1 - 8.1 g/dL Albumin Lvl 4.5 3.6 - 5.1 g/dL Globulin 3.0 1.9 - 3.7 g/dL (calc) A/G Ratio 1.5 1.0 - 2.5 (calc) Bili Total 0.5 0.2 - 1.2 mg/dL Alk Phos 111 37 - 153 U/L AST 14 10 - 35 U/L ALANINE AMINOTRANSFERASE 8 6 - 29 U/L Valproic Acid Level Collection Time: 06/02/24 8:39 AM Result Value Ref Range Valproic Acid Lvl 24.4 (L) 50.0 - 100.0 mg/L No MRI head results found for the past 12 months Assessment & PlanDiagnoses and all orders for this visit: Seizures (HCC) - Basic Metabolic Panel; Future - Complete Blood Count w/Diff and Platelet; Future - Valproic Acid Level; Future Mental disability - Basic Metabolic Panel; Future - Complete Blood Count w/Diff and Platelet; Future - Valproic Acid Level; Future Stable, no medication changes. Check labs [facility] CenterYvjrvkq7130-15-63 10:44:27Scheduled Orders Health Maintenance Due Date Last Done Comments CT Colonography 1968 Colonoscopy 1968 Colorectal Cancer Screening 1968 FIT-DNA 1968 FIT 1968 FOBT 1968 Medicare Annual Wellness (AWV) 1968 Sigmoidoscopy 1968 DTaP/Tdap/Td Vaccines (1 - Tdap) 1987 Hepatitis B Vaccines (1 of 3 - 19+ 3-dose series) 1987 Pap Smear 1989 Cervical Cancer Screening 1998 HPV/Cotest 1998 Mammogram 2008 Pneumococcal Vaccine: 50+ Ye ars (1 of 1 - PCV) 2018 Zoster Vaccines (1 of 2) 2018 Influenza Vaccine (Season Ended) 2025 05/28/20 21 HIB Vaccines Aged Out No longer eligi ble based on patient's age to complete this topic HPV Vaccines Aged Out No longer eligi ble based on patient's age to complete this topic Hepatitis A Vaccines Aged Out No long er eligible based on patient's age to complete this topic IPV Vaccines Aged Out No longer eligi ble based on patient's age to complete this topic Meningococcal Vaccine Aged Out No tigre maycol eligible based on patient's age to complete this topic Pneumococcal Vaccine: Pediat rics (0 to 5 Years) and At-Risk Patients (6 to 64 Years) Aged Out No longer eligible b ased on patient's age to complete this topic Rotavirus Vaccines Aged Out No longer eligible based on patient's age to complete this topic [facility] CenterJhimcup5756-10-35 10:44:27 Diagnosis Seizures (HCC) - Primary Other convulsions Mental disability Unspecified mental retardation [facility] CenterQousfms0330-71-88 10:44:27 [place] [address]-04-02 10:44:27* [facility] CenterBnrlwbw1562-28-36 10:44:27 [facility] CenterWtugjnr9092-98-81 10:44:27* Yasemin Vences MD - 10/12/2024 10:00 AM CDT History of Present Illness Seizures Associated symptoms include headaches. Headache Doing the same, getting home health, PT may be ending today. No seizures. Due for labs, no new problems otherwise Allergies as of 10/12/2024 - Reviewed 10/12/2024 Allergen Reaction Noted Sulfa antibiotics Shortness of breath 02/23/2019 Diphenhydramine Rash and Unknown 02/09/2018 Pseudoephedrine Rash and Unknown 02/09/2018 has a current medication list which includes the following prescription(s): divalproex, estradiol, gabapentin, levothyroxine, mirabegron, omeprazole, pravastatin, quetiapine, sumatriptan, topiramate, venlafaxine xr, and venlafaxine xr. Vitals:10/12/24 1009 BP: (!) 137/91 Pulse: 97 Resp: 16 Temp: 36.3 ?C (97.3 ?F) SpO2: 99% Neurological Exam Mental Status Awake and alert. Speech is normal. Cranial NervesCN II: Visual acuity is normal. CN III, IV, : Extraocular movements intact bilaterally. Pupils equal round and reactive to light bilaterally. CN VII: Full and symmetric facial movement. CN XII: Tongue midline without atrophy or fasciculations. MotorStrength is 5/5 throughout all four extremities. SensoryLight touch is normal in upper and lower extremities. Temperature is normal in upper and lower extremities. Vibration is normal in upper and lower extremities. ReflexesDeep tendon reflexes: Symmetric. GaitCasual gait is normal including stance, stride, and arm swing. Results for orders placed or performed in visit on 05/27/24 Complete Blood Count w/Diff and Platelet Collection Time: 06/02/24 8:39 AM Result Value Ref Range WBC X 10x3 8.5 3.8 - 10.8 Thousand/uL RBC X 10x6 4.29 3.80 - 5.10 Million/uL Hgb 13.1 11.7 - 15.5 g/dL Hct 40.4 35.0 - 45.0 % MCV 94.2 80.0 - 100.0 fL MCH 30.5 27.0 - 33.0 pg MCHC 32.4 32.0 - 36.0 g/dL RDW 12.7 11.0 - 15.0 % Platelet 228 140 - 400 Thousand/uL MPV 11.0 7.5 - 12.5 fL Segs # 6,282 1,500 - 7,800 cells/uL Lymphocytes # 1,581 850 - 3,900 cells/uL Monocytes # 510 200 - 950 cells/uL Eosinophils # 94 15 - 500 cells/uL Basophils # 34 0 - 200 cells/uL Segs % 73.9 % Lymphocytes 18.6 % Monocytes 6.0 % Eos % 1.1 % Basophils 0.4 % Comprehensive Metabolic Panel Collection Time: 06/02/24 8:39 AM Result Value Ref Range Glucose Lvl 111 (H) 65 - 99 mg/dL BUN 20 7 - 25 mg/dL Creatinine Lvl 0.91 0.50 - 1.03 mg/dL eGFR 75 > OR = 60 mL/min/1.73m2 B/C Ratio SEE NOTE: 6 - 22 (calc) Sodium Lvl 141 135 - 146 mmol/L Potassium Lvl 4.6 3.5 - 5.3 mmol/L Chloride Lvl 108 98 - 110 mmol/L CO2 Lvl 26 20 - 32 mmol/L Calcium Lvl 9.7 8.6 - 10.4 mg/dL Total Protein 7.5 6.1 - 8.1 g/dL Albumin Lvl 4.5 3.6 - 5.1 g/dL Globulin 3.0 1.9 - 3.7 g/dL (calc) A/G Ratio 1.5 1.0 - 2.5 (calc) Bili Total 0.5 0.2 - 1.2 mg/dL Alk Phos 111 37 - 153 U/L AST 14 10 - 35 U/L ALANINE AMINOTRANSFERASE 8 6 - 29 U/L Valproic Acid Level Collection Time: 06/02/24 8:39 AM Result Value Ref Range Valproic Acid Lvl 24.4 (L) 50.0 - 100.0 mg/L No MRI head results found for the past 12 months Assessment & PlanDiagnoses and all orders for this visit: Seizures (HCC) - Basic Metabolic Panel; Future - Complete Blood Count w/Diff and Platelet; Future - Valproic Acid Level; Future Mental disability - Basic Metabolic Panel; Future - Complete Blood Count w/Diff and Platelet; Future - Valproic Acid Level; Future Stable, no medication changes. Check labs [facility] CenterNilybgg5954-36-91 10:44:27Scheduled Orders Health Maintenance Due Date Last Done Comments CT Colonography 1968 Colonoscopy 1968 Colorectal Cancer Screening 1968 FIT-DNA 1968 FIT 1968 FOBT 1968 Medicare Annual Wellness (AWV) 1968 Sigmoidoscopy 1968 DTaP/Tdap/Td Vaccines (1 - Tdap) 1987 Hepatitis B Vaccines (1 of 3 - 19+ 3-dose series) 1987 Pap Smear 1989 Cervical Cancer Screening 1998 HPV/Cotest 1998 Mammogram 2008 Pneumococcal Vaccine: 50+ Ye ars (1 of 1 - PCV) 2018 Zoster Vaccines (1 of 2) 2018 Influenza Vaccine (Season Ended) 2025 05/28/20 21 HIB Vaccines Aged Out No longer eligi ble based on patient's age to complete this topic HPV Vaccines Aged Out No longer eligi ble based on patient's age to complete this topic Hepatitis A Vaccines Aged Out No long er eligible based on patient's age to complete this topic IPV Vaccines Aged Out No longer eligi ble based on patient's age to complete this topic Meningococcal Vaccine Aged Out No tigre maycol eligible based on patient's age to complete this topic Pneumococcal Vaccine: Pediat rics (0 to 5 Years) and At-Risk Patients (6 to 64 Years) Aged Out No longer eligible b ased on patient's age to complete this topic Rotavirus Vaccines Aged Out No longer eligible based on patient's age to complete this topic [facility] CenterGuanyvj4550-82-79 10:44:27 Diagnosis Seizures (HCC) - Primary Other convulsions Mental disability Unspecified mental retardation [facility] CenterKcjkeqh0516-06-00 10:44:27 [facility] CenterKdfpfje5578-77-52 19:15:22* [facility] CenterDpzswdj4777-98-84 19:15:22 [facility] CenterKopuczy3263-91-24 19:15:22* Yasemin Vences MD - 08/05/2024 4:00 PM [facility] health R[facility] CenterQsgxubq5215-04-69 19:15:22Upcoming Encounters Health Maintenance Due Date Last Done Comments CT Colonography 1968 Colonoscopy 1968 Colorectal Cancer Screening 1968 FIT-DNA 1968 FIT 1968 FOBT 1968 Medicare Annual Wellness (AWV) 1968 Sigmoidoscopy 1968 Annual Physical 1971 DTaP/Tdap/Td Vaccines (1 - Tdap) 1987 Hepatitis B Vaccines (1 of 3 - 19+ 3-dose series) 1987 Pap Smear 1989 Cervical Cancer Screening 1998 HPV/Cotest 1998 Mammogram 2008 Zoster Vaccines (1 of 2) 2018 Influenza Vaccine (#1) 2024 05/28/2021 HIB Vaccines Aged Out No longer eligi ble based on patient's age to complete this topic HPV Vaccines Aged Out No longer eligi ble based on patient's age to complete this topic Hepatitis A Vaccines Aged Out No long er eligible based on patient's age to complete this topic IPV Vaccines Aged Out No longer eligi ble based on patient's age to complete this topic Meningococcal Vaccine Aged Out No tigre maycol eligible based on patient's age to complete this topic Pneumococcal Vaccine: Pediat rics (0 to 5 Years) and At-Risk Patients (6 to 64 Years) Aged Out No longer eligible b ased on patient's age to complete this topic Rotavirus Vaccines Aged Out No longer eligible based on patient's age to complete this topic 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 [facility] CenterSnjrgdq3446-84-84 19:15:22 [facility] CenterEwmonud0368-71-97 19:15:22* [facility] CenterFnmnrwh9458-98-59 19:15:22 [facility] CenterIqvkwyx8939-18-41 19:15:22* Yasemin Vences MD - 08/05/2024 4:00 PM [facility] Home health R[facility]ETER [facility] CenterSfqvled4395-27-43 19:15:22Upcoming Encounters Health Maintenance Due Date Last Done Comments CT Colonography 1968 Colonoscopy 1968 Colorectal Cancer Screening 1968 FIT-DNA 1968 FIT 1968 FOBT 1968 Medicare Annual Wellness (AWV) 1968 Sigmoidoscopy 1968 Annual Physical 1971 DTaP/Tdap/Td Vaccines (1 - Tdap) 1987 Hepatitis B Vaccines (1 of 3 - 19+ 3-dose series) 1987 Pap Smear 1989 Cervical Cancer Screening 1998 HPV/Cotest 1998 Mammogram 2008 Zoster Vaccines (1 of 2) 2018 Influenza Vaccine (#1) 2024 05/28/2021 HIB Vaccines Aged Out No longer eligi ble based on patient's age to complete this topic HPV Vaccines Aged Out No longer eligi ble based on patient's age to complete this topic Hepatitis A Vaccines Aged Out No long er eligible based on patient's age to complete this topic IPV Vaccines Aged Out No longer eligi ble based on patient's age to complete this topic Meningococcal Vaccine Aged Out No tigre maycol eligible based on patient's age to complete this topic Pneumococcal Vaccine: Pediat rics (0 to 5 Years) and At-Risk Patients (6 to 64 Years) Aged Out No longer eligible b ased on patient's age to complete this topic Rotavirus Vaccines Aged Out No longer eligible based on patient's age to complete this topic [facility] CenterVxmdmsl0393-97-30 19:15:22 Diagnosis Mental disability - Primary Unspecified mental retardation Seizures (HCC) Other convulsions 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 [facility] CenterQfeamvo2227-16-63 19:15:22 [facility] CenterQdysmla3306-63-20 18:05:55* Home Health (Routine) - Pending Review Specialty Diagnoses / Procedures Referred By Sylvester t Referred To Contact Home Health Services Diagnoses Symptomatic localization-related epilepsy (HCC) Migraine with aura and without status migrainosus, not intractable Failure to thrive in adult Yasemin Vences MD [address] [place] [address] Phone: tel: fax: Referral ID Status Reason Start Date Expiration Date Visits Requested Visits Authorized [id number] Pending Review Specialty Services Required 07/14/2024 09/12/2024 999 999 [facility]IVETER [id number] 18:05:55* [facility] [id number] 18:05:55 [facility] [id number] 18:05:55* Yasemin Vences MD - 07/14/2024 10:45 AM HOOP RIVETER History of Present Illness Seizures Associated symptoms include headaches. Headache No seizures, migraines are worse and Ubrelvy no longer helpful, will revert back to Imitrex which had worked well in the past. Labs from May were normal. Patient is having recurrent problems with ADLs now that home health is no longer seeing patient. Will reconsult Allergies as of 07/14/2024 - Reviewed 07/14/2024 Allergen Reaction Noted Sulfa antibiotics Shortness of breath 02/23/2019 Diphenhydramine Rash and Unknown 02/09/2018 Pseudoephedrine Rash and Unknown 02/09/2018 has a current medication list which includes the following prescription(s): divalproex, estradiol, gabapentin, levothyroxine, mirabegron, omeprazole, pravastatin, quetiapine, topiramate, venlafaxine xr, venlafaxine xr, and sumatriptan. Vitals:07/14/24 1044 BP: (!) 141/105 Pulse: 96 Resp: 16 Temp: 36.2 ?C (97.2 ?F) SpO2: 98% Neurological Exam Mental Status Awake and alert. Speech is normal. Cranial NervesCN II: Visual acuity is normal. CN III, IV, : Extraocular movements intact bilaterally. Pupils equal round and reactive to light bilaterally. CN VII: Full and symmetric facial movement. CN XII: Tongue midline without atrophy or fasciculations. MotorStrength is 5/5 throughout all four extremities. SensoryLight touch is normal in upper and lower extremities. Temperature is normal in upper and lower extremities. Vibration is normal in upper and lower extremities. ReflexesDeep tendon reflexes: Symmetric. GaitCasual gait is normal including stance, stride, and arm swing. Results for orders placed or performed in visit on 05/27/24 Complete Blood Count w/Diff and Platelet Collection Time: 06/02/24 8:39 AM Result Value Ref Range WBC X 10x3 8.5 3.8 - 10.8 Thousand/uL RBC X 10x6 4.29 3.80 - 5.10 Million/uL Hgb 13.1 11.7 - 15.5 g/dL Hct 40.4 35.0 - 45.0 % MCV 94.2 80.0 - 100.0 fL MCH 30.5 27.0 - 33.0 pg MCHC 32.4 32.0 - 36.0 g/dL RDW 12.7 11.0 - 15.0 % Platelet 228 140 - 400 Thousand/uL MPV 11.0 7.5 - 12.5 fL Segs # 6,282 1,500 - 7,800 cells/uL Lymphocytes # 1,581 850 - 3,900 cells/uL Monocytes # 510 200 - 950 cells/uL Eosinophils # 94 15 - 500 cells/uL Basophils # 34 0 - 200 cells/uL Segs % 73.9 % Lymphocytes 18.6 % Monocytes 6.0 % Eos % 1.1 % Basophils 0.4 % Comprehensive Metabolic Panel Collection Time: 06/02/24 8:39 AM Result Value Ref Range Glucose Lvl 111 (H) 65 - 99 mg/dL BUN 20 7 - 25 mg/dL Creatinine Lvl 0.91 0.50 - 1.03 mg/dL eGFR 75 > OR = 60 mL/min/1.73m2 B/C Ratio SEE NOTE: 6 - 22 (calc) Sodium Lvl 141 135 - 146 mmol/L Potassium Lvl 4.6 3.5 - 5.3 mmol/L Chloride Lvl 108 98 - 110 mmol/L CO2 Lvl 26 20 - 32 mmol/L Calcium Lvl 9.7 8.6 - 10.4 mg/dL Total Protein 7.5 6.1 - 8.1 g/dL Albumin Lvl 4.5 3.6 - 5.1 g/dL Globulin 3.0 1.9 - 3.7 g/dL (calc) A/G Ratio 1.5 1.0 - 2.5 (calc) Bili Total 0.5 0.2 - 1.2 mg/dL Alk Phos 111 37 - 153 U/L AST 14 10 - 35 U/L ALANINE AMINOTRANSFERASE 8 6 - 29 U/L Valproic Acid Level Collection Time: 06/02/24 8:39 AM Result Value Ref Range Valproic Acid Lvl 24.4 (L) 50.0 - 100.0 mg/L No MRI head results found for the past 12 months Assessment & PlanDiagnoses and all orders for this visit: Symptomatic localization-related epilepsy (HCC) - Ambulatory referral to Home Health; Future Migraine with aura and without status migrainosus, not intractable - Ambulatory referral to Home Health; Future Failure to thrive in adult - Ambulatory referral to Home Health; Future Other orders - SUMAtriptan (Imitrex) 100 MG tablet; Take 1 tablet by mouth 1 time if needed for migraine for up to 1 dose. Revert back to sumatriptan as needed for the headaches, reconsult home health. I am the continuing focal point for needed health care services and medicalcare services that are part of ongoing care related to this patient's single, serious condition or complex condition. [facility]2025-01-02 18:05:55Upcoming Encounters Scheduled Referrals Name Type Priority Associated Diagnoses Order Schedule Ambulatory referral to Home Health Outpatient Referral Routine Symptomatic localization-relate d epilepsy (HCC) Migraine with aura and without status migrainosus, not intractable Failure to thrive in adult Expected: 07/14/2024 (Approximate), Expires: 07/14/2025 Health Maintenance Due Date Last Done Comments CT Colonography 1968 Colonoscopy 1968 Colorectal Cancer Screening 1968 FIT-DNA 1968 FIT 1968 FOBT 1968 Medicare Annual Wellness (AWV) 1968 Sigmoidoscopy 1968 Annual Physical 1971 DTaP/Tdap/Td Vaccines (1 - Tdap) 1987 Hepatitis B Vaccines (1 of 3 - 19+ 3-dose series) 1987 Pap Smear 1989 Cervical Cancer Screening 1998 HPV/Cotest 1998 Mammogram 2008 Zoster Vaccines (1 of 2) 2018 Influenza Vaccine (#1) 2024 05/28/2021 HIB Vaccines Aged Out No longer eligi ble based on patient's age to complete this topic HPV Vaccines Aged Out No longer eligi ble based on patient's age to complete this topic Hepatitis A Vaccines Aged Out No long er eligible based on patient's age to complete this topic IPV Vaccines Aged Out No longer eligi ble based on patient's age to complete this topic Meningococcal Vaccine Aged Out No tigre maycol eligible based on patient's age to complete this topic Pneumococcal Vaccine: Pediat rics (0 to 5 Years) and At-Risk Patients (6 to 64 Years) Aged Out No longer eligible b ased on patient's age to complete this topic Rotavirus Vaccines Aged Out No longer eligible based on patient's age to complete this topic [facility] [id number] 18:05:55 Diagnosis Symptomatic localization-rel ated epilepsy (HCC) - Primary Migraine with aura and witho ut status migrainosus, not intractable 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 [facility] [id number] 18:05:55 [facility] [id number] 18:05:54* Home Health (Routine) - Pending Review Specialty Diagnoses / Procedures Referred By Sylvester van Referred To Contact Home Health Services Diagnoses Symptomatic localization-related epilepsy (HCC) Migraine with aura and without status migrainosus, not intractable Failure to thrive in adult Yasemin Vences MD [address] [place] [address] Phone: tel: fax: Referral ID Status Reason Start Date Expiration Date Visits Requested Visits Authorized [id number] Pending Review Specialty Services Required 07/14/2024 09/12/2024 999 999 RIVETER Codey [id number] 18:05:54* [facility] [id number] 18:05:54 [facility]Paezgky6134-36-02 18:05:54* Yasemin Vences MD - 07/14/2024 10:45 AM HOOP RIVETER History of Present Illness Seizures Associated symptoms include headaches. Headache No seizures, migraines are worse and Ubrelvy no longer helpful, will revert back to Imitrex which had worked well in the past. Labs from May were normal. Patient is having recurrent problems with ADLs now that home health is no longer seeing patient. Will reconsult Allergies as of 07/14/2024 - Reviewed 07/14/2024 Allergen Reaction Noted Sulfa antibiotics Shortness of breath 02/23/2019 Diphenhydramine Rash and Unknown 02/09/2018 Pseudoephedrine Rash and Unknown 02/09/2018 has a current medication list which includes the following prescription(s): divalproex, estradiol, gabapentin, levothyroxine, mirabegron, omeprazole, pravastatin, quetiapine, topiramate, venlafaxine xr, venlafaxine xr, and sumatriptan. Vitals:07/14/24 1044 BP: (!) 141/105 Pulse: 96 Resp: 16 Temp: 36.2 ?C (97.2 ?F) SpO2: 98% Neurological Exam Mental Status Awake and alert. Speech is normal. Cranial NervesCN II: Visual acuity is normal. CN III, IV, : Extraocular movements intact bilaterally. Pupils equal round and reactive to light bilaterally. CN VII: Full and symmetric facial movement. CN XII: Tongue midline without atrophy or fasciculations. MotorStrength is 5/5 throughout all four extremities. SensoryLight touch is normal in upper and lower extremities. Temperature is normal in upper and lower extremities. Vibration is normal in upper and lower extremities. ReflexesDeep tendon reflexes: Symmetric. GaitCasual gait is normal including stance, stride, and arm swing. Results for orders placed or performed in visit on 05/27/24 Complete Blood Count w/Diff and Platelet Collection Time: 06/02/24 8:39 AM Result Value Ref Range WBC X 10x3 8.5 3.8 - 10.8 Thousand/uL RBC X 10x6 4.29 3.80 - 5.10 Million/uL Hgb 13.1 11.7 - 15.5 g/dL Hct 40.4 35.0 - 45.0 % MCV 94.2 80.0 - 100.0 fL MCH 30.5 27.0 - 33.0 pg MCHC 32.4 32.0 - 36.0 g/dL RDW 12.7 11.0 - 15.0 % Platelet 228 140 - 400 Thousand/uL MPV 11.0 7.5 - 12.5 fL Segs # 6,282 1,500 - 7,800 cells/uL Lymphocytes # 1,581 850 - 3,900 cells/uL Monocytes # 510 200 - 950 cells/uL Eosinophils # 94 15 - 500 cells/uL Basophils # 34 0 - 200 cells/uL Segs % 73.9 % Lymphocytes 18.6 % Monocytes 6.0 % Eos % 1.1 % Basophils 0.4 % Comprehensive Metabolic Panel Collection Time: 06/02/24 8:39 AM Result Value Ref Range Glucose Lvl 111 (H) 65 - 99 mg/dL BUN 20 7 - 25 mg/dL Creatinine Lvl 0.91 0.50 - 1.03 mg/dL eGFR 75 > OR = 60 mL/min/1.73m2 B/C Ratio SEE NOTE: 6 - 22 (calc) Sodium Lvl 141 135 - 146 mmol/L Potassium Lvl 4.6 3.5 - 5.3 mmol/L Chloride Lvl 108 98 - 110 mmol/L CO2 Lvl 26 20 - 32 mmol/L Calcium Lvl 9.7 8.6 - 10.4 mg/dL Total Protein 7.5 6.1 - 8.1 g/dL Albumin Lvl 4.5 3.6 - 5.1 g/dL Globulin 3.0 1.9 - 3.7 g/dL (calc) A/G Ratio 1.5 1.0 - 2.5 (calc) Bili Total 0.5 0.2 - 1.2 mg/dL Alk Phos 111 37 - 153 U/L AST 14 10 - 35 U/L ALANINE AMINOTRANSFERASE 8 6 - 29 U/L Valproic Acid Level Collection Time: 06/02/24 8:39 AM Result Value Ref Range Valproic Acid Lvl 24.4 (L) 50.0 - 100.0 mg/L No MRI head results found for the past 12 months Assessment & PlanDiagnoses and all orders for this visit: Symptomatic localization-related epilepsy (HCC) - Ambulatory referral to Home Health; Future Migraine with aura and without status migrainosus, not intractable - Ambulatory referral to Home Health; Future Failure to thrive in adult - Ambulatory referral to Home Health; Future Other orders - SUMAtriptan (Imitrex) 100 MG tablet; Take 1 tablet by mouth 1 time if needed for migraine for up to 1 dose. Revert back to sumatriptan as needed for the headaches, reconsult home health. I am the continuing focal point for needed health care services and medicalcare services that are part of ongoing care related to this patient's single, serious condition or complex condition. [facility]2025-01-02 18:05:54Upcoming Encounters Scheduled Referrals Name Type Priority Associated Diagnoses Order Schedule Ambulatory referral to Home Health Outpatient Referral Routine Symptomatic localization-relate d epilepsy (HCC) Migraine with aura and without status migrainosus, not intractable Failure to thrive in adult Expected: 07/14/2024 (Approximate), Expires: 07/14/2025 Health Maintenance Due Date Last Done Comments CT Colonography 1968 Colonoscopy 1968 Colorectal Cancer Screening 1968 FIT-DNA 1968 FIT 1968 FOBT 1968 Medicare Annual Wellness (AWV) 1968 Sigmoidoscopy 1968 Annual Physical 1971 DTaP/Tdap/Td Vaccines (1 - Tdap) 1987 Hepatitis B Vaccines (1 of 3 - 19+ 3-dose series) 1987 Pap Smear 1989 Cervical Cancer Screening 1998 HPV/Cotest 1998 Mammogram 2008 Zoster Vaccines (1 of 2) 2018 Influenza Vaccine (#1) 2024 05/28/2021 HIB Vaccines Aged Out No longer eligi ble based on patient's age to complete this topic HPV Vaccines Aged Out No longer eligi ble based on patient's age to complete this topic Hepatitis A Vaccines Aged Out No long er eligible based on patient's age to complete this topic IPV Vaccines Aged Out No longer eligi ble based on patient's age to complete this topic Meningococcal Vaccine Aged Out No tigre maycol eligible based on patient's age to complete this topic Pneumococcal Vaccine: Pediat rics (0 to 5 Years) and At-Risk Patients (6 to 64 Years) Aged Out No longer eligible b ased on patient's age to complete this topic Rotavirus Vaccines Aged Out No longer eligible based on patient's age to complete this topic [facility] [id number] 18:05:54 Diagnosis Symptomatic localization-rel ated epilepsy (HCC) - Primary Migraine with aura and witho ut status migrainosus, not intractable 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 [facility] CenterKfuzvpv2847-27-28 18:05:54 [facility] CenterPqounwt6890-80-59 13:11:49 Diagnosis Symptomatic localization-rel ated epilepsy (HCC) - Primary Migraine without aura and wi thout status migrainosus, not intractable [facility] CenterSxvoijj6419-80-09 13:11:49 [facility] CenterBcxmwke8566-73-82 13:11:49* [facility] CenterMfvlqlv3684-35-80 13:11:49 [facility] CenterKhsucgn2644-87-00 13:11:49* Yasemin Vences MD - 05/27/2024 10:45 AM HOOP RIVETER History of Present Illness HPI Patient returns for reevaluation. No seizures, headaches are stable. Done with home health for this year. Due for labs. No new problems otherwise. Allergies as of 05/27/2024 - Reviewed 05/27/2024 Allergen Reaction Noted Sulfa antibiotics Shortness of breath 02/23/2019 Diphenhydramine Rash and Unknown 02/09/2018 Pseudoephedrine Rash and Unknown 02/09/2018 has a current medication list which includes the following prescription(s): divalproex, estradiol, gabapentin, levothyroxine, mirabegron, omeprazole, pravastatin, quetiapine, sumatriptan, topiramate, venlafaxine xr, and venlafaxine xr. Vitals:05/27/24 1044 BP: 127/87 Pulse: 95 Resp: 16 Temp: 36.2 ?C (97.1 ?F) SpO2: 99% Neurological Exam Mental Status Awake and alert. Speech is normal. Cranial NervesCN II: Visual acuity is normal. CN III, IV, : Extraocular movements intact bilaterally. Pupils equal round and reactive to light bilaterally. CN VII: Full and symmetric facial movement. CN XII: Tongue midline without atrophy or fasciculations. MotorStrength is 5/5 throughout all four extremities. SensoryLight touch is normal in upper and lower extremities. Temperature is normal in upper and lower extremities. Vibration is normal in upper and lower extremities. ReflexesDeep tendon reflexes: Symmetric. GaitCasual gait is normal including stance, stride, and arm swing. Results for orders placed or performed in visit on 09/25/23 Complete Blood Count w/Diff and Platelet Collection Time: 09/29/23 11:36 AM Result Value Ref Range Monocytes 4.8 % Hgb 14.1 11.7 - 15.5 g/dL Eosinophils # 71 15 - 500 Cells/uL MPV 11.1 7.5 - 12.5 fL Hct 42.9 35.0 - 45.0 % Eos % 0.7 % Basophils # 31 0 - 200 Cells/uL Segs # 7,813 (H) 1,500 - 7,800 Cells/uL MCV 89.7 80.0 - 100.0 fL MCH 29.5 27.0 - 33.0 pg Basos % 0.3 % Segs % 76.6 % Lymphocytes # 1,795 850 - 3,900 Cells/uL MCHC 32.9 32.0 - 36.0 g/dL RDW 13.5 11.0 - 15.0 % Monocytes # 490 200 - 950 Cells/uL Lymphs % 17.6 % WBC 10.2 3.8 - 10.8 K/ul Plt Count 182 140 - 400 K/ul RBC 4.78 3.80 - 5.10 M/CMM Comprehensive Metabolic Panel Collection Time: 09/29/23 11:36 AM Result Value Ref Range Calcium Lvl 10.2 8.6 - 10.4 mg/dL eGFR 64 > OR = 60 mL/min/1.73m2 Total Protein 8.0 6.1 - 8.1 g/dL Albumin Lvl 4.6 3.6 - 5.1 g/dL B/C Ratio SEE NOTE: 6 - 22 (CALC) Globulin 3.4 1.9 - 3.7 g/dL Albumin/Globulin Ratio 1.4 1.0 - 2.5 (CALC) Sodium Lvl 143 135 - 146 mMol/L Bilirubin Total 0.4 0.2 - 1.2 mg/dL Alkaline Phosphatase 118 37 - 153 unit/L Potassium Lvl 4.6 3.5 - 5.3 mMol/L AST 15 10 - 35 unit/L Glucose Lvl 93 65 - 99 mg/dL Chloride Lvl 107 98 - 110 mMol/L ALT 9 6 - 29 unit/L BUN 16 7 - 25 mg/dL CO2 Lvl 21 20 - 32 mMol/L Creatinine Lvl 1.03 0.50 - 1.03 mg/dL Valproic Acid Level Collection Time: 09/29/23 11:36 AM Result Value Ref Range Valproic Acid Lvl 87.0 50.0 - 100.0 mg/L No MRI head results found for the past 12 months Assessment & PlanDiagnoses and all orders for this visit: Symptomatic localization-related epilepsy (HCC) - Complete Blood Count w/Diff and Platelet; Future - Comprehensive Metabolic Panel; Future - Valproic Acid Level; Future Migraine without aura and without status migrainosus, not intractable - Complete Blood Count w/Diff and Platelet; Future - Comprehensive Metabolic Panel; Future - Valproic Acid Level; Future Stable, continue present medications, check labs I am the continuing focal point for needed health care services and medicalcare services that are part of ongoing care related to this patient's single, serious condition or complex condition. [facility]2024-11-15 13:11:49Upcoming Encounters Scheduled Orders Name Type Priority Associated Diagnoses Orde r Schedule Complete Blood Count w/Diff and Platelet Lab Routine Symptomatic localization-related epilepsy (HCC) Migraine without aura and without status migrainosus, not intractable Expected: 05/27/2024 (Approximate), Expires: 05/27/2025 Comprehensive Metabolic Panel Lab Routine Symptomatic localization-related epilepsy (HCC) Migraine without aura and without status migrainosus, not intractable Expected: 05/27/2024 (Approximate), Expires: 05/27/2025 Valproic Acid Level Lab Routine Symptomatic localization-related epilepsy (HCC) Migraine without aura and without status migrainosus, not intractable Expected: 05/27/2024 (Approximate), Expires: 05/27/2025 Health Maintenance Due Date Last Done Comments CT Colonography 1968 Colonoscopy 1968 Colorectal Cancer Screening 1968 FIT-DNA 1968 FIT 1968 FOBT 1968 Medicare Annual Wellness (AWV) 1968 Sigmoidoscopy 1968 Annual Physical 1971 DTaP/Tdap/Td Vaccines (1 - Tdap) 1987 Hepatitis B Vaccines (1 of 3 - 19+ 3-dose series) 1987 Pap Smear 1989 Cervical Cancer Screening 1998 HPV/Cotest 1998 Mammogram 2008 Zoster Vaccines (1 of 2) 2018 Influenza Vaccine (#1) 2024 05/28/2021 HIB Vaccines Aged Out No longer eligi ble based on patient's age to complete this topic HPV Vaccines Aged Out No longer eligi ble based on patient's age to complete this topic Hepatitis A Vaccines Aged Out No long er eligible based on patient's age to complete this topic IPV Vaccines Aged Out No longer eligi ble based on patient's age to complete this topic Meningococcal Vaccine Aged Out No tigre maycol eligible based on patient's age to complete this topic Pneumococcal Vaccine: Pediat rics (0 to 5 Years) and At-Risk Patients (6 to 64 Years) Aged Out No longer eligible b ased on patient's age to complete this topic Rotavirus Vaccines Aged Out No longer eligible based on patient's age to complete this topic [facility] CenterCjdtilv2504-34-81 09:03:24* [facility] CenterOsdfpvv2184-51-22 09:03:24 [facility] CenterRjlnruw1918-99-38 09:03:24Upcoming Encounters Health Maintenance Due Date Last Done Comments CT Colonography 1968 Colonoscopy 1968 Colorectal Cancer Screening 1968 FIT-DNA 1968 FIT 1968 FOBT 1968 Medicare Annual Wellness (AWV) 1968 Sigmoidoscopy 1968 Annual Physical 1971 DTaP/Tdap/Td Vaccines (1 - Tdap) 1987 Hepatitis B Vaccines (1 of 3 - 19+ 3-dose series) 1987 Pap Smear 1989 Cervical Cancer Screening 1998 HPV/Cotest 1998 Mammogram 2008 Zoster Vaccines (1 of 2) 2018 Influenza Vaccine (#1) 2024 05/28/2021 HIB Vaccines Aged Out No longer eligi ble based on patient's age to complete this topic HPV Vaccines Aged Out No longer eligi ble based on patient's age to complete this topic Hepatitis A Vaccines Aged Out No long er eligible based on patient's age to complete this topic IPV Vaccines Aged Out No longer eligi ble based on patient's age to complete this topic Meningococcal Vaccine Aged Out No tigre maycol eligible based on patient's age to complete this topic Pneumococcal Vaccine: Pediat rics (0 to 5 Years) and At-Risk Patients (6 to 64 Years) Aged Out No longer eligible b ased on patient's age to complete this topic Rotavirus Vaccines Aged Out No longer eligible based on patient's age to complete this topic [facility] [id number] 09:03:24 [facility] [id number] 17:03:18 Images from the original note were not included. Your upcoming procedure is at [facility] on 03/23/24. The address is [address] [place] [address], [id number].The nursing staff at [facility] will call you the workday before your procedure to let you know what time to arrive. When you arrive, please go inside and sign in at the desk. Please note: You may not travel home alone after your procedure and that includes in a taxi or by bus. We must speak to your Responsible Adult (who will be picking you up) the morning of your procedure, before the start of your procedure. This person must be an adult over the age of 18 years of age. Maintain a clear liquid diet the entire day before your procedure. Do not drink anything containing red, blue, or purple dyes. Follow the instructions of your bowel prep as directed by you physician. You may also take your medications the morning of your procedure with a sip of water as directed by physician. Anticoagulants will be per physician Guidance. Medication Note(s)/Instructions: Instructed to take morning seizure medication day of procedure. Both patient and person accompanying and/or picking patient up must be able to wear a mask and be without symptoms of COVID 19. Pending screening, a COVID test may be required. If a patient tests positive, their cases are cancelled and/or rescheduled. COVID NOTE: Denies COVID symptoms or exposure, no testing required. Additional questions, concerns, requests:CB number and availability provided. Patient verbalized understanding of pre-op instructions and voiced no further questions at this time. [facility]24[facility] 14:11:35* [facility] CenterGhqcqgz1673-25-13 14:11:35 [place] [id number] 14:11:35* Yasemin Vences MD - 03/02/2024 1:45 PM CDT History of Present Illness HPI Patient returns for reevaluation. No new neurologic problems. No side effects on the medications. No new complaints. Most recent labs and data reviewed. Home health discharged patient from their services Allergies as of 03/02/2024 - Reviewed 03/02/2024 Allergen Reaction Noted Sulfa antibiotics Shortness of breath 02/23/2019 Diphenhydramine Rash and Unknown 02/09/2018 Pseudoephedrine Rash and Unknown 02/09/2018 has a current medication list which includes the following prescription(s): estradiol, levothyroxine, mirabegron, omeprazole, pravastatin, quetiapine, sumatriptan, topiramate, divalproex, gabapentin, venlafaxine xr, and venlafaxine xr. Vitals:03/02/24 1349 BP: 112/84 Pulse: 110 Resp: 16 Temp: 35.9 ?C (96.6 ?F) SpO2: 96% Neurological Exam Mental Status Awake and alert. Speech is normal. Cranial NervesCN II: Visual acuity is normal. CN III, IV, : Extraocular movements intact bilaterally. Pupils equal round and reactive to light bilaterally. CN VII: Full and symmetric facial movement. CN XII: Tongue midline without atrophy or fasciculations. MotorStrength is 5/5 throughout all four extremities. SensoryLight touch is normal in upper and lower extremities. Temperature is normal in upper and lower extremities. Vibration is normal in upper and lower extremities. ReflexesDeep tendon reflexes: Symmetric. GaitCasual gait is normal including stance, stride, and arm swing. Results for orders placed or performed in visit on 09/25/23 Complete Blood Count w/Diff and Platelet Result Value Ref Range Monocytes 4.8 % Hgb 14.1 11.7 - 15.5 g/dL Eosinophils # 71 15 - 500 Cells/uL MPV 11.1 7.5 - 12.5 fL Hct 42.9 35.0 - 45.0 % Eosinophils 0.7 % Basophils # 31 0 - 200 Cells/uL Neutrophils # 7,813 (H) 1,500 - 7,800 Cells/uL MCV 89.7 80.0 - 100.0 fL MCH 29.5 27.0 - 33.0 pg Basophils 0.3 % Segs 76.6 % Lymphocytes # 1,795 850 - 3,900 Cells/uL MCHC 32.9 32.0 - 36.0 g/dL RDW 13.5 11.0 - 15.0 % Monocytes # 490 200 - 950 Cells/uL Lymphocytes 17.6 % WBC 10.2 3.8 - 10.8 K/ul Plt Count 182 140 - 400 K/ul RBC 4.78 3.80 - 5.10 M/CMM Comprehensive Metabolic Panel Result Value Ref Range Calcium Lvl 10.2 8.6 - 10.4 mg/dL eGFR 64 > OR = 60 mL/min/1.73m2 Total Protein 8.0 6.1 - 8.1 g/dL Albumin Lvl 4.6 3.6 - 5.1 g/dL B/C Ratio SEE NOTE: 6 - 22 (CALC) Globulin 3.4 1.9 - 3.7 g/dL Albumin/Globulin Ratio 1.4 1.0 - 2.5 (CALC) Sodium Lvl 143 135 - 146 mMol/L Bilirubin Total 0.4 0.2 - 1.2 mg/dL Alkaline Phosphatase 118 37 - 153 unit/L Potassium Lvl 4.6 3.5 - 5.3 mMol/L AST 15 10 - 35 unit/L Glucose Lvl 93 65 - 99 mg/dL Chloride Lvl 107 98 - 110 mMol/L ALT 9 6 - 29 unit/L BUN 16 7 - 25 mg/dL CO2 Lvl 21 20 - 32 mMol/L Creatinine Lvl 1.03 0.50 - 1.03 mg/dL Valproic Acid Level Result Value Ref Range Valproic Acid Lvl 87.0 50.0 - 100.0 mg/L No MRI head results found for the past 12 months Assessment/PlanDiagnoses and all orders for this visit: Symptomatic localization-related epilepsy (HCC) Lumbar radiculopathy Paresthesia Other orders - venlafaxine XR (Effexor XR) 75 MG 24 hr capsule; Take 1 capsule by mouth 1 time each day. Do not crush or chew. - venlafaxine XR (Effexor XR) 150 MG 24 hr capsule; Take 1 capsule by mouth 1 time each day. Do not crush or chew. - gabapentin (Neurontin) 400 MG capsule; Take 1 capsule by mouth 1 time each day. - divalproex (Depakote) 250 MG EC tablet; Take 2 tablets by mouth in the morning and 2 tablets in the evening. Stable, continue present medications. [facility] [id number] 14:11:35 [facility] [id number] 14:11:35 Diagnosis Symptomatic localization-rel ated epilepsy (HCC) - Primary Lumbar radiculopathy Thoracic or lumbosacral neuritis or radiculitis, unspecified Paresthesia Disturbance of skin sensation [facility] [id number] 14:11:35 [place]
[2024-11-17] MEDS ORDERED: NA CHLORIDE 0.9% 1,000 ML ONE (22:33)
[2024-11-17 22:56] LABS: AST/SGOT 15 U/L (15-37); Albumin 4.2 g/dL (3.4-5.0); Albumin/Globulin Ratio 0.9 (1.1-1.8); Alkaline Phosphatase 123 U/L (45-117); Anion Gap 12.6 mEq/L (5.0-15.0); BUN Blood Urea Nitrogen 26 mg/dL (7-18); Bicarbonate 23 mEq/L (21-32); Bilirubin Total 0.5 mg/dL (0.2-1.0); Globulin 4.8 g/dL (2.3-3.5); Glomerular Filtration Rate 43 ml/min (=/>90); Glucose Level 119 mg/dL (74-106); Lipase 28 U/L (13-75); Potassium 3.6 mEq/L (3.5-5.1); Sodium Level 137 mEq/L (136-145)
[2024-11-17 22:59] LABS: ALT/SGPT < 14 U/L (13-56)
[2024-11-17 23:10] LABS: Absolute Lymphocytes (CBC) 2.4 K/uL (0.7-4.9); Absolute Monocytes 0.6 K/uL (0.1-1.3); Absolute Neutrophil 6.5 K/uL (1.8-8.0); Basophils % 0.2 % (0-1.3); Eosinophils % 0.5 % (0-4.4); Hematocrit 42.4 % (36.0-45.0); Hemoglobin 14.8 g/dL (12.0-15.0); MCH 32.1 pg (27.0-35.0); MCV 91.6 fL (80-100); MPV 9.5 fL (7.6-11.3); Monocytes % 6.5 % (3.3-12.3); Neutrophils % 67.8 % (41.7-73.7); Nucleated Red Blood Cells % 0.1 % (0-0); Platelets 161 thou/uL (152-406); RBC Red Blood Cell Count 4.63 M/uL (3.86-4.86); Red Cell Distribution Width 15.1 % (12.1-15.2)
[2024-11-17 23:46] LABS: Specific Gravity > 1.030 (1.005-1.030); Urine Bacteria <20 /HPF (<20); Urine Bilirubin NEGATIVE (Negative); Urine Blood 3+ (OVER) (Negative); Urine Clarity Extremely Turbid (Clear); Urine Color Light-Orange (Yellow); Urine Culture Reflex Order NOT NEEDED; Urine Glucose TRACE (Negative); Urine Ketones 1+ (Negative); Urine Microscopic Reflex YN ORDER UMIC; Urine Mucus 4+ /HPF (None Seen); Urine Nitrite NEGATIVE (Negative); Urine Protein 2+ (Negative); Urine RBC >50 /HPF (None Seen); Urine Urobilinogen 1+ (Normal)
--- NOTE | 2024-11-18 00:29 | RAD REPORT ---
ANGELINAM DESCRIPTION: CT ABDOMEN PELVIS WITH IV CONTRAST 11/17/2024 11:49 PM CDT CLINICAL HISTORY: 54 years, Female, Abdominal pain. COMPARISON: CT Abdomen Pelvis 01/07/2021. PROCEDURE: Contrast-enhanced images of the abdomen and pelvis were performed from the lung bases to the ischial tuberosities after the administration of IV contrast. In addition multiplanar reformats in the coronal and sagittal plane were obtained and reviewed. An individualized dose optimization technique, Automated Exposure Control, was utilized for the perfo rmed procedure. FINDINGS: Some of the images are comprised by motion artifact limiting diagnostic value. Lung bases: The lung bases demonstrate to be grossly unremarkable. Liver: The liver demonstrated presence of decreased attenuation corresponding to fatty infiltration. Gallbladder: Surgical clips within the gallbladder fossa corresponding to previous cholecystectomy. N o significant biliary duct dilatation. Adrenal glands: The adrenal glands demonstrate to be normal. Pancreas: The pancreas demonstrate to be normal. Spleen: The spleen demonstrate to be within normal limits. Kidneys: The kidneys demonstrate normal uptake of contrast media. There is no evidence for nephroli thiasis and/or hydronephrosis. There are small parapelvic midpole left renal cysts on axial image 34 GI: Grossly the unopacified stomach and small bowel bowel demonstrate to be within normal limits. No evidence for bowel dilatation and/or free air. The appendix is normal. The left-sided colon demonstrate to be decompressed with no gross abnormalities. : The urinary bladder demonstrate to be suboptimal distention. Genitalia: The uterus demonstrate to be within normal limits. There are normal adnexal structures. Abdominal aorta: The aorta demonstrate to be within normal limits. Retroperitoneum: There is no retroperitoneal lymphadenopathy. There is no evidence for ascites and/or abnormal fluid collections. Bones: The bony structures demonstrate to be within normal limits. No evidence for compression deform ity and/or significant skeletal lesions. Soft tissues: The soft tissues demonstrate to be unremarkable. IMPRESSION: Status post cholecystectomy. Fatty infiltration of the liver. No evidence for acute intra-abdominal process. Electronically signed by: Roger Doshi MD 11/18/2024 12:09 AM CDT RP Due to temporary technical issues with the PACS/[employer]umi[employer] reporting system, reports are being nereida d by the in-house radiologist without review as a courtesy to ensure prompt reporting the interpreting radiologist is fully responsible for the content of the report. Transcribed Date/Time: 11/18/2024 12:29 AM
--- NOTE | 2024-11-18 00:53 | ER ---
Nurse's Notes [facility] [place] Name: Emma Carranza Age: 54 yrs Sex: Female : 1970 Arrival Date: 11/17/2024 Time: 18:17 Bed 7 Private MD: Diagnosis: Abnormal uterine and vaginal bleeding, unspecified Presentation: 11/17 18:38 Chief complaint: brother states pt has been treated for a UTI, completed her abx, today iw she started having bleeding and the home health nurse told him it was vaginal bleeding , pt also c/o lower abd pain. Coronavirus screen: At this time, the client does not indicate any symptoms associated with coronavirus-19. Ebola Screen: No symptoms or risks identified at this time. Initial Sepsis Screen: Does the patient meet any 2 criteria? HR > 90 bpm. Does the patient have a suspected source of infection? No. Patient's initial sepsis screen is negative. Risk Assessment: Do you want to hurt yourself or someone else? Patient reports no desire to harm self or others. Onset of symptoms was November 17, 2024. 18:38 Method Of Arrival: Ambulatory iw 18:38 Acuity: YRAY 3 iw Historical: - Allergies: 18:40 Diphenhydramine; iw 18:40 Pseudoephedrine; iw 18:40 Sulfa (Sulfonamide Antibiotics); iw - PMHx: 18:40 High Cholesterol; mental retardation; Seizures; iw - PSHx: 18:40 Cholecystectomy; iw - Immunization history:: Adult Immunizations up to date. - Infectious Disease History:: Denies. - Social history:: Smoking status: Patient denies any tobacco usage or history of. Screenin:38 [facility] ED Fall Risk Assessment (Adult) History of falling in the last 3 months, bm8 including since admission Yes- physiologic fall (2 pts) Confusion or Disorientation No (0 pts) Intoxicated or Sedated No (0 pts) Impaired Gait Yes (1 pt) Mobility Assist Device Used Yes (1 pt) Altered Elimination No (0 pt) Score/Fall Risk Level 3 or more points = High Risk Oriented to surroundings, Maintained a safe environment, Educated pt \T\ family on fall prevention, incl call for assistance when getting out of bed, Assessed \T\ reinforced patient's understanding of fall precautions, Hourly rounding (assess needs \T\ fall precautionary measures) done, Used ambulatory aids as needed (educated on \T\ assisted with), Used gait belt as appropriate Implemented a Fall Risk Plan of Care. Abuse screen: Denies threats or abuse. Nutritional screening: No deficits noted. Tuberculosis screening: No symptoms or risk factors identified. Assessment: 22:38 General: Appears in no apparent distress. comfortable, Behavior is calm, cooperative, bm8 appropriate for age. Pain: Complains of pain in abdomen Pain currently is 5 out of 10 on a pain scale. Neuro: Level of Consciousness is awake, alert, obeys commands, Oriented to person, place, situation, Appropriate for age. Cardiovascular: Denies chest pain, Heart tones S1 S2 present Capillary refill < 3 seconds in bilateral fingers Patient's skin is warm and dry. Respiratory: Airway is patent Respiratory effort is even, unlabored, Respiratory pattern is regular, symmetrical, Breath sounds are clear bilaterally. GI: Abdomen is flat, non-distended, Bowel sounds present X 4 quads. Reports lower abdominal pain, Pain is 5 out of 10 on a pain scale. : waiting for PT to urinate Reports pain in suprapubic area vaginal bleeding that is bright red. EENT: No signs and/or symptoms were reported regarding the EENT system. Derm: No signs and/or symptoms reported regarding the dermatologic system. Musculoskeletal: No signs and/or symptoms reported regarding the musculoskeletal system. 23:30 Reassessment: Patient appears in no apparent distress at this time. No changes from bm8 previously documented assessment. Patient and/or family updated on plan of care and expected duration. Pain level reassessed. Patient is alert, oriented x 3, equal unlabored respirations, skin warm/dry/pink. 05/ 00:38 Reassessment: Patient appears in no apparent distress at this time. No changes from bm8 previously documented assessment. Patient and/or family updated on plan of care and expected duration. Pain level reassessed. Patient is alert, oriented x 3, equal unlabored respirations, skin warm/dry/pink. 01:14 Reassessment: Patient appears in no apparent distress at this time. Patient and/or bm8 family updated on plan of care and expected duration. Pain level reassessed. Patient is alert, oriented x 3, equal unlabored respirations, skin warm/dry/pink. Patient denies pain at this time. Patient states feeling better. Patient states symptoms have improved. Vital Signs: 11/17 18:38 BP 132 / 94; Pulse 107; Resp 19; Temp 97.5; Pulse Ox 96% on R/A; Weight 88.9 kg; Height iw 5 ft. 6 in. ; 22:38 BP 122 / 84; Pulse 92; Resp 18; Temp 97.5; Pulse Ox 100% ; Pain 5/10; bm8 23:30 BP 148 / 94; Pulse 97; Resp 18; Temp 97.5; Pulse Ox 100% ; Pain 5/10; bm8 11/18 00:38 BP 113 / 74; Pulse 77; Resp 18; Temp 97.6; Pulse Ox 98% ; Pain 3/10; bm8 01:16 BP 133 / 86; Pulse 89; Resp 18; Temp 97.7; Pulse Ox 99% ; Pain 0/10; bm8 11/17 18:38 Body Mass Index 31.63 (88.90 kg, 167.64 cm) iw 22:38 Pain Scale: Adult bm8 23:30 Pain Scale: Adult bm8 11/18 00:38 Pain Scale: Adult bm8 01:16 Pain Scale: Adult bm8 [place] Coma Score: 11/17 22:38 Eye Response: spontaneous(4). Motor Response: obeys commands(6). Verbal Response: bm8 oriented(5). Total: 15. 23:30 Eye Response: spontaneous(4). Motor Response: obeys commands(6). Verbal Response: bm8 oriented(5). Total: 15. 11/18 00:38 Eye Response: spontaneous(4). Motor Response: obeys commands(6). Verbal Response: bm8 oriented(5). Total: 15. 01:16 Eye Response: spontaneous(4). Motor Response: obeys commands(6). Verbal Response: bm8 oriented(5). Total: 15. ED Course: 11/17 18:23 Patient arrived in ED. im 18:27 Maritza Rogers PA-C is PHCP. sb4 18:27 Silvia Nelson MD is Attending Physician. sb4 18:40 Triage completed. iw 18:40 Arm band placed on. iw 20:07 Attending Physician role handed off by Silvia Nelson MD sailaja 20:07 Long Santiago MD is Attending Physician. sailaja 21:32 Jaya Wellington, RN is Primary Nurse. bm8 22:38 Patient has correct armband on for positive identification. Bed in low position. Call bm8 light in reach. Side rails up X 1. Adult w/ patient. Client placed on continuous cardiac and pulse oximetry monitoring. NIBP monitoring applied. Pulse ox on. NIBP on. Door closed. Noise minimized. Warm blanket given. Pillow given. Verbal reassurance given. Head of bed elevated. 22:38 Assist provider with pelvic exam: Set up pelvic tray. Performed by Maritza Rogers PA-C. bm8 Inserted saline lock: 20 gauge in right upper arm, using aseptic technique. Blood collected. Flushed with 10 mL NS. Patient maintains SpO2 saturation greater than 95% on room air. 23:26 CT Abd/Pelvis - IV Contrast Only In Process Unspecified. EDMS 11/18 00:52 Emily Sales MD is Referral Physician. sb4 01:16 Provided Education on: post er care. bm8 01:16 IV discontinued, intact, bleeding controlled, No redness/swelling at site. Pressure bm8 dressing applied. Administered Medications: 11/17 22:41 Drug: NS 0.9% IV 1000 ml IV at 1000 ml once; to be given as a bolus over 60 minutes bm8 Route: IV; Rate: 1000 ml; Site: right upper arm; 11/18 01:14 Follow up: Response: No adverse reaction; IV Status: Completed infusion bm8 01:10 Drug: tranexamic acid IV 1000 mg IV at calculated rate once; IV once over 20 minutes bm8 Route: IV; Rate: calculated rate; Site: right antecubital; 01:17 Follow up: Response: No adverse reaction; IV Status: Completed infusion bm8 Medication: 11/17 22:38 VIS not applicable for this client. bm8 Outcome: 11/18 00:52 Discharge ordered by . sb4 01:16 Discharged to home ambulatory, with family, bm8 01:16 Condition: stable 01:16 Discharge instructions given to patient, family, Instructed on discharge instructions, follow up and referral plans. no drinking with medication, no driving heavy equipment, medication usage, safety practices, Demonstrated understanding of instructions, follow-up care, medications, Prescriptions given X 1, 01:21 Patient left the ED. bm8 Signatures: Dispatcher [employer] Long Callaway MD MD cha Williams, Irene, RN RN Maritza Browning PA-C PA-C sb4 Rachana Herr Brad, RN RN bm8
--- NOTE | 2024-11-18 00:53 | EDPHYS ---
Physician Documentation [facility] Name: Emma Carranza Age: 54 yrs Sex: Female : 1970 Arrival Date: 11/17/2024 Time: 18:17 Bed 7 Private MD: Long Peters HPI: 11/18 00:59 This 54 yrs old Female presents to ER via Ambulatory with complaints of Vaginal sb4 Bleeding. 00:59 vaginal bleeding x 3 days. has been post menopausal for at least 10 years. has not had sb4 routine gynecologic care. reports diffuse abdominal pain. no n/v/d. was recently treated for a UTI with cipro. not on any blood thinners. Historical: - Allergies: 11/17 18:40 Diphenhydramine; iw 18:40 Pseudoephedrine; iw 18:40 Sulfa (Sulfonamide Antibiotics); iw - PMHx: 18:40 High Cholesterol; mental retardation; Seizures; iw - PSHx: 18:40 Cholecystectomy; iw - Immunization history:: Adult Immunizations up to date. - Infectious Disease History:: Denies. - Social history:: Smoking status: Patient denies any tobacco usage or history of. ROS: 11/18 00:59 Positive for vaginal bleeding, sb4 Constitutional: Negative for fever, chills, and weight loss, All other systems are negative, Exam: 00:59 Constitutional: This is a well developed, well nourished patient who is awake, alert, sb4 and in no acute distress. Head/Face: Normocephalic, atraumatic. Eyes: Extra-ocular motions intact. Periorbital areas with no swelling, redness, or edema. ENT: Mucous membranes moist. Cardiovascular: Regular rate and rhythm with a normal S1 and S2. Respiratory: No increased work of breathing, no retractions or nasal flaring. Abdomen/GI: Soft, non-tender, no distension. 01:00 : Pelvic Exam: External exam: is normal, Speculum exam: moderate bleeding, no sb4 cervicitis, os that is closed, discharge, is not appreciated, a female cable television access coordinator was present for the exam, Vital Signs: 11/17 18:38 BP 132 / 94; Pulse 107; Resp 19; Temp 97.5; Pulse Ox 96% on R/A; Weight 88.9 kg; Height iw 5 ft. 6 in. ; 22:38 BP 122 / 84; Pulse 92; Resp 18; Temp 97.5; Pulse Ox 100% ; Pain 5/10; bm8 23:30 BP 148 / 94; Pulse 97; Resp 18; Temp 97.5; Pulse Ox 100% ; Pain 5/10; bm8 11/18 00:38 BP 113 / 74; Pulse 77; Resp 18; Temp 97.6; Pulse Ox 98% ; Pain 3/10; bm8 01:16 BP 133 / 86; Pulse 89; Resp 18; Temp 97.7; Pulse Ox 99% ; Pain 0/10; bm8 11/17 18:38 Body Mass Index 31.63 (88.90 kg, 167.64 cm) iw 22:38 Pain Scale: Adult bm8 23:30 Pain Scale: Adult bm8 11/18 00:38 Pain Scale: Adult bm8 01:16 Pain Scale: Adult bm8 [place] Coma Score: 11/17 22:38 Eye Response: spontaneous(4). Motor Response: obeys commands(6). Verbal Response: bm8 oriented(5). Total: 15. 23:30 Eye Response: spontaneous(4). Motor Response: obeys commands(6). Verbal Response: bm8 oriented(5). Total: 15. 11/18 00:38 Eye Response: spontaneous(4). Motor Response: obeys commands(6). Verbal Response: bm8 oriented(5). Total: 15. 01:16 Eye Response: spontaneous(4). Motor Response: obeys commands(6). Verbal Response: bm8 oriented(5). Total: 15. MDM: 11/17 18:31 Medical Screening Exam initiated sb4 11/18 01:00 Data reviewed: vital signs, nurses notes. sb4 01:00 Differential diagnosis: saman infection, cervicitis, endometriosis, malignancy, sb4 uterine cancer Neoplasm uterine fibroids, urinary tract infection. Historians other than the Patient: brother. Counseling: I had a detailed discussion with the patient and/or guardian regarding the historical points, exam findings, and any diagnostic results supporting the discharge/admit diagnosis, lab results, radiology results, the need for outpatient follow up, an OB/Gyne specialist, to return to the emergency department if symptoms worsen or persist or if there are any questions or concerns that arise at home. 11/17 21:58 Order name: CBC with Diff sb4 11/17 21:58 Order name: CMP; Complete Time: 23:00 sb4 11/17 21:58 Order name: Lipase; Complete Time: 23:00 sb4 11/17 21:58 Order name: UA Rfx Chano Cult if indicated; Complete Time: 23:48 sb4 11/17 23:14 Order name: Manual Differential EDMS 11/17 21:58 Order name: CT Abd/Pelvis - IV Contrast Only sb4 11/17 21:58 Order name: IV Saline Lock; Complete Time: 22:38 sb4 11/17 21:58 Order name: Labs collected and sent; Complete Time: 22:38 sb4 11/17 21:58 Order name: Pelvic Exam Setup; Complete Time: 22:38 sb4 Administered Medications: 11/17 22:41 Drug: NS 0.9% IV 1000 ml IV at 1000 ml once; to be given as a bolus over 60 minutes bm8 Route: IV; Rate: 1000 ml; Site: right upper arm; 11/18 01:14 Follow up: Response: No adverse reaction; IV Status: Completed infusion bm8 01:10 Drug: tranexamic acid IV 1000 mg IV at calculated rate once; IV once over 20 minutes bm8 Route: IV; Rate: calculated rate; Site: right antecubital; 01:17 Follow up: Response: No adverse reaction; IV Status: Completed infusion bm8 Disposition Summary: 11/18/24 00:52 Discharge Ordered Notes: Location: Home sb4 Problem: an ongoing problem sb4 Symptoms: are unchanged sb4 Condition: Stable sb4 Diagnosis - Abnormal uterine and vaginal bleeding, unspecified sb4 Followup: sb4 - With: Emily Sales MD - When: 1 week - Reason: Further diagnostic work-up, Recheck today's complaints, Re-evaluation by your physician Discharge Instructions: - Discharge Summary Sheet sb4 - Abnormal Uterine Bleeding, [id number] sb4 - Postmenopausal Bleeding, [id number] sb4 Forms: - Patient Portal Instructions sb4 - Leadership Thank You Letter sb4 Prescriptions: - Sprintec (28) 0.25-0.035 mg Oral tablet - take 1 tablet ORAL route daily; 28 tablet; Refills: 0, Product Selection sb4 Permitted Signatures: Dispatcher [employer] Leatha Mai RN Maritza Francis, ENMANUEL SINGER sb4 Jaya Wellington RN RN bm8 Corrections: (The following items were deleted from the chart) 01:01 00:59 Constitutional: This is a well developed, well nourished patient who is awake, sb4 alert, and in no acute distress. Head/Face: Normocephalic, atraumatic. Eyes: Extra-ocular motions intact. Periorbital areas with no swelling, redness, or edema. ENT: Mucous membranes moist. Cardiovascular: Regular rate and rhythm with a normal S1 and S2. Respiratory: No increased work of breathing, no retractions or nasal flaring. Abdomen/GI: Soft, non-tender, no distension. sb4
[2024-11-18] MEDS ORDERED: TRANEXAMIC ACID 1,000 MG/10 ML VIAL IV ONE (01:03)
[2024-11-18] MEDS ORDERED: NA CHLORIDE 0.9% 100 ML ONE (01:04)
[2024-11-18 01:24] LABS: Band Neutrophils 6 % (0-1); Differential Total Cells Count 100; Lymphocytes 28 % (15-42); Monocytes 3 % (0-10); Reactive Lymphocytes 4 %; Segmented Neutrophils 59 % (40-80)
[2024-11-18 01:25] LABS: Blood Morphology Comment NOT SEEN (NOT SEEN); Platelet Estimate ADEQ
[2024-11-18 01:50] VITALS: BP 133/86; TEMP 97.7; O2SAT 99
== END 2024-11-18 01:21 | disposition home or self-care (01) ==
LOC: ER 18:17
DX: N93.9 Abnormal uterine and vaginal bleeding, unspecified (principal)
CPT/HCPCS: 96361; 85025; 81001; 36415; 83690; 80053; 74177; 96374; 99284; Q9967; J7030